=== PATIENT | female | born 1960 | race Caucasian/White ===

== ENCOUNTER → 2020-08-12 10:04 | Outpatient (BNVA) | payer SELFPAY | PROVIDERS: PCP Internal Medicine; Visit Provider Internal Medicine ==

== ENCOUNTER → 2021-08-12 09:00 | Outpatient (BNVA) | payer SELFPAY | PROVIDERS: PCP Internal Medicine; Visit Provider Internal Medicine | DX: Z02.79 Encounter for issue of other medical certificate (principal) ==

== ENCOUNTER → 2022-08-09 12:56 | Outpatient (BNVA) | payer SELFPAY | PROVIDERS: PCP Internal Medicine; Visit Provider Internal Medicine | DX: Z02.79 Encounter for issue of other medical certificate (principal) ==

== ENCOUNTER → 2023-08-09 09:56 | Outpatient (BNVA) | payer SELFPAY | PROVIDERS: PCP Internal Medicine; Visit Provider Physician Assistant | DX: Z02.79 Encounter for issue of other medical certificate (principal) ==

== ENCOUNTER → 2024-08-09 10:23 | Outpatient (BNVA) | payer SELFPAY | PROVIDERS: PCP Internal Medicine; Visit Provider Physician Assistant | DX: Z02.79 Encounter for issue of other medical certificate (principal) ==

== ENCOUNTER 2024-09-13 10:23 | Outpatient (REF) | payer OTHER, SELFPAY ==
--- NOTE | ~2024-09-13 | XR_ITS ---
EXAMINATION: XR LUMBAR SPINE CLINICAL INFORMATION: Spondylolisthesis, lumbar region M43.16. COMPARISON: None TECHNIQUE: AP and lateral views of the lumbar spine including lateral flexion and extension FINDINGS: There is a levoscoliosis of the lower thoracic and upper lumbar spine. Normal vertebral body heights is seen. There is a grade 1 anterolisthesis of L4 3 on L4 of approximately 1.3 cm on the neutral view which does not significantly change with flexion or extension. Diffuse degenerative disc disease is seen from L2 through S1. Severe posterior facet joint arthropathy is seen at L3/L4 causing the anterolisthesis. Additional facet joint arthropathy is seen at the L4/5 and L5/S1, left greater than right XR/XR lumbar spine 4V min IMPRESSION: 1. Grade 1 anterolisthesis of L3 on L4 secondary to severe posterior facet joint arthropathy. 2. Diffuse degenerative disc disease. 3. Facet joint arthropathy as described above. Electronically signed by: Devan Wilkerson MD 09/24/2024 01:02 PM [facility]
== END 2024-09-13 10:24 | disposition home or self-care (01) ==
LOC: HO.HOSX 10:23
PROVIDERS: PCP Internal Medicine; Referring Provider Internal Medicine; Visit Provider Physician Assistant
DX: M43.16 Spondylolisthesis, lumbar region (principal)
CPT/HCPCS: 72110

== ENCOUNTER 2024-09-13 10:23 | Outpatient (AMB) | payer OTHER, SELFPAY ==
--- NOTE | 2024-09-13 10:34 | A.SPINEOV_ITS ---
Vital Signs 09/13/24 10:38 Height 5 ft 4 in Weight 253 lb BMI 43.4 Intake Visit Reasons: LBP Intake Note: Ms. Ng is here today c/o low back pain. Cra Required: No Allergies No Known Allergies Allergy (Verified 09/13/24 10:39) Physical Exam Vital Signs: BMI result Body Mass Index 43.4 Assessment & Plan Assessment & Plan (1) Spondylolisthesis, lumbar region: Code(s): M43.16 - Spondylolisthesis, lumbar region Category: Medical Plan Dear DR Ruth, Thank you for referring Mrs Ng to our office today. She is a very nice 63-year-old female who underwent lumbar decompression by Dr. Bravo in 2016. It sounds like she had an L3-4 and L4-5 decompression for what was primarily back pain at that time. Unfortunately, she never really had significant relief from her symptoms. She has continued to just try to push through it, and deal with the pain. Over the last few years she has also developed a significant amount of leg pain, left greater than right. It shoots all the way down to her calf and her foot. She has gotten to the point now over the last 6 months to a year where she barely leaves the house to go out do even simple things like shopping because it is just too painful. What she describes as midline low back pain radiating down both legs, left greater than right. Even standing just to do dishes is often. From the morning when she gets up throughout the whole day she is in discomfort. She has been taking Tylenol and ibuprofen but that does not really do much. 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 She has been through physical therapy, hospice spiritual care coordinator as well as cortisone injections. She has it had a number of rounds of injections, I believe facet blocks and these did give her some temporary relief for short period of time. She is very frustrated with her quality of life at this point. She had an MRI from [facility] last year showing moderate to severe stenosis at L3-4 with an anterior listhesis at L3-4 as well as postsurgical changes at L4-5 with residual stenosis. PMH: She is a history of obesity, COPD, she takes a Symbicort inhaler twice a day, IBS, sleep apnea, tubal ligation, tonsillectomy, appendectomy, basal cell cancer. As mentioned above she does have previous history of back surgery in 2016. No history of heart attack, stroke, liver disease, kidney disease, coagulopathy, blood clots, cancer, major abdominal surgery. Social hx: She does not smoke, drink use any recreational drugs Medications: Primidone, Symbicort, oxycodone, BuSpar, Tylenol, ibuprofen Allergies: None Physical exam: She is awake alert oriented no acute distress, she is able stand up out of a chair and walk, she walks with a slightly flexed posture, strength and reflexes are intact. Imaging review: There is a report from the [employer] system, I could not see the films but it shows postsurgical changes at L3-4 with residual moderate to severe stenosis with an anterior listhesis at L3-4 as well as postsurgical changes at L4-5 with lateral recess stenosis. Impression: 63-year-old female history of a previous L3-4, L4-5 decompression done by in 2016 for back pain, who never really had great relief for the symptoms at that time, who has progressed now to severe back pain and bilateral leg pain, left greater than right with standing walking. It does get better when she sits down. Her most recent MRI done about a year and a half ago shows spondylolisthesis at L3-4 with moderate to severe stenosis superimposed on postsurgical changes with similar findings at L4-5. I was unable to look at the films due to some technical complications with the computer system. However, in light of the fact that she has had such a progression of her symptoms over the last year more, I think it important we get a new MRI with and without gadolinium so we can take a closer look at the lumbar anatomy up to date. It sounds like she might be developing a postoperative spondylolisthesis at the previous surgical site with stenosis. If this is the case, typically this is something Dr. Milligan could correct with a minimally invasive fusion. Obviously we will need to see the films. Also I will get flexion-extension x- rays. I would like to see her back in the office once these are completed. Thank you for allowing us to care for your patient. The total time spent with this visit with this patient was 45 minutes reviewing history, physical exam, lumbar imaging review, and implementation of treatment plan or further diagnostic testing Naun Milligan MD,PhD [facility] Orders: Orders MR lumbar spine wo/w con Today M43.16 - Spondylolisthesis, lumbar region XR lumbar spine 4V min Today M43.16 - Spondylolisthesis, lumbar region Coding Level of Care Code New Pt Level 4 (43806) Diagnoses Spondylolisthesis, lumbar region M43.16
[2024-09-13 10:38] VITALS: BMI 43.4
== END 2024-09-13 11:48 | disposition home or self-care (01) ==
PROVIDERS: PCP Internal Medicine; Referring Provider Internal Medicine; Visit Provider Physician Assistant
DX: M43.16 Spondylolisthesis, lumbar region (principal)
CPT/HCPCS: 99204

== ENCOUNTER → 2024-10-28 09:49 | Outpatient (BNV) | payer MEDICARE, SELFPAY | PROVIDERS: Visit Provider Radiology Diagnostic Radiology | DX: M47.9 Spondylosis, unspecified (principal); M48.061 Spinal stenosis, lumbar region without neurogenic claudication | CPT/HCPCS: 72158 ==

== ENCOUNTER 2024-10-28 10:17 | Outpatient (REF) | payer MEDICARE, SELFPAY ==
--- NOTE | ~2024-10-28 | MR_ITS ---
EXAMINATION: MR LUMBAR SPINE WITHOUT AND WITH CONTRAST CLINICAL INFORMATION: Spondylolisthesis, lumbar region. COMPARISON: None available. TECHNIQUE: MRI of the lumbar spine was obtained using routine sequences with and without contrast. Intravenous contrast: Gadavist 10.0 mL without reported immediate complications. FINDINGS: Last rib-bearing vertebra labeled T12. There is a grade 1 anterolisthesis, L3-4. There is a 1 mm retrolisthesis at L5-S1 and to a lesser extent L2-3 and L4-5 levels. There is multilevel marginal osteophyte formation and disc desiccation from L2-3 to L5-S1 more conspicuous at L4-5. There is multilevel Modic type I and type II endplate changes throughout the axial skeleton. No gross abnormal enhancing lesion within the thecal sac or the prevertebral compartment. There is a levoconvex rotoscoliosis apex at L2 and dextroconvex rotoscoliosis apex at L3-4. The conus medullaris ends at pedicle of L1 with normal signal. T12-L1: No disc herniation. Facet joint hypertrophy. No neuroforamina stenosis. L1-2: Broad-based disc bulging. Facet joint and ligamentum flavum hypertrophy. Reduced AP diameter of the thecal sac and neuroforamina without compression upon neural elements. L2-3: Broad-based disc bulging. Facet joint and ligamentum flavum hypertrophy. Reduced AP diameter of the thecal sac and bilateral neuroforamina narrowing likely encroaching the neural elements. L3-4: Grade 1 anterolisthesis. Broad-based disc bulging. Facet joint hypertrophy. Facet effusions. Reduced AP diameter of the thecal sac and bilateral neuroforamina narrowing likely encroaching the neural elements. L4-5: Broad-based disc bulging. Facet joint hypertrophy. Status post resection of the posterior spinous processes. Bilateral neuroforamina narrowing more conspicuous on the left side likely encroaching the exiting nerve root. Reduced AP diameter of the thecal sac. L5-S1: Broad-based disc bulging. Facet joint hypertrophy. Facet joint effusions. Reduced AP diameter of the thecal sac and the neural foramina more conspicuous in the left side likely encroaching the exiting nerve roots. MR/MR lumbar spine wo/w con IMPRESSION: Multilevel spondylosis resulting in grade 1 anterolisthesis L3-4 subtle grade 1 retrolisthesis L2-3, L5-S1 causing multilevel central spinal canal stenosis more conspicuous at L3-4 and left-sided neuroforamina stenosis from L2-3 to L5-S1 levels likely encroaching the neural elements. No gross abnormal enhancing lesion/mass or fluid collections. Electronically signed by: Dudley Rooney MD 10/28/2024 12:46 PM [facility]
[2024-10-28] MEDS: gadobutroL 10 ML VIAL IVPUSH (12:04)
--- OUTSIDE RECORDS SUMMARY | 2024-10-28 14:56 | XMS_ITS | Encounter Summary ---
Author Organization [employer] Address [address] [place] [address] [address] [place] [address] Care Team Providers Care Hat Checker Name Role Phone Unavailable Primary Care Provider Unavailabl e Encounter Details Date Type Department Care Team (Late st Contact Info) Description 06/04/2024 Orders Only [facility] [address] [place] [address] Mildred Joy, OD [address] [place] [address] Social History Tobacco Use Types Packs/Day Years Used Date Smoking Tobacco: Former Cigarettes Comments Unknown Sex and Gender Information Value Date Recorded Sex Assigned at Female 05/22/2024 4:46 PM EDT Legal Sex Female 8:32 PM EDT Gender Identity Female 05/22/2024 4:46 PM EDT Sexual Orientation Straight 05/22/2024 4: 46 PM EDT documented as of this encounter Plan of Treatment Not on file documented as of this encounter Visit Diagnoses Not on filedocumented in this encounter Care Teams Hat Checker Relationship Specialty Start Date End Date SHAGGY HANEY MANUEL [address] [place] [address] ?? Primary Care Provider 10/02/23 documented as of this encounter
--- OUTSIDE RECORDS SUMMARY | 2024-10-28 14:56 | XMS_ITS | Clinical Summary ---
Author Organization [employer] Address [address] [place] [address] [address] [place] [address] Care Team Providers Care Shim Plug Cutter Name Role Phone Unavailable Primary Care Provider Unavailabl e Allergies No known active allergies Medications No known medications Active Problems No known active problems Family History Medical History Relation Name Comments Glaucoma Father Glaucoma Glaucoma Mother Glaucoma Relation Name Status Comments Father Glaucoma Mother Glaucoma Social History Tobacco Use Types Packs/Day Years Used Date Smoking Tobacco: Former Cigarettes Tobacco Cessation:Counseling Given: Not Answered Comments Unknown Sex and Gender Information Value Date Recorded Sex Assigned at Female 05/22/2024 4:46 PM EDT Legal Sex Female 8:32 PM EDT Gender Identity Female 05/22/2024 4:46 PM EDT Sexual Orientation Straight 05/22/2024 4: 46 PM EDT Plan of Treatment Health Maintenance Due Date Last Done Comments CT Colonography 1959 Colonoscopy 1959 Colorectal Cancer Screening 1959 Depression Screening 1959 FIT DNA/Cologuard 1959 FIT 1959 FOBT 1959 Lipid Panel 1959 SDOH Screening 1959 Sigmoidoscopy 1959 Alcohol/Substance Use Screening 1971 Hepatitis C Screening 1977 Hepatitis A Vaccines (1 of 2 - Risk 2-dose series) 1978 Pap Smear 1980 Cervical Cancer Screening 1989 HPV/Cotest 1989 Mammogram 1999 Pneumococcal Vaccine: 65+ Years (2 of 2 - PCV) 11/23/2005 11/23/2004 Zoster Vaccines (1 of 2) 2009 Hepatitis B Vaccines (1 of 3 - Risk 3-dose series) 2019 RSV Patients and Patients Aged 60 years or older (1 - Risk 60-74 years 1-dose series) 2019 DTaP/Tdap/Td Vaccines (2 - Td or Tdap) 04/30/2024 04/30/2014, 03/21/2005 COVID-19 Vaccine ( season) 2024 10/07/2021, 01/10/2021, 12/20/2020 Influenza Vaccine (#1) 2024 , 09/09/2020, 09/09/2020, Additional history exists Tobacco Screening 06/04/2025 06/04/2024 HIB Vaccines Aged Out No longer eligi ble based on patient's age to complete this topic HPV Vaccines Aged Out No longer eligi ble based on patient's age to complete this topic IPV Vaccines Aged Out No longer eligi ble based on patient's age to complete this topic Meningococcal Vaccine Aged Out No rock tamie eligible based on patient's age to complete this topic RSV under 20 months Aged Out No longe r eligible based on patient's age to complete this topic Rotavirus Vaccines Aged Out No longer eligible based on patient's age to complete this topic Insurance [facility] , [address] [place] [address] Care Teams Shim Plug Cutter Relationship Specialty Start Date End Date SHAGGY HANEY [address] [address] ?? Primary Care Provider 10/02/23
--- OUTSIDE RECORDS SUMMARY | 2024-10-28 14:56 | XMS_ITS | Clinical Summary ---
Author Organization [facility] [address] [facility] Address [address] [place], [place] Phone Care Team Providers Care Drapery Examiner Name Role Phone Shyam Ruth MD Primary Care Provider Allergies No known active allergies Medications Medication Sig Dispensed Refills Start Date End Date Status nystatin (MYCOSTATIN) 100,000 unit/gram powder Apply topically 3 (three) times a day. Abdominal rash 3 Active buPROPion XL (WELLBUTRIN XL) 150 mg 24 hr tablet Take 1 tablet (150 mg total) by mouth 1 (one) time each day. In addition to 300mg every am. 3 Active buPROPion XL (WELLBUTRIN XL) 300 mg 24 hr tablet Take 1 tablet (300 mg total) by mouth 1 (one) time each day. In addition to 150mg every am. 3 Active omeprazole (PriLOSEC) [address] capsule Take 1 capsule (20 mg total) by mouth 1 (one) time each day. 1 Active miscellaneous medical supply misc CPAP Historical (HISTORICAL CPAP) Inhale into the lungs. BHIR-pressure 10-20 with 2 liter oxygen Active acetaminophen (TYLENOL 8 HOUR) 650 mg 8 hr tablet Take 1 tablet (650 mg total) by mouth every 8 (eight) hours if needed (pain). Do not crush, chew, or split. Active albuterol HFA (PROAIR HFA ; PROVENTIL HFA ; VENTOLIN HFA) 90 mcg/actuation inhaler Inhale 2 puffs by mouth every 4 (four) hours if needed for wheezing or shortness of breath. 8 g 3 4 Active albuterol 2.5 mg /3 mL (0.083 %) nebulizer solution Take 3 mL by nebulization every 4 (four) hours if needed for wheezing. 75 mL 2 4 Active Symbicort 160-4.5 mcg/actuation inhalerIndicati ons:Obstructive sleep apnea (adult) (pediatric),Astrid trilobular emphysema (CMS/HCC) INHALE 2 PUFFS INTO THE LUNGS TWICE A DAY 10.2 each 5 4 Active primidone (MYSOLINE) 50 mg tablet TAKE 3 TABLETS BY MOUTH AT BEDTIME 270 tablet 5 Active oxyCODONE-aceta minophen (PERCOCET) 5-325 mg per tablet Take 1 tablet by mouth every 12 (twelve) hours if needed for moderate pain or severe pain. Max Daily Amount: 2 tablets 56 tablet 4 Active primidone (MYSOLINE) 50 mg tablet Take 3 tablets (150 mg total) by mouth at bedtime. 10/03/19 25 Discontinued oxyCODONE-aceta minophen (PERCOCET) 5-325 mg per tablet Take 1 tablet by mouth every 12 (twelve) hours if needed for moderate pain or severe pain. Max Daily Amount: 2 tablets 56 tablet 4 09/30/20 24 Discontinued(Reo rder) Active Problems Problem Noted Date Diagnosed Date Metabolic dysfunction-associ ated steatotic liver disease (MASLD) 08/22/2024 Morbid obesity with BMI of 40.0-44.9, adult 07/02 Intertriginous candidiasis 02/21/2024 History of lumbar laminectomy 11/30/2023 History of basal cell carcinoma 11/30/2023 Overview (08/22/2024): Left forearm excised 2023. Osteoarthritis of spine with radiculopathy, lumb ar region 03/29/2023 Overlap syndrome 06/05/2018 Centrilobular emphysema 06/05/2018 Primary osteoarthritis of both knees 01/30/2018 Nonulcer dyspepsia 11/16/2017 IBS (irritable bowel syndrome) 11/16/2017 Obstructive sleep apnea 06/10/2017 Overview (07/11/2024): Obstructive sleep apnea moderate AHI 19/REM AHI 27 with sleep related hypoventilation PLMD (periodic limb movement disorder) 7 Asthma, well controlled 06/06/2012 Overview (07/11/2024): Asthma, moderate persistent, well-controlled Depression 03/02/2012 Nausea 02/16/2011 Overview (11/30/2023): EGD nl 02/08; H pylori Ab neg; phenergan no benefit; celiac nl Hidradenitis suppurativa 02/16/2011 Overview (11/30/2023): groin Allergic rhinitis 01/25/2011 DUB (dysfunctional uterine bleeding) 12/01/2010 Overview (11/30/2023): Endometrial biopsy performed on 12/14/2010: Benign; patient started on the oral contraceptive on 12/24/2010. 05/26/2011: Good response to the oral contraceptive. Resolved Problems Problem Noted Date Diagnosed Date Resolved Date NAFLD (nonalcoholic fatty liver disease) 11/16/2017 08/22/2024 Encounters Date Type Department Care Team Description 09/03/2024 11:15 AM EST Office Visit Adult Medicine [address] [phone] Shyam Ruth MD Chest pain, unspecified type (Primary Dx); Centrilobular emphysema (CMS/HCC); Pain of toe of right foot 08/28/2024 Telephone Adult Medicine [address] [phone] Shyam Ruth MD 08/28/2024 Telephone Adult [address] [phone] Shyam Ruth MD ER-FOLLOW UP 08/22/2024 11:00 AM EST Office Visit Adult [address] [phone] Shyam Ruth MD Encounter for long-term current use of high risk medication (Primary Dx); PLMD (periodic limb movement disorder); Centrilobular emphysema (CMS/HCC); Osteoarthritis of spine with radiculopathy, lumbar region; Encounter for screening for malignant neoplasm of colon; Need for vaccination against Streptococcus pneumoniae; Need for prophylactic vaccination and inoculation against influenza; Need for tetanus, diphtheria, and acellular pertussis (Tdap) vaccine; History of basal cell carcinoma (BCC) of skin; Encounter for screening for HIV; Encounter for completion of form with patient; History of basal cell carcinoma 08/22/2024 Telephone Adult Medicine [address] [phone] Shyam Ruth MD Forms/questionnaires from Last 3 Months Immunizations Name Administration Dates Next Due Influenza Quadravalent, MDCK , 0.5ml, preservative free (Flucelvax) 6mo and older 07/03/2023 Influenza Quadravalent, MDCK , 0.5ml, with preservative (Flucelvax) 6mo and older 07/26/2017 Influenza trivalent, MDCK, 0 .5mL, preservative free (Flucelvax) 6mo and older 08/22/2024 Influenza trivalent, with pr eservative (Fluzone; Afluria) 6mo and older 09/09/2020,10/01/2015,08/14/2013,08/25,07/27/2011,09/29/2005 Moderna SARS-CoV-2 COVID-19, mRNA, LNP-S, preservative free 10/07/2021 Pfizer SARS-CoV-2 COVID-19, mRNA, LNP-S, preservative free 01/10/2021,12/20/2020 Pneumococcal conjugate 20 va lent (Prevnar 20, PCV 20) 2mo and older 08/22/2024 Pneumococcal polysaccharide 23 valent (Pneumovax 23) 2yo and older 11/23/2004 Td Tetanus diptheria (Tdvax) 7yo and older 03/21/2005 Tdap Tetanus diptheria acell ular pertussis (Boostrix; Adacel) 7yo and older 08/22/2024,04/30/2014 Surgical History Surgery Date Site/Laterality Comments TONSILLECTOMY PROCEDURE: HISTORICAL TONSILLECTOMY SECTION 1984 PROCEDURE: HISTORICAL DELIVERY TUBAL LIGATION 1984 PROCEDURE: HISTORICAL TUBAL LIGATION APPENDECTOMY 2006 PROCEDURE: LAPAROSCOPIC APPENDECTOMY OTHER SURGICAL HISTORY 2006 PROCEDURE: ID CLSR ENTEROENTERIC/ENTEROCOLIC FSTL COLONOSCOPY 2006 PROCEDURE: HISTORICAL COLONOSCOPY; COMMENT: no polyps; done at [facility] COLONOSCOPY 2014 PROCEDURE: HISTORICAL COLONOSCOPY; COMMENT: RBMG; normal BACK SURGERY 07/2016 PROCEDURE: HISTORICAL BACK SURGERY; COMMENT: decompression UPPER GASTROINTESTINAL ENDOSCOPY 11/02/2017 PROCEDURE: UPPER GI ENDOSCOPY/EXAM; COMMENT: mild gastritis. normal esophagus and duodenum Medical History Medical History Date Comments Menorrhagia DX:Menorrhagia COPD (chronic obstructive pu lmonary disease) ([facility]) DX:COPD (chronic obstructive pulmonary disease) ([facility]) Asthma, moderate persistent, well-controlled 06/06/2012 DX:Asthma, moderate persiste nt, well-controlled Diverticulosis DX:Diverticulosi s History of basal cell carcinoma 12/29/2010 DX:History of basal cell carcinoma Morbid obesity ([facility]) 12/15/2014 DX:Morb id obesity ([facility]) Nonulcer dyspepsia 11/16/2017 DX:Nonulcer d yspepsia IBS (irritable bowel syndrome) 11/16/2017 D X:IBS (irritable bowel syndrome) NAFLD (nonalcoholic fatty li luis disease) 11/16/2017 DX:NAFLD (nonalcoholic fatty liver disease) Allergic rhinitis 01/25/2011 DX:Allergic rh initis Morbid obesity with BMI of 4 0.0-44.9, adult ([facility]) 12/15/2014 DX:Morbid obesity with BMI o f 40.0-44.9, adult ([facility]) Centrilobular emphysema ([facility]/HCC) 06/05/2018 DX:Centrilobular emphysema (HCC) 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 05/26/2011: Good response to the oral contraceptive. Hidradenitis suppurativa 02/16/2011 DX:Hidr adenitis suppurativa; COMMENT: groin Nausea 02/16/2011 DX:Nausea; COMME NT: EGD nl 02/08; H pylori Ab neg; phenergan no benefit; celiac nl Obstructive sleep apnea 06/10/2017 DX:Obstr uctive sleep apnea; COMMENT: Overlap syndrome ([facility]) 06/05/2018 DX:Ov erlap syndrome ([facility]) PLMD (periodic limb movement disorder) 06/10/2017 DX:PLMD (periodic limb movem ent disorder) Primary osteoarthritis of both knees 01/30/2018 DX:Primary osteoarthritis of both knees Primary osteoarthritis of both knees DX:Primary osteoarthritis of both knees Family History Medical History Relation Name Comments Colon cancer Aunt 1 maternal aunt Other: cancer,other Aunt 2 paternal aunt Lung cancer Aunt 3 paternal aunt Hypertension Brother 1 valvular issue Other: liver cancer Brother 2 Other: Heart murmur Daughter 1 prematur e, HIV Asthma Daughter 2 Lymphoma Father bleeding ulcer Lung cancer Maternal Grandfather > age 50, smoker Colon cancer Maternal Grandmother started with intestinal ca Heart attack Mother Other cancer Mother basal cell, conchita g ca Other: ovarian cancer Mother USO at 29; USO and MEME at age 37 Other: cancer,other Other 1 maternal gr uncle ? primary Other: cancer,other Other 2 paternal first cousin- Other: cancer,other Other 3 paternal first cousin ? primary in his 60s Cirrhosis Paternal Grandfather Stroke Paternal Grandmother 60s Other: Breast cyst Sister Lung cancer Uncle 1 maternal uncle Other cancer Uncle 2 ? primary, mate rnal uncle Leukemia Uncle 3 paternal uncle Breast cancer Neg Hx Relation Name Status Comments Aunt 1 Aunt 2 Aunt 3 Brother 1 Alive Brother 2 Daughter 1 Alive Daughter 2 Alive Father Maternal Grandfather Maternal Grandmother Mother Other 1 Other 2 Other 3 Paternal Grandfather Paternal Grandmother Sister Alive Uncle 1 Uncle 2 Uncle 3 Social History Tobacco Use Types Packs/Day Years Used Date Smoking Tobacco: Former Cigarettes Q uit: 06/22/2003 Smokeless Tobacco: Never Tobacco Cessation:Counseling Given: Not Answered Alcohol Use Standard Drinks/Week Comments Yes 0 (1 standard drink = 0.6 oz pur e alcohol) Housing Instability Answer Date Recorde d Are you worried that in the next 2 months you may not have stable housing? No 08/15/2024 Food Access & Nutrition Answer Date Rec orded Do you have access to a vari ety of food including fruits and vegetables? Yes 08/15/2024 Access to Healthcare Answer Date Record ed Within the last 3 months, ho w many times did you visit the emergency department for your medical care? 0 08/15/2024 Health Literacy Answer Date Recorded How often do you need to hav e someone help you when you read instructions, pamphlets, or other written material from your doctor or pharmacy? Never 08/15/2024 Caregiver: How often do you need to have someone help you when you read instructions, pamphlets, or other written material from your doctor or pharmacy? Not on file 08/15/2024 Financial Risk Answer Date Recorded How hard is it for you to pa y for the very basics like food, housing, medical care, and air conditioning / heating? Not very hard 08/15/2024 Transportation Answer Date Recorded Has the lack of transportati on kept you from meetings, work, or from getting things needed for daily living? No Has the lack of transportati on kept you from medical appointments or from getting medications? No 08/15/2024 Social Isolation Answer Date Recorded How often do you feel lonely or isolated from th ose around you? Never 08/15/2024 Food Risk Answer Date Recorded Within the past 12 months we worried whether our food would run out before we got money to buy more. Never true 08/15/2024 Within the past 12 months th e food we bought just didn't last and we didn't have money to get more. Never true 08/15/2024 Dependent Care Answer Date Recorded Do you need help finding or paying for care for your loved ones. For example, children librarian or elderly care for an older adult? No 08/15/2024 Education Answer Date Recorded Do you think completing more education or training, like finishing a GED, going to college, or learning a trade, would be helpful for you? No 08/15/2024 Employment and Income Answer Date Recor ded During the last four weeks, have you been actively looking for work? No 08/15/2024 Living Situation Answer Date Recorded What is your living situation? 1 10/15/2023 Sex and Gender Information Value Date Recorded Sex Assigned at Female 09/03/2024 10:14 AM EST Gender Identity Female 09/03/2024 10:14 AM EST Sexual Orientation Not on file Job Start Date Occupation Industry Not on file Not on file Not on file Obstetrics History Last Filed Vital Signs Vital Sign Reading Time Taken Comments Blood Pressure 110/72 09/03/2024 11:04 AM EST Pulse 68 09/03/2024 11:04 AM EST Temperature 36.3 ??C (97.4 ??F) 09/03/2024 11:[address] Respiratory Rate 16 09/03/2024 11:04 AM EST Oxygen Saturation 98% 09/03/2024 11:04 AM EST Inhaled Oxygen Concentration - - Weight 116 kg (256 lb) 09/03/2024 11:04 AM EST Height 162.6 cm (5' 4 ) 02/21/2024 11:08 AM EDT Body Mass Index 43.94 02/21/2024 11:08 AM EDT Plan of Treatment Upcoming Encounters Date Type Department Care Team (Late st Contact Info) Description 12/03/2024 10:15 AM EST Consult Orthopedic Surgery - [place] [address] [phone] Brian Bryant, DPM [address] [phone] 12/12/2024 10:40 AM EDT Appointment Radiology Department [address] [phone] 02/05/2025 11:00 AM EDT Appointment [facility] Endoscopy [address] [place] [phone] Deepali Gaona MD 175 [facility] [address] [place] [address] Health Maintenance Due Date Last Done Comments Zoster Vaccines (1 of 2) 1978 RSV Immunization Patients 60+ Years Old (1 - Risk 60-74 years 1-dose series) 2019 Osteoporosis Screening (Bone Density Screening) 09/09/2022 COVID-19 Vaccine ( season) 2024 10/07/2021, 01/10/2021, 12/20/2020 Colorectal Cancer Screening: Colonoscopy 10/07/2024 10/07/2014, 10/07/2014 Falls Risk Assessment 2024 Depression Screening 08/15/2025 08/15/2024 Social Influencers of Health Screening 08/15/2025 08/15/2024 Breast Cancer Screening 12/03/2025 12/04/19 24, 11/30/2022, 04/17/2020, Additional history exists Cholesterol Screening (Lipid Panel) 03/29/2028 03/29/2023, 03/29/2023 Cervical Cancer Screening: HPV 07/21/2028 07/21/2023 DTaP,Tdap,and Td Vaccines (4 - Td or Tdap) 08/22/2034 08/22/2024, 04/30/2014, 03/21/2005 Hepatitis C Screening Completed 03/12/2013 Influenza Vaccine Completed 08/22/2024, , 09/09/2020, Additional history exists Pneumococcal Vaccine: 65+ Years Completed 08/22/2024, 11/23/2004 Pneumococcal Vaccine: Pediatrics (0 to 5 Years) and At-Risk Patients (6 to 64 Years) Completed 08/22/2024, 11/23/2004 HIB Vaccines Aged Out No longer eligi ble based on patient's age to complete this topic HPV Vaccines Aged Out No longer eligi ble based on patient's age to complete this topic Hepatitis A Vaccines Aged Out No long er eligible based on patient's age to complete this topic Hepatitis B Vaccines Aged Out No long er eligible based on patient's age to complete this topic IPV Vaccines Aged Out No longer eligi ble based on patient's age to complete this topic MMR Vaccines Aged Out No longer eligi ble based on patient's age to complete this topic Meningococcal ACWY Vaccine Aged Out N o longer eligible based on patient's age to complete this topic RSV Immunization Patients Under 20 months Aged Out No longer eligible based on patient's age to complete this topic Varicella Vaccines Aged Out No longer eligible based on patient's age to complete this topic Procedures Procedure Name Priority Date/Time Associated Diagnosis Comments EXTERNAL XRAY REPORT 09/24/2024 CBC WITH AUTO DIFFERENTIAL Routine 08/22/2024 12:45 PM EST Centrilobular emphysema (CMS/HCC) Osteoarthritis of spine with radiculopathy, lumbar region Encounter for long-term current use of high risk medication CBC AND DIFFERENTIAL Routine 08/22/2024 12:45 PM EST Centrilobular emphysema (CMS/HCC) Osteoarthritis of spine with radiculopathy, lumbar region Encounter for long-term current use of high risk medication COMPREHENSIVE METABOLIC PANEL Routine 08/22/2024 12:45 PM EST Centrilobular emphysema (CMS/HCC) Osteoarthritis of spine with radiculopathy, lumbar region Encounter for long-term current use of high risk medication HIV 1, 2 ANTIBODY, P24 ANTIGEN WITH REFLEX TO DIFFERENTIATION Routine 08/22/2024 12:45 PM EST Encounter for screening for HIV SCREENING MAMMOGRAPHY BI 2-VIEW BREAST INC CAD Routine 12/04/2023 5:58 PM EST Encounter for screening mammogram for malignant neoplasm of breast HPV Routine 07/21/2023 LIPID PANEL Routine 03/29/2023 COLONOSCOPY Routine 10/07/2014 HEPATITIS C SCREENING Routine 03/12/2013 from Last 3 Months or Most Recently Relevant to Health Maintenance Results * External Xray Report (09/24/2024) Anatomical Region Laterality Modality Radiographic Tg ging Provider [facility] XR PROCEDURE S * HIV 1,2 antibody, p24 antigen with reflex to differentiation (08/22/2024 12:45 PM EST) [facility] [address] HIV Combo AB/AG Negative Negative LAB CHEMISTRY METHOD 08/22/2024 6:25 PM EST [facility] Blood Venous blood specimen / Unknown Venipuncture / Unknown 08/22/2024 12:45 PM EST 08/22/2024 12:45 PM EST Narrative [facility] - 08/22/2024 6:25 PM EST This assay is a 4th generation assay allowing for earlier detection of HIV infection by detecting the presence of the HIV-1 p24 antigen as well as the traditional antibodies to HIV type 1 (including group O) and type 2. ??Use of a 4th generation assay is the current CDC recommendation for HIV screening. Shyam Ruth MD LAB BLOOD BARDOLPHTrevon DANG [facility] [address] [place] [address], * (ABNORMAL) CBC auto differential (08/22/2024 12:45 PM EST) [facility] [address] WBC 8.1 4.8 - 10.8 K/mcL LAB HEMETOLOGY METHOD 08/22/2024 2:02 PM [facility] RBC 4.50 3.80 - 4.80 M/mcL LAB HEMETOLOGY METHOD 08/22/2024 2:02 PM [facility] Hemoglobin 13.1 11.5 - 16.0 g/dL LAB HEMETOLOGY METHOD 08/22/2024 2:02 PM [facility] Hematocrit 41.9 35.0 - 47.0 % LAB HEMETOLOGY METHOD 08/22/2024 2:02 PM [facility] MCV 92.9 79.0 - 98.0 FL LAB HEMETOLOGY METHOD 08/22/2024 2:02 PM [facility] MCH 29.0 27.0 - 32.0 pcg LAB HEMETOLOGY METHOD 08/22/2024 2:02 PM [facility] MCHC 31.3(L) 32.0 - 37.0 g/dL LAB HEMETOLOGY METHOD 08/22/2024 2:02 PM [facility] RDW 13.1 11.0 - 15.0 % LAB HEMETOLOGY METHOD 08/22/2024 2:02 PM [facility] Platelets 261 130 - 400 K/mcL LAB HEMETOLOGY METHOD 08/22/2024 2:02 PM [facility] MPV 10.6 7.0 - 11.0 FL LAB HEMETOLOGY METHOD 08/22/2024 2:02 PM [facility] NRBC 0.0 <1.0 % LAB HEMETOLOGY METHOD 08/22/2024 2:02 PM [facility] NRBC Absolute 0.00 <0.10 K/mcL LAB HEMETOLOGY METHOD 08/22/2024 2:02 PM [facility] Neutrophils Relative 50.6 % LAB HEMETOLOGY METHOD 08/22/2024 2:02 PM [facility] Lymphocytes Relative 38.8 % LAB HEMETOLOGY METHOD 08/22/2024 2:02 PM [facility] Monocytes Relative 7.2 % LAB HEMETOLOGY METHOD 08/22/2024 2:02 PM [facility] Eosinophils Relative 2.3 % LAB HEMETOLOGY METHOD 08/22/2024 2:02 PM [facility] Basophils Relative 0.9 % LAB HEMETOLOGY METHOD 08/22/2024 2:02 PM [facility] Immature Granulocytes Relative 0.2 % LAB HEMETOLOGY METHOD 08/22/2024 2:02 PM EST [facility] Neutrophils Absolute 4.10 1.50 - 7.00 K/mcL LAB HEMETOLOGY METHOD 08/22/2024 2:02 PM [facility] Lymphocytes Absolute 3.14 1.00 - 5.00 K/mcL LAB HEMETOLOGY METHOD 08/22/2024 2:02 PM [facility] Monocytes Absolute 0.58 0.20 - 1.00 K/mcL LAB HEMETOLOGY METHOD 08/22/2024 2:02 PM [facility] Eosinophils Absolute 0.19 0.00 - 0.50 K/mcL LAB HEMETOLOGY METHOD 08/22/2024 2:02 PM [facility] Basophils Absolute 0.07 0.00 - 0.20 K/mcL LAB HEMETOLOGY METHOD 08/22/2024 2:02 PM [facility] Immature Granulocytes Absolute 0.02 0.00 - 0.03 K/mcL LAB HEMETOLOGY METHOD 08/22/2024 2:02 PM [facility] Blood Venous blood specimen / Unknown Venipuncture / Unknown 08/22/2024 12:45 PM EST 08/22/2024 12:45 PM EST Shyam Ruth MD LAB BLOOD DAVIE DANG [facility] Organization Address City/State/ZIP Co de Phone Number [facility] [address] [place] [address], * Comprehensive metabolic panel (08/22/2024 12:45 PM EST) Sodium 141 133 - 145 mmol/L LAB CHEMISTRY METHOD 08/22/2024 5:35 PM [facility] Potassium 4.5 3.5 - 5.5 mmol/L LAB CHEMISTRY METHOD 08/22/2024 5:35 PM [facility] Chloride 106 96 - 110 mmol/L LAB CHEMISTRY METHOD 08/22/2024 5:35 PM [facility] CO2 30 21 - 32 mmol/L LAB CHEMISTRY METHOD 08/22/2024 5:35 PM [facility] Anion Gap 5 3 - 11 LAB CHEMISTRY METHOD 08/22/2024 5:35 PM [facility] Glucose 95 70 - 100 mg/dL LAB CHEMISTRY METHOD 08/22/2024 5:35 PM [facility] BUN 15 5 - 25 mg/dL LAB CHEMISTRY METHOD 08/22/2024 5:35 PM [facility] Creatinine 0.87 0.50 - 1.10 mg/dL LAB CHEMISTRY METHOD 08/22/2024 5:35 PM [facility] eGFR 75 >=60 mL/min/1. 73m2 LAB CHEMISTRY METHOD 08/22/2024 5:35 PM [facility] Comment:Calculation based on the??Chronic Kidney Disease Epidemiology Collaboration (CKD-EPI) equation refit??without adjustment for race. BUN/Creatinine Ratio 17.2 LAB CHEMISTRY METHOD 08/22/2024 5:35 PM [facility] Calcium 9.5 8.5 - 10.5 mg/dL LAB CHEMISTRY METHOD 08/22/2024 5:35 PM [facility] AST (SGOT) 16 10 - 42 unit/L LAB CHEMISTRY METHOD 08/22/2024 5:35 PM [facility] ALT (SGPT) 26 10 - 60 unit/L LAB CHEMISTRY METHOD 08/22/2024 5:35 PM [facility] Alkaline Phosphatase 72 42 - 121 unit/L LAB CHEMISTRY METHOD 08/22/2024 5:35 PM [facility] Total Protein 6.4 6.0 - 8.0 g/dL LAB CHEMISTRY METHOD 08/22/2024 5:35 PM [facility] Albumin 3.6 3.2 - 5.0 g/dL LAB CHEMISTRY METHOD 08/22/2024 5:35 PM EST [facility] Total Bilirubin 0.3 0.0 - 1.4 mg/dL LAB CHEMISTRY METHOD 08/22/2024 5:35 PM EST [facility] Blood Venous blood specimen / Unknown Venipuncture / Unknown 08/22/2024 12:45 PM EST 08/22/2024 12:45 PM EST Shyam Ruth MD LAB BLOOD DAVIE DANG [facility] [address] [place] [address], * SCREENING MAMMOGRAPHY BI 2-VIEW BREAST INC CAD (12/04/2023 5:58 PM EST) Anatomical Region Laterality Modality Radiographic Tg ging 11/30/2022 5:03 PM EST Narrative 12/05/2023 10:04 AM EST This is a summary report. The complete report is available in the patient's medical record. If you cannot access the medical record, please contact the sending organization for a detailed fax or copy. Full field digital screening tomosynthesis mammography, reviewed with CAD and compared to previous mammograms dating back to 04/15/2019 with most recent of 11/30/2022. The breasts are composed of fatty and fibroglandular tissue. ??No suspicious mass, architectural distortion or suspicious calcifications are identified. IMPRESSION: : No mammographic evidence of malignancy. BIRADS 1-Negative; N. 5 year breast cancer risk assessment 1.3 % Lifetime breast cancer risk assessment 5.2 % Breast cancer risk category Low (<15%) Procedure Note Alyssa Cotton MD - 05/20/2024 This is a summary report. The complete report is available in thepatient's medical record. If you cannot access the medical record, pleasecontact the sending organization for a detailed fax or copy. Full field digital screening tomosynthesis mammography, reviewed with CADand compared to previous mammograms dating back to 04/15/2019 with mostrecent of 11/30/2022. The breasts are composed of fatty and fibroglandulartissue. No suspicious mass, architectural distortion or suspiciouscalcifications are identified. IMPRESSION: : No mammographic evidence of malignancy. BIRADS 1-Negative; N. 5 year breast cancer risk assessment 1.3 % Lifetime breast cancer risk assessment 5.2 % Breast cancer risk category Low (<15%) Shyam Ruth MD IMG XR PROCEDU RES * Cervical Cancer Screening: HPV (07/21/2023) [facility] Cervical Cancer Screening: HPV Negative, Abstracted Historical Provider MD JONG PELLETIER E * Lipid panel (03/29/2023) [facility] LDL/HDL Ratio 3 0 - 4 Triglycerides 140 0 - 150 mg/dL Cholesterol 194 0 - 200 mg/dL HDL 76 40 mg/dL LDL Cholesterol 90 0 - 100 mg/dL Blood Venous blood specimen / Unknown Historical Provider LAB BLOOD ORDERAB LES * Colonoscopy (10/07/2014) [facility] Colonoscopy No Interpretation , Abstracted Anatomical Region Laterality Modality Other [facility] * Hepatitis C Screening (03/12/2013) [facility] Hepatitis C Screening Abstracted [facility] from Last 3 Months or Most Recently Relevant to Health Maintenance Care Teams Drapery Examiner Relationship Specialty Start Date End Date Shyam Ruth MD [address] [place], [place] [id number] [facility] - General 08/02/22
--- OUTSIDE RECORDS SUMMARY | 2024-10-28 14:56 | XMS_ITS | Encounter Summary ---
Author Organization [facility] Address [address] [place] [address] Care Team Providers Care Gasoline Dragline Operator Name Role Phone Shyam Ruth MD Primary Care Provider Encounter Details Date Type Department Care Team (Late st Contact Info) Description 08/28/2024 Telephone Adult Medicine [facility] [address] [place] [phone] Shyam Ruth MD [address] [place] [address] Social History Tobacco Use Types Packs/Day Years Used Date Smoking Tobacco: Former Cigarettes Q uit: 06/22/2003 Smokeless Tobacco: Never Alcohol Use Standard Drinks/Week Comments Yes 0 [...] care for your loved ones. For example, exceptional children's teacher or elderly care for an older adult? [...] file Not on file Not on file documented as of this encounter Progress Notes * Xiomy Jean-Baptiste - 08/28/2024 3:38 PM EST Patient is returning phone call. documented in this encounter Plan of Treatment Upcoming Encounters Date Type Department Care Team (Late st Contact Info) Description 12/03/2024 10:15 AM EST Consult Orthopedic Surgery - [place] [address] [facility] [address] [place] [address] Brian Bryant, DPM 175 [facility] [address] [place] [address] 12/12/2024 10:40 AM EDT Appointment Radiology Department - [place] [address] [place] [address] 02/05/2025 11:00 AM EDT Appointment [facility] Endoscopy [address] [place] [address] Deepali Gaona MD 175 [facility] [address] [place] [address] documented as of this encounter Visit Diagnoses Not on filedocumented in this encounter Additional Health Concerns Assessment Noted Time PHQ-9 Depression Total Score: 0 08/15/20 24 6:56 PM EST documented as of this encounter Care Teams Gasoline Dragline Operator Relationship Specialty Start Date End Date Shyam Ruth MD [address] [place] [address] PCP - General 08/02/22 documented as of this encounter
== END 2024-10-28 10:18 | disposition home or self-care (01) ==
LOC: HO.MRI 10:17
PROVIDERS: Visit Provider Physician Assistant
DX: M43.16 Spondylolisthesis, lumbar region (principal)
CPT/HCPCS: 72158; A9585

== ENCOUNTER 2024-11-01 11:05 | Outpatient (AMB) | payer MEDICARE, SELFPAY ==
--- NOTE | 2024-11-01 11:26 | HO.SPINEOV ---
Intake Visit Reasons: MRI f/up Intake Note: Ms. Ng is here today to F/u on the results to her MRI. Senior Clinical Data Manager Required: No Allergies No Known Allergies Allergy (Verified 11/01/24 11:30) Assessment & Plan Assessment & Plan (1) Spondylolisthesis, lumbar region: Code(s): M43.16 - Spondylolisthesis, lumbar region Category: Medical Plan Mrs Ng is here in follow up. Her new MRI done at [facility] shows that she has ongoing stenosis at L3-4 in the previously operated area. L4-5 is decompressed. There is some narrowing in the left L5 foramen as well. The standing x-rays however show a severe left-sided collapse at the L4-5 disc space, it is not clear there may already be auto fusion here. There is also a lateral listhesis at L2-3. This makes the situation a little more complicated in that she has multiple areas in her scoliotic curvature which could explain back pain. Additionally, there is the left L5 nerve that might be compressed in the foramen as well as the L3-4 stenosis which may be the pain generator for her leg. Before we consider committing her to surgery, we would like her to get a left L5 TFE to see if we can localize the leg pain to that area and we would like to get a CT scan noncontrast of the lumbar spine to evaluate better to see if the L4-5 level is already fused. We will see her back after these images are completed and the injection is done. Dr. Milligan saw the patient with me today and agrees with the plan as outlined above. Total amount of time spent in this visit was 20 minutes in discussion of symptoms, lumbar MRI and x-ray imaging results and subsequent plan of care Naun Milligan MD,PhD [facility] Orders: Orders CT lumbar spine wo IV con Today M43.16 - Spondylolisthesis, lumbar region Referrals Pain Management Referral M43.16 - Spondylolisthesis, lumbar region Coding Level of Care Code Est Pt Level 3 (41094) Diagnoses Spondylolisthesis, lumbar region M43.16
== END 2024-11-01 13:09 | disposition home or self-care (01) ==
PROVIDERS: PCP Internal Medicine; Visit Provider Physician Assistant
DX: M43.16 Spondylolisthesis, lumbar region (principal)
CPT/HCPCS: 99213

== ENCOUNTER → 2024-11-01 11:05 | Outpatient (BNVA) | payer MEDICARE, SELFPAY | PROVIDERS: PCP Internal Medicine; Visit Provider Physician Assistant | DX: M43.16 Spondylolisthesis, lumbar region (principal) | CPT/HCPCS: 99212 ==

== ENCOUNTER 2024-12-05 16:54 | Outpatient (REF) | payer MEDICARE, SELFPAY ==
--- NOTE | ~2024-12-05 | CT_ITS ---
CLINICAL HISTORY: M43.16 - Spondylolisthesis, lumbar region CT lumbar spine without contrast Comparison: None Findings: there is dextroscoliosis in the lower lumbar spine. There is severe facet arthropathy in the lower lumbar spine. There is severe degenerative disc disease particularly at the L2-3 and L4-5 levels where there is marked disc space narrowing. There is also vacuum disc phenomena. Severe chronic endplate sclerotic changes are seen at L4-5 along with a large anterior bridging osteophyte at this level. There is severe central spinal stenosis at the L3-4 level with moderate central spinal stenosis at L4-5 and L5-S1. There is bilateral neural foraminal narrowing at L3-4 through L5-S1. Normal visualized abdominal contents. There is mild anterolisthesis of L2 relative to L1 and L3. IMPRESSION: 1. No acute abnormalities are noted 2. Severe degenerative disc disease L2-3 and L4-5 as described. 3. Mild anterolisthesis of L3. 4. Severe central spinal stenosis at L3-4 with moderate central spinal stenosis at the L4-5 and L5-S1 levels. 5. Bilateral neural foraminal narrowing at L3-4 through L5-S1. This document has been electronically signed by: Jani Hernandez MD on 12/05/2024 22:36:48
--- OUTSIDE RECORDS SUMMARY | 2024-12-05 19:32 | XMS_ITS | Encounter Summary ---
Author Organization [facility] Address [address] [place] [address] Care Team Providers Care Cooker Cleaner Name Role Phone Fay Boucher MD Primary Care Provider Unava Shyam Zurita MD Primary Care Provider Ilda Jennings MD Unavailable [phone] Encounter Details Date Type Department Care Team Description 09/02/2016 Landscape Architect And Planner Report Medical Records [address] [place] [address] Mayuri Bravo MD Social History Tobacco Use Types Packs/Day Years Used Date Smoking Tobacco: Former Cigarettes 3.5 43 Q uit: 06/22/2003 Smokeless Tobacco: Never Alcohol Use Standard Drinks/Week Comments Yes 0 (1 standard drink = 0.6 oz pur e alcohol) 2 beers per day Sex Assigned at Date Recorded Female 12/03/2022 12:20 PM EST Job Start Date Occupation Industry Not on file Not on file Not on file documented as of this encounter Plan of Treatment Not on file documented as of this encounter Visit Diagnoses Not on filedocumented in this encounter Care Teams Cooker Cleaner Relationship Specialty Start Date End Date Fay Boucher MD PCP - General 11/30/10 08/01/22 Shyam Ruth MD [address] [place] [address] PCP - General Internal Medicine 08/02/22 Ilda Jennings MD [address] [place] [address] [place] [address] Specialist Neurosurgery 04/21/23 documented as of this encounter
--- OUTSIDE RECORDS SUMMARY | 2024-12-05 19:32 | XMS_ITS | Encounter Summary ---
Author Organization [facility] Address [address] [place] [address] Care Team Providers Care Human Services Program Specialist Name Role Phone Shyam Ruth MD Primary Care Provider Ilda Jennings MD Unavailable [phone] Encounter Details Date Type Department Care Team Description 10/13/2023 Ceramic Engineer Report Medical Records [address] [place] [address] Toby Arellano Social History Tobacco Use Types Packs/Day Years Used Date Smoking Tobacco: Former Cigarettes 3.5 43 Q uit: 06/22/2003 Smokeless Tobacco: Never Alcohol Use Standard Drinks/Week Comments Yes 0 (1 standard drink = 0.6 oz pure alcohol) 1 beer a week, sometimes not at all Sex Assigned at Date Recorded Female 12/03/2022 12:20 PM EST Job Start Date Occupation Industry Not on file Not on file Not on file documented as of this encounter Plan of Treatment Not on file documented as of this encounter Visit Diagnoses Not on filedocumented in this encounter Care Teams Human Services Program Specialist Relationship Specialty Start Date End Date Shyam Ruth MD [address] [place] [address] PCP - General Internal Medicine 08/02/22 Ilda Jennings MD [address] [address] Specialist Neurosurgery 04/21/23 documented as of this encounter
--- OUTSIDE RECORDS SUMMARY | 2024-12-05 19:32 | XMS_ITS | Encounter Summary ---
Author Organization [facility] Address [address] [place] [address] Care Team Providers Care Client Technologies Specialist Name Role Phone Fay Boucher MD Primary Care Provider Unava Shyam Zurita MD Primary Care Provider Ilda Jennings MD Unavailable [phone] Encounter Details Date Type Department Care Team Description 07/20/2016 Hospital Medical Records [address] [place] [address] Mayuri Bravo MD Social History Tobacco Use [...] on filedocumented in this encounter Care Teams Client Technologies Specialist Relationship Specialty Start Date End Date Fay Boucher MD PCP - General 11/30/10 08/01/22 Shyam Ruth MD [address] [place] [address] PCP - General Internal Medicine 08/02/22 Ilda Jennings MD [address] [place] [address] [address] [place] [address] Specialist Neurosurgery 04/21/23 documented as of this encounter
--- OUTSIDE RECORDS SUMMARY | 2024-12-05 19:32 | XMS_ITS | Clinical Summary ---
Author Organization [employer] Address [address] [place] [address] 7 [place] [address] Care Team Providers Care Paper Testing Supervisor Name Role Phone Unavailable Primary Care Provider [...] 1989 HPV/Cotest 1989 Mammogram 1999 Pneumococcal Vaccine: 50+ Years (2 of 2 - PCV) 11/23/2005 [...] age to complete this topic Insurance [facility] , [address] [place] [address] Care Teams Paper Testing Supervisor Relationship Specialty Start Date End Date SHAGGY HANEY MANU[address] [address] ?? Primary Care Provider 10/02/23
--- OUTSIDE RECORDS SUMMARY | 2024-12-05 19:32 | XMS_ITS | Encounter Summary ---
Author Organization [facility] Address [address] [place] [address] Care Team Providers Care Double Corner Cutter Name Role Phone Fay Durán MD Primary Care Provider Shyam Kelley MD Primary Care Provider Ilda Jennings MD Unavailable Reason for Referral * EXTERNAL (Routine) - Authorized/Booked Specialty Diagnoses / Procedures Referred By Nguyen garcia Referred To Contact Dermatology Procedures REFERRAL TO DERMATOLOGY Fay Durán MD [address] [place] [address] [address]rie Cruz. [address] [place] [address] Referral ID Status Reason Start Date Expiration Date V isits Requested Visits Authorized SEE NOTE Authorized/B ooked 05/29/2020 09/03/2020 1 1 Reason for Visit * Reason Onset Date Comments Trimming Inspector Feedback 05/29/2020 Dr. Brie Cruz Encounter Details Date Type Department Care Team Description 05/29/2020 Telephone Medicine/Pediatrics - [address] [address] Fay Durán MD Trimming Inspector Feedback (Dr. Brie Cruz) Social History Tobacco Use Types Packs/Day Years Used Date Smoking Tobacco: Former Cigarettes 3.5 43 Q uit: 06/22/2003 Smokeless Tobacco: Never Alcohol Use Standard Drinks/Week Comments Yes 0 (1 standard drink = 0.6 oz pur e alcohol) 1-4 beers per day Sex Assigned at Date Recorded Female 12/03/2022 12:20 PM EST Job Start Date Occupation Industry Not on file Not on file Not on file documented as of this encounter Miscellaneous Notes * Telephone Encounter - Ashly Arnada - 05/29/2020 10:03 AM EDT Please review this patients new referral request. The referral has been pended. Please complete thefollowing: If approved> sign order If denied>please give instructions and route to your practice nursing pool. Practice nurse should inform referrals and the patient if denied. Subscriber: SANTI NG Submitter : FAY DURÁN Submitter Type: Provider Referral (#[id number]) Specialty Care Review Type: Initial Certification Status : Certified in total Service Type : Medical Care Place Of Service : Office Visits : 6 Service Date : 05/29/2020-05/29/2021 Service Providers Provider Name ID Provider Type Specialty MD BRIE CRUZ NPI : [id number] Performing Specialist * Telephone Encounter - Nahomy Zamora - 05/29/2020 9:21 AM EDT What insurance does the patient have today? Payor: [place] FFS / Plan: HMO $30 [place] [id number] / Product Type: HMO PRE-PAID Effective 07/02/09: [facility] will not retro referral requests over 90 days. If request is for this please instruct patient to call the 800# on their insurance card to appeal. Do not submit a request. Referrals cannot be processed if the insurance is not accurate. If the insurance listed above in red is NO BILLING INFORMATION FOUND FOR THIS ENCOUTNER The patients correct insurance must be obtained and registered in [facility] or their referral can not be processed. Is this a retro request? NO. If yes for what date of service do you need the retro referral? N/A Who is calling to request this referral? Patient If the caller is not the patient, what is their name? N/A Ask the patient WHO referred them to this specialty: Not an initial visit; it is for follow up/continuation of care. Patients PCP is Dr Duránvp strategic partnerships and LAST NAME of SPECIALIST PATIENT is seeing: Brie Reed What specialty is this? derm DIAGNOSIS Patient is being seen for (Not a body part or a procedure): basil cell carcinoma f/u Have you seen this SPECIALIST for this PROBLEM/DX before?YES If YES, when:6 mos ago Have you checked REVIEW or the APPT DESK to see if this referral has already been done or has visits left? YES Is this visit:Follow Up Address of Specialist:[address] [place] [address] [facility] [address] Phone # of Specialist:[phone] Fax #: (if applicable):[phone] Does patient have an appointment scheduled?: No, needs referral first Date of appointment- (including a retro-request): Is this appointment related to: Not MVA, WC or Surgery related documented in this encounter Plan of Treatment Not on file documented as of this encounter Visit Diagnoses Not on filedocumented in this encounter Care Teams Double Corner Cutter Relationship Specialty Start Date End Date Fay Durán MD PCP - General 11/30/10 08/01/22 Shyam Ruth MD [address] [place] [address] PCP - General Internal Medicine 08/02/22 Ilda Jennings MD 175 [facility] [address] [place] [address] Specialist Neurosurgery 04/21/23 documented as of this encounter
--- OUTSIDE RECORDS SUMMARY | 2024-12-05 19:32 | XMS_ITS | Encounter Summary ---
Author Organization [facility] Address [address] [place] [address] Care Team Providers Care Extension Associate Name Role Phone Shyam Ruth MD Primary Care Provider Ilda Jennings MD Unavailable [phone] Encounter Details Date Type Department Care Team Description 12/06/2023 [facility] Medical Records [address] [place] [address] Abstract, Provider Social History Tobacco Use Types Packs/Day Years [...] on filedocumented in this encounter Care Teams Extension Associate Relationship Specialty Start Date End Date Shyam Ruth MD [address] [place] [address] PCP - General Internal Medicine 08/02/22 Ilda Jennings MD 175 [facility] [address] [place] [address] Specialist Neurosurgery 04/21/23 documented as of this encounter
--- OUTSIDE RECORDS SUMMARY | 2024-12-05 19:32 | XMS_ITS | Encounter Summary ---
Author Organization [facility] Address [address] [place] [address] Care Team Providers Care Iuss Master Analyst Name Role Phone Fay Boucher MD Primary Care Provider Shyam Kelley MD Primary Care Provider Ilda Jennings MD Unavailable [phone] Encounter Details Date Type Department Care Team Description 12/10/2012 Pt. Non Urgent Medic al Question Medicine/Pediatrics - [address] [address] Fay Boucher MD Social History Tobacco Use Types Packs/Day Years Used Date Smoking Tobacco: Former Cigarettes 3.5 43 Q uit: 06/22/2003 Smokeless Tobacco: Never Quit: 11/21/2010 Alcohol Use Standard Drinks/Week Comments Yes 0 (1 standard drink = 0.6 oz pur e alcohol) social Sex Assigned at Date Recorded Female 12/03/2022 12:20 PM EST Job Start Date Occupation Industry Not on file Not on file Not on file documented as of this encounter Progress Notes * Kiera Leonardo L.P.N. - 12/11/2012 9:04 AM EDTFrom: ROSENDO NG To: Fay Boucher MD Sent: MonDec 10, 2012 8:58 PM Subject: Can I take these? I am trying to lose weight and I would like to take [facility] Advanced Muscle Performance Ripped Vitapak Program. Will this interfer with any of the medication I am on? documented in this encounter Plan of Treatment Not on file documented as of this encounter Visit Diagnoses Not on filedocumented in this encounter Care Teams Iuss Master Analyst Relationship Specialty Start Date End Date Fay Boucher MD PCP - General 11/30/10 08/01/22 Shyam Ruth MD [address] [place] [address] PCP - General Internal Medicine 08/02/22 Ilda Jennings MD [address] [place] [address] Specialist Neurosurgery 04/21/23 documented as of this encounter
--- OUTSIDE RECORDS SUMMARY | 2024-12-05 19:32 | XMS_ITS | Encounter Summary ---
Author Organization [facility] Address [address] [place] [address] Care Team Providers Care Drying Machine Operator Package Yarns Name Role Phone Fay Boucher MD Primary Care Provider Shyam Kelley MD Primary Care Provider Ilda Jennings MD Unavailable [phone] Encounter Details Date Type Department Care Team Description 08/05/2016 Release of Information Medical Records [address] [place] [address] Abstract, Provider Social History Tobacco Use Types [...] on filedocumented in this encounter Care Teams Drying Machine Operator Package Yarns Relationship Specialty Start Date End Date Fay Boucher MD PCP - General 11/30/10 08/01/22 Shyam Ruth MD [address] [place] [address] PCP - General Internal Medicine 08/02/22 Ilda Jennings MD [address] [facility] [address] [place] [address] Specialist Neurosurgery 04/21/23 documented as of this encounter
--- OUTSIDE RECORDS SUMMARY | 2024-12-05 19:32 | XMS_ITS | Encounter Summary ---
Author Organization [facility] Address [address] [place] [address] Care Team Providers Care Finisher Fine Diamond Dies Name Role Phone Shyam Ruth MD Primary Care Provider Ilda Jennings MD Unavailable [phone] Reason for Visit * Reason Onset Date Comments medication problems 01/30/2024 Prior Authorization 01/30/2024 Oxycodone - Acet Encounter Details Date Type Department Care Team Description 01/30/2024 Telephone Adult Medicine [address] [address] Shyam Ruth MD [address] [place] [id number] medication problems; Prior Authorization (Oxycodone - Acet ) Social History Tobacco Use Types Packs/Day Years [...] encounter Miscellaneous Notes * Telephone Encounter - Breanna Woody M.A. - 02/02/2024 2:23 PM EDT Request Reference Number: [id number]. OXYCOD/APAP TAB 5-325MG is approved through 01/30/2025. Yourpatient may now fill this prescription and it will be covered. Authorization Expiration Date: 01/30/2025 Breanna Woody Prior Auth Dep Ext [id number] * Telephone Encounter - Breanna Woody M.A. - 01/31/2024 9:41 AM EDT Auth sent with [facility] Dx:m51.36 [facility] of care Breanna Woody Prior Auth Dep Ext [phone] * Telephone Encounter - Velvet Adair M.A. - 01/30/2024 3:35 PM EDT Spoke to Jamie Hernandez to request they fax the PA request to [phone], however I did obtain averbal x 2 to confirm a Prior Auth is needed for a 28 day supply of Oxycodone. PT was advised yesterday this medication needed a Prior Auth. * Telephone Encounter - Sparkle Pelletier L.P.N. - 01/30/2024 3:25 PM EDT THIS IS NOT A REFILL PER SE... SEE MSG BELOW * Telephone Encounter - Daily Obando - 01/30/2024 12:55 PM EDT Who is calling? The patient Name of the medication oxycodone-acetaminophen (PERCOCET) 5-325 MG per tablet 14 Tablet 0 01/29/2024 02/05/2024 Sig - Route: Take 1 Tablet by mouth every 12 hours as needed for Pain for up to 7 days. - Oral Sent to pharmacy as: oxyCODONE-Acetaminophen 5-325 MG Oral Tablet (PERCOCET) Class: Normal Earliest Fill Date: 01/29/2024 Notes to Pharmacy: M51.36 - Partial fill ok upon patient request- PRIOR AUTH in process for 28 day supply Order: [id number] Date/Time Signed: 01/29/2024 ??3:46 PM E-Prescribing Status: Receipt confirmed by pharmacy (01/29/2024 ??3:46 PM EDT) What is the specific problem or interaction? Patient states pharmacy can not fill, her insurance will not approve refill due to this script being filled twice in the last 54 days If the patient is having a problem with taking the med - how long has the problem been going on? N/A documented in this encounter Plan of Treatment Not on file documented as of this encounter Visit Diagnoses Not on filedocumented in this encounter Care Teams Finisher Fine Diamond Dies Relationship Specialty Start Date End Date Shyam Ruth MD [address] [place] [address] PCP - General Internal Medicine 08/02/22 Ilda Jennings MD [address] [place] [address] [address] [place] [address] Specialist Neurosurgery 04/21/23 documented as of this encounter
--- OUTSIDE RECORDS SUMMARY | 2024-12-05 19:32 | XMS_ITS | Encounter Summary ---
Author Organization [facility] Address [address] [place] [address] Care Team Providers Care Credit Counselor Name Role Phone Fay Boucher MD Primary Care Provider UnaShyam Hadley MD Primary Care Provider Ilda Jennings MD Unavailable [phone] Encounter Details Date Type Department Care Team Description 04/27/2013 Night Triage Doc Medical Records [address] [place] [address] Abstract, Provider Social History Tobacco Use Types [...] on filedocumented in this encounter Care Teams Credit Counselor Relationship Specialty Start Date End Date Fay Boucher MD PCP - General 11/30/10 08/01/22 Shyam Ruth MD [address] [place] [address] PCP - General Internal Medicine 08/02/22 Ilda Jennings MD [address] [place] [address] [address] [place] [address] Specialist Neurosurgery 04/21/23 documented as of this encounter
--- OUTSIDE RECORDS SUMMARY | 2024-12-05 19:32 | XMS_ITS | Encounter Summary ---
Author Organization [facility] Address [address] [place] [address] Care Team Providers Care Life Teacher Name Role Phone Fay Boucher MD Primary Care Provider Shyam Kelley MD Primary Care Provider Ilda Jennings MD Unavailable [phone] Encounter Details Date Type Department Care Team Description 07/20/2016 Hospital Medical Records [address] [place] [address] Eugenie Arcos PA-C 175 [facility] [address] [place] [address] Social History Tobacco Use Types Packs/Day Years [...] on filedocumented in this encounter Care Teams Life Teacher Relationship Specialty Start Date End Date Fay Boucher MD PCP - General 11/30/10 08/01/22 Shyam Ruth MD [address] [place] [address] PCP - General Internal Medicine 08/02/22 Ilda Jennings MD [address] [place] [address] Specialist Neurosurgery 04/21/23 documented as of this encounter
--- OUTSIDE RECORDS SUMMARY | 2024-12-05 19:32 | XMS_ITS | Encounter Summary ---
Author Organization [employer] Address [address] [place] [address] 7 [place] [address] Care Team Providers Care Stem Sizer Name Role Phone Unavailable Primary Care Provider Unavailabl e Encounter Details Date Type Department Care Team (Late st Contact Info) Description 06/04/2024 Orders Only [facility] [address] [place] [address] Mildred Joy OD Social History Tobacco Use Types Packs/Day Years [...] on filedocumented in this encounter Care Teams Stem Sizer Relationship Specialty Start Date End Date SHAGGY JACKSON [address] [place] [address] ?? Primary Care Provider 10/02/23 documented as of this encounter
--- OUTSIDE RECORDS SUMMARY | 2024-12-05 19:32 | XMS_ITS | Encounter Summary ---
Author Organization [facility] Address [address] [place] [address] Care Team Providers Care Doffer Name Role Phone Fay Boucher MD Primary Care Provider Unava Shyam Zurita MD Primary Care Provider Ilda Jennings MD Unavailable [phone] Encounter Details Date Type Department Care Team Description 07/10/2019 Corporate Bond Trader Report Medical Records [address] [place] [address] Daryl Ocampo MD Social History Tobacco Use Types Packs/Day [...] on filedocumented in this encounter Care Teams Doffer Relationship Specialty Start Date End Date Fay Boucher MD PCP - General 11/30/10 08/01/22 Shyam Ruth MD [address] [place] [address] PCP - General Internal Medicine 08/02/22 Ilda Jennings MD [address] [place] [address] [place] [address] Specialist Neurosurgery 04/21/23 documented as of this encounter
--- OUTSIDE RECORDS SUMMARY | 2024-12-05 19:33 | XMS_ITS | Encounter Summary ---
Author Organization [facility] Address [address] [place] [address] Care Team Providers Care Assistant Property Manager Name Role Phone Shyam Ruth MD Primary Care Provider Ilda Jennings MD Unavailable [phone] Encounter Details Date Type Department Care Team Description 04/06/2023 Release of Information Medical Records [address] [place] [address] Abstract, Provider Social History Tobacco Use Types [...] file Not on file Not on file COVID-19 Exposure Response Date Recorded In the last 10 days, have yo u been in contact with someone who was confirmed or suspected to have Coronavirus/COVID-19? No / Unsure 03/29/2023 1:30 PM EDT documented as of this encounter Plan of Treatment Not on file documented as of this encounter Visit Diagnoses Not on filedocumented in this encounter Care Teams Assistant Property Manager Relationship Specialty Start Date End Date Shyam Ruth MD [address] [place] [address] PCP - General Internal Medicine 08/02/22 Ilda Jennings MD 175 [facility] [address] [place] [address] Specialist Neurosurgery 04/21/23 documented as of this encounter
--- OUTSIDE RECORDS SUMMARY | 2024-12-05 19:33 | XMS_ITS | Encounter Summary ---
Author Organization [facility] Address [address] [place] [address] Care Team Providers Care Feller Buncher Operator Name Role Phone Fay Bouhcer MD Primary Care Provider Shyam Kelley MD Primary Care Provider Ilda Jennings MD Unavailable [phone] Encounter Details Date Type Department Care Team Description 06/14/2016 Release of Information Medical Records [address] [place] [address] Abstract, Provider Social History Tobacco Use Types [...] on filedocumented in this encounter Care Teams Feller Buncher Operator Relationship Specialty Start Date End Date Fay Boucher MD PCP - General 11/30/10 08/01/22 Shyam Ruth MD [address] [place] [address] PCP - General Internal Medicine 08/02/22 Ilda Jennings MD 175 [facility] [address] [place] [address] Specialist Neurosurgery 04/21/23 documented as of this encounter
--- OUTSIDE RECORDS SUMMARY | 2024-12-05 19:33 | XMS_ITS | Encounter Summary ---
Author Organization [facility] Address [address] [place] [address] Care Team Providers Care Currency Machine Operator Name Role Phone Fay Boucher MD Primary Care Provider Unava Shyam Zurita MD Primary Care Provider Ilda Jennings MD Unavailable [phone] Encounter Details Date Type Department Care Team Description 05/21/2012 Lead Dental Assistant Report Medical Records [address] [place] [address] Dami Tee Social History Tobacco Use Types Packs/Day Years [...] on filedocumented in this encounter Care Teams Currency Machine Operator Relationship Specialty Start Date End Date Fay Boucher MD PCP - General 11/30/10 08/01/22 Shyam Ruth MD [address] [place] [address] PCP - General Internal Medicine 08/02/22 Ilda Jennings MD 175 [facility] [address] [place] [address] Specialist Neurosurgery 04/21/23 documented as of this encounter
--- OUTSIDE RECORDS SUMMARY | 2024-12-05 19:33 | XMS_ITS | Encounter Summary ---
Author Organization [facility] Address [address] [place] [address] Care Team Providers Care Rail Car Mechanic Name Role Phone Shyam Ruth MD Primary Care Provider Reason for Visit * Reason Comments Consult Right foot pain * Consultation (Routine) - Authorized Specialty Diagnoses / Procedures Referred By Nguyen garcia Referred To Contact Podiatry Diagnoses Pain of toe of right foot Shyam Ruth MD [address] [place] [address] Phone: tel: fax: Brian Bryant DPM [address] [address] Phone: tel: fax: Referral ID Status Reason Start Date Expiration Date Visits Requested Visits Authorized [id number] Authorized Specialty Services Required 09/03/2024 09/03/2025 1 1 Encounter Details Date Type Department Care Team ([facility] st Contact Info) Description 12/03/2024 10:15 AM EST Consult Orthopedic Surgery - [place] [address] [id number] Brian Bryant DPM [address] [address] Ingrowing nail (Primary Dx); Pain of toe of right foot Social History Tobacco Use Types Packs/Day Years [...] care for your loved ones. For example, child nurse or elderly care for an older adult? [...] What is your living situation? 1 10/15/2023 Comments Unknown Sex and Gender Information Value Date Recorded Sex Assigned at Female 09/03/2024 10:14 AM EST Legal Sex Female 11:35 AM EST Gender Identity Female 09/03/2024 10:14 AM EST Sexual Orientation Not on file documented as of this encounter Last Filed Vital Signs Vital Sign Reading Time Taken Comments Blood Pressure - - Pulse - - Temperature - - Respiratory Rate - - Oxygen Saturation - - Inhaled Oxygen Concentration - - Weight 116 kg (256 lb) 12/03/2024 10:11 AM EST Height 162.6 cm (5' 4.02 ) 12/03/2024 10:[address] Body Mass Index 43.92 12/03/2024 10:11 AM EST documented in this encounter Progress Notes * Brian Bryant DPM - 12/03/2024 10:15 AM EST IDENTIFIER: Berenice is a 64 y.o. year old female who presents for consultation. CC: Foot pain HPI: Patient presents today for evaluation of her feet she reports that she has elongated painful thickened nails specifically to her right great toenail that grows into her skin that bother her because the pain score is a 7-10 visual analog scale she has been achy throbbing worse activity improves out activity she presents today with her daughter present denies trauma to the area ROS: GENERAL: Pt denies nausea, fever, vomiting, chills, or shortness of breath. Pt in NAD. CARDIOLOGY: pt denies chest pain, palpitations LUNGS: pt denies shortness of breath MUSCULOSKELETAL: See HPI, otherwise no joint pain or swelling, back pain, or muscle pain. SKIN: see HPI, otherwise no lesions, rash or itching NEURO: No persistent headache, weakness or numbness The remainder of the review of systems is noncontributory PAST MEDICAL HISTORY: Patient Active Problem List Diagnosis Nausea Nonulcer dyspepsia IBS (irritable bowel syndrome) DUB (dysfunctional uterine bleeding) Obstructive sleep apnea PLMD (periodic limb movement disorder) Depression Primary osteoarthritis of both knees Overlap syndrome (CMS/HCC) Osteoarthritis of spine with radiculopathy, lumbar region Allergic rhinitis Hidradenitis suppurativa Asthma, well controlled Centrilobular emphysema (CMS/HCC) History of lumbar laminectomy History of basal cell carcinoma Intertriginous candidiasis Morbid obesity with BMI of 40.0-44.9, adult (CMS/HCC) Metabolic dysfunction-associated steatotic liver disease (MASLD) SOCIAL HISTORY: Social History Tobacco Use Smoking status: Former Current packs/day: 0.00 Types: Cigarettes Quit date: 06/22/2003 Years since quittin.4 Smokeless tobacco: Never Substance Use Topics Alcohol use: Yes ACTIVE MEDICATIONS: Outpatient Medications Marked as Taking for the 12/03/24 encounter (Consult) with Brian Bryant DPM Medication Sig Dispense Refill acetaminophen (TYLENOL 8 HOUR) 650 mg 8 hr tablet Take 1 tablet (650 mg total) by mouth every 8 (eight) hours if needed (pain). Do not crush, chew, or split. albuterol 2.5 mg /3 mL (0.083 %) nebulizer solution Take 3 mL by nebulization every 4 (four) hours if needed for wheezing. 75 mL 2 albuterol HFA (PROAIR HFA ; PROVENTIL HFA ; VENTOLIN HFA) 90 mcg/actuation inhaler INHALE 2 PUFFS BY MOUTH EVERY 4 HOURS NEEDED FOR WHEEZING OR SHORTNESS OF BREATH 18 g 1 buPROPion XL (WELLBUTRIN XL) 150 mg 24 hr tablet Take 1 tablet (150 mg total) by mouth 1 (one) timeeach day. In addition to 300mg every am. 90 tablet 0 buPROPion XL (WELLBUTRIN XL) 300 mg 24 hr tablet Take 1 tablet (300 mg total) by mouth 1 (one) timeeach day. In addition to 150mg every am. 90 tablet 0 miscellaneous medical supply misc CPAP Historical (HISTORICAL CPAP) Inhale into the lungs. BHIR-pressure 10-20 with 2 liter oxygen nystatin (MYCOSTATIN) 100,000 unit/gram powder Apply topically 3 (three) times a day. Abdominal rash omeprazole (PriLOSEC) [address] capsule Take 1 capsule (20 mg total) by mouth 1 (one) time each day. oxyCODONE-acetaminophen (PERCOCET) 5-325 mg per tablet Take 1 tablet by mouth every 12 (twelve) hours if needed for moderate pain or severe pain. Max Daily Amount: 2 tablets 56 tablet 0 primidone (MYSOLINE) 50 mg tablet TAKE 3 TABLETS BY MOUTH AT BEDTIME 270 tablet 0 Symbicort 160-4.5 mcg/actuation inhaler Inhale 2 puffs by mouth 2 (two) times a day. Rinse mouth with water after use to reduce aftertaste and incidence of candidiasis. Do not swallow. 10.2 each 5 ALLERGIES: No Known Allergies PHYSICAL EXAM: Visit Vitals Ht 1.626 m (64.02 ) Wt 116 kg (256 lb) BMI 43.92 kg/m?? Smoking Status Former BSA 2.17 m?? PODIATRIC EXAMINATION: GENERAL: Patient appears well nourished, with NAD. VASCULAR: Dorsalis pedis pulses are 2/4 bilaterally and Posterior tibial pulses are 2/4 bilaterally. Capillary filling time within normal limits the digits. No pallor on elevation or rubor on dependency. No varicosities. Denies rest pain or claudication pain. NEUROLOGICAL: Sharp/dull sensation intact, protective sensation intact 10/10 with 5.07 semmes yair bilaterally, vibratory sensation with tuning fork intact to the tibial tuberosity. ORTHOPEDIC: Good muscle strength 5/5 of all flexors and extensors. Dorsi flexion of ankle ,10 degrees, plantar flexion WNL. No muscle atrophy. DERMATOLOGICAL:.Abnormal curvature of the right great toenail with ingrowth medial nail fold BIOMECHANICS: Ankle ROM WNL, STJ ROM wnl, MTJ ROM wnl, 1st MPJ ROM crepitation bilateral hammertoe contractures 2-5 rigid bilateral. IMAGING: IMPRESSION: 1. Ingrowing nail 2. Pain of toe of right foot PLAN: Pt was seen and examined, history reviewed. Treatment with ingrown nail were discussed and reviewed minor surgery procedure of nail removal matrixectomy was discussed and recommended patient stated to think about this option for minor surgicalprocedure local wound care of 6 weeks discussed and reviewed ingrown portions removed for immediaterelief discussed that it will likely come back without minor surgical procedure after lengthy discussion of risk benefits of minor surgical procedure patient states like to call to schedule appointment At a later date Follow-up in 1 to 3 months Brian Bryant DPM documented in this encounter Plan of Treatment Upcoming Encounters Date Type Department Care Team (Late st Contact Info) Description 12/12/2024 10:40 AM EDT Appointment Radiology Department - [place] [address] [place] [address] 02/05/2025 11:00 AM EDT Appointment [facility] [address] [place] [address] Deepali Gaona MD 175 [facility] [address] [place] [address] documented as of this encounter Visit Diagnoses Diagnosis Ingrowing nail- Primary Pain of toe of right foot Encounter for screening mammogram for breast cancer documented in this encounter Orders Outpatient Referral Count Last Ordered Date st Ordered Date AMB REFERRAL TO PODIATRY 1 12/03/2024 documented in this encounter Additional Health Concerns Assessment Noted Time PHQ-9 Depression Total Score: 0 08/15/20 24 6:56 PM EST documented as of this encounter Care Teams Rail Car Mechanic Relationship Specialty Start Date End Date Shyam Ruth MD [address] [place] [address] PCP - General 08/02/22 documented as of this encounter
--- OUTSIDE RECORDS SUMMARY | 2024-12-05 19:33 | XMS_ITS | Encounter Summary ---
Author Organization [facility] Address [address] [place] [address] Care Team Providers Care Laborer Drying Department Name Role Phone Shyam Ruth MD Primary Care Provider Ilda Jennings MD Unavailable [phone] Reason for Visit * Reason Onset Date Comments Orders Call 05/04/2024 CT chest Provider Call Back 05/04/2024 Encounter Details Date Type Department Care Team Description 05/04/2024 Pt. Non Urgent Medical Question Adult Medicine [address] [address] Lucille Abarca PA-C [address] [place] [address] Social History Tobacco Use Types Packs/Day Years [...] encounter Miscellaneous Notes * Telephone Encounter - Velvet Adair M.A. - 05/06/2024 7:04 AM EDTFrom: Rosendo Ng To: Sang Abarca Sent: 05/04/2024 8:28 AM EDT Subject: Chest xray Good morning, After reviewing my upcoming apps. It says I need a chest tray and the order expires on May 10, 2024. Have I already done this or is this a new order? Thank you Rosendo Ng 1960 documented in this encounter Plan of Treatment Not on file documented as of this encounter Visit Diagnoses Not on filedocumented in this encounter Care Teams Laborer Drying Department Relationship Specialty Start Date End Date Shyam Ruth MD [address] [place] [address] PCP - General Internal Medicine 08/02/22 Ilda Jennings MD [address] [place] [address] Specialist Neurosurgery 04/21/23 documented as of this encounter
--- OUTSIDE RECORDS SUMMARY | 2024-12-05 19:33 | XMS_ITS | Encounter Summary ---
Author Organization [facility] Address [address] [place] [address] Care Team Providers Care Database Technician Name Role Phone Fay Boucher MD Primary Care Provider Shyam Kelley MD Primary Care Provider Ilda Jennings MD Unavailable [phone] Reason for Visit * Reason Comments E-prescribe Rx Request Encounter Details Date Type Department Care Team Description 03/22/2012 Refill Medicine/Pediatrics [address] [address] Fay Boucher MD E-prescribe Rx Request Social History Tobacco Use Types Packs/Day Years [...] encounter Miscellaneous Notes * Telephone Encounter - Aleshia Christensen - 03/22/2012 7:53 AM EDT Refilled 03/02 with 5 refills documented in this encounter Plan of Treatment Not on file documented as of this encounter Visit Diagnoses Not on filedocumented in this encounter Care Teams Database Technician Relationship Specialty Start Date End Date Fay Boucher MD PCP - General 11/30/10 08/01/22 Shyam Ruth MD [address] [place] [address] PCP - General Internal Medicine 08/02/22 Ilda Jennings MD [address] [place] [address] Specialist Neurosurgery 04/21/23 documented as of this encounter
--- OUTSIDE RECORDS SUMMARY | 2024-12-05 19:33 | XMS_ITS | Encounter Summary ---
Author Organization [facility] Address [address] [place] [address] Care Team Providers Care Consulting Utility Forester Name Role Phone Shyam Ruth MD Primary Care Provider Ilda Jennings MD Unavailable Encounter Details Date Type Department Care Team Description 05/11/2023 [facility] Medical Records [address] [place] [address] Abstract, Provider Social History Tobacco Use Types [...] suspected to have Coronavirus/COVID-19? No / Unsure 05/08/2023 10:11 AM EDT documented as of this encounter Plan of Treatment Not on file documented as of this encounter Visit Diagnoses Not on filedocumented in this encounter Care Teams Consulting Utility Forester Relationship Specialty Start Date End Date Shyam Ruth MD [address] [place] [address] PCP - General Internal Medicine 08/02/22 Ilda Jennings MD 175 [facility] [address] [place] [address] Specialist Neurosurgery 04/21/23 documented as of this encounter
--- OUTSIDE RECORDS SUMMARY | 2024-12-05 19:33 | XMS_ITS | Encounter Summary ---
Author Organization [facility] Address [address] [place] [address] Care Team Providers Care Legal Investigator Name Role Phone Fay Boucher MD Primary Care Provider Unava Shyam Zurita MD Primary Care Provider Ilda Jennings MD Unavailable [phone] Encounter Details Date Type Department Care Team Description 11/07/2014 Commercial Stripper Report Medical Records [address] [place] [address] Mayuri Bravo MD Social History Tobacco Use [...] on filedocumented in this encounter Care Teams Legal Investigator Relationship Specialty Start Date End Date Fay Boucher MD PCP - General 11/30/10 08/01/22 Shyam Ruth MD [address] [place] [address] PCP - General Internal Medicine 08/02/22 Ilda Jennings MD [address] [place] [address] [place] [address] Specialist Neurosurgery 04/21/23 documented as of this encounter
--- OUTSIDE RECORDS SUMMARY | 2024-12-05 19:33 | XMS_ITS | Encounter Summary ---
Author Organization [facility] Address [address] [place] [address] Care Team Providers Care Dormitory Supervisor Name Role Phone Fay Boucher MD Primary Care Provider Shyam Kelley MD Primary Care Provider Ilda Jennings MD Unavailable [phone] Reason for Visit * Reason Onset Date Comments REFERRAL 06/18/2014 physiatry Encounter Details Date Type Department Care Team Description 06/18/2014 Telephone Medicine/Pediatrics - [address] [address] Angie Farnsworth, PAJoleenC REFERRAL (physiatry) Social History Tobacco Use Types Packs/Day Years [...] encounter Miscellaneous Notes * Telephone Encounter - Maris Myers - 06/18/2014 1:00 PM EDT Pamela, I am sending this message to inform you that this patient has been called 2 times. We have also sent the patient an unable to reach you letter and still have no response. Unfortunately I have to takethis referral off our Physiatry report. Thank You, Maris Alvarenga Specialties Department documented in this encounter Plan of Treatment Not on file documented as of this encounter Visit Diagnoses Not on filedocumented in this encounter Care Teams Dormitory Supervisor Relationship Specialty Start Date End Date Fay Boucher MD PCP - General 11/30/10 08/01/22 Shyam Ruth MD [address] [place] [address] PCP - General Internal Medicine 08/02/22 Ilda Jennings MD [address] [place] [address] Specialist Neurosurgery 04/21/23 documented as of this encounter
--- OUTSIDE RECORDS SUMMARY | 2024-12-05 19:33 | XMS_ITS | Encounter Summary ---
Author Organization [facility] Address [address] [place] [address] Care Team Providers Care Hand Mold Maker Name Role Phone Fay Boucher MD Primary Care Provider Shyam Kelley MD Primary Care Provider Ilda Jennings MD Unavailable [phone] Reason for Visit * Reason Onset Date Comments medication problems 01/05/2021 Encounter Details Date Type Department Care Team Description 01/05/2021 Telephone Internal Medicine - [address], [address] [place] [address] Fay Boucher MD medication problems Social History Tobacco Use Types Packs/Day Years [...] encounter Miscellaneous Notes * Telephone Encounter - Paolo Hoang MD - 01/13/2021 5:40 PM EDT Iris, not routed to me. The [place], you or anyone else need to adresse it. * Telephone Encounter - Brittny Vaughan R.N. - 01/13/2021 8:55 AM EDT Will defer to Dr. Ramos (Pulmonology) for follow-up per message below by Dr. Ramos. * Telephone Encounter - Paolo Hoang MD - 01/12/2021 2:56 PM EDT Ramos' [place], please contact the patient. * Telephone Encounter - Fay Boucher MD - 01/12/2021 12:56 PM EDT Please notify patient that this is what I was able to find out from the prior authorization team. Iwould encourage her to look into good Rx. * Telephone Encounter - Areli Hummel M.A. - 01/12/2021 10:54 AM EDT Spoke to insurance and the symbicort or any medication in that category is a step 2 medication and the cost is $150.oo per 30 days. That is the plan chosen by the patient Could try the good rx coupon [place] p [phone] Prior Auth tomi Hummel M.A. [facility] Prior Authorizations Ext [phone] Fax: [phone] reply back to p [phone] Prior Auth pool * Telephone Encounter - Fay Boucher MD - 01/08/2021 6:20 PM EDT I will forward to prior auth team who may be able to help. Good Rx is an option if all of them end up being expensive. * Telephone Encounter - Paolo Hoang MD - 01/08/2021 5:59 PM EDT What provider I suppose to be done for expensive medication?. Pharmacy or insurance must give alternative, if Not I'm not able to do anything. * Telephone Encounter - Avni Cardoso - 01/08/2021 10:09 AM EDT Patient called insurance company and they stated she needs to call provider. Did explain this is aninsurance issue that needs to be addressed. Also patient called pharmacy and was told the same thing. Please call and advise. * Telephone Encounter - Kae Humphreys M.A. - 01/05/2021 3:58 PM EDT Left detailed message patient must contact the insurance to discuss what other similar choices theyhave Expecting a call back from patient * Telephone Encounter - Paolo Hoang MD - 01/05/2021 3:48 PM EDT We are not able to check what other alternatives of similar medications the insurance can cover. Sometimes pharmacist is able to provide alternatives, but if it not possible, patient must call the insurance to discuss what other choices similar they have, then we will send to the pharmacy as soon as patient provide this information. * Telephone Encounter - Roma Alvarez - 01/05/2021 10:46 AM EDT Who is calling? The patient Name of the medication Symbicort What is the specific problem or interaction? With insurance the medication costs patient over 300 dollars. Is there an alternative? Good RX cards sent in mail to patient. If the patient is having a problem with taking the med - how long has the problem been going on? N/A documented in this encounter Plan of Treatment Not on file documented as of this encounter Visit Diagnoses Not on filedocumented in this encounter Care Teams Hand Mold Maker Relationship Specialty Start Date End Date Fay Boucher MD PCP - General 11/30/10 08/01/22 Shyam Ruth MD [address] [place] [address] PCP - General Internal Medicine 08/02/22 Ilda Jennings MD [address] [address] Specialist Neurosurgery 04/21/23 documented as of this encounter
--- OUTSIDE RECORDS SUMMARY | 2024-12-05 19:33 | XMS_ITS | Encounter Summary ---
Author Organization [facility] Address [address] [place] [address] Care Team Providers Care Director Critical Care Name Role Phone Fay Boucher MD Primary Care Provider Shyam Kelley MD Primary Care Provider Ilda Jennings MD Unavailable [phone] Encounter Details Date Type Department Care Team Description 07/07/2017 Telephone General Surgery [address] [place] [address] Shelbie Regalado, [facility] [address] [place] [address] Social History Tobacco Use Types Packs/Day Years [...] encounter Miscellaneous Notes * Telephone Encounter - Judit Packer M.A. - 07/07/2017 2:43 PM EDT Informed pt of the approval for supplies and heat element from [employer] documented in this encounter Plan of Treatment Not on file documented as of this encounter Visit Diagnoses Not on filedocumented in this encounter Care Teams Director Critical Care Relationship Specialty Start Date End Date Fya Boucher MD PCP - General 11/30/10 08/01/22 Shyam Ruth MD [address] [place] [address] PCP - General Internal Medicine 08/02/22 Ilda Jennings MD [address] [place] [address] Specialist Neurosurgery 04/21/23 documented as of this encounter
--- OUTSIDE RECORDS SUMMARY | 2024-12-05 19:33 | XMS_ITS | Encounter Summary ---
Author Organization [facility] Address [address] [place] [address] Care Team Providers Care Fire Hazard Inspector Name Role Phone Fay Durán MD Primary Care Provider Shyam Kelley MD Primary Care Provider Ilda Jennings MD Unavailable [phone] Reason for Visit * Reason Onset Date Comments Director Automotive Feedback 10/20/2017 Gastroenterology Encounter Details Date Type Department Care Team Description 10/20/2017 Telephone Gastroenterology - [address] [address] Michael Brannon PA-C Director Automotive Feedback (Gastroenterology) Social History Tobacco Use Types Packs/Day Years [...] on file documented as of this encounter Patient Instructions * Patient Instructions* Sheree Wilkins - 10/20/2017 11:39 AM EST Marli Upper Endoscopy is not a Diagnosis. We need to know what the diagnosis to place an order. Please obtain and send back to Referrals. Thank you, Sheree Typesetters Printer documented in this encounter Miscellaneous Notes * Telephone Encounter - Sheree Wilkins - 10/20/2017 1:00 PM EST Please disregard this Order. I did not realize there was an order placed already. Thank you, Sheree Typesetters Printer * Telephone Encounter - Jennifer Arroyo - 10/20/2017 1:00 PM EST Patient: ABDOUL Veronica CARMINA Subscriber: GIL GREWAL Submitter : FAY DURÁN Submitter Type: Provider : 1960 Referral (#[id number]) Specialty Care Review Type: Initial Certification Status : Certified in total Service Type : Medical Care Place Of Service : Office Visits : 6 Service Date : 10/20/2017-10/20/2018 Service Providers Provider Name ID Provider Type Specialty MD RUBEN CASTILLO NPI : [id number] Performing Specialist * Telephone Encounter - Marli Garvin - 10/20/2017 12:55 PM EST I already took care of this. They just needed the diagnosis for the egd at [facility]. * Telephone Encounter - Michael Brannon PA-C - 10/20/2017 12:51 PM EST What is pt being referred to GI for? I saw her last and sent her for an EGD to be done at [facility]. Does she need a referral to have an EGD scheduled now? * Telephone Encounter - Sheree Wilkins - 10/20/2017 12:40 PM EST Please review this patients new referral request. The referral has been pended. Please complete thefollowing: If approved> sign order If denied>please give instructions and route to your practice nursing pool. Practice nurse should inform referrals and the patient if denied. Thank you, Sheree Typesetters Printer * Telephone Encounter - Marli Garvin - 10/20/2017 12:36 PM EST Diagnosis: RUQ abdominal pain. * Telephone Encounter - Marli Garvin - 10/20/2017 11:35 AM EST What insurance does the patient have today? Payor: [place]/HMO FFS / Plan: HMO $30 [place] [id number] / Product Type: HMO PRE-PAID Effective 07/02/09: ANIYA will not retro referral requests over 90 [...] insurance must be obtained and registered in [facility] or their referral can not be processed. Is this a retro request? NO. If yes for what date of service do you need the retro referral? N/A Who is calling to request this referral? [facility] If the caller is not the patient, what is their name? 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 agronomy technician DIAGNOSIS Patient is being seen for (Not a body part or a procedure): upper endoscopy Have you seen this SPECIALIST for this PROBLEM/DX before?NO If YES, when: Have you checked REVIEW or the APPT DESK to see if this referral has already been done or has visits left? YES Is this visit:Initial Visit Address of Specialist:[address] [place] [address] [address] floor [address] [facility] Phone # of Specialist:[phone] Fax #: (if applicable):[phone] Does patient have an appointment scheduled?: YES Date of appointment- (including a retro-request): 11/02/17 Is this appointment related to: Not MVA, WC or Surgery related documented in this encounter Plan of Treatment Not on file documented as of this encounter Visit Diagnoses Not on filedocumented in this encounter Care Teams Fire Hazard Inspector Relationship Specialty Start Date End Date Fay Durán MD PCP - General 11/30/10 08/01/22 Shyam Ruth MD [address] [place] [address] PCP - General Internal Medicine 08/02/22 Ilda Jennings MD [address] [place] [address] [place] [address] Specialist Neurosurgery 04/21/23 documented as of this encounter
--- OUTSIDE RECORDS SUMMARY | 2024-12-05 19:33 | XMS_ITS | Encounter Summary ---
Author Organization [facility] Address [address] [place] [address] Care Team Providers Care Shucker Name Role Phone Shyam Ruth MD Primary Care Provider Ilda Jennings MD Unavailable [phone] Encounter Details Date Type Department Care Team Description 01/05/2023 Telephone Adult Medicine [facility] [address] [place] [address] Shyam Ruth MD [address] [place] [address] [id number] Social History Tobacco Use Types Packs/Day Years [...] on filedocumented in this encounter Care Teams Shucker Relationship Specialty Start Date End Date Shyam Ruth MD [address] [place] [address] [phone] PCP - General Internal Medicine 08/02/22 Ilda Jennings MD [address] [address] Specialist Neurosurgery 04/21/23 documented as of this encounter
--- OUTSIDE RECORDS SUMMARY | 2024-12-05 19:33 | XMS_ITS | Encounter Summary ---
Author Organization [facility] Address [address] [place] [address] Care Team Providers Care Production Superintendent Hydro Name Role Phone Fay Boucher MD Primary Care Provider Unava Shyam Zurita MD Primary Care Provider Ilda Jennings MD Unavailable [phone] Encounter Details Date Type Department Care Team Description 12/14/2010 Transfer Records Medical Records [address] [place] [address] Abstract, Provider Social History Tobacco Use Types Packs/Day Years Used Date Smoking Tobacco: Former Smokeless Tobacco: Former Quit: 11/21/2010 Alcohol Use Standard Drinks/Week Comments [...] on filedocumented in this encounter Care Teams Production Superintendent Hydro Relationship Specialty Start Date End Date Fay Boucher MD PCP - General 11/30/10 08/01/22 Shyam Ruth MD [address] [place] [address] PCP - General Internal Medicine 08/02/22 Ilda Jennings MD 175 [facility] [address] [place] [address] Specialist Neurosurgery 04/21/23 documented as of this encounter
--- OUTSIDE RECORDS SUMMARY | 2024-12-05 19:33 | XMS_ITS | Encounter Summary ---
Author Organization [facility] Address [address] [place] [address] Care Team Providers Care Proof Clerk Name Role Phone Fay Boucher MD Primary Care Provider Unava Shyam Zurita MD Primary Care Provider Ilda Jennings MD Unavailable [phone] Encounter Details Date Type Department Care Team Description 06/03/2021 Siebel Administrator Report Medical Records [address] [place] [address] Toby Arellano Social History Tobacco Use Types [...] on filedocumented in this encounter Care Teams Proof Clerk Relationship Specialty Start Date End Date Fay Boucher MD PCP - General 11/30/10 08/01/22 Shyam Ruth MD [address] [place] [address] PCP - General Internal Medicine 08/02/22 Ilda Jennings MD [address] [place] [address] [place] [address] Specialist Neurosurgery 04/21/23 documented as of this encounter
--- OUTSIDE RECORDS SUMMARY | 2024-12-05 19:33 | XMS_ITS | Encounter Summary ---
Author Organization [facility] Address [address] [place] [address] Care Team Providers Care Biological Aide Name Role Phone Fay Boucher MD Primary Care Provider Shyam Kelley MD Primary Care Provider Ilda Jennings MD Unavailable [phone] Encounter Details Date Type Department Care Team Description 2014 Release of Information Medical Records [address] [place] [address] Abstract, Provider Social History Tobacco Use Types [...] on filedocumented in this encounter Care Teams Biological Aide Relationship Specialty Start Date End Date Fay Boucher MD PCP - General 11/30/10 08/01/22 Shyam Ruth MD [address] [place] [address] PCP - General Internal Medicine 08/02/22 Ilda Jennings MD 175 [facility] [address] [place] [address] Specialist Neurosurgery 04/21/23 documented as of this encounter
--- OUTSIDE RECORDS SUMMARY | 2024-12-05 19:33 | XMS_ITS | Encounter Summary ---
Author Organization [facility] Address [address] [place] [address] Care Team Providers Care Ship Manager Name Role Phone Fay Boucher MD Primary Care Provider Unava Shyam Zurita MD Primary Care Provider Ilda Jennings MD Unavailable [phone] Encounter Details Date Type Department Care Team Description 11/28/2014 Hospital Medical Records [address] [place] [address] [id number] Social History Tobacco Use Types Packs/Day Years [...] on filedocumented in this encounter Care Teams Ship Manager Relationship Specialty Start Date End Date Fay Boucher MD PCP - General 11/30/10 08/01/22 Shyam Ruth MD [address] [place], [place] [phone] PCP - General Internal Medicine 08/02/22 Ilda Jennings MD 175 [facility] [address] [place], [place] [address] Specialist Neurosurgery 04/21/23 documented as of this encounter
--- OUTSIDE RECORDS SUMMARY | 2024-12-05 19:33 | XMS_ITS | Encounter Summary ---
Author Organization [facility] Address [address] [place] [address] Care Team Providers Care Manager Bar Name Role Phone Fay Boucher MD Primary Care Provider Shyam Kelley MD Primary Care Provider Ilda Jennings MD Unavailable [phone] Reason for Visit * Reason Comments E-prescribe Rx Request erica Encounter Details Date Type Department Care Team Description 04/18/2012 Refill OBGYN - [address] [address] Radu Jennings MD E-prescribe Rx Request (erica) Social History Tobacco Use Types Packs/Day Years [...] encounter Miscellaneous Notes * Telephone Encounter - Esme Ge - 04/18/2012 4:10 PM EDT WHEN WAS THE 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 Yes 05/28/12 (THE MEDICATION REQUESTED IS ON THE MED LIST ABOVE) Did you check the Pharmacy information above?: YES Indicate how soon the patient needs the script: OK FOR NEXT DAY Patient would like script to be: E-PRESCRIBED/FAXED TO PHARMACY Is the doctor here today?: YES Can the message wait until the doctor returns?: NO Has the patient been told that the prescription will not be filled until the end of the day? YES Payor: [facility]/IdenIveO FFS Plan: HMO $20 [employer] [id number] Product Type: IdenIveO [id number] documented in this encounter Plan of Treatment Not on file documented as of this encounter Visit Diagnoses Not on filedocumented in this encounter Care Teams Manager Bar Relationship Specialty Start Date End Date Fay Boucher MD PCP - General 11/30/10 08/01/22 Shyam Ruth MD [address] [place] [address] PCP - General Internal Medicine 08/02/22 Ilda Jennings MD [address] [place] [address] [address] [place] [address] Specialist Neurosurgery 04/21/23 documented as of this encounter
--- OUTSIDE RECORDS SUMMARY | 2024-12-05 19:33 | XMS_ITS | Encounter Summary ---
Author Organization [facility] Address [address] [place] [address] Care Team Providers Care Communications Station Manager Name Role Phone Fay Durán MD Primary Care Provider Shyam Kelley MD Primary Care Provider Ilda Jennings MD Unavailable [phone] Reason for Visit * Reason Onset Date Comments Java Project Manager Feedback 10/24/2017 Mary UGALDE Encounter Details Date Type Department Care Team Description 10/24/2017 Telephone Adult Medicine - [address] [address] Fay Durán MD Java Project Manager Feedback (Mary UGALDE) Social History Tobacco Use Types Packs/Day Years [...] * Telephone Encounter - Sheree Wilkins - 10/24/2017 12:55 PM EST Patient: ROSENDO NG Subscriber: SANTI NG Submitter : FAY DURÁN Submitter Type: Provider : 1960 Referral (#[id number]) Specialty Care Review Type: Initial Certification Status : Certified in total Service Type : Medical Care Place Of Service : Office Visits : 6 Service Date : 10/24/2017-10/24/2018 Service Providers Provider Name ID Provider Type Specialty MD RUBEN CASTILLO NPI : [id number] Performing Specialist documented in this encounter Plan of Treatment Not on file documented as of this encounter Visit Diagnoses Not on filedocumented in this encounter Care Teams Communications Station Manager Relationship Specialty Start Date End Date Fay Durán MD PCP - General 11/30/10 08/01/22 Shyam Ruth MD [address] [place] [address] PCP - General Internal Medicine 08/02/22 Ilda Jennings MD 175 [facility] [address] [place] [address] Specialist Neurosurgery 04/21/23 documented as of this encounter
--- OUTSIDE RECORDS SUMMARY | 2024-12-05 19:33 | XMS_ITS | Encounter Summary ---
Author Organization [facility] Address [address] [place] [address] Care Team Providers Care Feed Elevator Worker Name Role Phone Fay Boucher MD Primary Care Provider Shyam Kelley MD Primary Care Provider Ilda Jennings MD Unavailable [phone] Encounter Details Date Type Department Care Team Description 05/10/2019 Linux Vmware Administrator Report Medical Records [address] [place] [id number] [place] [address] Social History Tobacco Use Types Packs/Day Years [...] on filedocumented in this encounter Care Teams Feed Elevator Worker Relationship Specialty Start Date End Date Fay Boucher MD PCP - General 11/30/10 08/01/22 Shyam Ruth MD [address] [place], [place] [phone] PCP - General Internal Medicine 08/02/22 Ilda Jennings MD [address] [place] [address] [address] [place] [address] Specialist Neurosurgery 04/21/23 documented as of this encounter
--- OUTSIDE RECORDS SUMMARY | 2024-12-05 19:33 | XMS_ITS | Encounter Summary ---
Author Organization [facility] Address [address] [place] [address] Care Team Providers Care Long Term Care Social Worker Name Role Phone Fay Boucher MD Primary Care Provider Unava Shyam Zurita MD Primary Care Provider Ilda Jennings MD Unavailable [phone] Encounter Details Date Type Department Care Team Description 02/27/2018 County Nurse Report Medical Records [address] [place] [address] Nahomy Morrison, RD, LDN 175 [facility] [address] [place] [address] Social History Tobacco Use Types Packs/Day Years [...] on filedocumented in this encounter Care Teams Long Term Care Social Worker Relationship Specialty Start Date End Date Fay Boucher MD PCP - General 11/30/10 08/01/22 Shyam Ruth MD [address] [place] [address] PCP - General Internal Medicine 08/02/22 Ilda Jennings MD 175 [facility] [address] [place], [place] [address] Specialist Neurosurgery 04/21/23 documented as of this encounter
--- OUTSIDE RECORDS SUMMARY | 2024-12-05 19:33 | XMS_ITS | Encounter Summary ---
Author Organization [facility] Address [address] [place] [address] Care Team Providers Care Pediatric Audiologist Name Role Phone Shyam Ruth MD Primary Care Provider Ilda Jennings MD Unavailable Encounter Details Date Type Department Care Team Description 07/04/2024 Refill Adult Medicine [facility] [address] [place] [address] Shyam Ruth MD [address] [place] [address] Social History Tobacco Use Types Packs/Day Years [...] encounter Miscellaneous Notes * Telephone Encounter - Dash Balderrama M.A. - 07/04/2024 8:18 AM EDT LRX 06/05/2024 Last ov 05/28/2024 next ov 08/22/2024 Lab Results Component Value Date URBENZO NONE DETECTED 02/21/2024 UROPIATES NONE DETECTED 02/21/2024 UROXYCODONE POSITIVE 02/21/2024 URBARBITUATE NONE DETECTED 02/21/2024 PAINAMPHETAM NONE DETECTED 02/21/2024 PAINCOCAINE NONE DETECTED 02/21/2024 PAINCANNABIN NONE DETECTED 02/21/2024 Prescriptions Fill Date ID Written Sold Drug Qty Days Prescriber Rx # Pharmacy Refill Daily Dose* Pymt Type POSTAL CARRIER 06/05/24 1 06/05/24 06/05/24 Oxycodone-Acetaminophen 56 28 Mac Bha [id number] [facility] (5741) 0/0 15.00 [place]ME Comm [place] Fill Date ID Written Sold Drug Qty Days Prescriber Rx # Pharmacy Refill Daily Dose* Pymt Type POSTAL CARRIER 5-325 05/02/24 1 05/02/24 05/02/24 Oxycodone-Acetaminophen 5-325 56 28 Mac Bha [id number] [facility] (5741) 0/0 15.00 MME Comm Ins [place] 04/03/24 1 04/03/24 04/05/24 Oxycodone-Acetaminophen 5-325 56 28 An Duo [id number] [facility] (5741) 0/0 15.00 [place] 03/06/24 1 03/06/24 03/06/24 Oxycodone-Acetaminophen 5-325 56 28 Mac Bha [id number] [facility] (5741) 0/0 15.00 [place]ME [place] 02/07/24 1 02/07/24 02/07/24 Oxycodone-Acetaminophen 5-325 56 28 Mac Bha [id number] [facility] (5741) 0/0 15.00 [place] 01/31/24 1 01/29/24 01/31/24 Oxycodone-Acetaminophen 5-325 14 7 Mac Bha [id number] [facility] (5741) 0/0 15.00 [place] 01/22/24 1 01/22/24 01/22/24 Oxycodone-Acetaminophen 5-325 14 7 Mac Bha [id number] [facility] (5741) 0/0 15.00 [place]ME [place] 01/01/24 1 01/01/24 01/02/24 Oxycodone-Acetaminophen 5-325 14 7 An Duo [id number] [facility] (5741) 0/0 15.00 [place] 12/04/23 1 12/04/23 12/04/23 Oxycodone-Acetaminophen 5-325 56 28 Mac [facility] [id number] [facility] (5741) 0/0 15.00 [place] 11/03/23 1 11/03/23 11/03/23 Oxycodone-Acetaminophen 5-325 56 28 Mac a [id number] [facility] (3073) 0/0 15.00 [place] 10/06/23 1 10/06/23 10/07/23 Oxycodone-Acetaminophen 5-325 56 28 An Duo [id number] [facility] (3073) 0/0 15.00 [place] 09/05/23 1 09/05/23 09/05/23 Oxycodone-Acetaminophen 5-325 56 28 An Duo [id number] [facility] (3073) 0/0 15.00 [place] 08/01/23 1 08/01/23 08/03/23 Oxycodone-Acetaminophen 5-325 56 28 Mac [facility] [id number] [facility] (3073) 0/0 15.00 [place]ME [place] Rosalba Ng : 1960 Sex: F Report Prepared: 07/04/2024 Providers Name Address [facility] Zipcode Phone Lucille Abarca [address] [facility] [address] Shyam Ruth [address] [facility] [address] Pharmacies Name Address [facility] Zipcode Phone [employer] [phone] [address] [facility] [phone] [employer] [phone] [address] [facility] [address] documented in this encounter Plan of Treatment Not on file documented as of this encounter Visit Diagnoses Not on filedocumented in this encounter Care Teams Pediatric Audiologist Relationship Specialty Start Date End Date Shyam Ruth MD [address] [place] [address] PCP - General Internal Medicine 08/02/22 Ilda Jennings MD [address] [place] [address] Specialist Neurosurgery 04/21/23 documented as of this encounter
--- OUTSIDE RECORDS SUMMARY | 2024-12-05 19:33 | XMS_ITS | Encounter Summary ---
Author Organization [facility] Address [address] [place] [address] Care Team Providers Care Refined Syrup Operator Name Role Phone Shyam Ruth MD Primary Care Provider Ilda Jennings MD Unavailable [phone] Encounter Details Date Type Department Care Team Description 03/31/2023 PNO Controlled Substance Contract Medical Records [address] [place] [id number] Abstract, Provider Social History Tobacco Use Types [...] on filedocumented in this encounter Care Teams Refined Syrup Operator Relationship Specialty Start Date End Date Shyam Ruth MD [address] [place] [address] PCP - General Internal Medicine 08/02/22 Ilda Jennings MD 175 [facility] [address] [place] [address] Specialist Neurosurgery 04/21/23 documented as of this encounter
--- OUTSIDE RECORDS SUMMARY | 2024-12-05 19:33 | XMS_ITS | Encounter Summary ---
Author Organization [facility] Address [address] [place] [address] Care Team Providers Care Hr Recruiter Name Role Phone Shyam Ruth MD Primary Care Provider Ilda Jennings MD Unavailable Encounter Details Date Type Department Care Team Description 05/03/2023 SCAN [facility] Neurosurgery [place] [address] [phone] Ilda Jennings MD [address] [id number] Social History Tobacco Use Types Packs/Day Years [...] suspected to have Coronavirus/COVID-19? No / Unsure 05/03/2023 9:53 AM EDT documented as of this encounter Plan of Treatment Not on file documented as of this encounter Visit Diagnoses Not on filedocumented in this encounter Care Teams Hr Recruiter Relationship Specialty Start Date End Date Shyam Ruth MD [address] [place] [address] PCP - General Internal Medicine 08/02/22 Ilda Jennings MD [address] [place] [address] Specialist Neurosurgery 04/21/23 documented as of this encounter
--- OUTSIDE RECORDS SUMMARY | 2024-12-05 19:33 | XMS_ITS | Clinical Summary ---
Author Organization [facility] [address] [facility] Address 444 [facility] [place] Phone Care Team Providers Care Hatchery Supervisor Name Role Phone Shyam Ruth MD Primary Care Provider Allergies No known active allergies Medications nystatin (MYCOSTATIN) 100,000 unit/gram powder Apply topically 3 (three) times a day. Abdominal rash 07/22/20 23 Active omeprazole (PriLOSEC) [address] capsule Take 1 capsule (20 mg total) by mouth 1 (one) time each day. 01/16/20 21 Active miscellaneous medical supply misc CPAP Historical (HISTORICAL CPAP) Inhale into the lungs. BHIR-pressure 10-20 with 2 liter oxygen Active acetaminophen (TYLENOL 8 HOUR) 650 mg 8 hr tablet Take 1 tablet (650 mg total) by mouth every 8 (eight) hours if needed (pain). Do not crush, chew, or split. Active albuterol 2.5 mg /3 mL (0.083 %) nebulizer solution Take 3 mL by nebulization every 4 (four) hours if needed for wheezing. 75 mL 2 09/03/20 24 Active primidone (MYSOLINE) 50 mg tablet TAKE 3 TABLETS BY MOUTH AT BEDTIME 270 tablet 10/03/19 25 Active buPROPion XL (WELLBUTRIN XL) 150 mg 24 hr tablet Take 1 tablet (150 mg total) by mouth 1 (one) time each day. In addition to 300mg every am. 90 tablet 11/05/19 25 Active buPROPion XL (WELLBUTRIN XL) 300 mg 24 hr tablet Take 1 tablet (300 mg total) by mouth 1 (one) time each day. In addition to 150mg every am. 90 tablet 11/05/19 25 Active Symbicort 160-4.5 mcg/actuation inhalerIndica tions:Obstruc tive sleep apnea (adult) (pediatric),C entrilobular emphysema (CMS/HCC) Inhale 2 puffs by mouth 2 (two) times a day. Rinse mouth with water after use to reduce aftertaste and incidence of candidiasis. Do not swallow. 10.2 each 11/06/19 25 Active albuterol HFA (PROAIR HFA ; PROVENTIL HFA ; VENTOLIN HFA) 90 mcg/actuation inhaler INHALE 2 PUFFS BY MOUTH EVERY 4 HOURS NEEDED FOR WHEEZING OR SHORTNESS OF BREATH 18 g 1 11/13/19 25 Active oxyCODONE-ellen taminophen (PERCOCET) 5-325 mg per tablet Take 1 tablet by mouth every 12 (twelve) hours if needed for moderate pain or severe pain. Max Daily Amount: 2 tablets 56 tablet 12/05/19 25 Active albuterol HFA (PROAIR HFA ; PROVENTIL HFA ; VENTOLIN HFA) 90 mcg/actuation inhaler Inhale 2 puffs by mouth every 4 (four) hours if needed for wheezing or shortness of breath. 8 g 3 09/03/20 24 025 Discontinued Symbicort 160-4.5 mcg/actuation inhalerIndica tions:Obstruc tive sleep apnea (adult) (pediatric),C entrilobular emphysema (CMS/HCC) INHALE 2 PUFFS INTO THE LUNGS TWICE A DAY 10.2 each 5 09/19/20 24 025 Discontinued(R eorder) oxyCODONE-ellen taminophen (PERCOCET) 5-325 mg per tablet Take 1 tablet by mouth every 12 (twelve) hours if needed for moderate pain or severe pain. Max Daily Amount: 2 tablets 56 tablet 10/29/19 25 025 Discontinued(R eorder) oxyCODONE-ellen taminophen (PERCOCET) 5-325 mg per tablet Take 1 tablet by mouth every 12 (twelve) hours if needed for moderate pain or severe pain. Max Daily Amount: 2 tablets 56 tablet 11/06/19 25 025 Discontinued(R eorder) Active Problems Problem Noted Date Diagnosed Date [...] Encounters Date Type Department Care Team Description 12/03/2024 10:15 AM EST Consult Orthopedic Surgery - [place] [address] [place] [phone] Brian Bryant, DPM Ingrowing nail (Primary Dx); Pain of toe of right foot from Last 3 Months Immunizations Name Administration Dates Next Due Influenza Quadravalent, MDCK , 0.5ml, preservative free (Flucelvax) 6mo and older 07/03/2023 Influenza Quadravalent, MDCK , 0.5ml, with preservative (Flucelvax) 6mo and older 07/26/2017 Influenza trivalent, MDCK, 0 .5mL, preservative free (Flucelvax) 6mo and older 08/22/2024 Influenza trivalent, with pr eservative (Fluzone; Afluria) 6mo and older 09/09/2020,10/01/2015,08/14/2013,08/25,07/27/2011,09/29/2005 [facility] SARS-CoV-2 COVID-19, mRNA, LNP-S, preservative free 10/07/2021 [...] LAPAROSCOPIC APPENDECTOMY OTHER SURGICAL HISTORY 2006 PROCEDURE: [place] [facility] ENTEROENTERIC/ENTEROCOLIC FSTL COLONOSCOPY 2006 PROCEDURE: HISTORICAL COLONOSCOPY; COMMENT: no polyps; done at [facility] COLONOSCOPY 2014 PROCEDURE: HISTORICAL COLONOSCOPY; COMMENT: RBMG; normal BACK SURGERY 07/2016 PROCEDURE: HISTORICAL BACK SURGERY; COMMENT: decompression UPPER GASTROINTESTINAL ENDOSCOPY 11/02/2017 PROCEDURE: UPPER GI ENDOSCOPY/EXAM; COMMENT: mild gastritis. normal esophagus and duodenum Medical History Medical History Date Comments Menorrhagia DX:Menorrhagia COPD (chronic obstructive pu lmonary disease) ([facility]) DX:COPD (chronic obstructive pulmonary disease) ([facility]) Asthma, moderate persistent, well-controlled 06/06/2012 DX:Asthma, moderate persiste nt, well-controlled Diverticulosis DX:Diverticulosi s History of basal cell carcinoma 12/29/2010 DX:History of basal cell carcinoma Morbid obesity ([facility]) 12/15/2014 DX:Morb id obesity ([facility]) Nonulcer dyspepsia 11/16/2017 DX:Nonulcer d yspepsia IBS (irritable bowel syndrome) 11/16/2017 D X:IBS (irritable bowel syndrome) NAFLD (nonalcoholic fatty li luis disease) 11/16/2017 DX:NAFLD (nonalcoholic fatty liver disease) Allergic rhinitis 01/25/2011 DX:Allergic rh initis Morbid obesity with BMI of 4 0.0-44.9, adult ([facility]) 12/15/2014 DX:Morbid obesity with BMI o f 40.0-44.9, adult ([facility]) Centrilobular emphysema ([facility]) 06/05/2018 DX:Centrilobular emphysema ([facility]) Dependence on nocturnal oxyg en therapy 06/27/2017 [...] DX:Obstr uctive sleep apnea; COMMENT: Overlap syndrome (CMS/HCC) 06/05/2018 DX:Ov erlap syndrome (HCC) PLMD (periodic limb movement disorder) 06/10/2017 DX:PLMD [...] care for your loved ones. For example, childcare aide or elderly care for an older adult? [...] AM EST Sexual Orientation Not on file Obstetrics History Last Filed [...] Mass Index 43.92 12/03/2024 10:11 AM EST Plan of Treatment Upcoming Encounters Date Type Department Care Team (Late st Contact Info) Description 12/12/2024 10:40 AM EDT Appointment Radiology Department [address] [phone] 02/05/2025 11:00 AM EDT Appointment [facility] Endoscopy [address] [place] [phone] Deepali Gaona MD 175 [facility] [address] [place] [address] Health Maintenance Due Date Last Done Comments Zoster Vaccines (1 of 2) 1978 RSV Immunization Patients 60+ Years Old (1 - Risk 60-74 years 1-dose series) 2019 Medicare Annual Wellness Visit 09/09/2022 Osteoporosis Screening (Bone Density Screening) 09/09/2022 COVID-19 Vaccine ( season) 2024 10/07/2021, 01/10/2021, 12/20/2020 Colorectal Cancer Screening: Colonoscopy 10/07/2024 10/07/2014, 10/07/2014 Falls Risk Assessment 2024 Depression Screening 08/15/2025 08/15/2024 Social Influencers of Health Screening 08/15/2025 08/15/2024 Breast Cancer Screening 12/03/2025 12/04/19, 11/30/2022, 04/17/2020, Additional history exists Cholesterol Screening (Lipid Panel) 03/29/2028 03/29/2023, 03/29/2023 Cervical Cancer Screening: HPV 07/21/2028 07/21/2023 DTaP,Tdap,and Td Vaccines (4 - Td or Tdap) 08/22/2034 08/22/2024, 04/30/2014, 03/21/2005 Hepatitis C Screening Completed 03/12/2013 Influenza Vaccine Completed 08/22/2024, , 09/09/2020, Additional history exists Pneumococcal Vaccine: 50+ Years Completed 08/22/2024, 11/23/2004 Pneumococcal Vaccine: Pediatrics [...] patient's age to complete this topic Meningococcal B Vacine Aged Out No lo nger eligible based on patient's age to complete this topic RSV Immunization Patients Under 20 months Aged Out No longer eligible based on patient's age to complete this topic Varicella Vaccines Aged Out No longer eligible based on patient's age to complete this topic Procedures Procedure Name Priority Date/Time Associated Diagnosis Comments EXTERNAL XRAY REPORT 09/24/2024 SCREENING MAMMOGRAPHY BI 2-VIEW BREAST INC CAD Routine 12/04/2023 5:58 PM EST Encounter for screening mammogram for malignant neoplasm of breast HM HPV Routine 07/21/2023 LIPID PANEL Routine 03/29/2023 HM COLONOSCOPY Routine 10/07/2014 HEPATITIS C SCREENING Routine 03/12/2013 from Last 3 Months or Most Recently Relevant to Health Maintenance Results * External Xray Report (09/24/2024) Anatomical Region Laterality Modality Radiographic Tg ging us Provider [facility] IM[facility] XR PROCEDURES Final Result * SCREENING MAMMOGRAPHY BI 2-VIEW BREAST INC [...] Low (<15%) Shyam Ruth MD IMG XR PROCEDURES [place] Result * Cervical Cancer Screening: HPV (07/21/2023) [facility] Cervical Cancer Screening: HPV Negative, Abstracted Historical Provider HEALTH MAINTENANCE Final Result * Lipid panel (03/29/2023) [facility] LDL/HDL Ratio 3 0 - 4 Triglycerides 140 0 - 150 mg/dL Cholesterol 194 0 - 200 mg/dL HDL 76 >=40 mg/dL LDL Cholesterol 90 0 - 100 mg/dL Blood Venous blood specimen / Unknown Result [facility] Historical Provider LAB BLOOD ORDERABLES [place] Result * Colonoscopy (10/07/2014) [facility] Colonoscopy No Interpretation , Abstracted Anatomical Region Laterality Modality Other Historical Provider HEALTH MAINTENANCE Final Result * Hepatitis C Screening (03/12/2013) [facility] Hepatitis C Screening Abstracted Historical Provider HEALTH MAINTENANCE Final Result from Last 3 Months or Most Recently Relevant to Health Maintenance Insurance [facility] [employer] MEDICARE Care Teams Hatchery Supervisor Relationship Specialty Start Date End Date Shyam Ruth MD [address] [place] [address] PCP - General 08/02/22
--- OUTSIDE RECORDS SUMMARY | 2024-12-05 19:33 | XMS_ITS | Encounter Summary ---
Author Organization [facility] Address [address] [place] [address] Care Team Providers Care Gin Clerk Name Role Phone Shyam Ruth MD Primary Care Provider Ilda Jennings MD Unavailable [phone] Encounter Details Date Type Department Care Team Description 05/11/2023 Pt. Non Urgent Medical Question Pulmonology - [place] 175 [facility] [address] [place] [phone] Minal Hager MD 175 [facility] [address] [place] [address] Social History Tobacco Use Types Packs/Day Years [...] AM EDT documented as of this encounter Miscellaneous Notes * Telephone Encounter - Taisha Cardoso M.A. - 05/12/2023 11:41 AM EDTFrom: Rosendo Ng To: Dwayne Hager Sent: 05/11/2023 5:26 AM EDT Subject: Symbacourt [facility] has informed me that they sent a request to change my sybacourt. They also said they have not gotten a response. Should I be doing something? Thank you Rosalba documented in this encounter Plan of Treatment Not on file documented as of this encounter Visit Diagnoses Not on filedocumented in this encounter Care Teams Gin Clerk Relationship Specialty Start Date End Date Shyam Ruth MD [address] [place] [address] PCP - General Internal Medicine 08/02/22 Ilda Jennings MD [address] [place] [address] [address] [place] [address] Specialist Neurosurgery 04/21/23 documented as of this encounter
== END 2024-12-05 16:55 | disposition home or self-care (01) ==
LOC: HO.CT 16:54
PROVIDERS: PCP Internal Medicine; Visit Provider Physician Assistant
DX: M43.16 Spondylolisthesis, lumbar region (principal)
CPT/HCPCS: 72131

== ENCOUNTER → 2024-12-05 16:56 | Outpatient (BNV) | payer MEDICARE, SELFPAY | PROVIDERS: PCP Internal Medicine; Visit Provider Radiology Diagnostic Radiology | DX: M51.369 Other intervertebral disc degeneration, lumbar region without mention of lumbar back pain or lower extremity pain (principal); M48.061 Spinal stenosis, lumbar region without neurogenic claudication | CPT/HCPCS: 72131 ==

== ENCOUNTER 2024-12-30 11:15 | Outpatient (AMB) | payer MEDICARE, SELFPAY ==
--- NOTE | 2024-12-30 11:18 | A.SPINEOV_ITS ---
Intake Visit Reasons: f/up after CT and injection Intake Note: Ms. Ng is here today to F/u after CT and injections. Computer Help Desk Representative Required: No Allergies No Known Allergies Allergy (Verified 12/30/24 11:20) Assessment & Plan Assessment & Plan (1) Spondylolisthesis, lumbar region: Code(s): M43.16 - Spondylolisthesis, lumbar region Category: Medical Plan Mrs Amor is here in follow-up. Please see my to previous notes for the specifics of her problem. The primary pain she is dealing with his centralized back pain, with an intermittent leg pain as well radiating down into her calves. The plan last time was to send her for CT scan to evaluate potential auto fusion at L4-5 and a left L5 TFE to see if we could isolate where her pain is coming from shooting down the leg. The left L5 TF he did not give her any improvement in her symptoms. The CT scan done at [place] shows severe disc collapse on the left at L4-5 with a large anterior bridging osteophyte. I can not tell if 100% the area is fused or not there is a small area on the upper end of the osteophyte which looks like it may not have completely bridged. She continues with the stenosis at L3-4 and the lateral listhesis at L2-3. Typically this is something Dr. Milligan would offer an oblique lumbar interbody fusion to correct the scoliosis. I would like to check with him about the L4-5 area and see if he thinks we do not need to do that area or if we should include it. I did briefly review the procedure, risks recovery with her and her daughter. Once I have a chance to review everything with Dr. Milligan I will call her back. Total amount of time spent in this visit was 20 minutes in discussion of symptoms, CT imaging results and subsequent plan of care aNun Milligan MD,PhD [facility] Coding Level of Care Code Est Pt Level 3 (82522) Diagnoses Spondylolisthesis, lumbar region M43.16
--- OUTSIDE RECORDS SUMMARY | 2024-12-30 12:54 | XMS_ITS | Encounter Summary ---
Author Organization [facility] Address [address] [place] [address] Care Team Providers Care Entry Rep Name Role Phone Shyam Ruth MD Primary Care Provider Ilda Jennings MD Unavailable [phone] Encounter Details Date Type Department Care Team Description 05/11/2023 Pt. Non Urgent Medical Question Pulmonology - [place] 175 [facility] [address] [place] [phone] Minal Hager MD 175 [facility] [address] [place] [address] Social History Tobacco Use Types [...] on filedocumented in this encounter Care Teams Entry Rep Relationship Specialty Start Date End Date Shyam Ruth MD [address] [place] [address] PCP - General Internal Medicine 08/02/22 Ilda Jennings MD [address] [place] [address] [address] [place] [address] Specialist Neurosurgery 04/21/23 documented as of this encounter
--- OUTSIDE RECORDS SUMMARY | 2024-12-30 12:54 | XMS_ITS | Encounter Summary ---
Author Organization [facility] Address [address] [place] [address] Care Team Providers Care Patent Lawyer Name Role Phone Shyam Ruth MD Primary Care Provider Ilda Jennings MD Unavailable [phone] Encounter Details Date Type Department Care Team Description 05/05/2023 Release of Information Medical Records [address] [place] [id number] Abstract, Provider Social History Tobacco Use Types [...] on filedocumented in this encounter Care Teams Patent Lawyer Relationship Specialty Start Date End Date Shyam Ruth MD [address] [place] [address] PCP - General Internal Medicine 08/02/22 Ilda Jennings MD 175 [facility] [address] [place] [address] Specialist Neurosurgery 04/21/23 documented as of this encounter
--- OUTSIDE RECORDS SUMMARY | 2024-12-30 12:54 | XMS_ITS | Encounter Summary ---
Author Organization [facility] Address [address] [place] [address] Care Team Providers Care Welfare Case Worker Name Role Phone Fay Boucher MD Primary Care Provider Shyam Kelley MD Primary Care Provider Ilda Jennings MD Unavailable [phone] Encounter Details Date Type Department Care Team Description 08/29/2018 Release of Information Medical Records [address] [place] [id number] Abstract, Provider Social History Tobacco Use Types [...] on filedocumented in this encounter Care Teams Welfare Case Worker Relationship Specialty Start Date End Date Fay Boucher MD PCP - General 11/30/10 08/01/22 Shyam Ruth MD [address] [place] [address] PCP - General Internal Medicine 08/02/22 Ilda Jennings MD 175 [facility] [address] [place] [address] Specialist Neurosurgery 04/21/23 documented as of this encounter
--- OUTSIDE RECORDS SUMMARY | 2024-12-30 12:54 | XMS_ITS | Encounter Summary ---
Author Organization [facility] Address [address] [place] [address] Care Team Providers Care Ruffler Name Role Phone Shyam Ruth MD Primary Care Provider Ilda Jennings MD Unavailable [phone] Encounter Details Date Type Department Care Team Description 10/19/2023 Orders Only Medical Records [address] [place] [address] Toby Arellano Social History Tobacco Use Types [...] on file documented as of this encounter Procedures Procedure Name Priority Date/Time Associated Diagnosis Comments OUTSIDE PATHOLOGY Routine 10/13/2023 documented in this encounter Results * OUTSIDE PATHOLOGY (10/13/2023) Toby Arellano OUTSIDE LAB documented in this encounter Visit Diagnoses Not on filedocumented in this encounter Care Teams Ruffler Relationship Specialty Start Date End Date Shyam Ruth MD [address] [place] [address] PCP - General Internal Medicine 08/02/22 Ilda Jennings MD [address] [place] [address] [address] [place] [address] Specialist Neurosurgery 04/21/23 documented as of this encounter
--- OUTSIDE RECORDS SUMMARY | 2024-12-30 12:54 | XMS_ITS | Encounter Summary ---
Author Organization [facility] Address [address] [place] [address] Care Team Providers Care Senior Portfolio Manager Name Role Phone Fay Boucher MD Primary Care Provider Unava Shyam Zurita MD Primary Care Provider Ilda Jennings MD Unavailable [phone] Encounter Details Date Type Department Care Team Description 09/02/2016 Well Services Operator Report Medical Records [address] [place] [address] Mayuri Bravo MD Social History Tobacco Use [...] on filedocumented in this encounter Care Teams Senior Portfolio Manager Relationship Specialty Start Date End Date Fay Boucher MD PCP - General 11/30/10 08/01/22 Shyam Ruth MD [address] [place] [address] PCP - General Internal Medicine 08/02/22 Ilda Jennings MD [address] [place] [address] [place] [address] Specialist Neurosurgery 04/21/23 documented as of this encounter
--- OUTSIDE RECORDS SUMMARY | 2024-12-30 12:54 | XMS_ITS | Clinical Summary ---
Author Organization [employer] Address [address] [place] [address] [address] [place] [address] Care Team Providers Care Conservation Planner Name Role Phone Unavailable Primary Care Provider [...] patient's age to complete this topic Insurance [facility] , [address] [place] [address] Care Teams Conservation Planner Relationship Specialty Start Date End Date SHAGGY HANEY [address] [address] ?? Primary Care Provider 10/02/23
--- OUTSIDE RECORDS SUMMARY | 2024-12-30 12:54 | XMS_ITS | Encounter Summary ---
Author Organization [facility] Address [address] [place] [address] Care Team Providers Care Railroad Brake Repairer Name Role Phone Fay Boucher MD Primary Care Provider Unava Shyam Zurita MD Primary Care Provider Ilda Jennings MD Unavailable Encounter Details Date Type Department Care Team Description 06/25/2012 Lay Out Helper Report Medical Records [address] [place] [address] Daim Tee Social History Tobacco Use Types Packs/Day [...] on filedocumented in this encounter Care Teams Railroad Brake Repairer Relationship Specialty Start Date End Date Fay Boucher MD PCP - General 11/30/10 08/01/22 Shyam Ruth MD [address] [place] [address] PCP - General Internal Medicine 08/02/22 Ilda Jennings MD 175 [facility] [address] [place] [address] Specialist Neurosurgery 04/21/23 documented as of this encounter
--- OUTSIDE RECORDS SUMMARY | 2024-12-30 12:54 | XMS_ITS | Encounter Summary ---
Author Organization [facility] Address [address] [place] [address] Care Team Providers Care Catalog Librarian Name Role Phone Fay Boucher MD Primary Care Provider Shyam Kelley MD Primary Care Provider Ilda Jennings MD Unavailable [phone] Encounter Details Date Type Department Care Team Description 06/10/2017 Orders Only Pulmonology [address] [place] [address] Paolo Hoang MD [address] [address] Chronic obstructive pulmonary disease, unspecified COPD type (HCC); Asthma, moderate persistent, well-controlled; Morbid obesity due to excess calories (HCC); Snoring; Former smoker Social History Tobacco Use Types Packs/Day Years [...] Procedure Name Priority Date/Time Associated Diagnosis Comments CHG BLOOD GASES ANY COMBINATION PH PCO2 PO2 CO2 HCO3 Routine 06/10/2017 12:35 PM EDT Chronic obstructive pulmonary disease, unspecified COPD type (HCC) Asthma, moderate persistent, well-controlled Morbid obesity due to excess calories (HCC) Snoring Former smoker documented in this encounter Results * ASSAY, BLOOD GASES: PH/PO2/PCO2/ETC (06/10/2017 12:35 PM EDT) 06/10/2017 12:3 5 PM EDT Paolo Hoang MD LAB [employer] documented in this encounter Visit Diagnoses Diagnosis Chronic obstructive pulmonary disease, unspecified COPD type (HCC) Asthma, moderate persistent, well-controlled Unspecified asthma Morbid obesity due to excess calories (HCC) Snoring Other dyspnea and respiratory abnormality Former smoker Personal history of tobacco use, presenting hazards to health documented in this encounter Care Teams Catalog Librarian Relationship Specialty Start Date End Date Fay Boucher MD PCP - General 11/30/10 08/01/22 Shyam Ruth MD [address] [place] [address] PCP - General Internal Medicine 08/02/22 Ilda Jennings MD 175 [facility] [address] [place] [address] Specialist Neurosurgery 04/21/23 documented as of this encounter
--- OUTSIDE RECORDS SUMMARY | 2024-12-30 12:54 | XMS_ITS | Encounter Summary ---
Author Organization [facility] Address [address] [place] [address] Care Team Providers Care Dining Manager Name Role Phone Fay Boucher MD Primary Care Provider Unava Shyam Zurita MD Primary Care Provider Ilda Jennings MD Unavailable [phone] Encounter Details Date Type Department Care Team Description 06/15/2016 Pantograph Machine Set Up Operator Report Medical Records [address] [place] [address] Mayuri Bravo MD Social History Tobacco Use [...] on filedocumented in this encounter Care Teams Dining Manager Relationship Specialty Start Date End Date Fay Boucher MD PCP - General 11/30/10 08/01/22 Shyam Ruth MD [address] [place] [address] PCP - General Internal Medicine 08/02/22 Ilda Jennings MD [address] [place] [address] [place] [address] Specialist Neurosurgery 04/21/23 documented as of this encounter
--- OUTSIDE RECORDS SUMMARY | 2024-12-30 12:54 | XMS_ITS | Encounter Summary ---
Author Organization [facility] Address [address] [place] [address] Care Team Providers Care Commercial Pilot Name Role Phone Fay Boucher MD Primary Care Provider Shyam Kelley MD Primary Care Provider Ilda Jennings MD Unavailable [phone] Reason for Visit * Reason Onset Date Comments medication problems 01/05/2021 Encounter Details Date Type Department Care Team Description 01/05/2021 Telephone Internal Medicine - [address], [address] [place] [address] Fay Boucher MD medication problems Social History [...] rx coupon [place] reply [place] p [phone] Prior Auth tomi Hummel M.A. [facility] Prior Authorizations Ext [phone] Fax: [phone] reply back to p [phone] Prior Auth pool * Telephone Encounter - [...] on filedocumented in this encounter Care Teams Commercial Pilot Relationship Specialty Start Date End Date Fay Boucher MD PCP - General 11/30/10 08/01/22 Shyam Ruth MD [address] [place] [address] PCP - General Internal Medicine 08/02/22 Ilda Jennings MD [address] [address] Specialist Neurosurgery 04/21/23 documented as of this encounter
--- OUTSIDE RECORDS SUMMARY | 2024-12-30 12:54 | XMS_ITS | Encounter Summary ---
Author Organization [facility] Address [address] [place] [address] Care Team Providers Care Shaker Tender Name Role Phone Fay Boucher MD Primary Care Provider Shyam Kelley MD Primary Care Provider Ilda Jennings MD Unavailable [phone] Encounter Details Date Type Department Care Team Description 06/14/2016 Release of Information Medical Records [address] [place] [address] Abstract, Provider Social History Tobacco Use Types [...] on filedocumented in this encounter Care Teams Shaker Tender Relationship Specialty Start Date End Date Fay Boucher MD PCP - General 11/30/10 08/01/22 Shyam Ruth MD [address] [place] [address] PCP - General Internal Medicine 08/02/22 Ilda Jennings MD 175 [facility] [address] [place] [address] Specialist Neurosurgery 04/21/23 documented as of this encounter
--- OUTSIDE RECORDS SUMMARY | 2024-12-30 12:54 | XMS_ITS | Encounter Summary ---
Author Organization [facility] Address [address] [place] [address] Care Team Providers Care Cold Rolling Supervisor Name Role Phone Fay Boucher MD Primary Care Provider Shyam Kelley MD Primary Care Provider Ilda Jennings MD Unavailable [phone] Encounter Details Date Type Department Care Team Description 01/13/2020 Pt. Non Urgent Medical Question Pulmonology - [place] 175 [facility] [address] [place] [address] Paolo Hoang MD 175 [facility] [address] [place] [address] Social History Tobacco Use Types Packs/Day [...] as of this encounter Progress Notes * Kalani Reyes M.A. - 01/13/2020 2:44 PM EDTFrom: Rosendo gN To: Paolo Hoang MD Sent: 01/13/2020 11:18 AM EDT Subject: mucinex I am been on the mucinex for 16 days. I have a lot of rettling and was wonering what should I do? There is minimal productive mucusm Ribare sore and when I try to take a deep breath I get a bocked feeling and cough. Should I continue to use nebulizer? documented in this encounter Plan of Treatment Not on file documented as of this encounter Visit Diagnoses Not on filedocumented in this encounter Care Teams Cold Rolling Supervisor Relationship Specialty Start Date End Date Fay Boucher MD PCP - General 11/30/10 08/01/22 Shyam Ruth MD [address] [place] [address] PCP - General Internal Medicine 08/02/22 Ilda Jennings MD [address] [place] [address] Specialist Neurosurgery 04/21/23 documented as of this encounter
--- OUTSIDE RECORDS SUMMARY | 2024-12-30 12:54 | XMS_ITS | Encounter Summary ---
Author Organization [facility] Address [address] [place] [address] Care Team Providers Care Dog Warden Name Role Phone Fay Boucher MD Primary Care Provider Shyam Kelley MD Primary Care Provider Ilda Jennings MD Unavailable [phone] Reason for Visit * Reason Onset Date Comments Provider Call Back 05/15/2020 Encounter Details Date Type Department Care Team Description 05/15/2020 Telephone Pulmonology - [place] 175 [facility] [address] [place] [address] Shelbie Regalado FNP [address] [place] [address] Provider Call Back Social History Tobacco Use Types Packs/Day Years [...] encounter Miscellaneous Notes * Telephone Encounter - ROSE Flores - 05/15/2020 9:03 AM EDT Please note that this is not a high priority call as the patient did not olive picker when I called her for the appointment. Patient called. * Telephone Encounter - Libertad Hyman - 05/15/2020 8:52 AM EDT Patient miss call. Please call back. documented in this encounter Plan of Treatment Not on file documented as of this encounter Visit Diagnoses Not on filedocumented in this encounter Care Teams Dog Warden Relationship Specialty Start Date End Date Fay Boucher MD PCP - General 11/30/10 08/01/22 Shyam Ruth MD [address] [place] [address] PCP - General Internal Medicine 08/02/22 Ilda Jennings MD [address] [place] [address] Specialist Neurosurgery 04/21/23 documented as of this encounter
--- OUTSIDE RECORDS SUMMARY | 2024-12-30 12:54 | XMS_ITS | Clinical Summary ---
Author Organization [facility] [address] [facility] Address [address] [facility] [place] Phone Care Team Providers Care Machine Engineer Name Role Phone Shyam Ruth MD Primary [...] every am. 90 tablet 11/05/19 25 Active oxyCODONE-ellen taminophen (PERCOCET) 5-325 mg [...] WHEEZING OR SHORTNESS OF BREATH 18 g 12/18/19 25 Active Symbicort 160-4.5 mcg/actuation inhalerIndica tions:Obstruc tive sleep apnea (adult) (pediatric),C entrilobular emphysema (CMS/HCC) Inhale 2 puffs by mouth 2 (two) times a day. Rinse mouth with water after use to reduce aftertaste and incidence of candidiasis. Do not swallow. 10.2 each 5 12/18/19 25 Active Symbicort 160-4.5 mcg/actuation inhalerIndica tions:Obstruc tive sleep apnea (adult) (pediatric),C entrilobular emphysema (CMS/HCC) Inhale 2 puffs by mouth 2 (two) times a day. Rinse mouth with water after use to reduce aftertaste and incidence of candidiasis. Do not swallow. 10.2 each 5 11/06/19 25 025 Discontinued(R eorder) oxyCODONE-ellen taminophen (PERCOCET) 5-325 mg per tablet Take 1 tablet by mouth every 12 (twelve) hours if needed for moderate pain or severe pain. Max Daily Amount: 2 tablets 56 tablet 11/06/19 25 025 Discontinued(R eorder) albuterol HFA (PROAIR HFA ; PROVENTIL HFA ; VENTOLIN HFA) 90 mcg/actuation inhaler INHALE 2 PUFFS BY MOUTH EVERY 4 HOURS NEEDED FOR WHEEZING OR SHORTNESS OF BREATH 18 g 1 11/13/19 25 025 Discontinued Active Problems Problem Noted Date Diagnosed Date [...] Encounters Date Type Department Care Team Description 12/12/2024 9:57 AM EDT - 12/12/2024 11:59 PM EDT Hospital Encounter Radiology Department - [address] [address] Encounter for screening mammogram for breast cancer Discharge Disposition: Home or Self Care 12/03/2024 10:15 AM EST Consult Orthopedic Surgery - [place] [address] 175 [facility] [address] [place] [address] Brian Bryant, DPM Ingrowing nail (Primary [...] SARS-CoV-2 COVID-19, mRNA, LNP-S, preservative free 10/07/2021 [employer] SARS-CoV-2 COVID-19, mRNA, LNP-S, preservative free 01/10/2021,12/20/2020 [...] LAPAROSCOPIC APPENDECTOMY OTHER SURGICAL HISTORY 2006 PROCEDURE: IA CLSR ENTEROENTERIC/ENTEROCOLIC FSTL COLONOSCOPY 2006 PROCEDURE: HISTORICAL COLONOSCOPY; COMMENT: no polyps; done at [facility] COLONOSCOPY 2014 PROCEDURE: HISTORICAL COLONOSCOPY; COMMENT: RBMG; normal BACK SURGERY 07/2016 PROCEDURE: HISTORICAL BACK SURGERY; COMMENT: decompression UPPER GASTROINTESTINAL ENDOSCOPY 11/02/2017 PROCEDURE: UPPER GI ENDOSCOPY/EXAM; COMMENT: mild gastritis. normal esophagus and duodenum Medical History Medical History Date Comments Menorrhagia DX:Menorrhagia COPD (chronic obstructive pu lmonary disease) ([facility]) DX:COPD (chronic obstructive pulmonary disease) ([facility]) Asthma, moderate persistent, well-controlled 06/06/2012 DX:Asthma, moderate persiste nt, well-controlled Diverticulosis DX:Diverticulosi s History of basal cell carcinoma 12/29/2010 DX:History of basal cell carcinoma Morbid obesity ([facility]) 12/15/2014 DX:Morb id obesity ([facility]) Nonulcer dyspepsia 11/16/2017 DX:Nonulcer d yspepsia IBS (irritable bowel syndrome) 11/16/2017 D X:IBS (irritable bowel syndrome) NAFLD (nonalcoholic fatty li luis disease) 11/16/2017 DX:NAFLD (nonalcoholic fatty liver disease) Allergic rhinitis 01/25/2011 DX:Allergic rh initis Morbid obesity with BMI of 4 0.0-44.9, adult ([facility]) 12/15/2014 DX:Morbid obesity with BMI o f 40.0-44.9, adult ([facility]) Centrilobular emphysema ([facility]) 06/05/2018 DX:Centrilobular emphysema ([facility]) Dependence on nocturnal oxyg en [...] care for your loved ones. For example, early childhood associate or elderly care for an older adult? [...] is your living situation? 1 10/15/2023 Comments No Sex and Gender Information Value Date Recorded Sex Assigned at Female 09/03/2024 10:14 AM EST Legal Sex Female 11:35 AM EST Gender Identity Female 09/03/2024 10:14 AM EST Sexual Orientation Not on file Obstetrics History Para Term AB IAB SAB Ectopic Multiple Livin g Live Births 2 2 2 2 Date Outcome GA Total Labor Labor/2nd/3rd Weight Sex Type Anes PTL Tona A1 A5 Name Clin Term Term Last Filed Vital Signs Vital Sign Reading [...] Care Team (Late st Contact Info) Description 02/05/2025 11:00 AM EDT Appointment [facility] [address] [place] [id number] Deepali Gaona MD 175 [facility] [address] [place] [address] Health Maintenance Due Date Last Done Comments [...] Health Screening 08/15/2025 08/15/2024 Breast Cancer Screening 12/12/2026 12/13/19, 12/04/2023, 11/30/2022, Additional history exists Cholesterol Screening (Lipid Panel) [...] Procedure Name Priority Date/Time Associated Diagnosis Comments MG MAMMO DIGITAL SCREENING W ZANE BILAT Routine 12/12/2024 10:31 AM EDT Encounter for screening mammogram for breast cancer HM HPV Routine 07/21/2023 LIPID PANEL Routine 03/29/2023 COLONOSCOPY Routine 10/07/2014 HEPATITIS C SCREENING Routine 03/12/2013 from Last 3 Months or Most Recently Relevant to Health Maintenance Results * MG Mammo Digital Screening w Zane bilat (12/12/2024 10:31 AM EDT) Anatomical Region Laterality Modality Breast Bilateral Mammography 12/12/2024 5:5 5 PM EDT Impressions 12/12/2024 6:07 PM EDT 1. No mammographic evidence of malignancy 2. Scattered fibroglandular tissue BI-RADS CATEGORY: 2 - BENIGN RECOMMENDATION: Screening bilateral mammogram is recommended in 1 year. Mammo Location: [facility], [address] [place] [address], [address], . -------- FINAL REPORT -------- Dictated By: Cynthia Rocha Dictated Date: 12/12/2024 17:55 ET Assigned Physician: Cynthia Rocha Reviewed and Electronically Signed By: Cynthia Rocha Signed Date: 12/12/2024 18:07 ET Workstation ID: [id number] Transcribed By: Self Edit Transcribed Date: 12/12/2024 17:55 ET Narrative 12/12/2024 6:07 PM EDT A BILATERAL DIGITAL 3D SCREENING MAMMOGRAPHY HISTORY: Routine screening. ??No family history of breast cancer. COMPARISON: Multiple priors dating back to 04/17/2020 Technique: Bilateral full field digital mammography (3D) was performed using standard CC and MLO projections , right cleavage view CAD ??was used to evaluate this mammogram. FINDINGS: Right: No suspicious masses, groups of microcalcification or areas of architectural distortion identified. Stable typically benign parenchymal asymmetries. Left: No suspicious masses, groups of microcalcification or areas of architectural distortion identified. Stable typically benign parenchymal asymmetries. BREAST DENSITY: B - There are scattered areas of fibroglandular density. Procedure Note Cynthia Rocha MD - 12/12/2024 A BILATERAL DIGITAL 3D SCREENING MAMMOGRAPHY HISTORY: Routine screening. No family history of breast cancer. COMPARISON: Multiple priors dating back to 04/17/2020 Technique: Bilateral full field digital mammography (3D) was performedusing standard CC and MLO projections , right cleavage view CAD was used to evaluate this mammogram. FINDINGS: Right: No suspicious masses, groups of microcalcification or areas ofarchitectural distortion identified. Stable typically benign parenchymalasymmetries. Left: No suspicious masses, groups of microcalcification or areas ofarchitectural distortion identified. Stable typically benign parenchymalasymmetries. BREAST DENSITY: B - There are scattered areas of fibroglandular density. IMPRESSION: 1. No mammographic evidence of malignancy 2. Scattered fibroglandular tissue BI-RADS CATEGORY: 2 - BENIGN RECOMMENDATION: Screening bilateral mammogram is recommended in 1 year. Mammo Location: [facility], [address] [place] [address], [facility], . -------- FINAL REPORT -------- Dictated By: Cynthia Rocha Dictated Date: 12/12/2024 17:55 ET Assigned Physician: Cynthia Rocha Reviewed and Electronically Signed By: Cynthia Rocha Signed Date: 12/12/2024 18:07 ET Workstation ID: [id number] Transcribed By: Self Edit Transcribed Date: 12/12/2024 17:55 ET Shyam Ruth MD IMG BI PROCEDURES [place] [facility] Result * Cervical Cancer Screening: HPV (07/21/2023) Pathologist [facility] Cervical Cancer Screening: HPV Negative, Abstracted Historical Provider HEALTH MAINTENANCE Final Result * Lipid panel (03/29/2023) Pathologist [facility] LDL/HDL Ratio 3 0 - 4 Triglycerides 140 0 - 150 mg/dL Cholesterol 194 0 - 200 mg/dL HDL 76 >=40 mg/dL LDL Cholesterol 90 0 - 100 mg/dL Blood Venous blood specimen / Unknown Historical Provider LAB BLOOD ORDERABLES [place] Result * Colonoscopy (10/07/2014) Colonoscopy No Interpretation , Abstracted Anatomical Region Laterality Modality Other Historical Provider HEALTH MAINTENANCE Final Result * Hepatitis C Screening (03/12/2013) Hepatitis C Screening Abstracted Historical Provider HEALTH MAINTENANCE Final Result from Last 3 Months or Most Recently Relevant to Health Maintenance Insurance [employer] MEDICARE Care Teams Machine Engineer Relationship Specialty Start Date End Date Shyam Ruth MD [address] [place] [address] PCP - General 08/02/22
--- OUTSIDE RECORDS SUMMARY | 2024-12-30 12:54 | XMS_ITS | Encounter Summary ---
Author Organization [facility] Address [address] [place] [address] Care Team Providers Care Renewable Energy Division Manager Name Role Phone Fay Boucher MD Primary Care Provider Shyam Kelley MD Primary Care Provider Ilda Jennings MD Unavailable [phone] Encounter Details Date Type Department Care Team Description 10/29/2019 [facility] Medical Records [address] [place] [address] Abstract, Provider Social History Tobacco Use Types [...] on filedocumented in this encounter Care Teams Renewable Energy Division Manager Relationship Specialty Start Date End Date Fay Boucher MD PCP - General 11/30/10 08/01/22 Shyam Ruth MD [address] [place] [address] PCP - General Internal Medicine 08/02/22 Ilda Jennings MD [address] [place] [address] [address] [place] [address] Specialist Neurosurgery 04/21/23 documented as of this encounter
--- OUTSIDE RECORDS SUMMARY | 2024-12-30 12:54 | XMS_ITS | Encounter Summary ---
Author Organization [facility] Address [address] [place] [address] Care Team Providers Care Event Sales Representative Name Role Phone Fay Boucher MD Primary Care Provider Shyam Kelley MD Primary Care Provider Ilda Jennings MD Unavailable [phone] Encounter Details Date Type Department Care Team Description 05/13/2019 Orders Only Medical Records [address] [place] [address] Abstract, Provider Social History Tobacco Use Types [...] Name Priority Date/Time Associated Diagnosis Comments OUTSIDE LDCT LUNG SCAN Routine 05/10/2019 documented in this encounter Results * OUTSIDE LDCT LUNG SCAN (05/10/2019) Ariela Mathews MD RADIOLOGY documented in this encounter Visit Diagnoses Not on filedocumented in this encounter Care Teams Event Sales Representative Relationship Specialty Start Date End Date Fay Boucher MD PCP - General 11/30/10 08/01/22 Shyam Ruth MD [address] [place] [address] PCP - General Internal Medicine 08/02/22 Ilda Jennings MD [address] [place] [address] Specialist Neurosurgery 04/21/23 documented as of this encounter
--- OUTSIDE RECORDS SUMMARY | 2024-12-30 12:54 | XMS_ITS | Encounter Summary ---
Author Organization [facility] Address [address] [place] [address] Care Team Providers Care Automatic Shirring Machine Operator Name Role Phone Fay Boucher MD Primary Care Provider Shyam Kelley MD Primary Care Provider Ilda Jennings MD Unavailable [phone] Encounter Details Date Type Department Care Team Description 07/20/2016 Hospital Medical Records [address] [place] [address] Eugenie Arcos PA-C 175 [facility] [address] [place] [address] Social History Tobacco Use Types Packs/Day Years [...] on filedocumented in this encounter Care Teams Automatic Shirring Machine Operator Relationship Specialty Start Date End Date Fay Boucher MD PCP - General 11/30/10 08/01/22 Shyam Ruth MD [address] [place] [address] PCP - General Internal Medicine 08/02/22 Ilda Jennings MD [address] [place] [address] Specialist Neurosurgery 04/21/23 documented as of this encounter
--- OUTSIDE RECORDS SUMMARY | 2024-12-30 12:54 | XMS_ITS | Encounter Summary ---
Author Organization [facility] Address [address] [place] [address] Care Team Providers Care Information Technology Assistant Name Role Phone Fay Boucher MD Primary Care Provider Shyam Kelley MD Primary Care Provider Ilda Jennings MD Unavailable [phone] Reason for Visit * Reason Comments E-prescribe Rx Request erica Encounter Details Date Type Department Care Team Description 04/18/2012 Refill OBGYN - [address] [address] Radu Jennings MD E-prescribe Rx Request (erica) [...] EDT WHEN WAS THE PATIENTS LAST ANNUAL IT CONSULTANT EXAM?05/26/11 Does patient have an upcoming appointment? [...] the end of the day? YES Payor: [facility]/[employer] FFS Plan: HMO $20 [employer] [id number] Product Type: [employer] Gaj-wna-Olcifip documented in this encounter Plan of Treatment Not on file documented as of this encounter Visit Diagnoses Not on filedocumented in this encounter Care Teams Information Technology Assistant Relationship Specialty Start Date End Date Fay Boucher MD PCP - General 11/30/10 08/01/22 Shyam Ruth MD [address] [place] [address] PCP - General Internal Medicine 08/02/22 Ilda Jennings MD [address] [place] [address] [address] [place] [address] Specialist Neurosurgery 04/21/23 documented as of this encounter
--- OUTSIDE RECORDS SUMMARY | 2024-12-30 12:54 | XMS_ITS | Encounter Summary ---
Author Organization [facility] Address [address] [place] [address] Care Team Providers Care Disk Operator Name Role Phone Fay Boucher MD Primary Care Provider Shyam Kelley MD Primary Care Provider Ilda Jennings MD Unavailable [phone] Encounter Details Date Type Department Care Team Description 08/05/2016 Release of Information Medical Records [address] [place] [address] Abstract, Provider Social History Tobacco Use Types [...] on filedocumented in this encounter Care Teams Disk Operator Relationship Specialty Start Date End Date Fay Boucher MD PCP - General 11/30/10 08/01/22 Shyam Ruth MD [address] [place] [address] PCP - General Internal Medicine 08/02/22 Ilda Jennings MD 175 [facility] [address] [place] [address] Specialist Neurosurgery 04/21/23 documented as of this encounter
--- OUTSIDE RECORDS SUMMARY | 2024-12-30 12:54 | XMS_ITS | Encounter Summary ---
Author Organization [employer] Address [address] [place] [address] [address] [place] [address] Care Team Providers Care Embosser Apprentice Name Role Phone Unavailable Primary Care Provider Unavailabl e Encounter Details Date Type Department Care Team (Late st Contact Info) Description 06/04/2024 Orders Only [facility] OPTOMETRY [address] [place] [address] Mildred Joy OD Social History Tobacco Use [...] on filedocumented in this encounter Care Teams Embosser Apprentice Relationship Specialty Start Date End Date SHAGGY JACKSON [address] [place] [address] ?? Primary Care Provider 10/02/23 documented as of this encounter
--- OUTSIDE RECORDS SUMMARY | 2024-12-30 12:54 | XMS_ITS | Encounter Summary ---
Author Organization [facility] Address [address] [place] [address] Care Team Providers Care Furnace Firer Name Role Phone Shyam Ruth MD Primary Care Provider Ilda Jennings MD Unavailable [phone] Reason for Visit * Reason Onset Date Comments medication problems 01/30/2024 Prior Authorization 01/30/2024 Oxycodone - Acet Encounter Details Date Type Department Care Team Description 01/30/2024 Telephone Adult Medicine [address] [address] Shyam Ruth MD [address] [place] [address] medication problems; Prior Authorization (Oxycodone - Acet [...] 02/02/2024 2:23 PM EDT Request Reference Number: [id number]. OXYCOD/APAP TAB 5-325MG is approved through 01/30/2025. Yourpatient may now fill this prescription and it will be covered. Authorization Expiration Date: 01/30/2025 Breanna Woody Prior Auth Dep Ext [id number] * Telephone Encounter - Breanna Woody M.A. - 01/31/2024 9:41 AM EDT [facility] Dx:[id number] [facility] of care Breanna Woody Prior Auth Dep Ext [id number] * Telephone Encounter - Velvet Adair M.A. - 01/30/2024 3:35 PM EDT Spoke to Jamie Hernandez to request they fax the PA request to [phone], however I did obtain averbal x 2 [...] in process for 28 day supply Order: [id number] Date/Time Signed: 01/29/2024 ??3:46 PM E-Prescribing Status: [...] on filedocumented in this encounter Care Teams Furnace Firer Relationship Specialty Start Date End Date Shyam Ruth MD [address] [place] [address] PCP - General Internal Medicine 08/02/22 Ilda Jennings MD [address] [place] [address] [address] [place] [address] Specialist Neurosurgery 04/21/23 documented as of this encounter
--- OUTSIDE RECORDS SUMMARY | 2024-12-30 12:54 | XMS_ITS | Encounter Summary ---
Author Organization [facility] Address [address] [place] [address] Care Team Providers Care Repairer Maintenance Building Name Role Phone Shyam Ruth MD Primary Care Provider Ilda Jennings MD Unavailable [phone] Encounter Details Date Type Department Care Team Description 10/21/2022 Refill Adult Medicine [facility] [address] [place] [address] Shyam Ruth MD [address] [place] [address] Social History Tobacco Use Types Packs/Day Years [...] suspected to have Coronavirus/COVID-19? No / Unsure 09/29/2022 12:39 PM EST documented as of this encounter Miscellaneous Notes * Telephone Encounter - Velvet Adair M.A. - 10/25/2022 8:02 AM EST MYchart sent to patient, await reply. * Telephone Encounter - Shyam Ruth MD - 10/24/2022 4:21 PM EST Please advise the patient to ask her insurance what alternative is covered? She told me during office visit it was covered but had to large copay and Pulmonology told her that it was the cheapest medication in its categories. * Telephone Encounter - Dash Balderrama M.A. - 10/22/2022 6:35 PM EST Please review as PCP is out of office. Insurance will not cover symbicort documented in this encounter Plan of Treatment Not on file documented as of this encounter Visit Diagnoses Diagnosis SHELL and COPD overlap syndrome (HCC) Centrilobular emphysema (HCC) Other emphysema Asthma, moderate persistent, well-controlled Unspecified asthma Obstructive sleep apnea moderate AHI 19/REM AHI 27 with sleep related hypoventilation Obstructive sleep apnea (adult) (pediatric) Allergic rhinitis due to animal hair and dander Allergic rhinitis due to animal (cat) (dog) hair and dander Former heavy cigarette smoker (20-39 per day) Personal history of tobacco use, presenting hazards to health documented in this encounter Care Teams Repairer Maintenance Building Relationship Specialty Start Date End Date Shyam Ruth MD [address] [place] [address] PCP - General Internal Medicine 08/02/22 Ilda Jennings MD [address] [facility] [address] [place] [address] Specialist Neurosurgery 04/21/23 documented as of this encounter
--- OUTSIDE RECORDS SUMMARY | 2024-12-30 12:54 | XMS_ITS | Encounter Summary ---
Author Organization [facility] Address [address] [place] [address] Care Team Providers Care Director Of Outside Sales Name Role Phone Fay Boucher MD Primary Care Provider Shyam Kelley MD Primary Care Provider Ilda Jennings MD Unavailable [phone] Encounter Details Date Type Department Care Team Description 10/19/2017 Pt. Non Urgent Medic al Question Gastroenterology - [address] [address] Sheng Brannon PA-C Social History Tobacco Use Types Packs/Day Years [...] filedocumented in this encounter Care Teams Director Of Outside Sales Relationship Specialty Start Date End Date Fay Boucher MD PCP - General 11/30/10 08/01/22 Shyam Ruth MD [address] [place] [id number] PCP - General Internal Medicine 08/02/22 Ilda Jennings MD [address] [facility] [address] [place] [address] Specialist Neurosurgery 04/21/23 documented as of this encounter
--- OUTSIDE RECORDS SUMMARY | 2024-12-30 12:54 | XMS_ITS | Encounter Summary ---
Author Organization [facility] Address [address] [place] [address] Care Team Providers Care Turret Lathe Machinist Name Role Phone Fay Boucher MD Primary Care Provider Shyam Kelley MD Primary Care Provider Ilda Jennings MD Unavailable [phone] Encounter Details Date Type Department Care Team Description 07/13/2018 Pt. Non Urgent Medic al Question Gastroenterology - [address] [address] Sheng Brannon PA-C Social History Tobacco Use [...] as of this encounter Progress Notes * Annie Merchant C.M.A. - 07/13/2018 10:51 AM EDTFrom: Rosendo Ng To: Sheng Brannon PA-C Sent: 07/13/2018 5:39 AM EDT Subject: dr juan carlos Cantrell morning, I was hoping there is another for weight loss. Dr. Cruz I have been told is a meal cook . Whatexactly is the plan with him? I can't get in till . Thank you. documented in this encounter Plan of Treatment Not on file documented as of this encounter Visit Diagnoses Not on filedocumented in this encounter Care Teams Turret Lathe Machinist Relationship Specialty Start Date End Date Fay Boucher MD PCP - General 11/30/10 08/01/22 Shyam Ruth MD [address] [place] [address] PCP - General Internal Medicine 08/02/22 Ilda Jennings MD [address] [place] [address] Specialist Neurosurgery 04/21/23 documented as of this encounter
--- OUTSIDE RECORDS SUMMARY | 2024-12-30 12:54 | XMS_ITS | Encounter Summary ---
Author Organization [facility] Address [address] [place] [address] Care Team Providers Care Director Business Integration Name Role Phone Fay Boucher MD Primary Care Provider Unava Shyam Zurita MD Primary Care Provider Ilda Jennings MD Unavailable [phone] Encounter Details Date Type Department Care Team Description 12/14/2010 Transfer Records Medical Records [address] [place] [address] Abstract, Provider Social History Tobacco Use Types [...] filedocumented in this encounter Care Teams Director Business Integration Relationship Specialty Start Date End Date Fay Boucher MD PCP - General 11/30/10 08/01/22 Shyam uRth MD [address] [place] [address] PCP - General Internal Medicine 08/02/22 Ilda Jennings MD [address] [facility] [address] [place] [address] Specialist Neurosurgery 04/21/23 documented as of this encounter
--- OUTSIDE RECORDS SUMMARY | 2024-12-30 12:54 | XMS_ITS | Encounter Summary ---
Author Organization [facility] Address [address] [place] [address] Care Team Providers Care Health Technical Writer Name Role Phone Fay Boucher MD Primary Care Provider Shyam Kelley MD Primary Care Provider Ilda Jennings MD Unavailable [phone] Encounter Details Date Type Department Care Team Description 05/03/2018 Gunner'S Mate G Report Medical Records [address] [place], [place] [id number] [place] [address] Social History Tobacco Use Types Packs/Day Years [...] on filedocumented in this encounter Care Teams Health Technical Writer Relationship Specialty Start Date End Date Fay Boucher MD PCP - General 11/30/10 08/01/22 Shyam Ruth MD [address] [place], [place] [phone] PCP - General Internal Medicine 08/02/22 Ilda Jennings MD [address] [place] [address] [address] [place] [address] Specialist Neurosurgery 04/21/23 documented as of this encounter
--- OUTSIDE RECORDS SUMMARY | 2024-12-30 12:54 | XMS_ITS | Encounter Summary ---
Author Organization [facility] Address [address] [place] [address] Care Team Providers Care Medical Services Assistant Name Role Phone Fay Boucher MD Primary Care Provider Shyam Kelley MD Primary Care Provider Ilda Jennings MD Unavailable [phone] Reason for Referral * Non BETO (Routine) - Authorized/Booked Specialty Diagnoses / Procedures Referred By Contelmer garcia Referred To Contact Pulmonology Procedures REFERRAL TO PULMONOLOGY Fay Boucher MD [address] [place] [address] Paolo Hoang MD [address] [place] [address] Referral ID Status Reason Start Date Expiration Date V isits Requested Visits Authorized [id number] Authorized/B ooked 12/30/2016 12/30/2017 12 12 Encounter Details Date Type Department Care Team Description 12/28/2016 Pt. Non Urgent Medical Question Medicine/Pediatrics - [address] [address] Fay Boucher MD Cough (Primary Dx); Wheezing; Chronic obstructive pulmonary disease, unspecified COPD type (HCC) Social History Tobacco Use Types Packs/Day Years [...] as of this encounter Progress Notes * Judith Wayne M.A. - 12/29/2016 9:29 AM EDTFrom: Rosendo Ng To: Fay Boucher MD Sent: 12/28/2016 10:06 PM EDT Subject: A follow up note Good Evening, I started with the medications you prescribed and I don't feel a change. I see on my chart that I am due for a lung screening or something like that. Is this something I should schedule? Am I supposeto schedule for a sleep test? Thank you Rosalba documented in this encounter Plan of Treatment Not on file documented as of this encounter Results * CHEST X-RAY, TWO VIEWS (01/04/2017 12:57 PM EDT) 01/04/2017 12:5 8 PM EDT Impressions [facility] OTHER EXTERNAL - 01/04/2017 12:59 PM EDT IMPRESSION: No active lung disease. Narrative [place] [place] OTHER EXTERNAL - 01/04/2017 12:59 PM EDT PA AND LATERAL CHEST: HISTORY: Cough, wheezing COMPARISON: 10/09/2014 No active lung or pleural pathology. Heart and mediastinal contours appear stable. No focal bone pathology. Procedure Note Zhen Mejia MD - 01/04/2017 PA AND LATERAL CHEST: HISTORY: Cough, wheezing COMPARISON: 10/09/2014 No active lung or pleural pathology. Heart and mediastinal contours appearstable. No focal bone pathology. IMPRESSION: No active lung disease. Fay Boucehr MD RADIOLOGY [facility] OTHER EXTERNAL documented in this encounter Visit Diagnoses Diagnosis Cough- Primary Wheezing Chronic obstructive pulmonary disease, unspecified COPD type (HCC) Cough Wheezing Chronic obstructive pulmonary disease, unspecified COPD type (HCC) documented in this encounter Care Teams Medical Services Assistant Relationship Specialty Start Date End Date Fay Boucher MD PCP - General 11/30/10 08/01/22 Shyam Ruth MD [address] [place] [address] PCP - General Internal Medicine 08/02/22 Ilda Jennings MD [address] [place] [address] Specialist Neurosurgery 04/21/23 documented as of this encounter
--- OUTSIDE RECORDS SUMMARY | 2024-12-30 12:54 | XMS_ITS | Encounter Summary ---
Author Organization [facility] Address [address] [place] [address] Care Team Providers Care Special Effects Makeup Artist Name Role Phone Fay Durán MD Primary Care Provider Shyam Kelley MD Primary Care Provider Ilda Jennings MD Unavailable [phone] Reason for Visit * Reason Onset Date Comments Ortho Rn Feedback 10/20/2017 Gastroenterology Encounter Details Date Type Department Care Team Description 10/20/2017 Telephone Gastroenterology - [address] [address] Michael Brannon PA-C Ortho Rn Feedback (Gastroenterology) Social History Tobacco Use Types [...] send back to Referrals. Thank you, Sheree Hurricane Tracker documented in this encounter Miscellaneous Notes * Telephone Encounter - Sheree Wilkins - 10/20/2017 1:00 PM EST Please disregard this Order. I did not realize there was an order placed already. Thank you, Sheree Hurricane Tracker * Telephone Encounter - Jennifer Arroyo - 10/20/2017 1:00 PM EST Patient: ABDOUL Veronica CARMINA Subscriber: GIL GREWAL Submitter : FAY DURÁN Submitter Type: Provider : 1960 Referral (#[id number]) Specialty Care Review Type: Initial Certification Status : Certified in total Service Type : Medical Care Place Of Service : Office Visits : 6 Service Date : 10/20/2017-10/20/2018 Service Providers Provider Name ID Provider Type Specialty MD RUBEN CASTILLO NPI : [id number] Performing Specialist * Telephone Encounter - Marli Garvin - 10/20/2017 12:55 PM EST I already took care of this. [facility] * Telephone Encounter - Michael Brannon PA-C - 10/20/2017 12:51 PM EST What is pt being referred to GI for? I saw her last and sent her for an EGD to be done at [facility]. Does she need a referral to have [...] the patient if denied. Thank you, Sheree Hurricane Tracker * Telephone Encounter - Marli Garvin - 10/20/2017 12:36 PM EST Diagnosis: RUQ abdominal pain. * Telephone Encounter - Marli Garvin - 10/20/2017 11:35 AM EST What insurance does the patient have today? 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 YES Is this visit:Initial Visit Address of Specialist:[address] [place] [address] 3rd floor [address] [facility] Phone # of Specialist:[phone] Fax #: (if applicable):[phone] Does patient have an appointment scheduled?: YES Date of appointment- (including a retro-request): 11/02/17 Is this appointment related to: Not MVA, WC or Surgery related documented in this encounter Plan of Treatment Not on file documented as of this encounter Visit Diagnoses Not on filedocumented in this encounter Care Teams Special Effects Makeup Artist Relationship Specialty Start Date End Date Fay Durán MD PCP - General 11/30/10 08/01/22 Shyam Ruth MD [address] [place] [address] PCP - General Internal Medicine 08/02/22 Ilda Jennings MD [address] [place] [address] [place] [address] Specialist Neurosurgery 04/21/23 documented as of this encounter
--- OUTSIDE RECORDS SUMMARY | 2024-12-30 12:54 | XMS_ITS | Encounter Summary ---
Author Organization [facility] Address [address] [place] [address] Care Team Providers Care Javascript Developer Name Role Phone Fay Boucher MD Primary Care Provider UnaShyam Hadley MD Primary Care Provider Ilda Jennings MD Unavailable [phone] Encounter Details Date Type Department Care Team Description 04/27/2013 Night Triage Doc Medical Records [address] [place] [address] Abstract, Provider Social History Tobacco Use Types [...] on filedocumented in this encounter Care Teams Javascript Developer Relationship Specialty Start Date End Date Fay Boucher MD PCP - General 11/30/10 08/01/22 Shyam Ruth MD [address] [place] [address] PCP - General Internal Medicine 08/02/22 Ilda Jennings MD [address] [place] [address] [address] [place] [address] Specialist Neurosurgery 04/21/23 documented as of this encounter
--- OUTSIDE RECORDS SUMMARY | 2024-12-30 12:54 | XMS_ITS | Encounter Summary ---
Author Organization [facility] Address [address] [place] [address] Care Team Providers Care Women'S Lacrosse Coach Name Role Phone Fay Boucher MD Primary Care Provider Unava Shyam Zruita MD Primary Care Provider Ilda Jennings MD Unavailable [phone] Encounter Details Date Type Department Care Team Description 06/23/2021 Livestock Farmworker Report Medical Records [address] [place] [address] Toyb Arellano Social History Tobacco Use Types Packs/Day [...] on filedocumented in this encounter Care Teams Women'S Lacrosse Coach Relationship Specialty Start Date End Date Fay Boucher MD PCP - General 11/30/10 08/01/22 Shyam Ruth MD [address] [place] [address] PCP - General Internal Medicine 08/02/22 Ilda Jennings MD [address] [place] [address] [place] [address] Specialist Neurosurgery 04/21/23 documented as of this encounter
--- OUTSIDE RECORDS SUMMARY | 2024-12-30 12:54 | XMS_ITS | Encounter Summary ---
Author Organization [facility] Address [address] [place] [address] Care Team Providers Care Theatre Professor Name Role Phone Fay Boucher MD Primary Care Provider Shyam Kelley MD Primary Care Provider Ilda Jennings MD Unavailable [phone] Encounter Details Date Type Department Care Team Description 05/10/2019 Buckle Stringer Report Medical Records [address] [place] [id number] [place] [address] Social History Tobacco Use Types Packs/Day Years [...] on filedocumented in this encounter Care Teams Theatre Professor Relationship Specialty Start Date End Date Fay Boucher MD PCP - General 11/30/10 08/01/22 Shyam Ruth MD [address] [place], [place] [phone] PCP - General Internal Medicine 08/02/22 Ilda Jennings MD [address] [place] [address] [address] [place] [address] Specialist Neurosurgery 04/21/23 documented as of this encounter
--- OUTSIDE RECORDS SUMMARY | 2024-12-30 12:54 | XMS_ITS | Encounter Summary ---
Author Organization [facility] Address [address] [place] [address] Care Team Providers Care Horse Wrangler Name Role Phone Fay Boucher MD Primary Care Provider Shyam Kelley MD Primary Care Provider Ilda Jennings MD Unavailable [phone] Reason for Visit * Reason Comments E-prescribe Rx Request Encounter Details Date Type Department Care Team Description 03/22/2012 Refill Medicine/Pediatrics [address] [address] Fay Boucher MD E-prescribe Rx Request Social [...] on filedocumented in this encounter Care Teams Horse Wrangler Relationship Specialty Start Date End Date Fay Boucher MD PCP - General 11/30/10 08/01/22 Shyam Ruth MD [address] [place] [address] PCP - General Internal Medicine 08/02/22 Ilda Jennings MD [address] [place] [address] Specialist Neurosurgery 04/21/23 documented as of this encounter
--- OUTSIDE RECORDS SUMMARY | 2024-12-30 12:54 | XMS_ITS | Encounter Summary ---
Author Organization [facility] Address [address] [place] [address] Care Team Providers Care Amortization Clerk Name Role Phone Fay Boucher MD Primary Care Provider Shyam Kelley MD Primary Care Provider Ilda Jennings MD Unavailable [phone] Encounter Details Date Type Department Care Team Description 12/10/2012 Pt. Non Urgent Medic al Question Medicine/Pediatrics - [address] [address] Fay Boucher MD Social History Tobacco Use [...] weight and I would like to take [facility] Advanced Muscle Performance Ripped Vitapak Program. Will this interfer with any of the medication I am on? documented in this encounter Plan of Treatment Not on file documented as of this encounter Visit Diagnoses Not on filedocumented in this encounter Care Teams Amortization Clerk Relationship Specialty Start Date End Date Fay Boucher MD PCP - General 11/30/10 08/01/22 Shyam Ruth MD [address] [place] [address] PCP - General Internal Medicine 08/02/22 Ilda Jennings MD [address] [place] [address] Specialist Neurosurgery 04/21/23 documented as of this encounter
--- OUTSIDE RECORDS SUMMARY | 2024-12-30 12:54 | XMS_ITS | Encounter Summary ---
Author Organization [facility] Address [address] [place] [address] Care Team Providers Care Ceramic Painter Name Role Phone Fay Boucher MD Primary Care Provider Unava Shyam Zurita MD Primary Care Provider Ilda Jennings MD Unavailable [phone] Encounter Details Date Type Department Care Team Description 11/07/2014 Supervisor Statement Clerks Report Medical Records [address] [place] [address] Mayuri Bravo MD Social History Tobacco Use [...] on filedocumented in this encounter Care Teams Ceramic Painter Relationship Specialty Start Date End Date Fay Boucher MD PCP - General 11/30/10 08/01/22 Shyam Ruth MD [address] [place] [address] PCP - General Internal Medicine 08/02/22 Ilda Jennings MD [address] [place] [address] [place] [address] Specialist Neurosurgery 04/21/23 documented as of this encounter
--- OUTSIDE RECORDS SUMMARY | 2024-12-30 12:54 | XMS_ITS | Encounter Summary ---
Author Organization [facility] Address [address] [place] [address] Care Team Providers Care Clay Roaster Name Role Phone Fay Boucher MD Primary Care Provider Shyam Kelley MD Primary Care Provider Ilda Jennings MD Unavailable [phone] Encounter Details Date Type Department Care Team Description 04/17/2019 Release of Information Medical Records [address] [place] [address] Abstract, Provider Social History Tobacco Use Types [...] on filedocumented in this encounter Care Teams Clay Roaster Relationship Specialty Start Date End Date Fay Boucher MD PCP - General 11/30/10 08/01/22 Shyam Ruth MD [address] [place] [address] PCP - General Internal Medicine 08/02/22 Ilda Jennings MD [address] [place] [address] [address] [place] [address] Specialist Neurosurgery 04/21/23 documented as of this encounter
--- OUTSIDE RECORDS SUMMARY | 2024-12-30 12:54 | XMS_ITS | Encounter Summary ---
Author Organization [facility] Address [address] [place] [address] Care Team Providers Care Antisubmarine Weapons Officer Name Role Phone Shyam Ruth MD Primary Care Provider Ilda Jennings MD Unavailable [phone] Encounter Details Date Type Department Care Team Description 07/04/2024 Refill Adult Medicine [facility] [address] [place] [address] Shyam Ruth MD [address] [place] [address] Social History Tobacco Use Types Packs/Day Years [...] # Pharmacy Refill Daily Dose* Pymt Type TEXTURING MACHINE FIXER 06/05/24 1 06/05/24 06/05/24 Oxycodone-Acetaminophen 56 28 Mac Bha [id number] [facility] (5741) 0/0 15.00 [place] Fill Date ID Written Sold Drug Qty Days Prescriber Rx # Pharmacy Refill Daily Dose* Pymt Type TEXTURING MACHINE FIXER 5-325 05/02/24 1 05/02/24 05/02/24 Oxycodone-Acetaminophen 5-325 56 28 Mac Bha [id number] [facility] (5741) 0/0 15.00 [place]ME [place] 04/03/24 1 04/03/24 04/05/24 Oxycodone-Acetaminophen 5-325 56 28 An Duo [id number] [facility] (5741) 0/0 15.00 [place] 03/06/24 1 03/06/24 03/06/24 Oxycodone-Acetaminophen 5-325 56 28 Mac Bha [id number] [facility] (5741) 0/0 15.00 [place] 02/07/24 1 02/07/24 02/07/24 Oxycodone-Acetaminophen 5-325 56 28 Mac Bha [id number] [facility] (5741) 0/0 15.00 [place] 01/31/24 1 01/29/24 01/31/24 Oxycodone-Acetaminophen 5-325 14 7 Mac Bha [id number] [facility] (5741) 0/0 15.00 [place] 01/22/24 1 01/22/24 01/22/24 Oxycodone-Acetaminophen 5-325 14 7 Mac Bha [id number] [facility] (5741) 0/0 15.00 [place] 01/01/24 1 01/01/24 01/02/24 Oxycodone-Acetaminophen 5-325 14 7 An Duo [id number] [facility] (5741) 0/0 15.00 [place] 12/04/23 1 12/04/23 12/04/23 Oxycodone-Acetaminophen 5-325 56 28 [facility] [id number] [facility] (5741) 0/0 15.00 [place] 11/03/23 1 11/03/23 11/03/23 Oxycodone-Acetaminophen 5-325 56 28 Mac a [id number] [facility] (3073) 0/0 15.00 [place] 10/06/23 1 10/06/23 10/07/23 Oxycodone-Acetaminophen 5-325 56 28 An Duo [id number] [facility] (3073) 0/0 15.00 [place] 09/05/23 1 09/05/23 09/05/23 Oxycodone-Acetaminophen 5-325 56 28 An Duo [id number] [facility] (3073) 0/0 15.00 [place] 08/01/23 1 08/01/23 08/03/23 Oxycodone-Acetaminophen 5-325 56 28 [facility] [id number] [facility] (3073) 0/0 15.00 [place] Rosalba Ng : 1960 Sex: F Report Prepared: 07/04/2024 Providers Name Address [facility] Zipcode Phone Lucille Abarca [address] [facility] [address] Shyam Ruth [address] [facility] [address] Pharmacies Name Address [facility] Zipcode Phone LBE Security Master ([phone]) [address] [facility] [phone] LBE Security Master ([phone]) [address] [facility] [address] documented in this encounter Plan of Treatment Not on file documented as of this encounter Visit Diagnoses Not on filedocumented in this encounter Care Teams Antisubmarine Weapons Officer Relationship Specialty Start Date End Date Shyam Ruth MD [address] [place] [address] PCP - General Internal Medicine 08/02/22 Ilda Jennings MD [address] [place] [address] Specialist Neurosurgery 04/21/23 documented as of this encounter
--- OUTSIDE RECORDS SUMMARY | 2024-12-30 12:54 | XMS_ITS | Encounter Summary ---
Author Organization [facility] Address [address] [place] [address] Care Team Providers Care Lightning Protection Installer Name Role Phone Fay Boucher MD Primary Care Provider Shyam Kelley MD Primary Care Provider Ilda Jennings MD Unavailable [phone] Reason for Visit * Reason Onset Date Comments REFERRAL 06/18/2014 physiatry Encounter Details Date Type Department Care Team Description 06/18/2014 Telephone Medicine/Pediatrics - [address] [address] Angie Farnsworth, PAJoleenC REFERRAL (physiatry) Social History [...] on filedocumented in this encounter Care Teams Lightning Protection Installer Relationship Specialty Start Date End Date Fay Boucher MD PCP - General 11/30/10 08/01/22 Shyam Ruth MD [address] [place] [address] PCP - General Internal Medicine 08/02/22 Ilda Jennings MD [address] [place] [address] Specialist Neurosurgery 04/21/23 documented as of this encounter
--- OUTSIDE RECORDS SUMMARY | 2024-12-30 12:54 | XMS_ITS | Encounter Summary ---
Author Organization [facility] Address [address] [place] [address] Care Team Providers Care Sap Integration Architect Name Role Phone Fay Boucher MD Primary Care Provider Unava Shyam Zurita MD Primary Care Provider Ilda Jennings MD Unavailable [phone] Encounter Details Date Type Department Care Team Description 01/01/2013 Liner Checker Report Medical Records [address] [place] [address] Casimiro Reed MD Social History Tobacco Use Types Packs/Day [...] on filedocumented in this encounter Care Teams Sap Integration Architect Relationship Specialty Start Date End Date Fay Boucher MD PCP - General 11/30/10 08/01/22 Shyam Ruth MD [address] [place], [place] [phone] PCP - General Internal Medicine 08/02/22 Ilda Jennings MD [address] [place] [address] [address] [place] [address] Specialist Neurosurgery 04/21/23 documented as of this encounter
--- OUTSIDE RECORDS SUMMARY | 2024-12-30 12:54 | XMS_ITS | Encounter Summary ---
Author Organization [facility] Address [address] [place] [address] Care Team Providers Care Harness Installer Name Role Phone Fay Boucher MD Primary Care Provider Shyam Kelley MD Primary Care Provider Ilda Jennings MD Unavailable [phone] Encounter Details Date Type Department Care Team Description 02/21/2011 Transfer Records Medical Records [address] [place] [id number] Abstract, Provider Social History Tobacco Use Types [...] on filedocumented in this encounter Care Teams Harness Installer Relationship Specialty Start Date End Date Fay Boucher MD PCP - General 11/30/10 08/01/22 Shyam Ruth MD [address] [place] [address] PCP - General Internal Medicine 08/02/22 Ilda Jennings MD [address] [place] [address] [address] [place] [address] Specialist Neurosurgery 04/21/23 documented as of this encounter
--- OUTSIDE RECORDS SUMMARY | 2024-12-30 12:54 | XMS_ITS | Encounter Summary ---
Author Organization [facility] Address [address] [place] [address] Care Team Providers Care Fish Net Maker Name Role Phone Fay Boucher MD Primary Care Provider Unava Shyam Zurita MD Primary Care Provider Ilda Jennings MD Unavailable [phone] Encounter Details Date Type Department Care Team Description 12/13/2017 Sugar Boiler Report Medical Records [address] [place] [address] Nahomy Morrison, RD, LDN [address] [facility] [address] [place] [address] Social History Tobacco Use Types Packs/Day Years [...] on filedocumented in this encounter Care Teams Fish Net Maker Relationship Specialty Start Date End Date Fay Boucher MD PCP - General 11/30/10 08/01/22 Shyam Ruth MD [address] [place] [address] PCP - General Internal Medicine 08/02/22 Ilda Jennings MD [address] [facility] [address] [place], [place] [phone] Specialist Neurosurgery 04/21/23 documented as of this encounter
--- OUTSIDE RECORDS SUMMARY | 2024-12-30 12:54 | XMS_ITS | Encounter Summary ---
Author Organization [facility] Address [address] [place] [address] Care Team Providers Care Plan Rep Name Role Phone Fay Boucher MD Primary Care Provider Unava Shyam Zurita MD Primary Care Provider Ilda Jennings MD Unavailable [phone] Encounter Details Date Type Department Care Team Description 08/03/2016 Pipe Stem Aligner Report Medical Records [address] [place] [address] Mayuri Bravo MD Social History Tobacco Use [...] on filedocumented in this encounter Care Teams Plan Rep Relationship Specialty Start Date End Date Fay Boucher MD PCP - General 11/30/10 08/01/22 Shyam Ruth MD [address] [place] [address] PCP - General Internal Medicine 08/02/22 Ilda Jennings MD [address] [place] [address] [place] [address] Specialist Neurosurgery 04/21/23 documented as of this encounter
--- OUTSIDE RECORDS SUMMARY | 2024-12-30 12:55 | XMS_ITS | Encounter Summary ---
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
== END 2024-12-30 11:53 | disposition home or self-care (01) ==
LOC: HO.HNS 11:15
PROVIDERS: PCP Internal Medicine; Visit Provider Physician Assistant
DX: M43.16 Spondylolisthesis, lumbar region (principal)
CPT/HCPCS: 99213

== ENCOUNTER → 2024-12-30 11:15 | Outpatient (BNVA) | payer MEDICARE, SELFPAY | PROVIDERS: PCP Internal Medicine; Visit Provider Physician Assistant | DX: M43.16 Spondylolisthesis, lumbar region (principal) | CPT/HCPCS: 99212 ==

== ENCOUNTER 2025-02-18 06:27 | Outpatient (BNV) | payer MEDICARE, SELFPAY | END 2025-02-19 09:06 | PROVIDERS: Admitting Provider Neurological Surgery; PCP Internal Medicine; Visit Provider Radiology Vascular & Interventional Radiology | DX: M43.26 Fusion of spine, lumbar region (principal) | CPT/HCPCS: 72131 ==

== ENCOUNTER 2025-02-18 06:27 | Inpatient (IN) | payer MEDICARE, SELFPAY ==
[2025-02-03 10:29] VITALS: BP 132/77; PULSE 78; RESP 16; O2SAT 94; BMI 44.8
--- NOTE | 2025-02-03 10:34 | P.CONAN_ITS ---
Documented by User: Vanessa Collier NP 02/14/25 12:10 HPI - Anesthesia Eval Consult details Narrative: 64yo F for L2-3, L3-4 L4-5 Oblique Lumbar Interbody Fusion, 02/18/25 No recent illness No CP. Baseline mild LEE with stairs - does not need to stop midway or use inhaler Asthma/COPD: stable baseline, follows Mary vann yearly. Very rare albuterol BMI 44.8 GERD: controlled on prn ppi [facility] Active Problems Active Problems: All Active Problems Spondylolisthesis, lumbar region (Acute) Past Medical History Medical History Back pain GERD (gastroesophageal reflux disease) Numbness Benign essential tremor SOB (shortness of breath) Cough Chest pain Diverticulosis COPD (chronic obstructive pulmonary disease) Morbid obesity with BMI of 40.0-44.9, adult Intertriginous candidiasis Metabolic dysfunction-associated steatotic liver disease (MASLD) BCC (basal cell carcinoma of skin) Centrilobular emphysema Asthma Hidradenitis suppurativa Allergic rhinitis Overlap syndrome Osteoarthritis Depression PLMD (periodic limb movement disorder) Sleep apnea DUB (dysfunctional uterine bleeding) IBS (irritable bowel syndrome) Nonulcer dyspepsia Family History Family history of problems with anesthesia: No Surgical History Surgical History History of surgery on arm Hx of surgical procedure Hx of tubal ligation History of esophagogastroduodenoscopy (EGD) Hx of tonsillectomy H/O colonoscopy Hx of section History of back surgery Hx of appendectomy History of lumbar laminectomy History of Problems with Anesthesia: No Social History Social History Household Members: Spouse Housing: House Are you a primary post anesthesia care unit nurse to a significant other at home: No Do you presently have visiting nurse or other home services: No Patient Tobacco Use Status: Former Tobacco user Use of substances other than those prescribed or required for medical reasons: No Currently Displaying Signs/Symptoms of Drug Intoxication Withdrawal: No Have you been hit, kicked, punched, or otherwise hurt by someone within the past year? If so, by whom?: No Are you DNR?: No Advance Directives: No Advance Directives Information Provided: No Advance Directives on File: No Do you have a plan to hurt others: No Plan Recently lost weight without trying: No Nutrition Risks: No Nutritional Risk Patient : No : No Poor oral hygiene: Yes service: No Meds Allergies Allergy/AdvReac Type Severity Reaction Status Date / Time No Known Allergies Allergy Verified 12/30/24 11:20 Home Medications ?Medication ?Instructions ?Recorded ?Confirmed ?Last Taken ?Type albuterol sulfate 90 mcg/actuation 1 inh inhalation Q4H PRN Shortness 01/31/25 02/18/25 Unknown History aerosol inhaler Of Breath Or Wheezing budesonide-formoterol HFA 160 2 puff inhalation BID 01/31/25 01/31/25 02/18/25 History mcg-4.5 mcg/actuation aerosol inhaler (Symbicort) bupropion HCl 150 mg 24 hr tablet, 150 mg PO DAILY 01/31/25 01/31/25 02/18/25 History extended release bupropion HCl 300 mg 24 hr tablet, 300 mg PO DAILY 01/31/25 01/31/25 02/18/25 History extended release nystatin 100,000 unit/gram topical 100,000 unit topical BID PRN Skin 01/31/25 02/18/25 Unknown History ointment Irritation oxycodone-acetaminophen 5 mg-325 1 tab PO BID PRN Pain 01/31/25 02/03/25 02/17/25 History mg tablet primidone 50 mg tablet 150 mg PO BEDTIME 01/31/25 02/03/25 02/17/25 History Exam Height,Weight and Vital Signs: Height 5 ft 4 in Weight 118.388 kg BMI result Body Mass Index 44.8 Vital Signs Pulse Rate 78 02/03/25 10:29 Respiratory Rate 16 02/03/25 10:29 Blood Pressure 132/77 02/03/25 10:29 Pulse Oximetry 94 02/03/25 10:29 Oxygen Delivery Method Room Air 02/03/25 10:29 Pertinent Lab Results Pertinent Lab Results: Lab Results 02/03/25 02/03/25 Range/Units 11:25 11:28 WBC 7.7 (4.8-10.8) X10*3/uL RBC 4.37 (4.20-5.50) X10*6/uL Hgb 12.9 (12.0-16.0) g/dl Hct 40.2 (37.0-47.0) % MCV 92.0 (80.0-98.0) fL MCH 29.5 (27.0-33.0) pg MCHC 32.1 (31.0-35.0) g/dl RDW 13.2 (11.0-16.0) % Plt Count 228 (160-400) X10*3/uL MPV 10.2 (9.4-12.3) fL Absolute Nucleated RBC 0.000 (0.0-0.012) X10*3/uL Nucleated RBC % (auto) 0.0 (0.0-0.2) /100WBC Sodium 140 (135-145) mmol/L Potassium 4.2 (3.3-5.1) mmol/L Chloride 106 (96-108) mmol/L Carbon Dioxide 28 (22-29) mmol/L Anion Gap 10 L (12-20) BUN 12 (9-16) mg/dL Creatinine 0.72 (0.5-1.4) mg/dL Estim Creat Clear Calc 98.5 Estimated GFR > 60 Random Glucose 67 (60-115) mg/dL Calcium 9.0 (8.4-10.2) mg/dL Blood Type A Negative Antibody Screen POSITIVE Antibody Identification Anti-D Narrative Narrative: EKG 08/2024 [id number] Ventricular Rate: 80 BPM Atrial Rate: 80 BPM P-R Interval: 178 ms QRS Duration: 70 ms Q-T Interval: 414 ms QTC Calculation(Bazett): 477 ms P Bergen: 77 degrees R Bergen: 7 degrees T Bergen: 17 degrees Normal sinus rhythm Nonspecific T wave abnormality Abnormal ECG When compared with ECG of 01-Jun-2019 16:20, No significant change was found Confirmed by JOAN SAVAGE, [facility] ([id number]) on 08/26/2024 11:02:05 AM Airway TM Dist: >3cm Neck ROM: Full Denture: Upper and Lower Heart: RRR Lungs: CTAB Assessment and Plan Assessment Anesthesia Assessment: Anesthesia Plan Discussed and PAT Visit Final Anesthetic Review Family History of Problems with Anesthesia: No History of Problems with Anesthesia: No Documented by User: Gio Tolbert MD 02/20/25 09:51 PMFSH Past Medical History Medical History Back pain GERD (gastroesophageal reflux disease) Numbness Benign essential tremor SOB (shortness of breath) Cough Chest pain Diverticulosis COPD (chronic obstructive pulmonary disease) Morbid obesity with BMI of 40.0-44.9, adult Intertriginous candidiasis Metabolic dysfunction-associated steatotic liver disease (MASLD) BCC (basal cell carcinoma of skin) Centrilobular emphysema Asthma Hidradenitis suppurativa Allergic rhinitis Overlap syndrome Osteoarthritis Depression PLMD (periodic limb movement disorder) Sleep apnea DUB (dysfunctional uterine bleeding) IBS (irritable bowel syndrome) Nonulcer dyspepsia Surgical History Surgical History History of surgery on arm Hx of surgical procedure Hx of tubal ligation History of esophagogastroduodenoscopy (EGD) Hx of tonsillectomy H/O colonoscopy Hx of section History of back surgery Hx of appendectomy History of lumbar laminectomy Social History Social History Household Members: Spouse Housing: House Are you a primary post anesthesia care unit nurse to a significant other at home: No Do you presently have visiting nurse or other home services: No Patient Tobacco Use Status: Former Tobacco user Use of substances other than those prescribed or required for medical reasons: No Currently Displaying Signs/Symptoms of Drug Intoxication Withdrawal: No Have you been hit, kicked, punched, or otherwise hurt by someone within the past year? If so, by whom?: No Are you DNR?: No Advance Directives: No Advance Directives Information Provided: No Advance Directives on File: No Do you have a plan to hurt others: No Plan Recently lost weight without trying: No Nutrition Risks: No Nutritional Risk Patient : No : No Poor oral hygiene: Yes service: No Meds Allergies Allergy/AdvReac Type Severity Reaction Status Date / Time No Known Allergies Allergy Verified 12/30/24 11:20 Home Medications ?Medication ?Instructions ?Recorded ?Confirmed ?Last Taken ?Type albuterol sulfate 90 mcg/actuation 1 inh inhalation Q4H PRN Shortness 01/31/25 02/18/25 Unknown History aerosol inhaler Of Breath Or Wheezing budesonide-formoterol HFA 160 2 puff inhalation BID 01/31/25 01/31/25 02/18/25 History mcg-4.5 mcg/actuation aerosol inhaler (Symbicort) bupropion HCl 150 mg 24 hr tablet, 150 mg PO DAILY 01/31/25 01/31/25 02/18/25 History extended release bupropion HCl 300 mg 24 hr tablet, 300 mg PO DAILY 01/31/25 01/31/25 02/18/25 History extended release nystatin 100,000 unit/gram topical 100,000 unit topical BID PRN Skin 01/31/25 02/18/25 Unknown History ointment Irritation oxycodone-acetaminophen 5 mg-325 1 tab PO BID PRN Pain 01/31/25 02/03/25 02/17/25 History mg tablet primidone 50 mg tablet 150 mg PO BEDTIME 01/31/25 02/03/25 02/17/25 History Assessment and Plan Final Anesthetic Review NPO: Yes ASA Class: III Final Preanesthetic Review: No Changes in Pt Med Stat, Meds/Allgs Chart Reviewed, Consent Obtained/Reviewed and Anes Risks/Benef Reviewed Patient Risk: Intermediate Procedure Risk: Low Anesthetic Plan Anesthetic Plan: GA Disposition: Standard PACU
[2025-02-03 11:48] LABS: Hematocrit 40.2 % (37.0-47.0); Hemoglobin 12.9 g/dl (12.0-16.0); Mean Corpuscular HGB Conc 32.1 g/dl (31.0-35.0); Mean Corpuscular Hemoglobin 29.5 pg (27.0-33.0); Mean Platelet Volume 10.2 fL (9.4-12.3); Platelet Count 228 X10*3/uL (160-400); Red Blood Count 4.37 X10*6/uL (4.20-5.50); Red Cell Distribution Width 13.2 % (11.0-16.0); White Blood Count 7.7 X10*3/uL (4.8-10.8)
[2025-02-03 12:13] LABS: Anion Gap 10 (12-20); Blood Urea Nitrogen 12 mg/dL (9-16); Carbon Dioxide 28 mmol/L (22-29); Chloride 106 mmol/L (96-108); Creatinine Clr Calc Pharmacy 98.5; Estimated Glomerular Filt Rate > 60; Glucose Random 67 mg/dL (60-115); Potassium 4.2 mmol/L (3.3-5.1); Sodium 140 mmol/L (135-145)
[2025-02-18] VITALS (13 sets, daily range): BP systolic 91–129; BP diastolic 44–74; PULSE 71–84; RESP 16–19; TEMP 35.9–36.7; O2SAT 93–100; BMI 45.1
--- NOTE | ~2025-02-18 | FL_ITS ---
EXAMINATION: FL GUIDANCE ONLY HISTORY: L2-5 OLIF COMPARISON: Correlation is made with plain films of the lumbar spine dated 09/13/2024. TECHNIQUE: Fluoroscopy time: 3.5 minutes. Cumulative Dose: 281.28 mGy. DAP: 90.272 mGym2 Images: 3. FINDINGS: Images demonstrate posterior fusion of L2-L5 with pedicle screws, spinal stabilization rods, and intervertebral spacers. FL/FL guidance in OR IMPRESSION: Fluoroscopy during procedure. Please see procedure report for additional information. Electronically signed by: Shawn Jason MD 02/18/2025 12:37 PM EDT
--- NOTE | ~2025-02-18 | CT_ITS ---
CLINICAL HISTORY: postopertative CT lumbar spine without contrast Comparison: CT/SR - CT LUMBAR SPINE WO IV CON - 12/05/24 17:03 EST Findings: Status post fusion and disc spacing prostheses from L2 through L5. Expected postsurgical changes. No evidence of hardware failure. No postoperative fluid collection. Significantly improved appearance of previously described neural foraminal narrowing at the operative levels. Unchanged mild central canal stenosis and moderate neural foraminal narrowing at L5-S1. Impression: Expected postsurgical changes. No fluid collection. This document has been electronically signed by: Ryan Peña MD on 02/19/2025 13:41:20
[2025-02-18] MEDS: methocarbamoL 750 MG TABLET PO (06:39)
[2025-02-18] MEDS: Gabapentin 300 MG CAPSULE PO (06:39)
[2025-02-18] MEDS: Lactated Ringers 1,000 ML 100 ML IVCONT (06:47)
--- NOTE | 2025-02-18 06:59 | P.HPSUR_ITS ---
Pre-Procedural Eval Section A - 24 Hr Update-Section A only Date of Service: 02/18/25 The patient is an INPATIENT: No Changes since office visit: No Cold of Flu in the past 2 weeks, No New Medical Problems, No Changes in Medication and No Patient answered all questions The patient has been examined within 24 hours of the surgical procedure. The History & Physical has been completed within 30 days and I have reviewed it.: No Section B - Complete if H&P > 30 days Chief Complaint: s/p L2-5 Oblique Lumbar Interbody Fusion Allergies: Allergies Allergy/AdvReac Type Severity Reaction Status Date / Time No Known Allergies Allergy Verified 12/30/24 11:20 Review of Systems Sugical H&P ROS: Negative: Constitution, Cardiovascular, Respiratory, Neurological, Psychiatric, Hem-Onc, Allergic/Immunologic, Gastrointestinal, Genitourinary, Musculoskeletal, Integumentary, Endocrine and Eyes/Ears/Nose/Throat Exam Surgical H&P Exam: Normal: HEENT, Normal: Heart, Normal: Lungs, Normal: Extremities, Normal: Abdomen, Normal: Skin and Normal: Neurological (awake,alert ,oriented x 3 ) Plan Diagnosis/Plan: Unchanged L2-5 oblique lumbar interbody fusion Time Spent With Patient Time: Total time managing care of this patient today __6__ minutes.
--- NOTE | 2025-02-18 07:34 | PHA.MEDREC ---
Pharmacy Consult ? Medication Reconciliation Pharmacy has reviewed the medication reconciliation. Per patient, she longer takes albuterol nebulizing solution nor omeprazole.
[2025-02-18] MEDS: ceFAZolin Sodium/Dextrose,Iso 2 GM/50 ML PIGGYBACK IV ×3 (08:05→19:52)
--- NOTE | 2025-02-18 12:18 | P.OP_ITS ---
Operative Note Operative Note Date of Service: 02/18/25 Narrative: Preop Diagnosis: 1.) Lumbar degenerative scoliosis 2.) Lumbar spinal stenosis with back pain Procedure: 1) L2-3, L3-4 and L4-5 discectomy, arthrodesis and implantation cage through an anterolateral, retroperitoneal approach 2) L2-L5 posterior instrumented fusion 3) allograft 4) Injection of 10 cc of Exparel at the transverse process for a muscular erector spinae block and additional Exparel in paravertebral tissue for postop management Consent Informed Consent was obtained for this operation. I have explained the nature, purpose and benefits of the operation. I have discussed the risks and benefit of the operation including possible complications or adverse events with patient/family. Alternative(s) were discussed with the patient with their relative benefits and risks as well as the consequences of not accepting the operation were included in obtaining consent. Surgeon: LARA RONDON MD, PHD Procedure Assisted By: jennifer Zepeda Description of Procedure This patient underwent a lumbar decompression L3-4 and L4-5 another institution. The surgery was not successful and she was then told she was too obese to have further surgery. Patient came to see us an imaging showed a lumbar degenerative scoliosis and ongoing lumbar stenosis. She was offered a minimally invasive correction of the lumbar degenerative scoliosis L2-L5 through an oblique lumbar interbody fusion.. The procedure and complications were explained. The patient was consented. The patient was brought to the operating room and endotracheally intubated. The patient was turned in a lateral position with the left side up. Prep and drape was done followed by timeout. A small incision was made in the left lower abdominal quadrant. The muscle fascia was opened after which the 3 muscle layer was split to enter the retroperitoneal space. Dilators were docked in the anterior one third of the L4-5 disc space followed by a retractor. The retractor was opened. The L4-5 disc space was exposed. An annulotomy was done after which an elevator Roberson was used to release the disc material from its endplates and to perforate the contralateral side. The disc space was significantly collapsed and not much disc material could be removed.. An 8 mm height trial implant was inserted. The discectomy was completed. The endplates were prepared. An 8 x 50 mm with 0 degree lordosis 4 web cage filled with allograft was inserted into the disc space under fluoroscopic guidance. Then attention was turned to the L3-4 disc space where similar procedure was done. When the diskectomy was completed and the endplates were prepared a 10 mm x 15 mm and 6 degree lordosis 4 web cage was inserted filled with allograft. Finally the L2-3 level was addressed. The retractor was placed on the anterior 1/3 of the L2-3 disc space. The diskectomy was done followed by preparation of the endplates. An 8 and 10 mm trial was inserted and finally a 10 x 45 with 0 degree lordosis 4 web cage filled with allograft was inserted into the disc sp ellen. This resulted in correction of the lumbar degenerative scoliosis. The retractor was removed. Hemostasis was done. The incision was closed in 2 layers. Steri-Strips used to approximate incision. An OpSite with Tegaderm was used to cover the incision. This marked first part of the procedure. The patient was turned prone on the Scott spine table. 2C arms were installed for fluoroscopy. Prep and drape was done followed by a second timeout. Injection of 10 cc of Exparel at the bilateral L4 transverse processi for a muscular erector spinae block. Two paramedian incisions were made lateral from the L2-L5 pedicles. The muscle fascia was opened after which the muscle layer was split bluntly to expose the posterolateral gutter. The following steps were taken. A pediguard tap was used to create a transpedicular trajectory into the vertebral body. A K wire was placed. A specially designed instrument was advanced over the K wire to decorticate the posterolateral gutter in preparation for the posterolateral fusion. A pedicle screw was advanced over the K wire and the K wire was removed. The steps were done for the bilateral L 2, L3, L4 and L5 pedicles. A total of 8 screws screws were placed with a diameter of 6.5 x 45 mm in the bilateral L2 pedicles and 7.5 x 45 in the L3, L4 and L5 pedicles. Pedicle screws were connected with 110 mm jael bilaterally and locked down with locking caps. The extension towers were removed. The posterolateral gutter was filled with allograft to complete the posterolateral L2-L5 fusion Hemostasis was done and the incision was closed in 2 layers. Steri-Strips were used to approximate the incision. An OpSite with tegaderm was used to cover the incision. All sponge and needle counts were correct. Patient was extubated and transferred in stable is to recovery room. Anesthesia: General Estimated Blood Loss (ml): 150 Duration of Surgery: 4 hours Complications: None Postoperative Plan: Admit to inpatient for clinical observation
[2025-02-18] MEDS: oxyCODONE HCl Immed Release 5 MG TABLET 10 MG PO ×2 (13:26→23:27)
[2025-02-18] MEDS: Ketorolac Tromethamine 15 MG/ML VIAL IVPUSH ×2 (14:59→19:52)
[2025-02-18] MEDS: 0.9 % Sodium Chloride 1,000 ML 75 ML IVCONT (14:59)
[2025-02-18] MEDS: HYDROmorphone HCl 1 MG/ML SYRINGE IVPUSH (17:31)
[2025-02-18] MEDS: Acetaminophen 1,000 MG/100 ML PIGGYBACK 400 MG IV ×2 (18:12→23:30)
[2025-02-18] MEDS: Docusate Sodium 100 MG CAPSULE PO (19:52)
[2025-02-18] MEDS: Primidone 50 MG TABLET 150 MG PO (19:53)
[2025-02-19] VITALS (7 sets, daily range): BP systolic 111–126; BP diastolic 54–61; PULSE 91–120; RESP 16–20; TEMP 36.4–37.4; O2SAT 88–93
[2025-02-19] MEDS: Ketorolac Tromethamine 15 MG/ML VIAL IVPUSH ×4 (03:20→21:15)
[2025-02-19] MEDS: ceFAZolin Sodium/Dextrose,Iso 2 GM/50 ML PIGGYBACK IV (03:20)
[2025-02-19] MEDS: Acetaminophen 1,000 MG/100 ML PIGGYBACK 400 MG IV ×3 (05:35→18:25)
[2025-02-19] MEDS: oxyCODONE HCl Immed Release 5 MG TABLET 10 MG PO ×4 (05:36→16:21)
[2025-02-19] MEDS: 0.9 % Sodium Chloride 1,000 ML 75 ML IVCONT (05:39)
--- NOTE | 2025-02-19 06:58 | HO.NEURO.PN ---
Neurosurgery Operative Note Date of Service: 02/19/25 Narrative: POD: 1 Procedure: L2-5 YASMINE Navarrete is a pleasant 61 year old female who underwent uncomplicated L2-5 Oblique lumbar interbody fusion with Dr. Milligan yesterday. She reports she has not yet been up OOB much aside from with assist with her nurse. She reports that has been able to weight bear. Unfortunately she has been having a tough time with pain control in the low back since surgery. She did also report some proximal leg weakness and numbness of her left anterior thigh after surgery. She still reports moderate low back pain with good relief with pain medication. She has not been up OOB with PT yet. She has a lobo in, scheduled to come out this AM. She is tolerating her current diet. Afebrile, vital signs stable. Full strength 5/5 LE's. Back dressings have some staining without signs of hematoma. No active sanguineous drainage. Area is dry. Plan: Pleasant 61 year old female who underwent uncomplicated L2-5 Oblique lumbar interbody fusion with Dr. Milligan yesterday. She is currently dealing with some left anterior thigh numbness/weakness likely related to the surgical approach. Will be admitted to [address] [place] [address] for recovery, pain management, and further evaluation. We will check back in with her later today. Brandin Milligan MD,PhD [facility]
[2025-02-19] MEDS: HYDROmorphone HCl 1 MG/ML SYRINGE IVPUSH (08:18)
[2025-02-19] MEDS: Docusate Sodium 100 MG CAPSULE PO ×2 (08:19→21:13)
[2025-02-19] MEDS: buPROPion HCl XL 300 MG TAB.ER.24H PO (08:19)
[2025-02-19] MEDS: buPROPion HCl XL 150 MG TAB.ER.24H PO (08:19)
[2025-02-19] MEDS: Fluticasone/Vilanterol 200/25 BLST.W.DEV 1 PUFF INHALE (08:50)
--- NOTE | 2025-02-19 09:59 | HO.POSTANES ---
Post Anesthesia Evaluation Post Anesthesia Evaluation Date of Service: 02/19/25 Vital Signs: Vital Signs Temp Pulse Resp BP Pulse Ox O2 Del Method 02/19/25 08:53 98 16 02/19/25 08:46 120 H 111/54 L 92 02/19/25 07:26 98.5 F 120 H 16 111/54 L 92 Room Air 02/19/25 04:00 98.2 F 119 H 20 126/60 93 Room Air 02/19/25 00:00 97.5 F 91 17 114/59 L 93 Room Air Anesthesia: General Endotracheal-GETA Mental Status: Awake Pain Control: Satisfactory Nausea/Vomiting: None Hydration: Adequate Anesthesia-Related Issues: No Anes. Related Issues
--- NOTE | 2025-02-19 12:11 | MHC.CM.PN ---
IMM 02/19/25 s/p L2-5 lumbar fusion She lives with her spouse. They reside in a duplex. Their dtr lives next door Independent and no AD pre-op CPAP Aprea provider HCP Mol[facility] on file DP Home self care. Spouse will transport home.
[2025-02-19] MEDS: methocarbamoL 750 MG TABLET PO ×2 (12:26→18:31)
[2025-02-19] MEDS: Primidone 50 MG TABLET 150 MG PO (21:12)
[2025-02-20] MEDS: Acetaminophen 1,000 MG/100 ML PIGGYBACK 400 MG IV ×2 (00:20→07:26)
[2025-02-20] MEDS: Ketorolac Tromethamine 15 MG/ML VIAL IVPUSH ×2 (02:33→07:26)
[2025-02-20 04:00] VITALS: BP 116/63; PULSE 88; RESP 18; TEMP 36.7; O2SAT 92
[2025-02-20] MEDS: buPROPion HCl XL 300 MG TAB.ER.24H PO (07:26)
[2025-02-20] MEDS: buPROPion HCl XL 150 MG TAB.ER.24H PO (07:26)
[2025-02-20] MEDS: Docusate Sodium 100 MG CAPSULE PO (07:26)
[2025-02-20 07:41] VITALS: BP 116/63; PULSE 88; O2SAT 92
[2025-02-20 07:53] VITALS: BP 124/66; PULSE 92; RESP 17; TEMP 36.9; O2SAT 94
[2025-02-20] MEDS: Fluticasone/Vilanterol 200/25 BLST.W.DEV 1 PUFF INHALE (08:10)
[2025-02-20 08:11] VITALS: PULSE 92; RESP 18; O2SAT 93
--- NOTE | 2025-02-20 09:38 | PM.DS ---
DS: Providers Provider Date of Service: 02/20/25 Date of admission: 02/18/25 06:27 Date of discharge: 02/20/25 Primary care physician: Shyam Ruth MD DS: Summary Time Attestation Discharge Coordination Time (in mins): 12 Quality: Safe Use of Opioids Does Pt have an Active Cancer Diagnosis on the Problem List?: No Quality: Stroke Does the patient have a stroke diagnosis?: No Physical Exam Vital Signs: Vital Signs: Last Vital Signs Temp 98.4 F 02/20/25 07:53 Pulse 92 02/20/25 08:11 Resp 18 02/20/25 08:11 BP 124/66 02/20/25 07:53 Pulse Ox 94 02/20/25 07:53 O2 Del Method Room Air 02/20/25 07:53 O2 Flow Rate 3 02/18/25 20:00 BMI result Body Mass Index 45.1 Discharge Plan Discharge Anticipated Discharge Date/Time: 02/20/25 09:39 Patient Disposition: Home, Self-Care Discharge Diagnosis: s/p L2-5 OLIF Referrals: Shyam Ruth MD [Primary Care Provider] - 1 Week Discharge Medications: New hydromorphone 4 mg tablet See Rx Instructions .ROUTE .COMPLEX PRN (Reason: breakthrough pain) Qty: 14 0RF Rx Instructions: Take 1/2 tablet by mouth every 4-6 hours as needed. Partial Fill upon patient request. PRN Continued albuterol sulfate 90 mcg/actuation HFA aerosol inhaler 1 inh inhalation Q4H PRN (Reason: Shortness Of Breath Or Wheezing) nystatin 100,000 unit/gram ointment 100,000 unit topical BID PRN (Reason: Skin Irritation) bupropion HCl 300 mg tablet extended release 24 hr 300 mg PO DAILY bupropion HCl 150 mg tablet extended release 24 hr 150 mg PO DAILY primidone 50 mg tablet 150 mg PO BEDTIME oxycodone-acetaminophen 5-325 mg tablet 1 tab PO BID PRN (Reason: Pain) budesonide-formoterol [Symbicort] 160-4.5 mcg/actuation HFA aerosol inhaler 2 puff inhalation BID Discharge Orders: Discharge Order (Routine); Ordered 02/20/25 Ordered By: Brandin Barth Diet: Advance to usual diet Activity on Discharge: As tolerated Stand Alone Forms: Patient Portal Discharge page Print Language: Faroese Care Plan Goals: Return to normal activity as tolerated. Health Concerns: None. Plan of Treatment: Follow-up in clinic in 2-3 weeks. Assessment: POD: 2 Procedure: L2-5 OLIF Rosendo is a pleasant 64 year old female who underwent L2-[address] Milligan 2 days ago. She had some trouble with pain control and ambulation in the immediate postoperative period, and was therefore kept an additional day for pain control and continued PT evaluation. Today she reports she feels much better than she did yesterday in terms of her pain. She reports she is up, walking around, and is otherwise doing well. She feels her symptoms are much better than pre-operatively. She is voiding well (no lobo), and tolerating her current diet. Afebrile, vital signs stable. Full strength 5/5 LE's. Some pain to full strength testing of left iliopsoas. Back dressings have some staining without signs of hematoma. No active sanguineous drainage. Area is dry. Plan: Patient meets criteria to be medically discharged home. She was evaluated this morning by the attending Neurosurgeon Dr. Milligan who is in agreement with this plan. She takes Percocet daily at home. I sent in some Dilaudid to her pharmacy in [place] for breakthrough pain. Brandin Milligan MD,PhD [facility]
--- NOTE | 2025-02-20 09:47 | HO.NEURO.PN ---
Neurosurgery Operative Note Date of Service: 02/20/25 Narrative: POD: 2 Procedure: L2-5 OLIF Rosendo is a pleasant 64 year old female who underwent L2-[address] Milligan 2 days ago. She had some trouble with pain control and ambulation in the immediate postoperative period, and was therefore kept an additional day for pain control and continued PT evaluation. Today she reports she feels much better than she did yesterday in terms of her pain. She reports she is up, walking around, and is otherwise doing well. She feels her symptoms are much better than pre-operatively. She is voiding well (no lobo), and tolerating her current diet. Afebrile, vital signs stable. Full strength 5/5 LE's. Some pain to full strength testing of left iliopsoas. Back dressings have some staining without signs of hematoma. No active sanguineous drainage. Area is dry. Plan: Patient meets criteria to be medically discharged home. She was evaluated this morning by the attending Neurosurgeon Dr. Milligan who is in agreement with this plan. She takes Percocet daily at home. I sent in some Dilaudid to her pharmacy in [place] for breakthrough pain. Brandin Milligan MD,PhD [facility]
[2025-02-20 10:27] VITALS: BP 129/67; PULSE 91; RESP 16; TEMP 37.4; O2SAT 93
== END 2025-02-20 10:29 | disposition home or self-care (01) | DRG 458 ==
LOC: HO.SSSA 06:28 → HO.S3 13:14
PROVIDERS: Nurse Practitioner; Admitting Provider Neurological Surgery; PCP Internal Medicine; Visit Provider Neurological Surgery
PROC: 0SG10A0 Fusion of 2 or more Lumbar Vertebral Joints with Interbody Fusion Device, Anterior Approach, Anterior Column, Open Approach (ICD-10-PCS; principal; 2025-02-18 07:30)
DX: M48.061 Spinal stenosis, lumbar region without neurogenic claudication (principal); M41.56 Other secondary scoliosis, lumbar region; Z87.891 Personal history of nicotine dependence; Z79.899 Other long term (current) drug therapy
CPT/HCPCS: 36415; 72131; 80048; 85027; 86850; 86870; 86885; 86900; 86901; 86920; 86922; 94640; 97116; 97162; C1713; C1889; J0131; J0665; J0666; J0690; J1171; J1885; J2003; J2405; J2704; J3010; L8699

== ENCOUNTER → 2025-02-18 06:27 | Outpatient (BNV) | payer MEDICARE, SELFPAY | PROVIDERS: Admitting Provider Neurological Surgery; PCP Internal Medicine; Visit Provider Neurological Surgery | DX: M48.061 Spinal stenosis, lumbar region without neurogenic claudication (principal); M41.86 Other forms of scoliosis, lumbar region | CPT/HCPCS: 20930; 22558; 22585; 22612; 22614; 22840; 22853; 99024 ==

== ENCOUNTER 2025-02-23 08:47 | Emergency (ER) | payer MEDICARE, SELFPAY ==
--- NOTE | ~2025-02-23 | XR_ITS ---
CLINICAL HISTORY: recent lumbar surgery, r o atelectasis Chest Radiographs, 2 views Comparison: None Findings: Cardiomegaly. Normal mediastinal contours. No pneumothorax. Linear opacity in the lingula. No pleural effusion. Normal upper abdomen. No acute fracture. Impression: The lungs are well aerated. Linear opacity in the lingula may indicate a minimal amount of subsegmental atelectasis. This document has been electronically signed by: Jolie Bundy MD on 02/23/2025 16:56:13
--- NOTE | ~2025-02-23 | MR_ITS ---
CLINICAL HISTORY: Recent spinal surgery, left leg numbness MR of the lumbar spine with and without contrast Comparison: CT/SR - CT LUMBAR SPINE WO IV CON - 02/19/25 09:[address]/SR - CT LUMBAR SPINE WO IV CON - 12/05/24 17:03 EST MR/SR - MR LUMBAR SPINE WO/W CON - 10/28/24 10:25 EST Findings: Status post posterior fusion L2 through L5 with interbody disc spacers. Status post laminectomies 4/L5. 5 mm anterolisthesis of L3 on L4. 3 mm retrolisthesis of L5 on S1. There is new edema at the L4/L5 disc space at the anterior aspect ( series 7, image 11 ). Bone marrow edema and enhancement is not definitively visualized. Metallic artifact limits evaluation. Subsequent lack of fat saturation on the postcontrast images also limits evaluation. No cord expansion or abnormal signal intensity. The conus medullaris terminates at L1, which is normal. The cauda equina is unremarkable. No identified epidural abscess.There is a rim enhancing fluid collection within the left psoas muscle, new since the prior MR measuring 1.8 x 2.4 x 4.9 cm which begins at L4 level (measured on series 13, image 40 and series 14 image 18). There is fluid in the posterior spinous musculature and subcutaneous fat without definitive rim enhancement which could be a seroma; an abscess is considered less likely. There is edema within the posterior spinous musculature and within posterior subcutaneous fat. L1/L2: No disc herniation. Moderate facet joint and ligamentum flavum hypertrophy. Mild central canal stenosis. Moderate bilateral lateral recess stenosis. No foraminal stenosis. L2/L3: Status post interbody disc spacer without abnormal enhancement. Moderate facet joint and ligamentum flavum hypertrophy. Mild central canal stenosis. Moderate right and severe left lateral recess stenosis. No right and mild left foraminal stenosis. L3/L4: Status post interbody disc spacer without abnormal enhancement. There is anterolisthesis with uncovering of the disc. Severe facet joint and ligamentum flavum hypertrophy. Severe central spinal canal stenosis. Severe bilateral lateral recess stenosis. Moderate right and no left lateral recess stenosis. L4/L5: Status post interbody disc spacer without abnormal enhancement; prominent epidural fat without definitive granulation tissue. Moderate facet joint hypertrophy. Mild central canal stenosis. Moderate right and severe left lateral recess stenosis. No right and moderate left foraminal stenosis. L5/S1: 4 mm central disc protrusion. Severe facet joint and ligamentum flavum hypertrophy. Moderate central canal stenosis. Severe bilateral lateral recess stenosis. Mild bilateral foraminal stenosis. Impression: New abscess in the left psoas muscle measuring 4.9 cm which begins at the L4 level. There is new edema in the L4/L5 disc space at the anterior aspect which is suspected to be the source of infection. No bone marrow edema or enhancement to indicate associated osteomyelitis . No identified epidural abscess. Follow up is recommended if symptoms persist or worsen. This document has been electronically signed by: Jolie Bundy MD on 02/23/2025 14:06:33
[2025-02-23 08:53] VITALS: BP 142/69; PULSE 91; RESP 20; TEMP 36.4; O2SAT 95; BMI 45.3
--- NOTE | 2025-02-23 09:02 | ED_ITS ---
HPI - Back Pain/Injury General Chief Complaint: Back Pain/Injury Stated Complaint: lower back pain Time Seen by Provider: 02/23/25 09:02 Source: patient and RN notes reviewed Mode of arrival: ambulatory Limitations: no limitations History of Present Illness ED Provider: Deirdre Cobos PA-C HPI Narrative: This is a 64-year-old female, with a past medical history of recent uncomplicated L2 through L5 oblique lumbar interbody fusion with Dr. Milligan performed on February 18, 2025, who presents to the ER with complaints of worsening back pain. Patient states that on February 18, 2025 she had this surgery and was admitted for 2 days afterwards due to intractable back pain. She was discharged on . She states that on she was feeling well, and Monday she also was feeling like her symptoms were improving however Monday and today she is feeling much worse. She states that she is unsure if getting in and out of bed is exacerbating her back pain. She states that since Monday into Monday she has had numbness circumferentially in her left leg. She denies any fevers or chills. No chest pain or shortness of breath. Denies any saddle anesthesia, urinary or bowel retention or incontinence. She has been taking oxycodone as well as Dilaudid at home however states that her pain has not improved. No other complaints or concerns at this time. MD elicited complaint: back pain Pertinent past history: back surgery Onset (ago): day(s) Timing: constant Severity: moderate Quality: aching Location: lumbar spine Exacerbating factors: movement and walking Relieving factors: immobilization Associated symptoms: loss of sensation in lower extremities Work related injury: No Related Data Home Medications ?Medication ?Instructions ?Recorded ?Confirmed albuterol sulfate 90 mcg/actuation 1 inh inhalation Q4H PRN Shortness 01/31/25 02/18/25 aerosol inhaler Of Breath Or Wheezing budesonide-formoterol HFA 160 2 puff inhalation BID 01/31/25 01/31/25 mcg-4.5 mcg/actuation aerosol inhaler (Symbicort) bupropion HCl 150 mg 24 hr tablet, 150 mg PO DAILY 01/31/25 01/31/25 extended release bupropion HCl 300 mg 24 hr tablet, 300 mg PO DAILY 01/31/25 01/31/25 extended release nystatin 100,000 unit/gram topical 100,000 unit topical BID PRN Skin 01/31/25 02/18/25 ointment Irritation oxycodone-acetaminophen 5 mg-325 1 tab PO BID PRN Pain 01/31/25 02/03/25 mg tablet primidone 50 mg tablet 150 mg PO BEDTIME 01/31/25 02/03/25 Previous Rx's ?Medication ?Instructions ?Recorded gabapentin 300 mg capsule 300 mg PO TID nerve pain #30 caps 02/23/25 hydromorphone 4 mg tablet See Rx Instructions .Route 02/23/25 .COMPLEX PRN breakthrough pain #21 tabs Allergies Allergy/AdvReac Type Severity Reaction Status Date / Time No Known Allergies Allergy Verified 02/23/25 08:56 Review of Systems 2 Review of Systems: Yes all other systems are reviewed and are negative Constitutional: Constitutional: Reports as per [facility] Past Medical History Medical History Back pain GERD (gastroesophageal reflux disease) Numbness Benign essential tremor SOB (shortness of breath) Cough Chest pain Diverticulosis COPD (chronic obstructive pulmonary disease) Morbid obesity with BMI of 40.0-44.9, adult Intertriginous candidiasis Metabolic dysfunction-associated steatotic liver disease (MASLD) BCC (basal cell carcinoma of skin) Centrilobular emphysema Asthma Hidradenitis suppurativa Allergic rhinitis Overlap syndrome Osteoarthritis Depression PLMD (periodic limb movement disorder) Sleep apnea DUB (dysfunctional uterine bleeding) IBS (irritable bowel syndrome) Nonulcer dyspepsia Surgical History History of surgery on arm Hx of surgical procedure Hx of tubal ligation History of esophagogastroduodenoscopy (EGD) Hx of tonsillectomy H/O colonoscopy Hx of section History of back surgery Hx of appendectomy History of lumbar laminectomy Social History Social History Household Members: Spouse Housing: House Are you a primary nurse behavioral health care to a significant other at home: No Do you presently have visiting nurse or other home services: No Patient Tobacco Use Status: Former Tobacco user service: No Physical Exam 2 Vital Signs: Vital Signs: Last Vital Signs Temp 97.6 F 02/23/25 08:53 Pulse 87 02/23/25 15:01 Resp 18 02/23/25 13:02 BP 143/80 H 02/23/25 15:01 Pulse Ox 97 02/23/25 15:01 O2 Del Method Room Air 02/23/25 15:01 BMI result Body Mass Index 45.3 Const: General: cooperative, comfortable and no acute distress O rientation/consciousness: patient oriented x3 Limitations: no limitations HEENT: Head: Yes normal to inspection, Yes normocephalic and Yes atraumatic Ears: hearing grossly normal bilaterally General nose exam: Normal external nose present Face and sinus: Yes normal facial exam Mouth: Normal oral and palatal mucosa present, oropharynx normal and moist mucous membranes Throat: Yes posterior oropharynx normal Eyes: General: appearance normal, both eyes and all related structures E yelids: Yes eyelids normal Conjunctivae: conjunctivae normal Sclerae: s clerae normal Pupils: Equal, round and reactive pupils present EOM: EOMs intact bilaterally Neck: Neck: Yes normal visual inspection, Yes full ROM and Yes no lymphadenopathy Lymphatic: no lymphadenopathy noted Chest: Chest palpation & inspection: normal inspection of the chest Resp: Effort & Inspection: normal respiratory effort and able to speak in complete sentences Auscultation: clear to auscultation bilaterally, no crackles, no rales, no rhonchi and no wheezes Cardio: Rate: regular rate Rhythm: regular rhythm Heart sounds: S1 normal heart sound present and S2 normal heart sound present GI: Inspection: Yes normal to inspection Back/Spine/Pelvis: Other: Ecchymosis and multiple surgical incisions noted. No palpable induration, no drainage, no surrounding erythema or warmth. She also has a surgical incision site overlying the left psoas region, no palpable duration or fluctuance. Tender to palpation, no erythema or warmth. No drainage. Skin: General skin exam: no rashes or lesions noted Trauma: no lacerations or abrasions Wounds: no wounds Neuro: General: patient oriented x3 and moves all extremities Cranial nerves: Yes Equal, round and reactive pupils present Extrem: Other: No calf tenderness, no pitting edema. Strong DP pulse. Leg is well perfused, warm and dry. Able to dorsi and plantar flex. Patient unable to lift leg off of bed secondary to pain, able to flex and extend at the knee, about 3/5 with left- sided knee extension. Otherwise 5/5 in lower extremity strength. Patient reporting subjective numbness starting at anterior thigh extending into the top of the left foot. General: Yes normal to inspection Right upper extremity: normal to inspection Left upper extremity: normal to inspection Right lower extremity: normal to inspection Left lower extremity: normal to inspection Medications Administered Discontinued Medications Generic Name Dose Route Start Last Admin Trade Name Freq PRN Reason Stop Dose Admin Gadobutrol 10 ml 02/23/25 12:49 02/23/25 12:51 Gadobutrol 10 Ml Vial IVPUSH 02/23/25 12:50 10 ml ONCE ONE Administration Hydromorphone HCl 1 mg 02/23/25 17:34 02/23/25 17:49 Hydromorphone Hcl 1 Mg/Ml Syringe IVPUSH 02/23/25 17:35 1 mg ONCE ONE Administration Protocol Vancomycin HCl 2,000 mg in 500 mls @ 250 mls/hr 02/23/25 14:24 02/23/25 15:39 Vancomycin/Ns IV 02/23/25 16:23 250 mls/hr ONCE ONE Administration Piperacillin Sod/Tazobactam 50 mls @ 100 mls/hr 02/23/25 14:24 02/23/25 16:25 Sod 3.375 gm/ Sodium Chloride IV 02/23/25 14:53 Infused ONCE ONE Infusion Sodium Chloride 1,000 mls @ 999 mls/hr 02/23/25 14:30 02/23/25 17:43 Ns IVCONT 02/23/25 15:30 Infused .Q1H1M ONE Infusion Morphine Sulfate 15 mg 02/23/25 09:34 02/23/25 09:49 Morphine Sulfate Immed Release 15 Mg Tablet PO 02/23/25 09:35 15 mg ONCE ONE Administration Morphine Sulfate 4 mg 02/23/25 15:01 02/23/25 15:16 Morphine Sulfate 4 Mg/Ml Cartridge IVPUSH 02/23/25 15:02 4 mg ONCE ONE Administration Protocol Medical Decision Making Medical Decision Making MDM Narrative: This is a 64-year-old female who presents emergency department with concerns for worsening back pain, and subjective numbness in her left leg. On arrival, patient is well-appearing, appears to be in discomfort with positional changes, is ambulatory however slow with wheelie walker. Patient with slight elevation in blood pressure at 142/69, all other vital signs within normal limits. She is speaking in full sentences. Patient recently had spinal surgery, reporting intractable back pain despite Dilaudid and oxycodone. She also reports subjective numbness in her leg. She also reports pain along her left groin, does not extend pubic only She has good strength bilateral legs however does appreciate subjective numbness in her left leg starting approximately 3 cm above the knee distally. She has no calf tenderness, no palpable cords on the leg. No numbness tingling into the right leg. No saddle anesthesia, no urinary or bowel retention or incontinence. I discussed this case with my attending physician, Dr. Cheek. I reached out to neurosurgical PA, Brandin Barth, who was able to get on phone with the patient, it appears that patient has not been taking Dilaudid as prescribed which could be the source of her worsening back pain however given that she does have numbness in her leg, unable to discern if there is any nerve root impingement or acute process - not currently in department to assess if patient needs MR. Given concern for numbness, worsening pain with recent surgery, discussed with my attending physician Dr. Cheek and we will obtain MR to r/o acute process. Will obtain labs, as well as MR to rule out any acute process. Differential diagnoses include nerve entrapment, degenerative disc disease, sciatica, lumbar radiculopathy. Patient has had no fevers or chills. She reports no urinary or bowel retention or incontinence. Course: 1424 - MRI reviewed as new abscess in the left psoas muscle measuring 4.9 cm which begins at the L4 level, there is no edema in the L4-L5 disc space at the anterior aspect which is expected to be the source of infection no bone marrow edema or enhancement to indicate osteomyelitis. No identified epidural abscess. Given this finding, blood cultures, lactic acid labs ordered. Also given broad spectrum antibiotics to cover. Reached out to neurosurgical PA, Brandin Barth, who will consult neurosurgeon, Dr. Milligan. Discussed overall workup with my attending physician, Dr. Cheek who is in agreement of this plan. Labs were reviewed, she reports no leukocytosis, H&H revealing normocytic anemia at 10.6/31.5, chemistry revealing slight elevation in AST and ALT at 53 and 43, CRP elevated at 8.2 and ESR elevated at 1518 - Brandin Barth PA-C recommending UA and CXR to assess for atelectasis and will be in to assess patient. 1700 - Brandin Barth PA-C at bedside assessing patient. 1747 - Brandin Barth PA-C assessed patient and spoke to neurosurgeon, Dr. Milligan. They do not believe that this is an abscess and this is likely postoperative hematoma/fluid collection rather than abscess or infection. At this time, they will be managing pain, and they will send over a prescription for Dilaudid 4 mg q.4 hours p.r.n. pain as well as gabapentin 300 mg 3 times a day. I discussed overall workup with patient with ehr trainer at bedside. Discussed low threshold to return back to the emergency room if she develops any new or severe pain, nausea, vomiting, or fevers at home. Patient will be followed outpatient this week. Again I gave her strict return precautions. Discussed disposition with attending physician, Dr. Boswell. Patient given Dilaudid prior to her departure in the emergency room. We will give incentive spirometer due to possible subtle atelectasis on chest x-ray. Patient discharged. Differential Diagnosis Differential Diagnoses: The differential diagnosis associated with the presentation includes See above Admission/Observation Consideration of admission/observation: Escalation of care including admission/observation considered Consult Healthcare Provider Management of the patient was discussed with: Public Relations Assistant Dr. Milligan, Brandin Barth PA-C - neurosurgery Lab Data MDM Lab Attestation statement: I reviewed the patient's lab results. Patient with no leukocytosis, she does have a normocytic anemia with an H&H of 10.6/31.5, chemistry revealing no significant electrolyte derangement, she does have slight elevation in liver transaminases, AST ALT 53/43. CRP elevated at 8.2. 02/23/25 10:06 02/23/25 10:06 Labs: Lab Results 02/23/25 02/23/25 02/23/25 Range/Units 10:06 15:06 15:42 WBC 8.3 (4.8-10.8) X10*3/uL RBC 3.57 L (4.20-5.50) X10*6/uL Hgb 10.6 L (12.0-16.0) g/dl Hct 31.5 L D (37.0-47.0) % MCV 88.2 (80.0-98.0) fL MCH 29.7 (27.0-33.0) pg MCHC 33.7 (31.0-35.0) g/dl RDW 13.2 (11.0-16.0) % Plt Count 230 (160-400) X10*3/uL MPV 10.2 (9.4-12.3) fL Immature Gran % (Auto) 1.1 H (0.0-0.4) % Neut % (Auto) 68.5 (45-73) % Lymph % (Auto) 16.6 L (20-40) % Jewell % (Auto) 9.6 (2-11) % Eos % (Auto) 3.5 (0-4) % Baso % (Auto) 0.7 (0-2) % Lymph # (Auto) 1.4 (1.2-4.9) X10*3/uL Jewell # (Auto) 0.8 (0.1-1.2) X10*3/uL Eos # (Auto) 0.3 (0.0-0.4) X10*3/uL Baso # (Auto) 0.1 (0.0-0.2) X10*3/uL Abs Immat Gran (auto) 0.09 H (0.00-0.03) X10*3/uL Absolute Neuts (auto) 5.7 (2.0-8.3) x10*3/uL Absolute Nucleated RBC 0.000 (0.0-0.012) X10*3/uL Nucleated RBC % (auto) 0.0 (0.0-0.2) /100WBC ESR 63 H (0-20) MM/HR PT 11.8 (10.9-12.4) SEC INR 1.0 (0.9-1.1) APTT 25.6 L (26.0-36.8) SEC Sodium 139 (135-145) mmol/L Potassium 4.1 (3.3-5.1) mmol/L Chloride 105 (96-108) mmol/L Carbon Dioxide 27 (22-29) mmol/L Anion Gap 11 L (12-20) BUN 10 (9-16) mg/dL Creatinine 0.57 (0.5-1.4) mg/dL Estim Creat Clear Calc 125.3 Estimated GFR > 60 Random Glucose 115 (60-115) mg/dL Lactic Acid 0.8 (0.5-2.0) mmol/L Calcium 8.6 (8.4-10.2) mg/dL Total Bilirubin 0.6 (0.0-1.0) mg/dL AST 53 H (5-31) U/L ALT 43 H (0-31) U/L Alkaline Phosphatase 61 (39-117) U/L C-Reactive Protein 8.20 H (< or = 0.50) mg/dL Total Protein 5.9 L (6.5-8.0) g/dL Albumin 3.4 L (3.5-5.0) g/dL Urine Color Yellow Urine Appearance Clear Urine pH 8.0 (5.0-9.0) Ur Specific Nash 1.020 (1.005-1.025) Urine Protein Negative (Neg-Trace) mg/dL Urine Glucose (UA) Negative (Negative) mg/dL Urine Ketones Negative (Negative) mg/dL Urine Blood Negative (Negative) Urine Nitrite Negative (Negative) Ur Leukocyte Esterase Negative (Negative) Radiology Impression Discussion of test interpretation with radiology: I have reviewed the radiologist's reading. Radiologist Impression: Findings: Status post posterior fusion L2 through L5 with interbody disc spacers. Status post laminectomies 4/L5. 5 mm anterolisthesis of L3 on L4. 3 mm retrolisthesis of L5 on S1. There is new edema at the L4/L5 disc space at the anterior aspect ( series 7, image 11 ). Bone marrow edema and enhancement is not definitively visualized. Metallic artifact limits evaluation. Subsequent lack of fat saturation on the postcontrast images also limits evaluation. No cord expansion or abnormal signal intensity. The conus medullaris terminates at L1, which is normal. The cauda equina is unremarkable. No identified epidural abscess.There is a rim enhancing fluid collection within the left psoas muscle, new since the prior MR measuring 1.8 x 2.4 x 4.9 cm which begins at L4 level (measured on series 13, image 40 and series 14 image 18). There is fluid in the posterior spinous musculature and subcutaneous fat without definitive rim enhancement which could be a seroma; an abscess is considered less likely. There is edema within the posterior spinous musculature and within posterior subcutaneous fat. L1/L2: No disc herniation. Moderate facet joint and ligamentum flavum hypertrophy. Mild central canal stenosis. Moderate bilateral lateral recess stenosis. No foraminal stenosis. L2/L3: Status post interbody disc spacer without abnormal enhancement. Moderate facet joint and ligamentum flavum hypertrophy. Mild central canal stenosis. Moderate right and severe left lateral recess stenosis. No right and mild left foraminal stenosis. L3/L4: Status post interbody disc spacer without abnormal enhancement. There is anterolisthesis with uncovering of the disc. Severe facet joint and ligamentum flavum hypertrophy. Severe central spinal canal stenosis. Severe bilateral lateral recess stenosis. Moderate right and no left lateral recess stenosis. L4/L5: Status post interbody disc spacer without abnormal enhancement; prominent epidural fat without definitive granulation tissue. Moderate facet joint hypertrophy. Mild central canal stenosis. Moderate right and severe left lateral recess stenosis. No right and moderate left foraminal stenosis. L5/S1: 4 mm central disc protrusion. Severe facet joint and ligamentum flavum hypertrophy. Moderate central canal stenosis. Severe bilateral lateral recess stenosis. Mild bilateral foraminal stenosis. Impression: New abscess in the left psoas muscle measuring 4.9 cm which begins at the L4 level. There is new edema in the L4/L5 disc space at the anterior aspect which is suspected to be the source of infection. No bone marrow edema or enhancement to indicate associated osteomyelitis . No identified epidural abscess. Follow up is recommended if symptoms persist or worsen. This document has been electronically signed by: Jolie Bundy MD on 02/23/2025 14:06:33 Dictated By: Jolie Herrera MD Comparison: None Findings: Cardiomegaly. Normal mediastinal contours. No pneumothorax. Linear opacity in the lingula. No pleural effusion. Normal upper abdomen. No acute fracture. Impression: The lungs are well aerated. Linear opacity in the lingula may indicate a minimal amount of subsegmental atelectasis. This document has been electronically signed by: Jolie Bundy MD on 02/23/2025 16:56:13 Dictated By: Jolie Herrera MD External Record Review External record reviewed: Office record, Outpatient record and Prior outpatient labs Prescription Management I considered prescription management with: Pain Medication and Antibiotic Attestation Attending Attestation: I was personally present and available for consultation in the ED and i ndependently examined this patient and performed the components of the E&M independently. I have reviewed everything on the chart that is available and agree with the documentation provided by the ALEXANDER including discussion about the assessment, treatment plan and discussion. Based on medical record the care appears appropriate. [age] female recent postop lumbar fusion. Acute subjective left lateral thigh sensory changes decreased sensation/anesthesia described. No incontinence or motor deficits. No fever or leukocytosis however inflammatory markers elevated CRP 8.2. MR with and without suggests diskitis and/or adjacent psoas abscess. A neurosurgical consult obtained. Isidro Cheek MD [facility] Emergency Medicine Critical Care Time Critical Care Time Critical Care Time: Yes Total Critical Care Time: 49 Attestation: I have personally provided critical care time exclusive of time spent on separately billable procedures. Time includes review of lab data, radiology results, discussion with consultants, and monitoring for potential decompensation. Intervention performed as documented. Discharge Plan Discharge Clinical Impression: Postoperative back pain Patient Disposition: Home, Self-Care Instructions: Pain Management (ED), Opioid Safety (ED) Additional Instructions: You were seen in the emergency department due to worsening back pain. Your MRI was performed which showed signs for concerning fluid collection - which could represent an abscess or hematoma (collection of blood) Your MRI was reviewed by the neurosurgical team, and they believe that this is a normal progression after having a procedure like this. Please continue taking prescribed medications for pain management. Please be aware that these medications can cause dizziness, and you are at increased risk of fall. Please be cautious while taking this. If you develop any new or worsening symptoms including but not limited to worsening pain, high fevers, chills, weakness, please return for re-evaluation. Please follow-up with your neurosurgical team. Please use incentive spirometer 6 times per day at least. This will prevent pneumonia. Prescriptions: No Action hydromorphone 4 mg tablet See Rx Instructions .ROUTE .COMPLEX PRN (Reason: breakthrough pain) Qty: 21 0RF Rx Instructions: Take 1 tablet by mouth every 4-6 hours as needed. Partial Fill upon patient request. PRN gabapentin 300 mg capsule 300 mg PO TID Qty: 30 0RF albuterol sulfate 90 mcg/actuation HFA aerosol inhaler 1 inh inhalation Q4H PRN (Reason: Shortness Of Breath Or Wheezing) nystatin 100,000 unit/gram ointment 100,000 unit topical BID PRN (Reason: Skin Irritation) bupropion HCl 300 mg tablet extended release 24 hr 300 mg PO DAILY bupropion HCl 150 mg tablet extended release 24 hr 150 mg PO DAILY primidone 50 mg tablet 150 mg PO BEDTIME oxycodone-acetaminophen 5-325 mg tablet 1 tab PO BID PRN (Reason: Pain) budesonide-formoterol [Symbicort] 160-4.5 mcg/actuation HFA aerosol inhaler 2 puff inhalation BID Discharge Date/Time: 02/23/25 18:39 Print Language: Lithuanian
[2025-02-23] MEDS: Morphine Sulfate Immed Release 15 MG TABLET PO (09:49)
[2025-02-23 10:11] LABS: MANUAL DIFF FLAG NO
[2025-02-23 10:15] LABS: Basophils Absolute Auto 0.1 X10*3/uL (0.0-0.2); Basophils Percent Auto 0.7 % (0-2); Eosinophils Absolute Auto 0.3 X10*3/uL (0.0-0.4); Eosinophils Percent Auto 3.5 % (0-4); Hematocrit 31.5 % (37.0-47.0); Hemoglobin 10.6 g/dl (12.0-16.0); Imm Gran Abs Auto 0.09 X10*3/uL (0.00-0.03); Imm Gran Pct Auto 1.1 % (0.0-0.4); Lymphocytes Absolute Auto 1.4 X10*3/uL (1.2-4.9); Lymphocytes Percent Auto 16.6 % (20-40); Mean Corpuscular HGB Conc 33.7 g/dl (31.0-35.0); Mean Corpuscular Hemoglobin 29.7 pg (27.0-33.0); Mean Corpuscular Volume 88.2 fL (80.0-98.0); Mean Platelet Volume 10.2 fL (9.4-12.3); Monocytes Absolute Auto 0.8 X10*3/uL (0.1-1.2); Monocytes Percent Auto 9.6 % (2-11); Neutrophils Absolute Auto 5.7 x10*3/uL (2.0-8.3); Neutrophils Percent Auto 68.5 % (45-73); Platelet Count 230 X10*3/uL (160-400); Red Blood Count 3.57 X10*6/uL (4.20-5.50); Red Cell Distribution Width 13.2 % (11.0-16.0); White Blood Count 8.3 X10*3/uL (4.8-10.8)
[2025-02-23 10:29] LABS: Prothrombin Time 11.8 SEC (10.9-12.4)
[2025-02-23 10:32] LABS: Partial Thromboplastin Time 25.6 SEC (26.0-36.8)
[2025-02-23 10:34] LABS: Alanine Aminotransferase 43 U/L (0-31); Albumin Level 3.4 g/dL (3.5-5.0); Alkaline Phosphatase 61 U/L (39-117); Anion Gap 11 (12-20); Aspartate Amino Transferase 53 U/L (5-31); Bilirubin Total 0.6 mg/dL (0.0-1.0); Blood Urea Nitrogen 10 mg/dL (9-16); Calcium 8.6 mg/dL (8.4-10.2); Carbon Dioxide 27 mmol/L (22-29); Chloride 105 mmol/L (96-108); Creatinine Clr Calc Pharmacy 125.3; Estimated Glomerular Filt Rate > 60; Glucose Random 115 mg/dL (60-115); Potassium 4.1 mmol/L (3.3-5.1); Sodium 139 mmol/L (135-145); Total Protein 5.9 g/dL (6.5-8.0)
[2025-02-23 10:46] VITALS: BP 131/70; PULSE 81; RESP 16; O2SAT 94
[2025-02-23 11:45] LABS: Erythrocyte Sedimentation Rate 63 MM/HR (0-20)
[2025-02-23] MEDS: gadobutroL 10 ML VIAL IVPUSH (12:51)
[2025-02-23 13:02] VITALS: BP 126/75; PULSE 87; RESP 18; O2SAT 95
[2025-02-23] MEDS: 0.9 % Sodium Chloride 1,000 ML 999 ML IVCONT (14:57)
[2025-02-23 15:01] VITALS: BP 143/80; PULSE 87; O2SAT 97
[2025-02-23] MEDS: Piperacillin Sodium/Tazobactam 3.375 GM in 0.9 % Sodium Chloride 50 ML IV (15:08)
[2025-02-23] MEDS: Morphine Sulfate 4 MG/ML CARTRIDGE IVPUSH (15:16)
[2025-02-23 15:39] LABS: Lactic Acid 0.8 mmol/L (0.5-2.0)
[2025-02-23] MEDS: vancomycin/NS 2,000 MG/500 ML PLAST..BAG 250 MG IV (15:39)
[2025-02-23 15:53] LABS: Appearance Urine Clear; Color Urine Yellow; Glucose Urine UA Negative (Negative); Leukocyte Esterase Urine Negative (Negative); Nitrite Urine Negative (Negative); Urine Blood Negative (Negative); Urine Ketones Negative (Negative); Urine Protein Negative (Neg-Trace)
--- NOTE | 2025-02-23 17:24 | HO.NEUROPN_ITS ---
Neurosurgery Operative Note Date of Service: 02/23/25 Narrative: HPI: Ms. Ng is a pleasant 64 year old female who presented to the emergency department today for an exacerbation of her postoperative pain, with a worsening left-sided radiculopathy that it is accompanied by what she describes as worsening numbness. She reports that over the weekend her low back pain and left-sided leg pain began worsening compared to when she was discharged from the hospital on . In addition to this, she was not taking her Dilaudid as prescribed, and trying to wait longer than 4-6 hours to take a dose, as she was concerned that she would not be provided with subsequent narcotic prescriptions. When describing the pain and numbness down her left lower extremity she states that it starts in her low back, wraps around to her anterior thigh, and travels down the anterior aspect of her left leg terminating near the big toe. In addition to this, she reports some pain limited weakness of the left leg which is slightly worse than when she was in the hospital on . call person neurosurgery was contacted regarding this patients presentation. Given she had a worsening radiculopathy and worsening numbness, our colleagues in the Emergency Department opted to order an MRI w/wo gadolinium. Radiology read states that their is a There is a rim enhancing fluid collection within the left psoas muscle, new since the prior MR measuring 1.8 x 2.4 x 4.9 cm which begins at L4 level. Therefore, I came in to evaluate the patient. Pertinent Labs: WBC: 8.3, ESR: 63, CRP: 8.2, Sodium 139, eGRF >60. Urinalysis: Unremarkable. Vitals: T: 97.6, Pulse: 87, BP: 126/75, 02: 97% RA. CXR: Possible small linear atelectasis. Otherwise the lungs are well aerated with no obvious pathology. Exam: The patient has about 3/5 strength with left-sided knee extension and iliopsoas testing. The rest of her lower extremity examination is 5/5. She has hypoesthesia over the anterior surface of her left lower extremity, starting at the top of her left thigh, and extending downward toward her left ankle. She also reports some tingling in her left toes. Her posterior incision sites are closed, and appear well healing, aside from some ecchymosis noted around the incisions. Her oblique incision site is also closed and well healing with minimal ecchymosis. No notable edema or palpable fluctuance. No pain to palpation around the incision sites. No active drainage (serosanguineous or otherwise) from any incisions. Plan: The above lab values, vital signs, and physical exam were discussed with the attending neurosurgeon Dr. Milligan, who also reviewed the MRI w/wo gadolinium. At this time given the patients presentation and recent surgery, Dr. Milligan feels this is much more likely a postoperative hematoma / fluid collection rather than an abscess or infection. The patient may have had some contact to the left L4 nerve during the surgical approach, which may be causing these symptoms. I sent in a new Rx for the patient this morning for Dilaudid 4mg Q4h PRN pain, I will also send in an Rx for Gabapentin 300mg TID scheduled to address this newer nerve pain that she discloses radiating all the way down to her left foot. I informed her that she should have a low threshold to return to the ED if she develops any severe worsening pain, nausea, vomiting, or fever at home. We will follow her closely and see her in clinic this Monday. Brandin Milligan MD,PhD [facility]
[2025-02-23] MEDS: HYDROmorphone HCl 1 MG/ML SYRINGE IVPUSH (17:49)
== END 2025-02-23 18:39 | disposition home or self-care (01) ==
PROVIDERS: Physician Assistant Medical; Emergency Provider Emergency Medicine; PCP Internal Medicine
DX: M54.50 Low back pain, unspecified (principal); G89.18 Other acute postprocedural pain; R20.0 Anesthesia of skin; R10.32 Left lower quadrant pain; Z79.899 Other long term (current) drug therapy; Z87.891 Personal history of nicotine dependence
CPT/HCPCS: 36415; 71046; 72158; 80053; 81003; 83605; 85025; 85610; 85652; 85730; 86140; 87040; 96361; 96365; 96375; 99284; 99285; A9585; J1171; J2270; J2543; J3370

== ENCOUNTER → 2025-02-23 09:07 | Outpatient (BNV) | payer MEDICARE, SELFPAY | PROVIDERS: Emergency Provider Emergency Medicine; PCP Internal Medicine; Visit Provider Physician Assistant | DX: Z48.89 Encounter for other specified surgical aftercare (principal) | CPT/HCPCS: 99024 ==

== ENCOUNTER → 2025-02-23 10:53 | Outpatient (BNV) | payer MEDICARE, SELFPAY | PROVIDERS: Emergency Provider Emergency Medicine; PCP Internal Medicine; Visit Provider Radiology Diagnostic Radiology | DX: K68.12 Psoas muscle abscess (principal); I51.7 Cardiomegaly | CPT/HCPCS: 71046; 72158 ==

== ENCOUNTER 2025-02-28 14:28 | Outpatient (AMB) | payer MEDICARE, SELFPAY ==
--- OUTSIDE RECORDS SUMMARY | 2025-02-28 14:30 | XMS_ITS | Clinical Summary ---
Author Organization [employer] Address [address] [place] [address] 7 [place] [address] Care Team Providers Care Extermination Inspector Name Role Phone Unavailable Primary Care Provider [...] 10/07/2021, 01/10/2021, 12/20/2020 Influenza Vaccine (#1) 2024 3, 09/09/2020, 09/09/2020, Additional history exists Tobacco Screening 06/04/2025 06/04/2024 HIB Vaccines Aged Out No longer eligi ble based on patient's age to complete this topic HPV Vaccines Aged Out No longer eligi ble based on patient's age to complete this topic IPV Vaccines Aged Out No longer eligi ble based on patient's age to complete this topic Meningococcal B Vaccine Aged Out No l onger eligible based on patient's age to complete this topic Meningococcal Vaccine Aged Out No rock tamie eligible based on patient's age to complete this topic RSV under 20 months Aged Out No longe r eligible based on patient's age to complete this topic Rotavirus Vaccines Aged Out No longer eligible based on patient's age to complete this topic Insurance [facility] Care Teams Extermination Inspector Relationship Specialty Start Date End Date SHAGGY JACKSON [address] [place] [id number] ?? Primary Care Provider 10/02/23
--- NOTE | 2025-02-28 14:32 | HO.SPINEOV ---
Intake Visit Reasons: ED f/u per Brandin Intake Note: Ms. Ng is here today for an ED f/u per Brandin. 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 She was just in the emergency room about 4 5 days ago with severe left leg pain with numbness and trouble walking with weakness of her hip flexor. Very similar to what she had when she was immediately postop in the hospital. Since she was in the emergency room she has been feeling somewhat better. She did walk a half a mi this morning. The numbness seems to be receding and is going away. It is now only in her anterior thigh. She still has the burning pain in the anterior thigh as well in the weakness of the hip flexor but that is getting slightly better as well. On my exam she is able to stand up on her own independently, she is still only has 1-2 out of strength of the hip flexor but the quadriceps and tibialis/plantar full strength. She has some hyperesthesia on the anterior thigh. Her wounds on her left lower quadrant and on her back shows some ecchymosis but they are clean and dry with no signs of infection. No signs of hematoma. I refilled her Dilaudid. For whatever reason she was also taking oxycodone twice a day on top of this I told her to discontinue this. She will continue the gabapentin and the methocarbamol but discontinue the hydroxyzine. I also told her to add an Motrin and Tylenol as a round the clock medication to see if we can decrease some of these more high potent medications over the course of the next week or so. Naun Milligan MD, PhD [facility] Medications: Refilled hydromorphone Take 1 tablet by mouth every 4-6 hours as needed. Partial Fill upon patient request. PRN 21 tabs 0RF breakthrough pain Coding Level of Care Code Global (57438) Diagnoses Spondylolisthesis, lumbar region M43.16
== END 2025-02-28 15:15 | disposition home or self-care (01) ==
LOC: HO.HNS 14:29
PROVIDERS: PCP Internal Medicine; Visit Provider Physician Assistant
DX: M43.16 Spondylolisthesis, lumbar region (principal)
CPT/HCPCS: 99024

== ENCOUNTER → 2025-02-28 14:28 | Outpatient (BNVA) | payer MEDICARE, SELFPAY | PROVIDERS: PCP Internal Medicine; Visit Provider Physician Assistant | DX: M43.16 Spondylolisthesis, lumbar region (principal); Z79.891 Long term (current) use of opiate analgesic | CPT/HCPCS: 99212 ==

== ENCOUNTER 2025-03-13 13:44 | Outpatient (AMB) | payer MEDICARE, SELFPAY ==
--- NOTE | 2025-03-13 13:47 | A.SPINEOV_ITS ---
Intake Visit Reasons: follow up Intake Note: Ms. Ng is here for a F/u. 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 She is continuing to see improvements in the left leg. She still has some hip flexion weakness. It is getting better. The pain that she had radiating down her left leg before surgery is gone now. The numbness is also receiving. She still has some hyperesthesia in the medial left thigh. Still dealing with some back pain as well but has not needed to take the Dilaudid anymore. She is wondering if she can come off the gabapentin as well. She is just down to Motrin and Tylenol this point. She has not been using the methocarbamol. Her wounds have healed up beautifully, she is able to stand up on her own but she still does have a 2 to 3/5 hip flexion weakness on the left. I reassured her that I think the improvements in her strength will continue to get better, but I would like her to go see a physical therapist just to help expedite the process. We discussed activity guidelines, restrictions and expectations. I told her she is okay to drive if she feels comfortable getting in and out of a car. I will see her back in 3 weeks with a set of x-rays. Naun Milligan MD, PhD [facility] Orders: Orders PT Evaluation and Treatment Today M43.16 - Spondylolisthesis, lumbar region XR lumbar spine 4V min Today M43.16 - Spondylolisthesis, lumbar region Coding Level of Care Code Global (04062) Diagnoses Spondylolisthesis, lumbar region M43.16
--- OUTSIDE RECORDS SUMMARY | 2025-03-13 16:08 | XMS_ITS | Clinical Summary ---
Author Organization [employer] Address [address] [place] [address] [address] [place] [address] Care Team Providers Care Conventions Assistant Name Role Phone Unavailable Primary Care Provider [...] season) 2024 10/07/2021, 01/10/2021, 12/20/2020 Influenza Vaccine (Season Ended) 2025 07/03/2023, 09/09/2020, 09/09/2020, Additional history exists Tobacco Screening [...] patient's age to complete this topic Insurance [facility] Care Teams Conventions Assistant Relationship Specialty Start Date End Date SHAGGY JACKSON [address] [place] [id number] ?? Primary Care Provider 10/02/23
== END 2025-03-13 14:22 | disposition home or self-care (01) ==
LOC: HO.HNS 13:45
PROVIDERS: PCP Internal Medicine; Visit Provider Physician Assistant
DX: M43.16 Spondylolisthesis, lumbar region (principal)
CPT/HCPCS: 99024

== ENCOUNTER 2025-03-13 13:44 | Outpatient (REF) | payer MEDICARE, SELFPAY | END 2025-03-13 13:45 | disposition home or self-care (01) | LOC: HO.HOSX 13:44 | PROVIDERS: PCP Internal Medicine; Visit Provider Physician Assistant | DX: M43.16 Spondylolisthesis, lumbar region (principal) | CPT/HCPCS: 99212 ==

== ENCOUNTER → 2025-04-03 13:17 | Outpatient (BNV) | payer MEDICARE, SELFPAY | PROVIDERS: Visit Provider Radiology Diagnostic Radiology | DX: M43.16 Spondylolisthesis, lumbar region (principal) | CPT/HCPCS: 72110 ==

== ENCOUNTER 2025-04-03 13:26 | Outpatient (AMB) | payer MEDICARE, SELFPAY ==
--- NOTE | 2025-04-03 13:40 | HO.SPINEOV ---
Intake Visit Reasons: 3 weeks f/up with xrays Intake Note: Ms. Ng is here today for her 3 week f/up with x-rays. Allergies No Known Allergies Allergy (Verified 02/23/25 08:56) Assessment & Plan Assessment & Plan (1) Spondylolisthesis, lumbar region: Code(s): M43.16 - Spondylolisthesis, lumbar region Category: Medical Plan Mrs Ng is here in follow-up, she is 6 weeks out from her L2-5 oblique lumbar interbody fusion. The preoperative back pain that she had is gone. She is no longer on any pain medications even [id number] medications were discontinued at this time. She is still experiencing tenderness along her medial left thigh which feels like sandpaper or sunburn sensation. I believe this to be some branch of a small sensory nerve that probably will heal up on its own in time. Her strength in her hip flexor is improving significantly. She has near full strength. She is overall doing great and continues to work with therapy. I would like to see her back in 6 weeks with another set of x-rays. Naun Milligan MD, PhD [facility] Orders: Orders XR lumbar spine 4V min Today M43.16 - Spondylolisthesis, lumbar region Coding Level of Care Code Global (24670) Diagnoses Spondylolisthesis, lumbar region M43.16
== END 2025-04-03 14:34 | disposition home or self-care (01) ==
LOC: HO.HNS 13:27
PROVIDERS: PCP Internal Medicine; Visit Provider Physician Assistant
DX: M43.16 Spondylolisthesis, lumbar region (principal)
CPT/HCPCS: 99024

== ENCOUNTER 2025-04-03 14:20 | Outpatient (REF) | payer MEDICARE, SELFPAY ==
--- NOTE | ~2025-04-03 | XR_ITS ---
EXAMINATION: XR LUMBAR SPINE 4 OR MORE VIEWS HISTORY: M43.16 - Spondylolisthesis, lumbar region COMPARISON: There are no prior studies for comparison. FINDINGS: AP, and neutral, flexion, and extension lateral views of the lumbar spine are submitted. Osseous mineralization is normal. In the interval since the prior study, the patient is status post posterior fusion of L2-L5 with pedicle screws, spinal stabilization rods, and intervertebral spacers. The fusion hardware is intact. Again seen is grade I spondylolisthesis of L3 on L4. There is no change in flexion or extension. Mild degenerative changes noted at the remaining levels. There is calcification of the abdominal aorta. XR/XR lumbar spine 4V min IMPRESSION: Status post posterior fusion of L2-L5. Grade I spondylolisthesis of L3 on L4 without significant change in flexion or extension. Electronically signed by: Shawn Jason MD 04/03/2025 01:30 PM EDT
--- OUTSIDE RECORDS SUMMARY | 2025-04-03 08:20 | XMS_ITS | Clinical Summary ---
Author Organization [facility] [address] [facility] Address [address] [place], [place] Phone Care Team Providers Care [employer] Banker Name Role Phone Shyam Ruth MD Primary Care Provider Allergies No known active allergies Medications miscellaneous medical supply misc CPAP Historical (HISTORICAL CPAP) Inhale into the lungs. BHIR-pressure 10-20 with 2 liter oxygen Active albuterol 2.5 mg /3 mL (0.083 %) nebulizer solution Take 3 mL by nebulization every 4 (four) hours if needed for wheezing. 75 mL 2 4 Active Symbicort 160-4.5 mcg/actuation inhalerIndicati ons:Obstructive sleep apnea (adult) (pediatric),Astrid trilobular emphysema (CMS/HCC V24, CMS/HCC V28) Inhale 2 puffs by mouth 2 (two) times a day. Rinse mouth with water after use to reduce aftertaste and incidence of candidiasis. Do not swallow. 10.2 each 5 5 Active primidone (MYSOLINE) 50 mg tablet TAKE 3 TABLETS BY MOUTH AT BEDTIME 270 tablet 5 Active albuterol HFA (PROAIR HFA ; PROVENTIL HFA ; VENTOLIN HFA) 90 mcg/actuation inhaler INHALE 2 PUFFS BY MOUTH EVERY 4 HOURS NEEDED FOR WHEEZING OR SHORTNESS OF BREATH 18 g 5 Active polyethylene glycol (Golytely) 236-22.74-6.74 -5.86 gram solution Take 4L by mouth once for one dose. May substitue any PEG. Starting at 6PM the night before your procedure drink 1 8oz glasses at your own pace until you complete half of the gallon. Finish 2nd half of the gallon 5 hours before your procedure. 4000 mL 5 Active oxyCODONE-aceta minophen (PERCOCET) 5-325 mg per tablet Take 1 tablet by mouth every 12 (twelve) hours if needed for moderate pain or severe pain. Max Daily Amount: 2 tablets 56 tablet 5 Active buPROPion XL (WELLBUTRIN XL) 300 mg 24 hr tablet TAKE 1 TABLET(300 MG) BY MOUTH 1 TIME EACH DAY IN ADDITION TO 150 MG EVERY MORNING 90 tablet 5 Active buPROPion XL (WELLBUTRIN XL) 150 mg 24 hr tablet Take 1 tablet (150 mg total) by mouth 1 (one) time each day. In addition to 300mg every am. 90 tablet 5 Active Active Problems Problem Noted Date Diagnosed Date Metabolic dysfunction-associ ated steatotic liver disease (MASLD) 08/22/2024 Morbid obesity with BMI of 4 0.0-44.9, adult ([facility] V24, [facility] V28) 07/11/2024 Intertriginous candidiasis 02/21/2024 History of lumbar laminectomy 11/30/2023 History of basal cell carcinoma 11/30/2023 Overview (08/22/2024): Left forearm excised 2023. Osteoarthritis of spine with radiculopathy, lumb ar region 03/29/2023 Overlap syndrome ([facility] V24) 06/05/2018 Centrilobular emphysema ([facility] V24, [facility] V2 8) 06/05/2018 Primary osteoarthritis of both knees 01/30/2018 [...] Encounters Date Type Department Care Team Description 02/05/2025 11:26 AM EDT Anesthesia Event [facility] Endoscopy [address] [place] [phone] Daryl Box MD 02/05/2025 10:26 AM EDT - 02/05/2025 11:59 PM EDT Hospital Encounter [facility] Endoscopy [address] [place] [phone] Deepali Gaona MD Steele, Matthew G, CRNA Chang, Daniel J, MD Colon cancer screening Discharge Disposition: Home or Self Care 02/04/2025 11:15 AM EDT Office Visit Adult Medicine [address] [phone] Shyam Ruth MD Osteoarthritis of spine with radiculopathy, lumbar region (Primary Dx); Centrilobular emphysema (CMS/HCC V24, CMS/HCC V28); Encounter for long-term current use of high risk medication; Primary osteoarthritis of both knees; PLMD (periodic limb movement disorder); Encounter for vitamin deficiency screening; Screening for diabetes mellitus (DM); Screening for lipid disorders; Encounter for osteoporosis screening in asymptomatic postmenopausal patient from Last 3 Months Immunizations Name Administration [...] LAPAROSCOPIC APPENDECTOMY OTHER SURGICAL HISTORY 2006 PROCEDURE: MO CLSR ENTEROENTERIC/ENTEROCOLIC FSTL COLONOSCOPY 2006 PROCEDURE: HISTORICAL COLONOSCOPY; COMMENT: no polyps; done at [facility] COLONOSCOPY 2014 PROCEDURE: HISTORICAL COLONOSCOPY; COMMENT: RBMG; normal BACK SURGERY 07/2016 PROCEDURE: HISTORICAL BACK SURGERY; COMMENT: decompression UPPER GASTROINTESTINAL ENDOSCOPY 11/02/2017 PROCEDURE: UPPER GI ENDOSCOPY/EXAM; COMMENT: mild gastritis. normal esophagus and duodenum BASAL CELL CARCINOMA EXCISION Left LEFT ARM AND BACK Medical History Medical History Date Comments Menorrhagia DX:Menorrhagia COPD (chronic obstructive pu lmonary disease) ([facility] V24, [facility] V28) DX:COPD (chronic o bstructive pulmonary disease) ([facility]) Asthma, moderate persistent, well-controlled 06/06/2012 DX:Asthma, moderate persiste nt, well-controlled Diverticulosis DX:Diverticulosi s History of basal cell carcinoma 12/29/2010 DX:History of basal cell carcinoma Morbid obesity ([facility] V24, [facility] V28) 12/15/2014 DX:Morbid obesity ([facility]) Nonulcer dyspepsia 11/16/2017 DX:Nonulcer d yspepsia IBS (irritable bowel syndrome) 11/16/2017 D X:IBS (irritable bowel syndrome) NAFLD (nonalcoholic fatty li luis disease) 11/16/2017 DX:NAFLD (nonalcoholic fatty liver disease) Allergic rhinitis 01/25/2011 DX:Allergic rh initis Morbid obesity with BMI of 4 0.0-44.9, adult ([facility] V24, [facility] V28) 12/15/2014 DX:Morbid obesity wit h BMI of 40.0-44.9, adult ([facility]) Centrilobular emphysema ([facility] V24, [facility] V28) 06/05/2018 DX:Centrilobular emphysema ( [facility]) Dependence on nocturnal oxyg en [...] Nausea 02/16/2011 DX:Nausea; COMME NT: EGD nl 5/10; H pylori Ab neg; phenergan no benefit; celiac nl Obstructive sleep apnea 06/10/2017 DX:Obstr uctive sleep apnea; COMMENT: Overlap syndrome (CMS/HCC V24) 06/05/2018 D X:Overlap syndrome (HCC) PLMD (periodic limb movement disorder) 06/10/2017 DX:PLMD (periodic limb movem ent disorder). LEFT ARM Primary osteoarthritis of both knees 01/30/2018 DX:Primary osteoarthritis of both knees Primary osteoarthritis of both knees DX:Primary osteoarthritis of both knees Colon polyp Family History Medical History Relation Name Comments [...] drink = 0.6 oz pur e alcohol) SOCIALLY Housing Instability Answer Date Recorde d Are you worried that in the next 2 months you may not have stable housing? No 04/01/2025 Food Access & Nutrition Answer Date Rec orded Do you have access to a vari ety of food including fruits and vegetables? Yes 04/01/2025 Access to Healthcare Answer Date Record ed Within the last 3 months, ho w many times did you visit the emergency department for your medical care? 1 04/01/2025 Health Literacy Answer Date Recorded How often do you need to hav e someone help you when you read instructions, pamphlets, or other written material from your doctor or pharmacy? Never 04/01/2025 Caregiver: How often do you need to have someone help you when you read instructions, pamphlets, or other written material from your doctor or pharmacy? Not on file 04/01/2025 Financial Risk Answer Date Recorded How hard is it for you to pa y for the very basics like food, housing, medical care, and air conditioning / heating? Not very hard 04/01/2025 Transportation Answer Date Recorded Has the lack of transportati on kept you from meetings, work, or from getting things needed for daily living? No Has the lack of transportati on kept you from medical appointments or from getting medications? No 04/01/2025 Social Isolation Answer Date Recorded How often do you feel lonely or isolated from th ose around you? Never 04/01/2025 Food Risk Answer Date Recorded Within the past 12 months we worried whether our food would run out before we got money to buy more. Never true 04/01/2025 Within the past 12 months th e food we bought just didn't last and we didn't have money to get more. Never true 04/01/2025 Dependent Care Answer Date Recorded Do you need help finding or paying for care for your loved ones. For example, child's nurse or elderly care for an older adult? Yes 04/01/2025 Education Answer Date Recorded Do you think completing more education or training, like finishing a GED, going to college, or learning a trade, would be helpful for you? No 04/01/2025 Employment and Income Answer Date Recor ded During the last four weeks, have you been actively looking for work? No 04/01/2025 Living Situation Answer Date Recorded What is your living situation? 0 04/01/2025 Interpersonal Safety Answer Date Record ed Physical Abuse 02/05/2025 Verbal Abuse 02/05/2025 Comments No Sex and Gender Information Value [...] Sign Reading Time Taken Comments Blood Pressure 120/76 02/05/2025 12:05 PM EDT Pulse 76 02/05/2025 12:05 PM EDT Temperature 36.8 C (98.3 F) 02/05/2025 11:45 AM EDT Respiratory Rate 17 02/05/2025 12:05 PM EDT Oxygen Saturation 96% 02/05/2025 12:05 PM EDT Inhaled Oxygen Concentration - - Weight 118 kg (260 lb) 02/05/2025 11:04 AM EDT Height 162.6 cm (5' 4 ) 02/05/2025 11:04 AM EDT Body Mass Index 44.63 02/05/2025 11:04 AM EDT Plan of Treatment Upcoming Encounters Date Type Department Care Team (Late st Contact Info) Description 04/08/2025 3:00 PM EDT Office Visit [facility] - [address] [phone] Shyam Ruth MD [address] [place] [id number] 07/28/2025 10:00 AM EDT Appointment [facility] - [address] [phone] Health Maintenance Due Date Last Done Comments Zoster Vaccines (1 of 2) 1978 RSV Immunization Adult Patients (1 - Risk 60-74 years 1-dose series) 2019 Medicare Annual Wellness Visit 09/09/2022 Osteoporosis Screening (Bone Density Screening) 09/09/2022 COVID-19 Vaccine ( season) 2024 10/07/2021, 01/10/2021, 12/20/2020 Influenza Vaccine (#1) 2025 , 07/03/2023, 09/09/2020, Additional history exists Falls Risk Assessment 02/05/2026 02/05/2025, 025 Depression Screening 04/01/2026 04/01/2025 Social Influencers of Health Screening 04/01/2026 04/01/2025 Breast Cancer Screening 12/12/2026 12/13/19 25, 12/04/2023, 11/30/2022, Additional history exists Cholesterol Screening (Lipid Panel) 03/29/2028 03/29/2023, 03/29/2023 Cervical Cancer Screening: HPV 07/21/2028 07/21/2023 DTaP,Tdap,and Td Vaccines (4 - Td or Tdap) 08/22/2034 08/22/2024, 04/30/2014, 03/21/2005 Colorectal Cancer Screening: Colonoscopy 02/05/2035 02/05/2025, 10/07/2014, 10/07/2014 Hepatitis C Screening Completed 03/12/2013 Pneumococcal Vaccine: 50+ Years Completed 08/22/2024, 11/23/2004 [...] Procedure Name Priority Date/Time Associated Diagnosis Comments COLONOSCOPY Routine 02/05/2025 11:44 AM EDT Colon cancer screening TISSUE EXAM Routine 02/05/2025 11:40 AM EDT Colon cancer screening VITAMIN D 25 HYDROXY Routine 02/04/2025 11:45 AM EDT Centrilobular emphysema (CMS/HCC V24, CMS/HCC V28) Encounter for long-term current use of high risk medication Primary osteoarthritis of both knees PLMD (periodic limb movement disorder) Encounter for vitamin deficiency screening Screening for diabetes mellitus (DM) Screening for lipid disorders Encounter for osteoporosis screening in asymptomatic postmenopausal patient MG MAMMO DIGITAL SCREENING W ZANE BILAT Routine 12/12/2024 10:31 AM EDT Encounter for screening mammogram for breast cancer HM HPV Routine 07/21/2023 LIPID PANEL Routine 03/29/2023 HEPATITIS C SCREENING Routine 03/12/2013 from Last 3 Months or Most Recently Relevant to Health Maintenance Results * COLONOSCOPY Anesthesia - MAC; [facility] ENDOSCOPY (02/05/2025 11:44 AM EDT) Anatomical Region Laterality Modality Endoscopy 02/05/2025 11:2 7 AM EDT Impressions 02/05/2025 11:47 AM EDT - One 5 mm polyp in the sigmoid colon, removed with a cold snare. Resected and retrieved. - Diverticulosis in the sigmoid colon and in the descending colon. - Internal hemorrhoids. Recommendation: - Await pathology results. - Repeat colonoscopy in 10 years for surveillance. Narrative 02/05/2025 11:47 AM EDT [facility] GI Patient Name: Rosalba Ng Procedure Date: 02/05/2025 11:27 AM Date of : 1960 Age: 64 Gender: Female Note Status: Finalized Attending MD: Deepali Gaona MD, Procedure Date No Time: 02/05/2025 Procedure: Colonoscopy Indications: Screening for colorectal malignant neoplasm Providers: Deepali Gaona MD Referring MD: Deepali Gaona MD Medicines: Monitored Anesthesia Care Complications: No immediate complications. Estimated blood loss: Minimal. Estimated Blood Loss: Estimated blood loss was minimal. Procedure: Pre-Anesthesia Assessment: - Prior to the procedure, a History and Physical was performed, and patient medications and allergies were reviewed. The patient is competent. The risks and benefits of the procedure and the sedation options and risks were discussed with the patient. All questions were answered and informed consent was obtained. Patient identification and proposed procedure were verified by the physician, the nurse, the automatic beading lathe operator and the crown and bridge technician in the pre-procedure area in the endoscopy suite. Mental Status Examination: alert and oriented. Airway Examination: normal oropharyngeal airway and neck mobility. Respiratory Examination: clear to auscultation. CV Examination: normal. Prophylactic Antibiotics: The patient does not require prophylactic antibiotics. Prior Anticoagulants: The patient has taken no anticoagulant or antiplatelet agents. ASA Grade Assessment: III - A patient with severe systemic disease. After reviewing the risks and benefits, the patient was deemed in satisfactory condition to undergo the procedure. The anesthesia plan was to use monitored anesthesia care (MAC). Immediately prior to administration of medications, the patient was re-assessed for adequacy to receive sedatives. The heart rate, respiratory rate, oxygen saturations, blood pressure, adequacy of pulmonary ventilation, and response to care were monitored throughout the procedure. The physical status of the patient was re-assessed after the procedure. After I obtained informed consent, the scope was passed under direct vision. Throughout the procedure, the patient's blood pressure, pulse, and oxygen saturations were monitored continuously. The Olympus Colonoscope was introduced through the anus and advanced to the cecum, identified by appendiceal orifice and ileocecal valve. The colonoscopy was performed without difficulty. The patient tolerated the procedure well. The quality of the bowel preparation was good. Findings: The perianal and digital rectal examinations were normal. A 5 mm polyp was found in the sigmoid colon. The polyp was sessile. The polyp was removed with a cold snare. Resection and retrieval were complete. Estimated blood loss was minimal. Scattered small-mouthed diverticula were found in the sigmoid colon and descending colon. Internal hemorrhoids were found during retroflexion. The hemorrhoids were Grade I (internal hemorrhoids that do not prolapse) and Grade II (internal hemorrhoids that prolapse but reduce spontaneously). Procedure Code(s): --- Professional --- 12428, Colonoscopy, flexible; with removal of tumor(s), polyp(s), or other lesion(s) by snare technique Diagnosis Code(s): --- Professional --- D12.5, Benign neoplasm of sigmoid colon CPT copyright 2020 [employer]. All rights reserved. The codes documented in this report are preliminary and upon office clinician review may be revised to meet current compliance requirements. Deepali Gaona MD 02/05/2025 11:47:20 AM This report has been signed electronically.Deepali Gaona MD Number of Addenda: 0 Note Initiated On: 02/05/2025 11:27 AM Scope Withdrawal Time: 0 hours 9 minutes 10 seconds Scope In: 11:32:35 AM Scope Out: 11:45:38 AM Endoscopy Department at [facility] - [address] [place] [phone] Procedure Note Deepali Gaona MD - 02/05/2025 [facility] GI Patient Name: Rosalba Ng Procedure Date: 02/05/2025 11:27 AM Date of : 1960 Age: 64 Gender: Female Note Status: Finalized Attending MD: Deepali Gaona MD, Procedure Date No Time: 02/05/2025 Procedure: Colonoscopy Indications: Screening for colorectal malignant neoplasm Providers: Deepali Gaona MD Referring MD: Deepali Gaona MD Medicines: Monitored Anesthesia Care Complications: No immediate complications. Estimated blood loss: Minimal. Estimated Blood Loss: Estimated blood loss was minimal. Procedure: Pre-Anesthesia Assessment: - Prior to the procedure, a History and Physicalwas performed, and patient medications and allergieswere reviewed. The patient is competent. The risks and benefits of the procedure and the sedation optionsand risks were discussed with the patient. Allquestions were answered and informed consent was obtained. Patient identification and proposed procedure were verified by the physician, the nurse, theanesthetist and the crown and bridge technician in the pre-procedure area in the endoscopy suite. Mental Status Examination: alertand oriented. Airway Examination: normal oropharyngeal airway and neck mobility. Respiratory Examination: clear to auscultation. CV Examination: normal. Prophylactic Antibiotics: The patient does notrequire prophylactic antibiotics. Prior Anticoagulants: The patient has taken no anticoagulant or antiplatelet agents. ASA Grade Assessment: III - A patient with severe systemic disease. After reviewing the risksand benefits, the patient was deemed in satisfactory condition to undergo the procedure. The anesthesia plan was to use monitored anesthesia care (MAC). Immediately prior to administration of medications, the patient was re-assessed for adequacy to receive sedatives. The heart rate, respiratory rate, oxygen saturations, blood pressure, adequacy of pulmonary ventilation, and response to care were monitored throughout the procedure. The physical status ofthe patient was re-assessed after the procedure. After I obtained informed consent, the scope was passed under direct vision. Throughout theprocedure, the patient's blood pressure, pulse, and oxygen saturations were monitored continuously. TheOlympus Colonoscope was introduced through the anus and advanced to the cecum, identified by appendiceal orifice and ileocecal valve. The colonoscopy was performed without difficulty. The patient tolerated the procedure well. The quality of the bowel preparation was good. Findings: The perianal and digital rectal examinations were normal. A 5 mm polyp was found in the sigmoid colon. Thepolyp was sessile. The polyp was removed with a coldsnare. Resection and retrieval were complete. Estimatedblood loss was minimal. Scattered small-mouthed diverticula were found inthe sigmoid colon and descending colon. Internal hemorrhoids were found duringretroflexion. The hemorrhoids were Grade I (internal hemorrhoids that do not prolapse) and Grade II (internal hemorrhoids that prolapse but reducespontaneously). Procedure Code(s): --- Professional --- 69256, Colonoscopy, flexible; with removal of tumor(s), polyp(s), or other lesion(s) by snare technique Diagnosis Code(s): --- Professional --- D12.5, Benign neoplasm of sigmoid colon CPT copyright 2020 [employer]. All rights reserved. The codes documented in this report are preliminary and upon office clinician reviewmay be revised to meet current compliance requirements. Deepali Gaona MD 02/05/2025 11:47:20 AM This report has been signed electronically.Deepali Gaona MD Number of Addenda: 0 Note Initiated On: 02/05/2025 11:27 AM Scope Withdrawal Time: 0 hours 9 minutes 10 seconds Scope In: 11:32:35 AM Scope Out: 11:45:38 AM Endoscopy Department at [facility] - [address] [place] [phone] IMPRESSION: - One 5 mm polyp in the sigmoid colon, removed with a cold snare. Resected and retrieved. - Diverticulosis in the sigmoid colon and in the descending colon. - Internal hemorrhoids. Recommendation: - Await pathology results. - Repeat colonoscopy in 10 years forsurveillance. us Deepali Gaona MD GI~PROCEDURE ORDERABLES Fin al Result * Tissue exam (02/05/2025 11:40 AM EDT) Final Diagnosis A. Large Intestine, Sigmoid Colon, polyp x1: - Hyperplastic polyp. 02/06/2025 10:00 AM EDT [facility] Gross Description A. Large Intestine, Sigmoid Colon, polyp x 1: Labeled Sig colon polyp x 1 . Received in formalin is a 0.3 cm irregular corbett mucosal tissue fragment which is wrapped in paper and submitted in toto in one cassette, one piece, multiple levels on one slide. KELLY 02/06/2025 10:00 AM EDT [facility] Disclaimer Unless otherwise specified, all tissue is 10% NB formalin fixed and paraffin embedded. 02/06/2025 10:00 AM EDT [facility] Tissue Sigmoid colon structure / Unknown 02/05/2025 11:40 AM EDT 02/05/2025 12:35 PM EDT us Deepali Gaona MD LAB PATHOLOGY ORDERABLES Fi nal Result [facility] [address] [place] [address], [place] [phone] * Vitamin D 25 hydroxy (02/04/2025 11:45 AM EDT) Vit D, 25-Hydroxy 30.7 30.0 - 80.0 ng/mL LAB CHEMISTRY METHOD 02/04/2025 4:12 PM EDT [facility] Blood Venous blood specimen / Unknown Venipuncture / Unknown 02/04/2025 11:45 AM EDT 02/04/2025 11:45 AM EDT us Shyam Ruth MD LAB BLOOD ORDERABLES F inal Result [facility] [address] [place] [address], [place] [phone] * MG Mammo Digital Screening w Zane bilat (12/12/2024 10:31 AM EDT) Anatomical Region Laterality Modality Breast Bilateral Mammography 12/12/2024 5:55 PM EDT Impressions 12/12/2024 6:07 PM EDT 1. No mammographic evidence of malignancy 2. Scattered fibroglandular tissue BI-RADS CATEGORY: 2 - BENIGN RECOMMENDATION: Screening bilateral mammogram is recommended in 1 year. Mammo Location: [facility], [address] [place] [address], [id number], . -------- FINAL REPORT -------- Dictated By: Cynthia Rocha Dictated Date: 12/12/2024 17:55 ET Assigned Physician: Cynthia Rocha Reviewed and Electronically Signed By: Cynthia Rocha Signed Date: 12/12/2024 18:07 ET Workstation ID: [id number] Transcribed By: Self Edit Transcribed Date: 12/12/2024 [...] is recommended in 1 year. Mammo Location: [facility], [address] [place] [address], [id number], . -------- FINAL REPORT -------- Dictated By: Cynthia Rocha Dictated Date: 12/12/2024 17:55 ET Assigned Physician: Cynthia Rocha Reviewed and Electronically Signed By: Cynthia Rocha Signed Date: 12/12/2024 18:07 ET Workstation ID: [id number] Transcribed By: Self Edit Transcribed Date: 12/12/2024 17:55 ET Shyam Ruth MD IMG BI PROCEDURES [place] [facility] Result * Cervical Cancer Screening: HPV (07/21/2023) Cervical Cancer Screening: HPV Negative, Abstracted Historical Provider HEALTH MAINTENANCE Final Result * Lipid panel (03/29/2023) LDL/HDL Ratio 3 0 - 4 Triglycerides 140 0 - 150 mg/dL Cholesterol 194 0 - 200 mg/dL HDL 76 >=40 mg/dL LDL Cholesterol 90 0 - 100 mg/dL Blood Venous blood specimen / Unknown Historical Provider LAB BLOOD ORDERABLES [place] [facility] Result * Hepatitis C Screening (03/12/2013) Pathologist [facility] Hepatitis C Screening Abstracted Historical Provider HEALTH MAINTENANCE Final Result from Last 3 Months or Most Recently Relevant to Health Maintenance Insurance [employer] [place] [id number] Care Teams International Banker Relationship Specialty Start Date End Date Shyam Ruth MD [address] [place] [address] PCP - General 08/02/22
--- OUTSIDE RECORDS SUMMARY | 2025-04-03 08:20 | XMS_ITS | Clinical Summary ---
Author Organization [employer] Address [address] [place] [address] [address] [place] [address] Care Team Providers Care Dealer Relationship Manager Name Role Phone Unavailable Primary Care Provider [...] patient's age to complete this topic Insurance [facility] Care Teams Dealer Relationship Manager Relationship Specialty Start Date End Date SHAGGY JACKSON [address] [place] [id number] Primary Care Provider 10/02/23
== END 2025-04-03 14:21 | disposition home or self-care (01) ==
LOC: HO.HOSX 14:20
PROVIDERS: Visit Provider Physician Assistant
DX: M43.16 Spondylolisthesis, lumbar region (principal)
CPT/HCPCS: 72110; 99212

== ENCOUNTER 2025-05-19 13:46 | Outpatient (REF) | payer MEDICARE, SELFPAY ==
--- NOTE | ~2025-05-19 | XR_ITS ---
EXAMINATION: XR LUMBOSACRAL SPINE CLINICAL INFORMATION: M43.16 - Spondylolisthesis, lumbar region COMPARISON: April 03, 2025 TECHNIQUE: Lateral views in neutral and during flexion and extension position. AP view. FINDINGS: Bilateral, transpedicle screws from L2 to L5. Status post intervertebral disc spacer at L2-3, L3-4 and L4-5 levels. Grade 1 anterolisthesis at L3-4 in the neutral position which persists during flexion and extension. Multilevel marginal osteophyte formation and endplate sclerosis throughout the lower thoracic and upper lumbar spine. No acute cortical disruption or malalignment at the thoracolumbar spine junction. Vascular calcifications, aorta and iliac arteries. Mild S-shaped curvature of the thoracolumbar spine. No lytic or blastic lesions. XR/XR lumbar spine 4V min IMPRESSION: Status post posterior fusion L2 L5 and arthrodesis with persistent grade 1 anterolisthesis L3-4. No gross instability. Multilevel spondylosis. Atherosclerosis disease. Electronically signed by: Dudley Rooney MD 05/19/2025 02:49 PM EDT
== END 2025-05-19 13:47 | disposition home or self-care (01) ==
LOC: HO.HOSX 13:46
PROVIDERS: Visit Provider Physician Assistant
DX: M43.16 Spondylolisthesis, lumbar region (principal)
CPT/HCPCS: 72110; 99212

== ENCOUNTER 2025-05-19 13:46 | Outpatient (AMB) | payer MEDICARE, SELFPAY ==
--- OUTSIDE RECORDS SUMMARY | 2025-05-19 14:38 | XMS_ITS | Clinical Summary ---
Author Organization [facility] [address] [facility] Address [address] [place], [place] Phone Care Team Providers Care Lubrication Servicer Name Role Phone Shyam Ruth MD Primary [...] not swallow. 10.2 each 5 5 Active albuterol HFA (PROAIR HFA ; PROVENTIL HFA ; VENTOLIN HFA) 90 mcg/actuation inhaler INHALE 2 PUFFS BY MOUTH EVERY 4 HOURS NEEDED FOR WHEEZING OR SHORTNESS OF BREATH 18 g 5 Active buPROPion XL (WELLBUTRIN XL) 300 mg 24 hr tablet TAKE 1 TABLET(300 MG) BY MOUTH 1 TIME EACH DAY IN ADDITION TO 150 MG EVERY MORNING 90 tablet Active buPROPion XL (WELLBUTRIN XL) 150 mg 24 hr tablet Take 1 tablet (150 mg total) by mouth 1 (one) time each day. In addition to 300mg every am. 90 tablet Active primidone (MYSOLINE) 50 mg tablet Take 3 tablets (150 mg total) by mouth at bedtime. 270 tablet 1 5 Active Active Problems Problem Noted Date Diagnosed Date Metabolic dysfunction-associ ated steatotic liver disease (MASLD) 08/22/2024 Assessment & Plan (04/08/2025 4:57 PM EDT): Morbid obesity with BMI of 4 0.0-44.9, adult ([facility] V24, [facility] V28) 07/11/2024 Intertriginous candidiasis 02/21/2024 History of lumbar laminectomy 11/30/2023 Assessment & Plan (04/08/2025 4:57 PM EDT): History of basal cell carcinoma 11/30/2023 Overview (08/22/2024): Left forearm excised 2023. Osteoarthritis of spine with radiculopathy, lumb ar region 03/29/2023 Assessment & Plan (04/08/2025 4:57 PM EDT): Overlap syndrome ([facility] V24) 06/05/2018 Centrilobular emphysema ([facility] V24, [facility] V2 8) 06/05/2018 Assessment & Plan (04/08/2025 4:57 PM EDT): Orders: CBC and differential; Future Comprehensive metabolic panel; Future Primary osteoarthritis of both knees 01/30/2018 Assessment & Plan (04/08/2025 4:57 PM EDT): Nonulcer dyspepsia 11/16/2017 IBS (irritable bowel syndrome) 11/16/2017 Obstructive sleep apnea 06/10/2017 Overview (07/11/2024): Obstructive sleep apnea moderate AHI 19/REM AHI 27 with sleep related hypoventilation PLMD (periodic limb movement disorder) 7 Assessment & Plan (04/08/2025 4:57 PM EDT): Asthma, well controlled 06/06/2012 Overview (07/11/2024): Asthma, moderate persistent, well-controlled Depression 03/02/2012 Assessment & Plan (04/08/2025 4:57 PM EDT): Nausea 02/16/2011 Overview (11/30/2023): EGD nl 02/08; [...] Encounters Date Type Department Care Team Description 04/08/2025 3:00 PM EDT Office Visit Adult Medicine [address] [address] Shyam Ruth MD Encounter for routine adult health examination with abnormal findings (Primary Dx); Primary osteoarthritis of both knees; PLMD (periodic limb movement disorder); History of lumbar laminectomy; Centrilobular emphysema (CMS/HCC V24, CMS/HCC V28); Osteoarthritis of spine with radiculopathy, lumbar region; Depression, unspecified depression type; Screening for diabetes mellitus (DM); Metabolic dysfunction-associated steatotic liver disease (MASLD); Screening for lipid disorders from Last 3 Months Immunizations Name Administration [...] LAPAROSCOPIC APPENDECTOMY OTHER SURGICAL HISTORY 2006 PROCEDURE: [place] [facility]SR ENTEROENTERIC/ENTEROCOLIC FSTL COLONOSCOPY 2006 PROCEDURE: HISTORICAL COLONOSCOPY; COMMENT: no polyps; done at [facility] COLONOSCOPY 2014 PROCEDURE: HISTORICAL COLONOSCOPY; COMMENT: RBMG; normal BACK SURGERY 07/2016 PROCEDURE: HISTORICAL BACK SURGERY; COMMENT: decompression UPPER GASTROINTESTINAL ENDOSCOPY 11/02/2017 PROCEDURE: UPPER GI ENDOSCOPY/EXAM; COMMENT: mild gastritis. normal esophagus and duodenum BASAL CELL CARCINOMA EXCISION Left LEFT ARM AND BACK Medical History Medical History Date Comments Menorrhagia DX:Menorrhagia COPD (chronic obstructive pu lmonary disease) ([facility] V24, [facility] V28) DX:COPD (chronic o bstructive pulmonary disease) ([facility]) Asthma, moderate persistent, well-controlled 06/06/2012 DX:Asthma, moderate persiste nt, well-controlled Diverticulosis DX:Diverticulosi s History of basal cell carcinoma 12/29/2010 DX:History of basal cell carcinoma Morbid obesity ([facility] V24, [facility] V28) 12/15/2014 DX:Morbid obesity ([facility]) Nonulcer dyspepsia 11/16/2017 DX:Nonulcer d yspepsia IBS (irritable bowel syndrome) 11/16/2017 D X:IBS (irritable bowel syndrome) NAFLD (nonalcoholic fatty li luis disease) 11/16/2017 DX:NAFLD (nonalcoholic fatty liver disease) Allergic rhinitis 01/25/2011 DX:Allergic rh initis Morbid obesity with BMI of 4 0.0-44.9, adult ([facility] V24, [facility] V28) 12/15/2014 DX:Morbid obesity wit h BMI of 40.0-44.9, adult ([facility]) Centrilobular emphysema ([facility] V24, [facility] V28) 06/05/2018 DX:Centrilobular emphysema ( [facility]) Dependence on nocturnal oxyg en therapy 06/27/2017 [...] you may not have stable housing? No 04/08/2025 Food Access & Nutrition Answer Date Rec orded Do you have access to a vari ety of food including fruits and vegetables? Yes 04/08/2025 Access to Healthcare Answer Date Record ed Within the last 3 months, ho w many times did you visit the emergency department for your medical care? 1 04/08/2025 Health Literacy Answer Date Recorded How often do you need to hav e someone help you when you read instructions, pamphlets, or other written material from your doctor or pharmacy? Sometimes 04/08/2025 Caregiver: How often do you need to have someone help you when you read instructions, pamphlets, or other written material from your doctor or pharmacy? Not on file 04/08/2025 Financial Risk Answer Date Recorded How hard is it for you to pa y for the very basics like food, housing, medical care, and air conditioning / heating? Not very hard 04/08/2025 Transportation Answer Date Recorded Has the lack of transportati on kept you from meetings, work, or from getting things needed for daily living? No Has the lack of transportati on kept you from medical appointments or from getting medications? No 04/08/2025 Social Isolation Answer Date Recorded How often do you feel lonely or isolated from th ose around you? Never 04/08/2025 Food Risk Answer Date Recorded Within the past 12 months we worried whether our food would run out before we got money to buy more. Never true 04/08/2025 Within the past 12 months th e food we bought just didn't last and we didn't have money to get more. Never true 04/08/2025 Dependent Care Answer Date Recorded Do you need help finding or paying for care for your loved ones. For example, child day care teacher or elderly care for an older adult? No 04/08/2025 Education Answer Date Recorded Do you think completing more education or training, like finishing a GED, going to college, or learning a trade, would be helpful for you? No 04/08/2025 Employment and Income Answer Date Recor ded During the last four weeks, have you been actively looking for work? No 04/08/2025 Living Situation Answer Date Recorded What is your living situation? 0 04/08/2025 Interpersonal Safety Answer Date Record ed Physical [...] Sign Reading Time Taken Comments Blood Pressure 130/70 04/08/2025 3:04 PM EDT Pulse 92 04/08/2025 3:04 PM EDT Temperature 36.7 C (98 F) 04/08/2025 3:04 PM EDT Respiratory Rate 14 04/08/2025 3:04 PM EDT Oxygen Saturation 90% 04/08/2025 3:04 PM EDT Inhaled Oxygen Concentration - - Weight 112 kg (246 lb 12.8 oz) 04/08/2025 3:04 P M EDT Height 162.6 cm (5' 4 ) 04/08/2025 3:04 PM EDT Body Mass Index 42.36 04/08/2025 3:04 PM EDT Plan of Treatment Upcoming Encounters Date Type Department Care Team (Late st Contact Info) Description 07/28/2025 10:00 AM EDT Appointment Bone Density [address] [phone] 08/11/2025 11:00 AM EST Office Visit Adult Medicine [facility] - [address] [phone] Shyam Ruth MD [address] [place] [phone] Health Maintenance Due Date Last Done Comments Zoster Vaccines (1 of 2) 1978 RSV Immunization Adult Patients (1 - Risk 60-74 years 1-dose series) 2019 Osteoporosis Screening (Bone Density Screening) 09/09/2022 COVID-19 Vaccine ( season) 2024 10/07/2021, 01/10/2021, 12/20/2020 Influenza Vaccine (#1) 2025 , 07/03/2023, 09/09/2020, Additional history exists Falls Risk Assessment 04/08/2026 04/08/2025 , 02/05/2025, 02/04/2025 Medicare Annual Wellness Visit 04/08/2026 04/08/2025 Social Influencers of Health Screening 04/08/2026 04/08/2025 Breast Cancer Screening 12/12/2026 12/13/19, 12/04/2023, 11/30/2022, Additional history exists Cervical Cancer Screening: HPV 07/21/2028 07/21/2023 Cholesterol Screening (Lipid Panel) 04/08/2030 04/08/2025, 03/29/2023, 03/29/2023 DTaP,Tdap,and Td Vaccines (4 - Td or Tdap) 08/22/2034 08/22/2024, 04/30/2014, 03/21/2005 Colorectal Cancer Screening: Colonoscopy 02/05/2035 02/05/2025, 10/07/2014, 10/07/2014 Hepatitis C Screening Completed 03/12/2013 Pneumococcal Vaccine: 50+ Years Completed 08/22/2024, 11/23/2004 Depression Screening Completed 04/08/2025 HIB Vaccines Aged Out No longer eligi [...] Procedure Name Priority Date/Time Associated Diagnosis Comments CBC WITH AUTO DIFFERENTIAL Routine 04/08/2025 3:55 PM EDT Centrilobular emphysema ([facility] V24, [facility] V28) CBC AND DIFFERENTIAL Routine 04/08/2025 3:55 PM EDT Centrilobular emphysema (CMS/HCC V24, CMS/HCC V28) COMPREHENSIVE METABOLIC PANEL Routine 04/08/2025 3:55 PM EDT Centrilobular emphysema (CMS/HCC V24, CMS/HCC V28) HEMOGLOBIN A1C Routine 04/08/2025 3:55 PM EDT Screening for diabetes mellitus (DM) LIPID PANEL WITH REFLEX TO DIRECT LDL Routine 04/08/2025 3:55 PM EDT Screening for lipid disorders COLONOSCOPY Routine 02/05/2025 11:44 AM EDT Colon cancer screening MG MAMMO DIGITAL SCREENING W ZANE BILAT Routine 12/12/2024 10:31 AM EDT Encounter for screening mammogram for breast cancer HM HPV Routine 07/21/2023 HM HEPATITIS C SCREENING Routine 03/12/2013 from Last 3 Months or Most Recently Relevant to Health Maintenance Results * Lipid panel with reflex to direct LDL (04/08/2025 3:55 PM EDT) Cholesterol 190 0 - 200 mg/dL LAB CHEMISTRY METHOD 04/08/2025 7:36 PM EDT [facility] Triglycerides 86 0 - 150 mg/dL LAB CHEMISTRY METHOD 04/08/2025 7:36 PM EDT [facility] HDL 73 >=40 mg/dL LAB CHEMISTRY METHOD 04/08/2025 7:36 PM EDT [facility] LDL Calculated 100 0 - 100 mg/dL LAB CHEMISTRY METHOD 04/08/2025 7:36 PM EDT [facility] VLDL Cholesterol Gary 17.2 mg/dL LAB CHEMISTRY METHOD 04/08/2025 7:36 PM EDT [facility] Non HDL Chol. (LDL+VLDL) 117 <145 mg/dL LAB CHEMISTRY METHOD 04/08/2025 7:36 PM EDT [facility] Chol/HDL Ratio 2.6 0.0 - 4.4 LAB CHEMISTRY METHOD 04/08/2025 7:36 PM EDT [facility] Blood Venous blood specimen / Unknown Venipuncture / Unknown 04/08/2025 3:55 PM EDT 04/08/2025 3:55 PM EDT us Shyam Ruth MD LAB BLOOD ORDERABLES F inal Result [facility] [address] [place] [address], [place] [phone] * (ABNORMAL) CBC auto differential (04/08/2025 3:55 PM EDT) WBC 10.1 4.8 - 10.8 K/mcL LAB HEMETOLOGY METHOD 04/08/2025 6:30 PM EDT [facility] RBC 4.70 3.80 - 4.80 M/mcL LAB HEMETOLOGY METHOD 04/08/2025 6:30 PM EDT [facility] Hemoglobin 13.2 11.5 - 16.0 g/dL LAB HEMETOLOGY METHOD 04/08/2025 6:30 PM EDT [facility] Hematocrit 42.3 35.0 - 47.0 % LAB HEMETOLOGY METHOD 04/08/2025 6:30 PM EDT [facility] MCV 90.8 79.0 - 98.0 FL LAB HEMETOLOGY METHOD 04/08/2025 6:30 PM EDT [facility] MCH 28.3 27.0 - 32.0 pcg LAB HEMETOLOGY METHOD 04/08/2025 6:30 PM EDT [facility] MCHC 31.2(L) 32.0 - 37.0 g/dL LAB HEMETOLOGY METHOD 04/08/2025 6:30 PM EDT [facility] RDW 13.7 11.0 - 15.0 % LAB HEMETOLOGY METHOD 04/08/2025 6:[facility] Platelets 309 130 - 400 K/mcL LAB HEMETOLOGY METHOD 04/08/2025 6:30 PM EDT [facility] MPV 11.0 7.0 - 11.0 FL LAB HEMETOLOGY METHOD 04/08/2025 6:30 PM EDT [facility] NRBC 0.0 <1.0 % LAB HEMETOLOGY METHOD 04/08/2025 6:30 PM [facility] NRBC Absolute 0.00 <0.10 K/mcL LAB HEMETOLOGY METHOD 04/08/2025 6:30 PM [facility] Neutrophils Relative 52.8 % LAB HEMETOLOGY METHOD 04/08/2025 6:30 PM [facility] Lymphocytes Relative 37.4 % LAB HEMETOLOGY METHOD 04/08/2025 6:30 PM [facility] Monocytes Relative 6.4 % LAB HEMETOLOGY METHOD 04/08/2025 6:30 PM [facility] Eosinophils Relative 2.0 % LAB HEMETOLOGY METHOD 04/08/2025 6:30 PM [facility] Basophils Relative 1.0 % LAB HEMETOLOGY METHOD 04/08/2025 6:30 PM [facility] Immature Granulocytes Relative 0.4 % LAB HEMETOLOGY METHOD 04/08/2025 6:30 PM [facility] Neutrophils Absolute 5.35 1.50 - 7.00 K/mcL LAB HEMETOLOGY METHOD 04/08/2025 6:30 PM [facility] Lymphocytes Absolute 3.78 1.00 - 5.00 K/mcL LAB HEMETOLOGY METHOD 04/08/2025 6:30 PM EDT [facility] Monocytes Absolute 0.65 0.20 - 1.00 K/[facility] LAB HEMETOLOGY METHOD 04/08/2025 6:30 PM EDT [facility] Eosinophils Absolute 0.20 0.00 - 0.50 K/[facility] LAB HEMETOLOGY METHOD 04/08/2025 6:30 PM EDT [facility] Basophils Absolute 0.10 0.00 - 0.20 K/[facility] LAB HEMETOLOGY METHOD 04/08/2025 6:30 PM EDT [facility] Immature Granulocytes Absolute 0.04(H) 0.00 - 0.03 K/[facility] LAB HEMETOLOGY METHOD 04/08/2025 6:30 PM EDT [facility] Blood Venous blood specimen / Unknown Venipuncture / Unknown 04/08/2025 3:55 PM EDT 04/08/2025 3:55 PM EDT us Shyam Ruth MD LAB BLOOD ORDERABLES F inal Result [facility] [address] [place] [address], * Hemoglobin A1c (04/08/2025 3:55 PM EDT) Hemoglobin A1C 5.2 <6.5 % LAB CHEMISTRY METHOD 04/08/2025 10:16 PM EDT [facility] Mean Bld Glu Estim. 103 mg/dL LAB CHEMISTRY METHOD 04/08/2025 10:16 PM EDT [facility] Blood Venous blood specimen / Unknown Venipuncture / Unknown 04/08/2025 3:55 PM EDT 04/08/2025 3:55 PM EDT us Shyam Ruth MD LAB BLOOD ORDERABLES F inal Result [facility] [address] [place] [address], * (ABNORMAL) Comprehensive metabolic panel (04/08/2025 3:55 PM EDT) Sodium 141 133 - 145 mmol/L LAB CHEMISTRY METHOD 04/08/2025 7:36 PM EDT [facility] Potassium 4.2 3.5 - 5.5 mmol/L LAB CHEMISTRY METHOD 04/08/2025 7:36 PM [facility] Chloride 108 96 - 110 mmol/L LAB CHEMISTRY METHOD 04/08/2025 7:36 PM [facility] CO2 28 21 - 32 mmol/L LAB CHEMISTRY METHOD 04/08/2025 7:36 PM EDT [facility] Anion Gap 5 3 - 11 LAB CHEMISTRY METHOD 04/08/2025 7:36 PM [facility] Glucose 68(L) 70 - 100 mg/dL LAB CHEMISTRY METHOD 04/08/2025 7:36 PM [facility] BUN 12 5 - 25 mg/dL LAB CHEMISTRY METHOD 04/08/2025 7:36 PM [facility] Creatinine 0.84 0.50 - 1.10 mg/dL LAB CHEMISTRY METHOD 04/08/2025 7:36 PM EDT [facility] eGFR 77 >=60 mL/min/1. 73m2 LAB CHEMISTRY METHOD 04/08/2025 7:36 PM [facility] Comment:Calculation based on the Chronic Kidney Disease Epidemiology Collaboration (CKD-EPI) equation refit without adjustment for race. BUN/Creatinine Ratio 14.3 LAB CHEMISTRY METHOD 04/08/2025 7:36 PM [facility] Calcium 9.5 8.5 - 10.5 mg/dL LAB CHEMISTRY METHOD 04/08/2025 7:36 PM EDT [facility] AST (SGOT) 22 10 - 42 unit/L LAB CHEMISTRY METHOD 04/08/2025 7:36 PM EDT [facility] ALT (SGPT) 25 10 - 60 unit/L LAB CHEMISTRY METHOD 04/08/2025 7:36 PM EDT [facility] Alkaline Phosphatase 103 42 - 121 unit/L LAB CHEMISTRY METHOD 04/08/2025 7:36 PM EDT [facility] Total Protein 6.9 6.0 - 8.0 g/dL LAB CHEMISTRY METHOD 04/08/2025 7:36 PM EDT [facility] Albumin 3.7 3.2 - 5.0 g/dL LAB CHEMISTRY METHOD 04/08/2025 7:36 PM EDT [facility] Total Bilirubin 0.2 0.0 - 1.4 mg/dL LAB CHEMISTRY METHOD 04/08/2025 7:36 PM EDT [facility] Blood Venous blood specimen / Unknown Venipuncture / Unknown 04/08/2025 3:55 PM EDT 04/08/2025 3:55 PM EDT Shyam Ruth MD LAB BLOOD ORDERABLES F inal Result [facility] [address] [place] [address], * COLONOSCOPY Anesthesia - [facility] [facility] ENDOSCOPY (02/05/2025 11:44 AM EDT) Anatomical Region [...] for surveillance. Narrative 02/05/2025 11:47 AM EDT [facility] Patient Name: Rosalba Ng Procedure Date: [...] verified by the physician, the nurse, the rigging foreman and the chemical engineering technician in the pre-procedure area in the [...] reduce spontaneously). Procedure Code(s): --- Professional --- 27219, Colonoscopy, flexible; with removal of tumor(s), polyp(s), or other lesion(s) by snare technique Diagnosis Code(s): --- Professional --- D12.5, Benign neoplasm of sigmoid colon CPT copyright 2020 [employer]. All rights reserved. The codes documented in this report are preliminary and upon web ui software engineer review may be revised to meet current compliance requirements. Deepali Gaona MD 02/05/2025 11:47:20 AM This report has been signed electronically.Deepali Gaona MD Number of Addenda: 0 Note Initiated On: 02/05/2025 11:27 AM Scope Withdrawal Time: 0 hours 9 minutes 10 seconds Scope In: 11:32:35 AM Scope Out: 11:45:38 AM Endoscopy Department at [facility] - [address] [place] [id number] Procedure Note Deepali Gaona MD - 02/05/2025 [facility] Patient Name: Rosalba Ng Procedure Date: [...] the physician, the nurse, theanesthetist and the chemical engineering technician in the pre-procedure area in the [...] but reducespontaneously). Procedure Code(s): --- Professional --- 31104, Colonoscopy, flexible; with removal of tumor(s), polyp(s), or other lesion(s) by snare technique Diagnosis Code(s): --- Professional --- D12.5, Benign neoplasm of sigmoid colon CPT copyright 2020 [employer]. All rights reserved. The codes documented in this report are preliminary and upon web ui software engineer reviewmay be revised to meet current compliance requirements. Deepali Gaona MD 02/05/2025 11:47:20 AM This report has been signed electronically.Deepali Gaona MD Number of Addenda: 0 Note Initiated On: 02/05/2025 11:27 AM Scope Withdrawal Time: 0 hours 9 minutes 10 seconds Scope In: 11:32:35 AM Scope Out: 11:45:38 AM Endoscopy Department at [facility] - [address] [place] [id number] IMPRESSION: - One 5 mm polyp in the sigmoid colon, removed with a cold snare. Resected and retrieved. - Diverticulosis in the sigmoid colon and in the descending colon. - Internal hemorrhoids. Recommendation: - Await pathology results. - Repeat colonoscopy in 10 years forsurveillance. Deepali Gaona MD GI~PROCEDURE ORDERABLES Fin al Result * MG Mammo Digital Screening w Zane bilat (12/12/2024 10:31 AM EDT) Anatomical Region Laterality Modality Breast Bilateral Mammography 12/12/2024 5:55 PM EDT Impressions 12/12/2024 6:07 PM EDT 1. No mammographic evidence of malignancy 2. Scattered fibroglandular tissue BI-RADS CATEGORY: 2 - BENIGN RECOMMENDATION: Screening bilateral mammogram is recommended in 1 year. Mammo Location: [facility], [address] [place] [address], [phone], . -------- FINAL REPORT -------- Dictated By: Cynthia Rocha Dictated Date: 12/12/2024 17:55 ET Assigned Physician: Cynthia Rocha Reviewed and Electronically Signed By: Cynthia Rocha Signed Date: 12/12/2024 18:07 ET Workstation ID: [id number] Transcribed By: Self Edit Transcribed Date: 12/12/2024 [...] is recommended in 1 year. Mammo Location: [facility], [address] [place] [address], [id number], . -------- FINAL REPORT -------- Dictated By: Cynthia Rocha Dictated Date: 12/12/2024 17:55 ET Assigned Physician: Cynthia Rocha Reviewed and Electronically Signed By: Cynthia Rocha Signed Date: 12/12/2024 18:07 ET Workstation ID: [id number] Transcribed By: Self Edit Transcribed Date: 12/12/2024 17:55 ET Shyam Ruth MD IMG BI PROCEDURES [place] [facility] Result * Cervical Cancer Screening: HPV (07/21/2023) Pathologist [facility] Cervical Cancer Screening: HPV Negative, Abstracted Historical Provider HEALTH MAINTENANCE Final Result * Hepatitis C Screening (03/12/2013) Pathologist [facility] Hepatitis C Screening Abstracted Historical Provider HEALTH MAINTENANCE Final Result from Last 3 Months or Most Recently Relevant to Health Maintenance Insurance [employer] MED[employer]ARE Care Teams Lubrication Servicer Relationship Specialty Start Date End Date Shyam Ruth MD [address] [place] [address] PCP - General 08/02/22
--- OUTSIDE RECORDS SUMMARY | 2025-05-19 14:38 | XMS_ITS | Clinical Summary ---
Author Organization [employer] Address [address] [place] [address] [address] [place] [address] Care Team Providers Care Collateral Clerk Name Role Phone Unavailable Primary Care Provider [...] 10/07/2021, 01/10/2021, 12/20/2020 Influenza Vaccine (#1) 2025 3, 09/09/2020, 09/09/2020, Additional history exists Tobacco [...] patient's age to complete this topic Insurance [facility] Care Teams Collateral Clerk Relationship Specialty Start Date End Date SHAGGY JACKSON [address] [place] [id number] Primary Care Provider 10/02/23
--- NOTE | 2025-05-19 15:03 | A.SPINEOV_ITS ---
Intake Visit Reasons: 6 weeks f/up with xrays Intake Note: Ms. Ng is here today for her 6 weeks f/u with xrays. 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 She continues to do great. 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 Prior to she was using a walker and could barely stand up straight. Her x-rays today look excellent. At this point things are healed up and I have no specific restrictions for her. She can resume activities as tolerated. She is still dealing with a little bit of sensitivity on the inner thigh which I suspect is some femoral nerve irritation. I suspect that will get better over time. She has some back stiffness as well lower down and that is probably just related to musculature tightness in that also should get better in the next few months. At this point she can follow up with us on an as-needed basis. Naun Milligan MD, PhD [facility] Coding Level of Care Code Global (47909) Diagnoses Spondylolisthesis, lumbar region M43.16
== END 2025-05-19 15:09 | disposition home or self-care (01) ==
LOC: HO.HNS 13:47
PROVIDERS: Visit Provider Physician Assistant
DX: M43.16 Spondylolisthesis, lumbar region (principal)
CPT/HCPCS: 99024

== ENCOUNTER → 2025-05-19 14:35 | Outpatient (BNV) | payer MEDICARE, SELFPAY | PROVIDERS: Visit Provider Radiology Diagnostic Radiology | DX: M43.16 Spondylolisthesis, lumbar region (principal) | CPT/HCPCS: 72110 ==

== ENCOUNTER → 2025-09-15 10:03 | Outpatient (BNVA) | payer SELFPAY | PROVIDERS: PCP Internal Medicine; Visit Provider Internal Medicine | DX: Z02.79 Encounter for issue of other medical certificate (principal) ==

== ENCOUNTER → 2025-09-18 10:47 | Outpatient (BNV) | payer MEDICARE, SELFPAY | PROVIDERS: PCP Internal Medicine; Visit Provider Radiology Diagnostic Radiology | DX: M43.16 Spondylolisthesis, lumbar region (principal) | CPT/HCPCS: 72158 ==

== ENCOUNTER 2025-09-18 10:49 | Outpatient (REF) | payer SELFPAY ==
--- NOTE | ~2025-09-18 | MR_ITS ---
EXAMINATION: MR LUMBAR SPINE WITHOUT AND WITH CONTRAST CLINICAL INFORMATION: Spondylolisthesis. Persistent left anterior thigh pain after fusion surgery; COMPARISON: Previous lumbar spine MRI most recent January 2025, previous lumbar spine CT most recent January 2025 and x-rays most recent May 2025 TECHNIQUE: MRI of the lumbar spine was obtained using routine sequences with and without contrast. Intravenous contrast: Magnevist 10 mL FINDINGS: Exam is limited due to hardware artifact. Bone alignment is normal. No fracture or dislocation. Subluxation on x-rays May 2025 not appreciated. There is postsurgical change with posterior fusion hardware and disc interspacers from L2 to L5. Laminotomy changes at L4 and L5. No abnormal bone or disc signal or enhancement seen. The conus ends at L1. At T11-12 and T12-L1 there is no disc herniation protrusion or bulge. Spinal canal, lateral recesses and neural foramen are patent. At L1-2 there is bilateral disc bulge. No disc herniation. There is moderate bilateral spinal stenosis and neuroforaminal narrowing from disc, short pedicles, facet arthritis and ligamentum flavum thickening. Postsurgical changes at L2-3. There is mild diffuse disc bulge. There is mild to moderate spinal stenosis from disc, short pedicles, facet arthritis and ligamentum flavum thickening. There is bilateral lateral recess narrowing, right greater than left. No abnormal enhancement. Postsurgical changes at L3-4. There is diffuse disc bulge. No disc herniation. There is moderate to severe spinal stenosis and bilateral lateral recess narrowing at L3-4 due to disc bulge, short pedicles and severe bilateral facet arthritis. No abnormal enhancement. Postsurgical changes at L4-5. Broad-based diffuse disc bulge. No disc herniation. Mild to moderate secondary spinal stenosis and bilateral lateral recess narrowing due to disc, short pedicles and mild facet arthritis. No abnormal enhancement. There is mild diffuse disc bulge at L5-S1. No disc herniation. There is moderate secondary spinal stenosis and bilateral lateral recess narrowing due to disc, short pedicles, facet arthritis flavum thickening. Previously seen abnormal signal and enhancement in the left psoas muscle and left anterior L4-5 disc space on January 2025 MRI no longer seen. There are postsurgical changes to the soft tissues posteriorly. Paraspinal soft tissue signal is otherwise normal without abnormal enhancement. MR/MR lumbar spine wo/w con IMPRESSION: Postsurgical changes from L2 to L5. Subluxation appreciated on x-ray May 2025 not appreciated. Multilevel disc bulge, secondary spinal stenosis and lateral recess narrowing from disc, short pedicles, facet arthritis and ligamentum flavum thickening, greatest at L3-4. No abnormal enhancement seen. Electronically signed by: Alejandrina Felix MD 09/18/2025 12:55 PM GERARDO
--- OUTSIDE RECORDS SUMMARY | 2025-09-18 13:49 | XMS_ITS | Encounter Summary ---
Author Organization [employer] Address [address] [facility] [address] [place] [address] Care Team Providers Care Sales Consulting Director Name Role Phone Unavailable Primary Care Provider Unavailabl e Encounter Details Date Type Department Care Team ([facility] st Contact Info) Description 06/04/2024 Orders Only [place] OPTOMETRY [address] [place] [address] Mildred Joy OD Social History Tobacco Use [...] on filedocumented in this encounter Care Teams Sales Consulting Director Relationship Specialty Start Date End Date SHAGGY JACKSON [address] [place] [address] Primary Care Provider 10/02/23 documented as of this encounter
--- OUTSIDE RECORDS SUMMARY | 2025-09-18 13:49 | XMS_ITS | Clinical Summary ---
Author Organization [facility] [address] [facility] Address [address] [place], [place] Phone Care Team Providers Care Map Drafter Name Role Phone Shyam Ruth MD Primary Care Provider Allergies No known active allergies Medications miscellaneous medical supply misc CPAP Historical (HISTORICAL CPAP) Inhale into the lungs. BHIR-pressure 10-20 with 2 liter oxygen Active albuterol HFA (PROAIR HFA ; PROVENTIL HFA ; VENTOLIN HFA) 90 mcg/actuation inhaler INHALE 2 PUFFS BY MOUTH EVERY 4 HOURS NEEDED FOR WHEEZING OR SHORTNESS OF BREATH 18 g 5 Active primidone (MYSOLINE) 50 mg tablet Take 3 tablets (150 mg total) by mouth at bedtime. 270 tablet 1 5 Active budesonide-form oteroL (Symbicort) 160-4.5 mcg/actuation inhaler Inhale 2 puffs by mouth 2 (two) times a day. Rinse mouth with water after use to reduce aftertaste and incidence of candidiasis. Do not swallow. 1 each 12 5 07/09/20 26 Active albuterol 2.5 mg /3 mL (0.083 %) nebulizer solutionIndicat ions:COPD with asthma (CMS/HCC V24, CMS/HCC V28) Take 3 mL by nebulization every 4 (four) hours if needed for wheezing. 360 mL 11 5 07/09/20 Active tiotropium (Spiriva Respimat) 2.5 mcg/actuation inhalation spray Inhale 2 puffs by mouth 1 (one) time each day. 1 each 12 5 07/09/20 Active buPROPion XL (WELLBUTRIN XL) 150 mg 24 hr tablet TAKE 1 TABLET(150 MG) BY MOUTH 1 TIME EACH DAY IN ADDITION TO 300 MG EVERY MORNING. Do not crush, chew, or split 90 tablet 3 Active buPROPion XL (WELLBUTRIN XL) 300 mg 24 hr tablet TAKE 1 TABLET(300 MG) BY MOUTH DAILY IN ADDITION TO 150 MG EVERY MORNING. Do not crush, chew, or split. 90 tablet 3 Active Active Problems Problem Noted Date Diagnosed Date Metabolic dysfunction-associ ated steatotic liver disease (MASLD) 08/22/2024 Assessment & Plan (04/08/2025 4:57 PM EDT): Morbid obesity with BMI of 40.0-44.9, adult 07/02 Intertriginous candidiasis 02/21/2024 History of lumbar laminectomy 11/30/2023 Assessment & Plan (04/08/2025 4:57 PM EDT): History of basal cell carcinoma 11/30/2023 Overview (08/22/2024): Left forearm excised 2023. Osteoarthritis of spine with radiculopathy, lumb ar region 03/29/2023 Assessment & Plan (04/08/2025 4:57 PM EDT): Overlap syndrome 06/05/2018 Centrilobular emphysema 06/05/2018 Assessment & Plan (04/08/2025 4:57 PM [...] Encounters Date Type Department Care Team Description 08/11/2025 11:00 AM EST Office Visit Adult [address] [phone] Shyam Ruth MD History of lumbar laminectomy (Primary Dx); PLMD (periodic limb movement disorder); Centrilobular emphysema ([facility]/HCC V24, CMS/HCC V28); Metabolic dysfunction-associated steatotic liver disease (MASLD); Morbid obesity with BMI of 40.0-44.9, adult ([facility]/HCC V24, [facility]/HCC V28); Need for prophylactic vaccination and inoculation against influenza 07/29/2025 Results Follow-Up [facility] - [address] [phone] Shyam Ruth MD 07/28/2025 9:25 AM EDT - 07/28/2025 11:59 PM EDT Hospital Encounter Bone Density - [address] [phone] Encounter for osteoporosis screening in asymptomatic postmenopausal patient Discharge Disposition: Home or Self Care 07/09/2025 9:45 AM EDT Office Visit Pulmonology - [address] [address] Minal Hager MD COPD with asthma ([facility] V24, [facility] V28) (Primary Dx); SHELL on CPAP; Ex-smoker; Lung nodules 06/26/2025 Telephone Pulmonology [address] [phone] Carla Blackburn MA from Last 3 Months Immunizations Immunization Administration Dates Next Due Influenza Quadravalent, MDCK , 0.5ml, preservative free (Flucelvax) 6mo and older 07/03/2023 Influenza Quadravalent, MDCK , 0.5ml, with preservative (Flucelvax) 6mo and older 07/26/2017 Influenza trivalent, 0.5mL ( Fluad) 65yo and older 08/11/2025 Influenza trivalent, MDCK, 0 .5mL, preservative free [...] LAPAROSCOPIC APPENDECTOMY OTHER SURGICAL HISTORY 2006 PROCEDURE: CO CLSR ENTEROENTERIC/ENTEROCOLIC FSTL COLONOSCOPY 2006 PROCEDURE: HISTORICAL COLONOSCOPY; COMMENT: no polyps; done at [facility] COLONOSCOPY 2014 PROCEDURE: HISTORICAL COLONOSCOPY; COMMENT: RBMG; normal BACK SURGERY 07/2016 PROCEDURE: HISTORICAL BACK SURGERY; COMMENT: decompression UPPER GASTROINTESTINAL ENDOSCOPY 11/02/2017 PROCEDURE: UPPER GI ENDOSCOPY/EXAM; COMMENT: mild gastritis. normal esophagus and duodenum BASAL CELL CARCINOMA EXCISION Left LEFT ARM AND BACK Medical History Medical History Date Comments Menorrhagia DX:Menorrhagia COPD (chronic obstructive pu lmonary disease) ([facility] V24, [facility] V28) DX:COPD (chronic o bstructive pulmonary disease) ([facility]) Asthma, moderate persistent, well-controlled 06/06/2012 DX:Asthma, moderate persiste nt, well-controlled Diverticulosis DX:Diverticulosi s History of basal cell carcinoma 12/29/2010 DX:History of basal cell carcinoma Morbid obesity ([facility] V24, [facility] V28) 12/15/2014 DX:Morbid obesity ([facility]) Nonulcer dyspepsia 11/16/2017 DX:Nonulcer d yspepsia IBS (irritable bowel syndrome) 11/16/2017 D X:IBS (irritable bowel syndrome) NAFLD (nonalcoholic fatty li luis disease) 11/16/2017 DX:NAFLD (nonalcoholic fatty liver disease) Allergic rhinitis 01/25/2011 DX:Allergic rh initis Morbid obesity with BMI of 4 0.0-44.9, adult ([facility] V24, [facility] V28) 12/15/2014 DX:Morbid obesity wit h BMI of 40.0-44.9, adult ([facility]) Centrilobular emphysema ([facility] V24, [facility] V28) 06/05/2018 DX:Centrilobular emphysema ( HCC) Dependence on nocturnal oxyg en therapy 06/27/2017 [...] DX:Obstr uctive sleep apnea; COMMENT: Overlap syndrome ([facility] V24) 06/05/2018 D X:Overlap syndrome ([facility]) PLMD (periodic limb movement disorder) [...] attack Mother Other cancer Mother basal cell, conchtia g ca Other: ovarian cancer Mother USO [...] Used Date Smoking Tobacco: Former Cigarettes 3.5 Q uit: 06/22/2003 Smokeless Tobacco: Never Tobacco [...] ed Within the last 3 months, ho mark many times did you visit the emergency [...] for your loved ones. For example, child care center assistant director or elderly care for an older adult? [...] Date Recorded What is your living situation? Unrecognized valu e 04/08/2025 Interpersonal Safety Answer Date Record ed Physical Abuse Unrecognized value 02/05/2025 Verbal Abuse Unrecognized value 02/05/2025 Comments No Sex and Gender Information [...] Sign Reading Time Taken Comments Blood Pressure 94/65 08/11/2025 11:11 AM EST Pulse 79 08/11/2025 11:11 AM EST Temperature 36.8 C (98.3 F) 08/11/2025 11:11 AM EST Respiratory Rate 16 08/11/2025 11:11 AM EST Oxygen Saturation 95% 08/11/2025 11:11 AM EST Inhaled Oxygen Concentration - - Weight 115 kg (254 lb) 08/11/2025 11:11 AM EST Height 162.6 cm (5' 4 ) 08/11/2025 11:11 AM EST Body Mass Index 43.6 08/11/2025 11:11 AM EST Plan of Treatment Upcoming Encounters Date Type Department Care Team (Late st Contact Info) Description 01/07/2026 10:00 AM EDT Office Visit Pulmonology - [place] [address] [facility] [address] [place] [phone] Minal Hager MD [address] [place] [phone] 02/10/2026 11:00 AM EDT Office Visit Adult Medicine [facility] [address] [place] [address] Shyam Ruth MD [address] [place] [address] Health Maintenance Due Date Last Done Comments Zoster Vaccines (1 of 2) 1978 RSV Immunization Adult Patients (1 - Risk 50-74 years 1-dose series) 2009 COVID-19 Vaccine ( season) 2025 10/07/2021, 01/10/2021, 12/20/2020 Falls Risk Assessment 04/08/2026 04/08/2025 , 02/05/2025, 02/04/2025 Medicare Annual Wellness Visit 04/08/2026 04/08/2025 Social Influencers of Health Screening 04/08/2026 04/08/2025 Breast Cancer Screening 12/12/2026 12/13/19 25, 12/04/2023, 11/30/2022, Additional history exists Cervical Cancer Screening: HPV 07/21/2028 07/21/2023 Cholesterol Screening (Lipid Panel) 04/08/2030 04/08/2025, 03/29/2023, 03/29/2023 DTaP,Tdap,and Td Vaccines (4 - Td or Tdap) 08/22/2034 08/22/2024, 04/30/2014, 03/21/2005 Colorectal Cancer Screening: Colonoscopy 02/05/2035 02/05/2025, 10/07/2014, 10/07/2014 Osteoporosis Screening (Bone Density Screening) 07/28/2035 07/28/2025 Hepatitis C Screening Completed 03/12/2013 Pneumococcal Vaccine: 50+ Years Completed 08/22/2024, 11/23/2004 Depression Screening Completed 08/11/2025 Influenza Vaccine Completed 08/11/2025, , 07/03/2023, Additional history exists HIB Vaccines Aged Out No longer eligi [...] Procedure Name Priority Date/Time Associated Diagnosis Comments BD BONE DENSITY DXA AXIAL SKELETON Routine 07/28/2025 10:02 AM EDT Encounter for osteoporosis screening in asymptomatic postmenopausal patient LIPID PANEL WITH REFLEX TO DIRECT LDL Routine 04/08/2025 3:55 PM EDT Screening for lipid disorders COLONOSCOPY Routine 02/05/2025 11:44 AM EDT Colon cancer screening MG MAMMO DIGITAL SCREENING W ZANE BILAT Routine 12/12/2024 10:31 AM EDT Encounter for screening mammogram for breast cancer HM HPV Routine 07/21/2023 HEPATITIS C SCREENING Routine 03/12/2013 from Last 3 Months or Most Recently Relevant to Health Maintenance Results * BD Bone Density DXA Axial Skeleton (07/28/2025 10:02 AM EDT) Anatomical Region Laterality Modality Wrist, Hip, L-spine Bone Densito metry 07/29/2025 10:3 8 AM EDT Impressions 07/29/2025 10:40 AM EDT Osteopenia. PLEASE NOTE: W.H.O. classification is based on lowest measured density at the spine, femoral neck, or total hip.This classification has prognostic significance when applied to post menopausal women and older men. 1) The World Health Organization defines low BMD as follows: T-score Normal at or > -1 Osteopenia < -1 and > -2.5 Osteoporosis at or < -2.5 without fractures Established osteoporosis < -2.5 with fractures -------- FINAL REPORT -------- Dictated By: Cynthia Rocha Dictated Date: 07/29/2025 10:38 ET Assigned Physician: Cynthia Rocha Reviewed and Electronically Signed By: Cynthia Rocha Signed Date: 07/29/2025 10:40 ET Workstation ID: [id number] Transcribed By: Self Edit Transcribed Date: 07/29/2025 10:38 ET Narrative 07/29/2025 10:40 AM EDT Clinical history: post-menopausal osteoporosis prevention Scans of the lumbar spine and hips were performed on a Manflu/[employer]class fan beam bone densitometer. Bone mineral density measurements and associated T and Z scores respectively are as follows: Wrist: BMD /3: 0.627 g/cm2 T-Score: -1.1 Z-Score: 0.6 Left Proximal Femur: Neck BMD: 0.744 g/cm2 T-Score: -0.9 Z-Score: 0.6 Total BMD: 1.030 g/cm2 T-Score: 0.7 Z-Score: 2.0 Compared with standards for the young adult, lowest measured bone density places the patient in the W.H.O. osteopenic range. Procedure Note Cynthia Rocha MD - 07/29/2025 Clinical history: post-menopausal osteoporosis prevention Scans of the lumbar spine and hips were performed on a [employer]fan beam bone densitometer. Bone mineral density measurements and associated T and Z scoresrespectively are as follows: Wrist: BMD 1/3: 0.627 g/cm2 T-Score: -1.1 Z-Score: 0.6 Left Proximal Femur: Neck BMD: 0.744 g/cm2 T-Score: -0.9 Z-Score: 0.6 Total BMD: 1.030 g/cm2 T-Score: 0.7 Z-Score: 2.0 Compared with standards for the young adult, lowest measured bone densityplaces the patient in the W.H.O. osteopenic range. IMPRESSION: Osteopenia. PLEASE NOTE: W.H.O. classification is based on lowest measured density at the spine,femoral neck, or total hip.This classification has prognostic significancewhen applied to post menopausal women and older men. 1) The World Health Organization defines low BMD as follows: T-score Normal at or > -1 Osteopenia < -1 and > -2.5 Osteoporosis at or < -2.5 withoutfractures Established osteoporosis < -2.5 with fractures -------- FINAL REPORT -------- Dictated By: Cynthia Rocha Dictated Date: 07/29/2025 10:38 ET Assigned Physician: Cynthia Rocha Reviewed and Electronically Signed By: Cynthia Rocha Signed Date: 07/29/2025 10:40 ET Workstation ID: [id number] Transcribed By: Self Edit Transcribed Date: 07/29/2025 10:38 ET Shyam Ruth MD IM DXA PROCEDURES Fin al Result * Lipid panel with reflex to direct LDL (04/08/2025 3:55 PM EDT) Cholesterol 190 0 - 200 mg/dL LAB CHEMISTRY METHOD 04/08/2025 7:36 PM EDT [facility] Triglycerides 86 0 - 150 mg/dL LAB CHEMISTRY METHOD 04/08/2025 7:36 PM EDT [facility] HDL 73 >=40 mg/dL LAB CHEMISTRY METHOD 04/08/2025 7:36 PM EDT [facility] LDL Calculated 100 0 - 100 mg/dL LAB CHEMISTRY METHOD 04/08/2025 7:36 PM EDT [facility] VLDL Cholesterol Gary 17.2 mg/dL LAB CHEMISTRY METHOD 04/08/2025 7:36 PM EDT [facility] Non HDL Chol. (LDL+VLDL) 117 <145 mg/dL LAB CHEMISTRY METHOD 04/08/2025 7:36 PM EDT [facility] Chol/HDL Ratio 2.6 0.0 - 4.4 LAB CHEMISTRY METHOD 04/08/2025 7:36 PM EDT [facility] Blood Venous blood specimen / Unknown Venipuncture / Unknown 04/08/2025 3:55 PM EDT 04/08/2025 3:55 PM EDT Shyam Ruth MD LAB BLOOD ORDERABLES F inal Result [facility] [address] [place] [address], [place] [phone] * COLONOSCOPY Anesthesia - MAC; [facility] ENDOSCOPY (02/05/2025 11:44 AM EDT) Anatomical Region [...] for surveillance. Narrative 02/05/2025 11:47 AM EDT [facility] GI Patient Name: Rosalba Ng Procedure [...] verified by the physician, the nurse, the mold bunch trimmer and the data entry technician in the pre-procedure area in the [...] reduce spontaneously). Procedure Code(s): --- Professional --- 55401, Colonoscopy, flexible; with removal of tumor(s), polyp(s), or other lesion(s) by snare technique Diagnosis Code(s): --- Professional --- D12.5, Benign neoplasm of sigmoid colon CPT copyright 2020 [employer]. All rights reserved. The codes documented in this report are preliminary and upon feed mill tender review may be revised to meet current compliance requirements. Deepali Gaona MD 02/05/2025 11:47:20 AM This report has been signed electronically.Deepali Gaona MD Number of Addenda: 0 Note Initiated On: 02/05/2025 11:27 AM Scope Withdrawal Time: 0 hours 9 minutes 10 seconds Scope In: 11:32:35 AM Scope Out: 11:45:38 AM Endoscopy Department at [facility] - [address] [place] [phone] Procedure Note Deepali Gaona MD - 02/05/2025 [facility] GI Patient Name: Rosalba Ng Procedure [...] the physician, the nurse, theanesthetist and the data entry technician in the pre-procedure area in the [...] but reducespontaneously). Procedure Code(s): --- Professional --- 65924, Colonoscopy, flexible; with removal of tumor(s), polyp(s), or other lesion(s) by snare technique Diagnosis Code(s): --- Professional --- D12.5, Benign neoplasm of sigmoid colon CPT copyright 2020 [employer]. All rights reserved. The codes documented in this report are preliminary and upon feed mill tender reviewmay be revised to meet current compliance requirements. Deepali Gaona MD 02/05/2025 11:47:20 AM This report has been signed electronically.Deepali Gaona MD Number of Addenda: 0 Note Initiated On: 02/05/2025 11:27 AM Scope Withdrawal Time: 0 hours 9 minutes 10 seconds Scope In: 11:32:35 AM Scope Out: 11:45:38 AM Endoscopy Department at [facility] - [address] [place] [phone] IMPRESSION: - One 5 mm polyp in [...] is recommended in 1 year. Mammo Location: [facility], [address] [place] [address], [address], . -------- FINAL REPORT -------- Dictated By: Cynthia Rocha Dictated Date: 12/12/2024 17:55 ET Assigned Physician: Cynthia Rocha Reviewed and Electronically Signed By: Cynthia Rocha Signed Date: 12/12/2024 18:07 ET Workstation ID: [id number] Transcribed By: Self Edit Transcribed Date: 12/12/2024 [...] is recommended in 1 year. Mammo Location: [facility], [address] [place] [address], [address], . -------- FINAL REPORT -------- Dictated By: Cynthia Rocha Dictated Date: 12/12/2024 17:55 ET Assigned Physician: Cynthia Rocha Reviewed and Electronically Signed By: Cynthia Rocha Signed Date: 12/12/2024 18:07 ET Workstation ID: [id number] Transcribed By: Self Edit Transcribed Date: 12/12/2024 17:55 ET Shyam Ruth MD IMG BI PROCEDURES [place] l Result * Cervical Cancer Screening: HPV (07/21/2023) Pathologist [facility] Cervical Cancer Screening: HPV Negative, Abstracted Historical Provider HEALTH MAINTENANCE Final Result * Hepatitis C Screening (03/12/2013) Pathologist [facility] Hepatitis C Screening Abstracted us Historical Provider HEALTH MAINTENANCE Final Result from Last 3 Months or Most Recently Relevant to Health Maintenance Insurance [employer] MEDICARE Advance Directives Documents on File Type Date Recorded Patient Parachute Supervisor Expl anation Advance Directives and Living Will 08/11/2025 11:36 AM Health Care Proxy & MOLST Care Teams Map Drafter Relationship Specialty Start Date End Date Shyam Ruth MD [address] [place] [address] PCP - General 08/02/22
--- OUTSIDE RECORDS SUMMARY | 2025-09-18 13:49 | XMS_ITS | Encounter Summary ---
Author Organization [facility] Prior to 08/02/2024 Address [address] [place] [address] Care Team Providers Care Coal Or Ore Controller Name Role Phone Shyam Ruth MD Primary Care Provider Ilda Jennings MD Unavailable [phone] Encounter Details Date Type Department Care Team Description 12/06/[address] [facility] Records [address] [place] [address] Abstract, Provider Social History Tobacco Use Types [...] on filedocumented in this encounter Care Teams Coal Or Ore Controller Relationship Specialty Start Date End Date Shyam Ruth MD [address] [place] [address] PCP - General Internal Medicine 08/02/22 Ilda Jennings MD [address] [address] Specialist Neurosurgery 04/21/23 documented as of this encounter
--- OUTSIDE RECORDS SUMMARY | 2025-09-18 13:49 | XMS_ITS | Encounter Summary ---
Author Organization [facility] Prior to 08/02/2024 Address [address] [place] [address] Care Team Providers Care Skin Care Instructor Name Role Phone Fay Boucher MD Primary Care Provider Shyam Kelley MD Primary Care Provider Ilda Jennings MD Unavailable [phone] Encounter Details Date Type Department Care Team Description 01/13/2020 Pt. Non Urgent Medical Question Pulmonology - [place] [address] [facility] [address] [place] [phone] Paolo Hoang MD [address] [facility] [address] [place] [phone] Social History Tobacco Use Types Packs/Day [...] of this encounter Progress Notes * Kalani eRyes M.A. - 01/13/2020 2:44 PM EDTFrom: Rosendo Ng To: Paolo Hoang MD Sent: 01/13/2020 11:18 [...] on filedocumented in this encounter Care Teams Skin Care Instructor Relationship Specialty Start Date End Date Fay Boucher MD PCP - General 11/30/10 08/01/22 Shyam Ruth MD [address] [place] [address] PCP - General Internal Medicine 08/02/22 Ilda Jennings MD [address] [place] [id number] Specialist Neurosurgery 04/21/23 documented as of this encounter
--- OUTSIDE RECORDS SUMMARY | 2025-09-18 13:49 | XMS_ITS | Encounter Summary ---
Author Organization [facility] Prior to 08/02/2024 Address [address] [place] [address] Care Team Providers Care Supervisor Phosphatic Fertilizer Name Role Phone Fay Boucher MD Primary Care Provider Shyam Kelley MD Primary Care Provider Ilda Jennings MD Unavailable [phone] Encounter Details Date Type Department Care Team Description 03/27/2013 Supervisor Underwriting Clerks Report Medical Records [address] [place] [address] Casimiro Reed MD Social History Tobacco Use [...] on filedocumented in this encounter Care Teams Supervisor Phosphatic Fertilizer Relationship Specialty Start Date End Date Fay Boucher MD PCP - General 11/30/10 08/01/22 Shyam Ruth MD [address] [place] [address] PCP - General Internal Medicine 08/02/22 Ilda Jennings MD 175 [facility] [address] [place] [address] Specialist Neurosurgery 04/21/23 documented as of this encounter
--- OUTSIDE RECORDS SUMMARY | 2025-09-18 13:49 | XMS_ITS | Encounter Summary ---
Author Organization [facility] Prior to 08/02/2024 Address [address] [place] [address] Care Team Providers Care Silver Recovery Operator Name Role Phone Fay Durán MD Primary Care Provider Shyam Kelley MD Primary Care Provider Ilda Jennings MD Unavailable Reason for Referral * EXTERNAL (Routine) - Authorized/Booked Specialty Diagnoses / Procedures Referred By Nguyen garcia Referred To Contact Dermatology Procedures REFERRAL TO DERMATOLOGY Fay Durán MD [address] [place] [address] Brie Cruz [address] [place] [id number] Referral ID Status Reason Start Date Expiration Date V isits Requested Visits Authorized SEE NOTE Authorized/B ooked 05/29/2020 09/03/2020 1 1 Reason for Visit * Reason Onset Date Comments Cocoa Press Operator Feedback 05/29/2020 Dr. Brie Cruz Encounter Details Date Type Department Care Team Description 05/29/2020 Telephone Medicine/Pediatrics - [address] [address] Fay Durán MD Cocoa Press Operator Feedback (Dr. Brie Cruz) Social History Tobacco [...] Miscellaneous Notes * Telephone Encounter - Ashly Aranda - 05/29/2020 10:03 AM EDT Please review this patients new referral request. The referral has been pended. Please complete thefollowing: If approved> sign order If denied>please give instructions and route to your practice nursing pool. Practice nurse should inform referrals and the patient if denied. Subscriber: SANTI NG Submitter : FAY DURÁN Submitter Type: Provider Referral (#[id number]) Specialty Care Review Type: Initial Certification Status : Certified in total Service Type : Medical Care Place Of Service : Office Visits : 6 Service Date : 05/29/2020-05/29/2021 Service Providers Provider Name ID Provider Type Specialty MD BRIE CRUZ NPI : [id number] Performing Specialist * Telephone Encounter - Nahomy Zamora - 05/29/2020 9:21 AM EDT What insurance does the patient have today? Payor: [employer]/HMO FFS / Plan: HMO $30 ROARING GAP [id number] / Product Type: HMO PRE-PAID Effective 07/02/09: [facility] will not retro referral requests over 90 [...] insurance must be obtained and registered in [facility] or their referral can not be [...] up/continuation of care. Patients PCP is Dr Duránsoakers supervisor and LAST NAME of SPECIALIST PATIENT is [...] YES Is this visit:Follow Up Address of Specialist:[address] [place] [address] [address] [facility] [address] Phone # of Specialist:[phone] Fax #: (if applicable):[phone] Does patient have an appointment scheduled?: No, needs referral first Date of appointment- (including a retro-request): Is this appointment related to: Not MVA, WC or Surgery related documented in this encounter Plan of Treatment Not on file documented as of this encounter Visit Diagnoses Not on filedocumented in this encounter Care Teams Silver Recovery Operator Relationship Specialty Start Date End Date Fay Durán MD PCP - General 11/30/10 08/01/22 Shyam Ruth MD [address] [place] [address] PCP - General Internal Medicine 08/02/22 Ilda Jennings MD 175 [facility] [address] [place] [address] Specialist Neurosurgery 04/21/23 documented as of this encounter
--- OUTSIDE RECORDS SUMMARY | 2025-09-18 13:49 | XMS_ITS | Encounter Summary ---
Author Organization [facility] Prior to 08/02/2024 Address [address] [place] [address] Care Team Providers Care Position Classification Specialist Name Role Phone Fay Boucher MD Primary Care Provider Shyam Kelley MD Primary Care Provider Ilda Jennings MD Unavailable Reason for Visit * Reason Onset Date Comments Provider Call Back 05/15/2020 Encounter Details Date Type Department Care Team Description 05/15/2020 Telephone Pulmonology - [place] 175 [facility] [address] [place] [address] Shelbie Regalado FNP [address] [place] [address] Provider Call Back Social History Tobacco Use [...] priority call as the patient did not picker packer when I called her for the appointment. Patient called. * Telephone Encounter - Libertad Hyman - 05/15/2020 8:52 AM EDT Patient miss call. Please call back. documented in this encounter Plan of Treatment Not on file documented as of this encounter Visit Diagnoses Not on filedocumented in this encounter Care Teams Position Classification Specialist Relationship Specialty Start Date End Date Fay Boucher MD PCP - General 11/30/10 08/01/22 Shyam Ruth MD [address] [place] [address] PCP - General Internal Medicine 08/02/22 Ilda Jennings MD [address] [place] [address] [address] [place] [address] Specialist Neurosurgery 04/21/23 documented as of this encounter
--- OUTSIDE RECORDS SUMMARY | 2025-09-18 13:49 | XMS_ITS | Encounter Summary ---
Author Organization [facility] Address [address] [place] [address] Care Team Providers Care Agricultural Education Professor Name Role Phone Shyam Ruth MD Primary Care Provider Encounter Details Date Type Department Care Team (Late st Contact Info) Description 07/29/2025 Results Follow-Up Adult Medicine [facility] [address] [place], [place] [phone] Shyam Ruth MD [address] [place], [place] Social History Tobacco Use Types Packs/Day Years Used Date Smoking Tobacco: Former Cigarettes 3.5 Q uit: 06/22/2003 Smokeless Tobacco: Never Alcohol [...] for your loved ones. For example, child neurologist or elderly care for an older adult? [...] as of this encounter Plan of Treatment Upcoming Encounters Date Type Department Care Team (Late st Contact Info) Description 01/07/2026 10:00 AM EDT Office Visit Pulmonology - [place] [address] [place] [phone] Minal Hager MD [address] [place] [phone] 02/10/2026 11:00 AM EDT Office Visit Adult Medicine [facility] [address] [place] [address] Shyam Ruth MD [address] [place] [address] documented as of this encounter Visit Diagnoses Not on filedocumented in this encounter Additional Health Concerns Assessment Noted Time PHQ-9 Depression Total Score: 0 04/08/20 25 3:10 PM EDT A fall risk assessment has been complete d for the patient 04/08/2025 3:08 PM EDT documented as of this encounter Care Teams Agricultural Education Professor Relationship Specialty Start Date End Date Shyam Ruth MD [address] [place] [address] PCP - General 08/02/22 documented as of this encounter
--- OUTSIDE RECORDS SUMMARY | 2025-09-18 13:49 | XMS_ITS | Encounter Summary ---
Author Organization [facility] Prior to 08/02/2024 Address [address] [place] [address] Care Team Providers Care Geospatial Scientist Name Role Phone Fay Boucher MD Primary Care Provider Shyam Kelley MD Primary Care Provider Ilda Jennings MD Unavailable [phone] Encounter Details Date Type Department Care Team Description 04/27/2013 Night Triage Doc Medical Records [address] [place] [address] Abstract, Provider Social History Tobacco Use Types [...] on filedocumented in this encounter Care Teams Geospatial Scientist Relationship Specialty Start Date End Date Fay Boucher MD PCP - General 11/30/10 08/01/22 Shyam Ruth MD [address] [place] [address] PCP - General Internal Medicine 08/02/22 Ilda Jennings MD [address] [place] [address] [address] [place] [address] Specialist Neurosurgery 04/21/23 documented as of this encounter
--- OUTSIDE RECORDS SUMMARY | 2025-09-18 13:49 | XMS_ITS | Encounter Summary ---
Author Organization [facility] Prior to 08/02/2024 Address [address] [place] [address] Care Team Providers Care Front End Loader Operator Name Role Phone Fay Boucher MD Primary Care Provider Shyam Kelley MD Primary Care Provider Ilda Jennings MD Unavailable Encounter Details Date Type Department Care Team Description 12/10/2012 Pt. Non Urgent Medic al Question Medicine/Pediatrics - [address] [address] Fay Boucher MD Social History Tobacco Use [...] weight and I would like to take [facility] Advanced Muscle Performance Ripped [place] Program. Will this interfer with any of the medication I am on? documented in this encounter Plan of Treatment Not on file documented as of this encounter Visit Diagnoses Not on filedocumented in this encounter Care Teams Front End Loader Operator Relationship Specialty Start Date End Date Fay Boucher MD PCP - General 11/30/10 08/01/22 Shyam Ruth MD [address] [place] [address] PCP - General Internal Medicine 08/02/22 Ilda Jennings MD [address] [address] Specialist Neurosurgery 04/21/23 documented as of this encounter
--- OUTSIDE RECORDS SUMMARY | 2025-09-18 13:49 | XMS_ITS | Encounter Summary ---
Author Organization [facility] Prior to 08/02/2024 Address [address] [place] [address] Care Team Providers Care Management Specialist Name Role Phone Fay Boucher MD Primary Care Provider Shyam Kelley MD Primary Care Provider Ilda Jennings MD Unavailable [phone] Encounter Details Date Type Department Care Team Description 09/02/2016 Material Hauler Report Medical Records [address] [place] [address] Mayuri Bravo MD Social History Tobacco Use [...] on filedocumented in this encounter Care Teams Management Specialist Relationship Specialty Start Date End Date Fay Boucher MD PCP - General 11/30/10 08/01/22 Shyam Ruth MD [address] [place] [address] PCP - General Internal Medicine 08/02/22 Ilda Jennings MD 175 [facility] [address] [place] [address] Specialist Neurosurgery 04/21/23 documented as of this encounter
--- OUTSIDE RECORDS SUMMARY | 2025-09-18 13:49 | XMS_ITS | Encounter Summary ---
Author Organization [facility] Prior to 08/02/2024 Address [address] [place] [address] Care Team Providers Care Blocker And Sewer Name Role Phone Fay Boucher MD Primary Care Provider Shyam Kelley MD Primary Care Provider Ilda Jennings MD Unavailable [phone] Encounter Details Date Type Department Care Team Description 08/05/2016 Release of Information Medical Records [address] [place] [address] Abstract, Provider Social History Tobacco Use Types [...] on filedocumented in this encounter Care Teams Blocker And Sewer Relationship Specialty Start Date End Date Fay Boucher MD PCP - General 11/30/10 08/01/22 Shyam Ruth MD [address] [place] [address] PCP - General Internal Medicine 08/02/22 Ilda Jennings MD [address] [place] [address] [place] [address] Specialist Neurosurgery 04/21/23 documented as of this encounter
--- OUTSIDE RECORDS SUMMARY | 2025-09-18 13:49 | XMS_ITS | Encounter Summary ---
Author Organization [facility] Prior to 08/02/2024 Address [address] [place] [address] Care Team Providers Care Link And Link Knitting Machine Operator Name Role Phone Shyam Ruth MD Primary Care Provider Ilda Jennings MD Unavailable [phone] Reason for Visit * Reason Onset Date Comments medication problems 01/30/2024 Prior Authorization 01/30/2024 Oxycodone - Acet Encounter Details Date Type Department Care Team Description 01/30/2024 Telephone Adult [address] [address] Shyam Ruth MD [address] [place] [phone] medication problems; Prior Authorization (Oxycodone - Acet [...] 02/02/2024 2:23 PM EDT Request Reference Number: [id number]. OXYCOD/APAP TAB 5-325MG is approved through 01/30/2025. Yourpatient may now fill this prescription and it will be covered. Authorization Expiration Date: 01/30/2025 Breanna Woody Prior Auth Dep Ext [id number] * Telephone Encounter - Breanna Woody M.A. - 01/31/2024 9:41 AM EDT Auth sent with [facility] [id number] Cont of care Breanna Woody Prior Auth Dep Ext [id number] * Telephone Encounter - Velvet Adair M.A. - 01/30/2024 3:35 PM EDT Spoke to Jamie Hernandez to request they fax the PA request to [phone], however I did obtain averbal x 2 to confirm a Prior Auth is needed for a 28 day supply of Oxycodone. PT was advised yesterday this medication needed a Prior Auth. * Telephone Encounter - Sparkle Pelletier L.P.NHarpal - 01/30/2024 3:25 PM EDT THIS IS [...] in process for 28 day supply Order: [id number] Date/Time Signed: 01/29/2024 ??3:46 PM E-Prescribing Status: [...] on filedocumented in this encounter Care Teams Link And Link Knitting Machine Operator Relationship Specialty Start Date End Date Shyam Ruth MD [address] [place] [address] PCP - General Internal Medicine 08/02/22 Ilda Jennings MD [address] [place] [address] Specialist Neurosurgery 04/21/23 documented as of this encounter
--- OUTSIDE RECORDS SUMMARY | 2025-09-18 13:49 | XMS_ITS | Encounter Summary ---
Author Organization [facility] Prior to 08/02/[address] [place] [address] Care Team Providers Care Billposter Name Role Phone Shyam Ruth MD Primary Care Provider Ilda Jennings MD Unavailable [phone] Encounter Details Date Type Department Care Team Description 12/04/2023 Orders Only Medical Records [address] [place] [address] Josette Rivers MD [address] [place] [phone] Social History Tobacco Use Types Packs/Day Years [...] Date/Time Associated Diagnosis Comments OUTSIDE PATHOLOGY Routine 11/07/2023 documented in this encounter Results * OUTSIDE PATHOLOGY (11/07/2023) Josette Rivers MD OUTSIDE LAB documented in this encounter Visit Diagnoses Not on filedocumented in this encounter Care Teams Billposter Relationship Specialty Start Date End Date Shyam Ruth MD [address] [place] [address] PCP - General Internal Medicine 08/02/22 Ilda Jennings MD 175 [facility] [address] [place] [address] Specialist Neurosurgery 04/21/23 documented as of this encounter
--- OUTSIDE RECORDS SUMMARY | 2025-09-18 13:49 | XMS_ITS | Clinical Summary ---
Author Organization [employer] Address [address] [place] [address] [address] [place] [address] Care Team Providers Care Warehouser Name Role Phone Unavailable Primary Care Provider [...] 1959 Sigmoidoscopy 1959 Alcohol/Substance Use Screening 1971 Tobacco Screening 1971 Hepatitis C Screening 1977 Hepatitis A Vaccines (1 of 2 - Risk 2-dose series) 1978 Pap Smear 1980 Cervical Cancer Screening 1989 HPV/Cotest 1989 Mammogram 1999 Pneumococcal Vaccine: 50+ Years (2 of 2 - PCV) 11/23/2005 11/23/2004 RSV Patients and Patients Aged 60 years or older (1 - Risk 50-74 years 1-dose series) 2009 Zoster Vaccines (1 of 2) 2009 Hepatitis B Vaccines (1 of 3 - Risk 3-dose series) 2019 DTaP/Tdap/Td Vaccines (2 - Td or Tdap) 04/30/2024 04/30/2014, 03/21/2005 COVID-19 Vaccine ( - season) 2025 10/07/2021, 01/10/2021, 12/20/2020 Influenza Vaccine (#1) 2025 3, 09/09/2020, 09/09/2020, Additional history exists HIB Vaccines Aged Out [...] age to complete this topic Insurance [facility] Care Teams Warehouser Relationship Specialty Start Date End Date SHAGGY JACKSON [address] [place] [address] Primary Care Provider 10/02/23
--- OUTSIDE RECORDS SUMMARY | 2025-09-18 13:50 | XMS_ITS | Encounter Summary ---
Author Organization [facility] Prior to 08/02/2024 Address [address] [place] [address] Care Team Providers Care It Business Analyst Name Role Phone Fay Boucher MD Primary Care Provider Shyam Kelley MD Primary Care Provider Ilda Jennings MD Unavailable [phone] Reason for Visit * Reason Comments E-prescribe Rx Request erica Encounter Details Date Type Department Care Team Description 04/18/2012 Refill OBGYN - [place] [address] Radu Jennings MD E-prescribe Rx Request (erica) [...] EDT WHEN WAS THE PATIENTS LAST ANNUAL BUS ATTENDANT EXAM?05/26/11 Does patient have an upcoming appointment? [...] the end of the day? YES Payor: [facility]/[employer] FFS Plan: [employer] $[employer] [id number] Product Type: [id number] documented in this encounter Plan of Treatment Not on file documented as of this encounter Visit Diagnoses Not on filedocumented in this encounter Care Teams It Business Analyst Relationship Specialty Start Date End Date Fay Boucher MD PCP - General 11/30/10 08/01/22 Shyam Ruth MD [address] [place] [address] PCP - General Internal Medicine 08/02/22 Ilda Jennings MD [address] [place] [address] Specialist Neurosurgery 04/21/23 documented as of this encounter
--- OUTSIDE RECORDS SUMMARY | 2025-09-18 13:50 | XMS_ITS | Encounter Summary ---
Author Organization [facility] Prior to 08/02/2024 Address [address] [place] [address] Care Team Providers Care Section Hand Name Role Phone Fay Boucher MD Primary Care Provider Shyam Kelley MD Primary Care Provider lIda Jennings MD Unavailable [phone] Encounter Details Date Type Department Care Team Description 10/29/2019 [facility] Medical Records [address] [place] [address] Abstract, Provider Social History Tobacco Use Types [...] on filedocumented in this encounter Care Teams Section Hand Relationship Specialty Start Date End Date Fay Boucher MD PCP - General 11/30/10 08/01/22 Shyam Ruth MD [address] [place] [address] PCP - General Internal Medicine 08/02/22 Ilda Jennings MD [address] [place] [address] [address] [place] [address] Specialist Neurosurgery 04/21/23 documented as of this encounter
--- OUTSIDE RECORDS SUMMARY | 2025-09-18 13:50 | XMS_ITS | Encounter Summary ---
Author Organization [facility] Prior to 08/02/2024 Address [address] [place] [address] Care Team Providers Care Quality Compliance Manager Name Role Phone Fay Boucher MD Primary Care Provider Shyam Kelley MD Primary Care Provider Ilda Jennings MD Unavailable [phone] Encounter Details Date Type Department Care Team Description 07/13/2018 Pt. 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 Whatexactly is the plan with him? I can't get in till . Thank you. documented in this encounter Plan of Treatment Not on file documented as of this encounter Visit Diagnoses Not on filedocumented in this encounter Care Teams Quality Compliance Manager Relationship Specialty Start Date End Date Fay Boucher MD PCP - General 11/30/10 08/01/22 Shyam Ruth MD [address] [place] [address] PCP - General Internal Medicine 08/02/22 Ilda Jennings MD [address] [place] [address] Specialist Neurosurgery 04/21/23 documented as of this encounter
--- OUTSIDE RECORDS SUMMARY | 2025-09-18 13:50 | XMS_ITS | Encounter Summary ---
Author Organization [facility] Prior to 08/02/2024 Address [address] [place] [address] Care Team Providers Care Fuel Assembler Name Role Phone Fay Boucher MD Primary Care Provider Shyam Kelley MD Primary Care Provider Ilda Jennings MD Unavailable [phone] Encounter Details Date Type Department Care Team Description 04/17/2019 Release of Information Medical Records [address] [place] [address] Abstract, Provider Social History Tobacco Use Types [...] on filedocumented in this encounter Care Teams Fuel Assembler Relationship Specialty Start Date End Date Fay Boucher MD PCP - General 11/30/10 08/01/22 Shyam Ruth MD [address] [place] [address] PCP - General Internal Medicine 08/02/22 Ilda Jennings MD [address] [place] [address] [address] [place] [address] Specialist Neurosurgery 04/21/23 documented as of this encounter
--- OUTSIDE RECORDS SUMMARY | 2025-09-18 13:50 | XMS_ITS | Encounter Summary ---
Author Organization [facility] Prior to 08/02/2024 Address [address] [place] [address] Care Team Providers Care Weight Clerk Name Role Phone Fay Boucher MD Primary Care Provider Shyam Kelley MD Primary Care Provider Ilda Jennings MD Unavailable [phone] Encounter Details Date Type Department Care Team Description 06/14/2016 Release of Information Medical Records [address] [place] [address] Abstract, Provider Social History Tobacco Use Types [...] on filedocumented in this encounter Care Teams Weight Clerk Relationship Specialty Start Date End Date Fay Boucher MD PCP - General 11/30/10 08/01/22 Shyam Ruth MD [address] [place] [address] PCP - General Internal Medicine 08/02/22 Ilda Jennings MD [address] [place] [address] [place] [address] Specialist Neurosurgery 04/21/23 documented as of this encounter
--- OUTSIDE RECORDS SUMMARY | 2025-09-18 13:50 | XMS_ITS | Encounter Summary ---
Author Organization [facility] Prior to 08/02/2024 Address [address] [place] [address] Care Team Providers Care Sales & Service Associate Name Role Phone Fay Boucher MD Primary Care Provider Shyam Kelley MD Primary Care Provider Ilda Jennings MD Unavailable [phone] Reason for Visit * Reason Onset Date Comments APPOINTMENT 11/09/2018 Encounter Details Date Type Department Care Team Description 11/09/2018 Telephone Pulmonology - [place] 175 [facility] [address] [place] [phone] Paolo Hoang MD 175 [facility] [address] [place] [phone] APPOINTMENT Social History Tobacco Use Types Packs/Day Years [...] encounter Miscellaneous Notes * Telephone Encounter - Alejandrina Garcia - 11/09/2018 9:38 AM EST Patient said somebody called her and doesn't know who it was to schedule an appointment regarding acancellation list. documented in this encounter Plan of Treatment Not on file documented as of this encounter Visit Diagnoses Not on filedocumented in this encounter Care Teams Sales & Service Associate Relationship Specialty Start Date End Date Fay Boucher MD PCP - General 11/30/10 08/01/22 Shyam Ruth MD [address] [place] [address] PCP - General Internal Medicine 08/02/22 Ilda Jennings MD [address] [place] [address] Specialist Neurosurgery 04/21/23 documented as of this encounter
--- OUTSIDE RECORDS SUMMARY | 2025-09-18 13:50 | XMS_ITS | Encounter Summary ---
Author Organization [facility] Prior to 08/02/2024 Address [address] [place] [address] Care Team Providers Care Computer Game Programmer Name Role Phone Shyam Ruth MD Primary Care Provider Ilda Jennings MD Unavailable [phone] Reason for Visit * Reason Onset Date Comments Prior Authorization 03/16/2023 MRI lumbar Encounter Details Date Type Department Care Team Description 03/16/2023 Telephone Adult Medicine [address] [address] Shyam Ruth MD [address] [place] [address] Prior Authorization (MRI lumbar) Social History Tobacco Use Types Packs/Day Years [...] suspected to have Coronavirus/COVID-19? No / Unsure 03/15/2023 10:40 AM EDT documented as of this encounter Miscellaneous Notes * Telephone Encounter - Jenan López - 03/16/2023 12:11 PM EDT [facility]NE auth pending Case# [id number] documented in this encounter Plan of Treatment Not on file documented as of this encounter Visit Diagnoses Not on filedocumented in this encounter Care Teams Computer Game Programmer Relationship Specialty Start Date End Date Shyam Ruth MD [address] [place] [address] PCP - General Internal Medicine 08/02/22 Ilda Jennings MD [address] [place] [address] [place] [address] Specialist Neurosurgery 04/21/23 documented as of this encounter
--- OUTSIDE RECORDS SUMMARY | 2025-09-18 13:50 | XMS_ITS | Encounter Summary ---
Author Organization [facility] Prior to 08/02/2024 Address [address] [place] [address] Care Team Providers Care Aviation Medicine Specialist Name Role Phone Fay Boucher MD Primary Care Provider Shyam Kelley MD Primary Care Provider Ilda Jennings MD Unavailable [phone] Reason for Visit * Reason Onset Date Comments DME Request 05/24/2019 Encounter Details Date Type Department Care Team Description 05/24/2019 Telephone Pulmonology - [place] [address] [facility] [address] [place] [address] Shelbie Regalado [facility] [address] [place] [address] DME Request Social History Tobacco Use Types Packs/Day [...] encounter Miscellaneous Notes * Telephone Encounter - Dawna Juan - 05/24/2019 4:35 PM EDT Patient called today stating she still does not have the supplies for her CPAP machine-needs the head piece and filter. Patient has tried to contact [employer] but the phone disconnects after a few rings.Please help the patient to obtain the supplies she needs, specifically if there is new phone the patient call (or if we can call [employer], per patient request). documented in this encounter Plan of Treatment Not on file documented as of this encounter Visit Diagnoses Not on filedocumented in this encounter Care Teams Aviation Medicine Specialist Relationship Specialty Start Date End Date Fay Boucher MD PCP - General 11/30/10 08/01/22 Shyam Ruth MD [address] [place] [address] PCP - General Internal Medicine 08/02/22 Ilda Jennings MD [address] [place] [address] Specialist Neurosurgery 04/21/23 documented as of this encounter
--- OUTSIDE RECORDS SUMMARY | 2025-09-18 13:50 | XMS_ITS | Encounter Summary ---
Author Organization [facility] Prior to 08/02/2024 Address [address] [place] [address] Care Team Providers Care Extrusion Process Operator Name Role Phone Shyam Ruth MD Primary Care Provider Ilda Jennings MD Unavailable [phone] Encounter Details Date Type Department Care Team Description 10/13/2023 Air Drier Machine Operator Report Medical Records [address] [place] [address] Toby Arellano Social History Tobacco Use Types [...] on filedocumented in this encounter Care Teams Extrusion Process Operator Relationship Specialty Start Date End Date Shyam Ruth MD [address] [place] [address] PCP - General Internal Medicine 08/02/22 Ilda Jennings MD [address] [address] Specialist Neurosurgery 04/21/23 documented as of this encounter
--- OUTSIDE RECORDS SUMMARY | 2025-09-18 13:50 | XMS_ITS | Encounter Summary ---
Author Organization [facility] Prior to 08/02/2024 Address [address] [place] [address] Care Team Providers Care Pictures Editor Name Role Phone Fay Boucher MD Primary Care Provider Shyam Kelley MD Primary Care Provider Ilda Jennings MD Unavailable [phone] Encounter Details Date Type Department Care Team Description 05/21/2012 Surg Physician Asst Report Medical Records [address] [place] [address] Dami Tee Social History Tobacco Use Types [...] on filedocumented in this encounter Care Teams Pictures Editor Relationship Specialty Start Date End Date Fay Boucher MD PCP - General 11/30/10 08/01/22 Shyam Ruth MD [address] [place] [address] PCP - General Internal Medicine 08/02/22 Ilda Jennings MD 175 [facility] [address] [place] [address] Specialist Neurosurgery 04/21/23 documented as of this encounter
--- OUTSIDE RECORDS SUMMARY | 2025-09-18 13:50 | XMS_ITS | Encounter Summary ---
Author Organization [facility] Prior to 08/02/2024 Address [address] [place] [address] Care Team Providers Care Mastic Sprayer Name Role Phone Shyam Ruth MD Primary Care Provider Ilda Jennings MD Unavailable [phone] Encounter Details Date Type Department Care Team Description 10/19/2023 Orders Only Medical Records [address] [place] [address] Toby Arellano Social History Tobacco Use Types [...] on filedocumented in this encounter Care Teams Mastic Sprayer Relationship Specialty Start Date End Date Shyam Ruth MD [address] [place] [address] PCP - General Internal Medicine 08/02/22 Ilda Jennings MD [address] [place] [address] Specialist Neurosurgery 04/21/23 documented as of this encounter
--- OUTSIDE RECORDS SUMMARY | 2025-09-18 13:50 | XMS_ITS | Encounter Summary ---
Author Organization [facility] Prior to 08/02/2024 Address [address] [place] [address] Care Team Providers Care Repairer Wood Furniture Name Role Phone Fay Boucher MD Primary Care Provider Shyam Kelley MD Primary Care Provider Ilda Jennings MD Unavailable [phone] Encounter Details Date Type Department Care Team Description 02/21/2011 Transfer Records Medical Records [address] [place] [address] Abstract, Provider Social History Tobacco Use Types [...] on filedocumented in this encounter Care Teams Repairer Wood Furniture Relationship Specialty Start Date End Date Fay Boucher MD PCP - General 11/30/10 08/01/22 Syham Ruth MD [address] [place] [address] PCP - General Internal Medicine 08/02/22 Ilda Jennings MD [address] [place] [address] [address] [place] [address] Specialist Neurosurgery 04/21/23 documented as of this encounter
--- OUTSIDE RECORDS SUMMARY | 2025-09-18 13:50 | XMS_ITS | Encounter Summary ---
Author Organization [facility] Prior to 08/02/2024 Address [address] [place] [address] Care Team Providers Care Felt Carbonizer Name Role Phone Fay Boucher MD Primary Care Provider Shyam Kelley MD Primary Care Provider Ilda Jennings MD Unavailable [phone] Encounter Details Date Type Department Care Team Description 11/28/2014 Hospital Medical Records [address] [place] [address] Ander Kim K[address] [address] Social History Tobacco Use Types Packs/Day Years [...] on filedocumented in this encounter Care Teams Felt Carbonizer Relationship Specialty Start Date End Date Fay Boucher MD PCP - General 11/30/10 08/01/22 Shyam Ruth MD [address] [place] [address] PCP - General Internal Medicine 08/02/22 Ilda Jennings MD [address] [place] [address] [address] [place] [address] Specialist Neurosurgery 04/21/23 documented as of this encounter
--- OUTSIDE RECORDS SUMMARY | 2025-09-18 13:50 | XMS_ITS | Encounter Summary ---
Author Organization [facility] Prior to 08/02/2024 Address [address] [place] [address] Care Team Providers Care Rig Manager Name Role Phone Fay Boucher MD Primary Care Provider Shyam Kelley MD Primary Care Provider Ilda Jennings MD Unavailable Encounter Details Date Type Department Care Team Description 2014 Release of Information Medical Records [address] [place] [address] Abstract, Provider Social History Tobacco Use Types [...] on filedocumented in this encounter Care Teams Rig Manager Relationship Specialty Start Date End Date Fay Boucher MD PCP - General 11/30/10 08/01/22 Shyam Ruth MD [address] [place] [address] PCP - General Internal Medicine 08/02/22 Ilda Jennings MD [address] [place] [address] [place] [address] Specialist Neurosurgery 04/21/23 documented as of this encounter
--- OUTSIDE RECORDS SUMMARY | 2025-09-18 13:50 | XMS_ITS | Encounter Summary ---
Author Organization [facility] Prior to 08/02/2024 Address [address] [place] [address] Care Team Providers Care Soil Sort Worker Name Role Phone Fay Boucher MD Primary Care Provider Shyam Kelley MD Primary Care Provider Ilda Jennings MD Unavailable [phone] Encounter Details Date Type Department Care Team Description 07/20/2016 Hospital Medical Records [address] [place] [address] Mayuri Bravo MD Social History Tobacco Use [...] on filedocumented in this encounter Care Teams Soil Sort Worker Relationship Specialty Start Date End Date Fay Boucher MD PCP - General 11/30/10 08/01/22 Shyam Ruth MD [address] [place] [address] PCP - General Internal Medicine 08/02/22 Ilda Jennings MD 175 [facility] [address] [place] [address] Specialist Neurosurgery 04/21/23 documented as of this encounter
--- OUTSIDE RECORDS SUMMARY | 2025-09-18 13:50 | XMS_ITS | Encounter Summary ---
Author Organization [facility] Prior to 08/02/2024 Address [address] [place] [address] Care Team Providers Care Online Marketing Coordinator Name Role Phone Fay Boucher MD Primary Care Provider Shyam Kelley MD Primary Care Provider Ilda Jennings MD Unavailable [phone] Encounter Details Date Type Department Care Team Description 08/03/2016 Home Economist Consumer Service Report Medical Records [address] [place] [address] Mayuri Bravo MD Social History Tobacco Use [...] on filedocumented in this encounter Care Teams Online Marketing Coordinator Relationship Specialty Start Date End Date Fay Boucher MD PCP - General 11/30/10 08/01/22 Shyam Ruth MD [address] [place] [address] PCP - General Internal Medicine 08/02/22 Ilda Jennings MD 175 [facility] [address] [place] [address] Specialist Neurosurgery 04/21/23 documented as of this encounter
--- OUTSIDE RECORDS SUMMARY | 2025-09-18 13:50 | XMS_ITS | Encounter Summary ---
Author Organization [facility] Prior to 08/02/2024 Address [address] [place] [address] Care Team Providers Care Neuroscience Director Na Name Role Phone Fay Boucher MD Primary Care Provider Shyam Kelley MD Primary Care Provider Ilda Jennings MD Unavailable [phone] Encounter Details Date Type Department Care Team Description 04/18/2018 Cotton Ball Bagger Report Medical Records [address] [place] [address] Toby rAellano Social History Tobacco Use Types Packs/Day Years [...] on filedocumented in this encounter Care Teams Neuroscience Director Na Relationship Specialty Start Date End Date Fay Boucher MD PCP - General 11/30/10 08/01/22 Shyam Ruth MD [address] [place] [address] PCP - General Internal Medicine 08/02/22 Ilda Jennings MD [address] [place] [address] [address] [place] [address] Specialist Neurosurgery 04/21/23 documented as of this encounter
--- OUTSIDE RECORDS SUMMARY | 2025-09-18 13:50 | XMS_ITS | Encounter Summary ---
Author Organization [facility] Prior to 08/02/2024 Address [address] [place] [address] Care Team Providers Care Apprise Counselor Name Role Phone Shyam Ruth MD Primary Care Provider Ilda Jennings MD Unavailable [phone] Encounter Details Date Type Department Care Team Description 05/11/2023 Pt. Non Urgent Medical Question Pulmonology - [place] [address] [address] Minal Hager MD [address] [address] Social History Tobacco Use Types Packs/Day [...] Sent: 05/11/2023 5:26 AM EDT Subject: Symbacourt [facility] has informed me that they sent a request to change my sybacourt. They also said they have not gotten a response. Should I be doing something? Thank you Rosalba documented in this encounter Plan of Treatment Not on file documented as of this encounter Visit Diagnoses Not on filedocumented in this encounter Care Teams Apprise Counselor Relationship Specialty Start Date End Date Shyam Ruth MD [address] [place] [address] PCP - General Internal Medicine 08/02/22 Ilda Jennings MD [address] [place] [address] [address] [place] [address] Specialist Neurosurgery 04/21/23 documented as of this encounter
--- OUTSIDE RECORDS SUMMARY | 2025-09-18 13:51 | XMS_ITS | Encounter Summary ---
Author Organization [facility] Prior to 08/02/2024 Address [address] [place] [address] Care Team Providers Care Volleyball Assistant Coach Name Role Phone Shyam Ruth MD Primary Care Provider Ilda Jennings MD Unavailable [phone] Encounter Details Date Type Department Care Team Description 01/05/2023 Telephone Adult Medicine [address] [address] Shyam Ruth MD [address] [place] [address] [phone] Social History Tobacco Use Types Packs/Day Years [...] on filedocumented in this encounter Care Teams Volleyball Assistant Coach Relationship Specialty Start Date End Date Shyam Ruth MD [address] [place] [id number] PCP - General Internal Medicine 08/02/22 Ilda Jennings MD 175 [facility] [address] [place] [address] [place] [address] Specialist Neurosurgery 04/21/23 documented as of this encounter
--- OUTSIDE RECORDS SUMMARY | 2025-09-18 13:51 | XMS_ITS | Encounter Summary ---
Author Organization [facility] Prior to 08/02/2024 Address [address] [place] [address] Care Team Providers Care Manager Of Marketing Name Role Phone Shyam Ruth MD Primary Care Provider Ilda Jennings MD Unavailable Encounter Details Date Type Department Care Team Description 07/04/2024 Refill Adult Medicine [facility] [address] [place] [address] Shyam Ruth MD [address] [place] [address] [phone] Social History Tobacco Use Types Packs/Day Years [...] # Pharmacy Refill Daily Dose* Pymt Type BRUSH OR BROOM CUTTER 06/05/24 1 06/05/24 06/05/24 Oxycodone-Acetaminophen 56 28 [facility] [id number] [facility] (5741) 0/0 15.00 [place] Fill Date ID Written Sold Drug Qty Days Prescriber Rx # Pharmacy Refill Daily Dose* Pymt Type BRUSH OR BROOM CUTTER 5-325 05/02/24 1 05/02/24 05/02/24 Oxycodone-Acetaminophen 5-325 56 28 Mac Bha [id number] [facility] (5741) 0/0 15.00 [place] 04/03/24 1 04/03/24 04/05/24 Oxycodone-Acetaminophen 5-325 56 28 An Duo [id number] [facility] (5741) 0/0 15.00 [place] 03/06/24 1 03/06/24 03/06/24 Oxycodone-Acetaminophen 5-325 56 28 [facility] Bha [id number] [facility] (5741) 0/0 15.00 [place] 02/07/24 1 02/07/24 02/07/24 Oxycodone-Acetaminophen 5-325 56 28 Mac Bha [id number] [facility] (5741) 0/0 15.00 [place] 01/31/24 1 01/29/24 01/31/24 Oxycodone-Acetaminophen 5-325 14 7 Mac Bha [id number] [facility] (5741) 0/0 15.00 [place] 01/22/24 1 01/22/24 01/22/24 Oxycodone-Acetaminophen 5-325 14 7 Mac Bha [id number] [facility] (5741) 0/0 15.00 [place] 01/01/24 1 01/01/24 01/02/24 Oxycodone-Acetaminophen 5-325 14 7 An Duo [id number] [facility] (5741) 0/0 15.00 [place] 12/04/23 1 12/04/23 12/04/23 Oxycodone-Acetaminophen 5-325 [address] [facility] [id number] [facility] (5741) 0/0 15.00 [place] 11/03/23 1 11/03/23 11/03/23 Oxycodone-Acetaminophen 5-325 56 28 Mac a [id number] [facility] (3073) 0/0 15.00 [place] 10/06/23 1 10/06/23 10/07/23 Oxycodone-Acetaminophen 5-325 56 28 An Duo [id number] [facility] (3073) 0/0 15.00 [place] 09/05/23 1 09/05/23 09/05/23 Oxycodone-Acetaminophen 5-325 56 28 An [facility] [id number] [facility] (3073) 0/0 15.00 [place] 08/01/23 1 08/01/23 08/03/23 Oxycodone-Acetaminophen 5-325 [address] [facility] [facility] [id number] [facility] (3073) 0/0 15.00 [place] Rosalba Berenice : 1960 Sex: F Report Prepared: 07/04/2024 Providers Name Address [facility] Zipcode Phone Lucille Abarca [address] [facility] [address] Shyam Ruth [address] [facility] [address] Pharmacies Name Address [facility] Zipcode Phone [facility] [phone] [facility] [phone] [facility] [phone] [facility] [address] documented in this encounter Plan of Treatment Not on file documented as of this encounter Visit Diagnoses Not on filedocumented in this encounter Care Teams Manager Of Marketing Relationship Specialty Start Date End Date Shyam Ruth MD [address] [place] [address] PCP - General Internal Medicine 08/02/22 Ilda Jennings MD [address] [place] [address] Specialist Neurosurgery 04/21/23 documented as of this encounter
--- OUTSIDE RECORDS SUMMARY | 2025-09-18 13:51 | XMS_ITS | Encounter Summary ---
Author Organization [facility] Prior to 08/02/2024 Address [address] [place] [address] Care Team Providers Care Fretted Instrument Maker Hand Name Role Phone Fay Boucher MD Primary Care Provider Shyam Kelley MD Primary Care Provider Ilda Jennings MD Unavailable [phone] Encounter Details Date Type Department Care Team Description 02/27/2018 High School Assistant Football Coach Report Medical Records [address] [place] [address] Nahomy Morrisno, RD, LDN [address] [place] [address] Social History Tobacco Use Types Packs/Day Years [...] on filedocumented in this encounter Care Teams Fretted Instrument Maker Hand Relationship Specialty Start Date End Date Fay Boucher MD PCP - General 11/30/10 08/01/22 Shyam Ruth MD [address] [place] [address] PCP - General Internal Medicine 08/02/22 Ilda Jennings MD [address] [place] [address] [address] [place] [address] Specialist Neurosurgery 04/21/23 documented as of this encounter
--- OUTSIDE RECORDS SUMMARY | 2025-09-18 13:51 | XMS_ITS | Encounter Summary ---
Author Organization [facility] Prior to 08/02/2024 Address [address] [place] [address] Care Team Providers Care Production Miner Name Role Phone Fay Boucher MD Primary Care Provider Shyam Kelley MD Primary Care Provider Ilda Jennings MD Unavailable [phone] Encounter Details Date Type Department Care Team Description 12/13/2017 Sole Ruffer Report Medical Records [address] [place] [address] Nahomy Morrison, RD, LDN [address] [place] [address] Social History Tobacco Use Types Packs/Day Years [...] filedocumented in this encounter Care Teams Production Miner Relationship Specialty Start Date End Date Fay Boucher MD PCP - General 11/30/10 08/01/22 Shyam Ruth MD [address] [place] [address] PCP - General Internal Medicine 08/02/22 Ilda Jennings MD [address] [place] [address] 300 [place] [address] Specialist Neurosurgery 04/21/23 documented as of this encounter
--- OUTSIDE RECORDS SUMMARY | 2025-09-18 13:51 | XMS_ITS | Encounter Summary ---
Author Organization [facility] Prior to 08/02/2024 Address [address] [place] [address] Care Team Providers Care Ski Base Trimmer Name Role Phone Shyam Ruth MD Primary Care Provider Ilda Jennings MD Unavailable [phone] Encounter Details Date Type Department Care Team Description 10/21/2022 Refill Adult Medicine [facility] [address] [place] [address] Shyam Ruth MD [address] [place] [address] [phone] Social History Tobacco Use Types Packs/Day Years [...] health documented in this encounter Care Teams Ski Base Trimmer Relationship Specialty Start Date End Date Shyam Ruth MD [address] [place] [address] PCP - General Internal Medicine 08/02/22 Ilda Jennings MD 175 [facility] [address] [place] [address] Specialist Neurosurgery 04/21/23 documented as of this encounter
--- OUTSIDE RECORDS SUMMARY | 2025-09-18 13:51 | XMS_ITS | Encounter Summary ---
Author Organization [facility] Prior to 08/02/2024 Address [address] [place] [address] Care Team Providers Care Armament Repairer Name Role Phone Fay Boucher MD Primary Care Provider Shyam Kelley MD Primary Care Provider Ilda Jennings MD Unavailable [phone] Encounter Details Date Type Department Care Team Description 06/10/2017 Orders Only Pulmonology [address] [place] [address] Paolo Hoang MD [address] [place] [phone] Chronic obstructive pulmonary disease, unspecified COPD [...] 5 PM EDT Paolo Hoang MD LAB [employer] documented in this encounter Visit Diagnoses Diagnosis Chronic obstructive pulmonary disease, unspecified COPD type (HCC) Asthma, moderate persistent, well-controlled Unspecified asthma Morbid obesity due to excess calories (HCC) Snoring Other dyspnea and respiratory abnormality Former smoker Personal history of tobacco use, presenting hazards to health documented in this encounter Care Teams Armament Repairer Relationship Specialty Start Date End Date Fay Boucher MD PCP - General 11/30/10 08/01/22 Shyam Ruth MD [address] [place] [address] PCP - General Internal Medicine 08/02/22 Ilda Jennings MD [address] [place] [address] [address] [place] [address] Specialist Neurosurgery 04/21/23 documented as of this encounter
--- OUTSIDE RECORDS SUMMARY | 2025-09-18 13:51 | XMS_ITS | Clinical Summary ---
Author Organization [facility] Prior to 08/02/2024 Address [address] [place] [address] Care Team Providers Care Brushing Machine Operator Name Role Phone Shyam Ruth MD Primary Care Provider Ilda Jennings MD Unavailable [phone] Allergies No known active allergies Medications Medication Sig Dispensed Refills Start Date End Date Status CPAP Historical (HISTORICAL CPAP) Inhale into the lungs. BHIR-pressure 10-20 with 2 liter oxygen 0 Active omeprazole (PRILOSEC) 20 MG capsule Take 1 capsule by mouth daily. 30 capsule 5 01/15/2021 Active albuterol (PROVENTIL) (2.5 MG/3ML) 0.083% nebulizer solution Take 1 Vial by nebulization every 4 hours as needed for Wheezing for up to 180 days. 20 mL 0 03/15/2023 Active nystatin (MYCOSTATIN) powder Apply to abdominal rash 2-3 times a day as needed for up to 2 weeks 15 g 0 07/22/2023 Active Symbicort 160-4.5 MCG/ACT inhalerIndications :SHELL and COPD overlap syndrome (HCC),Centrilobula r emphysema (HCC),Asthma, moderate persistent, well-controlled,Ob structive sleep apnea,Allergic rhinitis due to animal hair and dander,Former heavy cigarette smoker (20-39 per day) Inhale 2 Puffs into the lungs 2 times daily for 90 days. 3 g 3 08/10/2023 Active primidone (MYSOLINE) 50 MG tablet Take 3 Tablets by mouth at bedtime. 270 Tablet 1 02/21/2024 Active nystatin (MYCOSTATIN) ointment Apply to abdominal rash 2-3 times a day for up to 2 weeks 30 g 0 02/21/2024 Active acetaminophen (Tylenol 8 Hour Arthritis Pain) 650 MG CR tablet Take 1 Tablet by mouth every 8 hours as needed for Pain. 270 Tablet 0 05/28/2024 Active buPROPion (WELLBUTRIN XL) 150 MG 24 hr tablet TAKE 1 TABLET BY MOUTH EVERY MORNING IN ADDITION TO 300 MG EVERY AM 90 Tablet 1 06/26/2024 Active buPROPion (WELLBUTRIN XL) 300 MG 24 hr tablet TAKE 1 TABLET BY MOUTH EVERY MORNING. IN ADDITION TO 150 MG EVERY AM 90 Tablet 1 06/26/2024 Active oxycodone-acetamin ophen (PERCOCET) 5-325 MG per tablet Take 1 Tablet by mouth every 12 hours as needed for Pain for up to 28 days. 56 Tablet 0 08/02/2024 Active Active Problems Problem Noted Date Intertriginous candidiasis 02/21/2024 Osteoarthritis of spine with radiculopat hy, lumbar region 03/29/2023 History of lumbar laminectomy 03/15/2023 Centrilobular emphysema 06/05/2018 Overlap syndrome 06/05/2018 Primary osteoarthritis of both knees 10/2017 Nonulcer dyspepsia 11/16/2017 IBS (irritable bowel syndrome) 8 NAFLD (nonalcoholic fatty liver disease) 11/16/2017 Obstructive sleep apnea mode rate AHI 19/REM AHI 27 with sleep related hypoventilation 06/10/2017 Overview: PLMD (periodic limb movement disorder) by PSG - will see if PAP therapy corrects 06/10/2017 Morbid obesity with BMI of 40.0-44.9, ad ult 12/15/2014 Asthma, moderate persistent, well-contro lled 06/06/2012 Depression 03/02/2012 Nausea 02/16/2011 Overview: EGD nl 02/08; H pylori Ab neg; phenergan no benefit; celiac nl Hidradenitis suppurativa 02/16/2011 Overview: groin Allergic rhinitis 01/25/2011 History of basal cell carcinoma 12/30/19 11 DUB (dysfunctional uterine bleeding) 11/2010 Overview: Endometrial biopsy performed on 12/14/2010: Benign; patient started on the oral contraceptive on 12/24/2010. 05/26/2011: Good response to the oral contraceptive. Resolved Problems Problem Noted Date Resolved Date Lumbar degenerative disc disease 04/21/2023 11/03/2023 Last Assessment & Plan: I reviewed this in detail with Ms. Ng and her family. By imaging, she has had some progression of facet disease causing lateral recess and foraminal stenosis since her decompression 7 years ago. From her description of her poor activity tolerance with in all positions and her constant pain, I believe she is more symptomatic from the severe degenerative disc disease at L4-5. She has also developed a slight grade 1 anterolisthesis at L3-4 and the question was raised of instability which we could check on with flexion-extension x-rays. At this point however, she would not wish to have more surgery not strictly necessary and I agree with her. She has great strength but is limited by pain. We discussed multiple other options such as an significant weight loss with a core strengthening program, L4-5 MARKUS, aquatic therapy, a spinal cord stimulator and a spinal fusion whether it just L4-5 or L3-5 depending on the flexion-extension films. For now, she will focus on weight loss and aquatic therapy and follow-up with me if things do not improve. Dependence on nocturnal oxygen therapy 7 09/29/2022 Abdominal pain, right lower quadrant 02/16/2011 11/08/2018 Overview: Abd US, CT, colonscopy, diagnostic laparoscopy COPD (chronic obstructive pulmonary disease) 06/05/2018 Overview: Pft's 04/01 mod obst Immunizations Name Administration Dates Next Due COVID-19 (Moderna) 10/07/2021 COVID-19 (Pfizer) Pt Reported 01/10/2021, 021 Influenza (> 6 Months) 09/09/2020,2014,08/14/2013,08/25,07/27/2011,09/29/2005 Influenza Vaccine-preservati ve Free-quadrivalent 4 Years 07/03/2023 Influenza Vaccine-quadrivale nt 4 Years Plus 07/26/2017 Pneumoccoccal(Adult) Polysac charide PPSV23 11/23/2004 TD (STATE SUPPLIED FOR ADULT S AND CHILDREN) 03/21/2005 Tdap 04/30/2014 Family History Medical History Relation Name Comments CA Colon Aunt 1 maternal aunt cancer,other Aunt 2 paternal aunt Cancer of the Lung Aunt 3 paternal aunt Hypertension Brother 1 valvular issue liver cancer Brother 2 Heart murmur Daughter 1 premature, HIV Asthma Daughter 2 Lymphoma Father bleeding ulcer Cancer of the Lung Maternal Grandfather d ied > age 50, smoker CA Colon Maternal Grandmother started with intestinal ca Cancer, Other Mother basal cell, tom ng ca [place] Mother ovarian cancer Mother USO at 29; US O and MEME at age 37 cancer,other Other 1 maternal gr unc le ? primary cancer,other Other 2 paternal first cousin- cancer,other Other 3 paternal first cousin ? primary in his 60s Cirrhosis Paternal Grandfather Stroke Paternal Grandmother 60s Breast cyst Sister CA Lung Uncle 1 maternal uncle Cancer, Other Uncle 2 ? primary, mat ernal uncle Leukemia Uncle 3 paternal uncle CA Breast Negative Hx Relation Name Status Comments Aunt 1 [...] 43 Q uit: 06/22/2003 Smokeless Tobacco: Never Tobacco Cessation:Counseling Given: Not Answered Alcohol Use Standard Drinks/Week Comments Yes 0 (1 standard drink = 0.6 oz pure alcohol) 1 beer a week, sometimes not at all Sex Assigned at Date Recorded Female 12/03/2022 12:20 PM EST Job Start Date Occupation Industry Not on file Not on file Not on file Last Filed Vital Signs Vital Sign Reading Time Taken Comments Blood Pressure 132/84 05/28/2024 3:22 PM EDT Pulse 84 05/28/2024 3:22 PM EDT Temperature 36.4 C (97.6 F) 02/21/2024 11:08 AM EDT Respiratory Rate 16 05/28/2024 3:22 PM EDT Oxygen Saturation 97% 02/08/2024 10:15 AM EDT Inhaled Oxygen Concentration - - Weight 116.6 kg (257 lb) 05/28/2024 3:22 PM EDT Height 162.6 cm (5' 4 ) 02/21/2024 11:08 AM EDT Body Mass Index 44.11 02/21/2024 11:08 AM EDT Plan of Treatment Health Maintenance Due Date Last Done Comments SHINGLES VACCINE (1 of 2) 2009 DTAP/TDAP/TD (2 - Td or Tdap) 04/30/2024 04/30/2014, 03/21/2005 BMI CHECK/ADVISE 10/02/2024 07/21/2023, 11/2022, 04/14/2023, Additional history exists COLON CANCER SCREENING 10/07/2024 5, 10/07/2014, 12/14/2010 (External Completion) BONE DENSITY SCREENING 2024 PNEUMOCOCCAL VACCINE (2 - PCV) 2024 11/23/2004 MAMMOGRAM 12/03/2024 12/04/2023, 0310/2022, 04/17/2020, Additional history exists SPIROMETRY (BREATHING CAPACITY TEST) FOR COPD 05/08/2025 05/08/2023, 05/08/2023, 03/13/2017, Additional history exists Covid-19 Vaccine ( season) 2025 10/07/2021, 01/10/2021, 12/20/2020 INFLUENZA (#1) 2025 07/03/2023, 12/06/2020, 07/26/2017, Additional history exists CERVICAL CANCER SCREENING 07/21/20262022, 03/25/2019, 11/26/2013, Additional history exists CHOLESTEROL SCREENING 03/29/2028 03/29/2023 , 09/29/2022, 04/11/2019, Additional history exists HEPATITIS C SCREENING Addressed 03/12/2013 (External Completion) Overridden with the intention of not completing the topic Care Teams Brushing Machine Operator Relationship Specialty Start Date End Date Shyam Ruth MD [address] [place] [address] PCP - General Internal Medicine 08/02/22 Ilda Jennings MD [address] [facility] [address] [place] [address] Specialist Neurosurgery 04/21/23
--- OUTSIDE RECORDS SUMMARY | 2025-09-18 13:51 | XMS_ITS | Encounter Summary ---
Author Organization [facility] Prior to 08/02/2024 Address [address] [place] [address] Care Team Providers Care Ux Consultant Name Role Phone Fay Boucher MD Primary Care Provider Shyam Kelley MD Primary Care Provider Ilda Jennings MD Unavailable [phone] Encounter Details Date Type Department Care Team Description 06/03/2021 Fuel Tank Sealer And Tester Report Medical Records [address] [place] [id number] Toby Arellano Social History Tobacco Use Types [...] on filedocumented in this encounter Care Teams Ux Consultant Relationship Specialty Start Date End Date Fay Boucher MD PCP - General 11/30/10 08/01/22 Shyam Ruth MD [address] [place] [address] PCP - General Internal Medicine 08/02/22 Ilda Jennings MD [address] [facility] [address] [place] [address] Specialist Neurosurgery 04/21/23 documented as of this encounter
--- OUTSIDE RECORDS SUMMARY | 2025-09-18 13:51 | XMS_ITS | Encounter Summary ---
Author Organization [facility] Prior to 08/02/2024 Address [address] [place] [address] Care Team Providers Care Production Worker Name Role Phone Fay Boucher MD Primary Care Provider Shyam Kelley MD Primary Care Provider Ilda Jennings MD Unavailable [phone] Encounter Details Date Type Department Care Team Description 12/02/2010 Release of Information Medical Records [address] [place] [id number] Abstract, Provider Social History Tobacco Use Types [...] filedocumented in this encounter Care Teams Production Worker Relationship Specialty Start Date End Date Fay Boucher MD PCP - General 11/30/10 08/01/22 Shyam Ruth MD [address] [place] [address] PCP - General Internal Medicine 08/02/22 Ilda Jennings MD [address] [place] [address] Specialist Neurosurgery 04/21/23 documented as of this encounter
--- OUTSIDE RECORDS SUMMARY | 2025-09-18 13:51 | XMS_ITS | Encounter Summary ---
Author Organization [facility] Prior to 08/02/2024 Address [address] [place] [address] Care Team Providers Care Civil Engineering Assistant Name Role Phone Fay Boucher MD Primary Care Provider Shyam Kelley MD Primary Care Provider Ilda Jennings MD Unavailable [phone] Encounter Details Date Type Department Care Team Description 11/02/2017 Hospital Medical Records [address] [place] [address] Marleen Gaona MD [address] [place] [address] Social History Tobacco Use Types Packs/Day Years [...] on filedocumented in this encounter Care Teams Civil Engineering Assistant Relationship Specialty Start Date End Date Fay Boucher MD PCP - General 11/30/10 08/01/22 Shyam Ruth MD [address] [place] [address] PCP - General Internal Medicine 08/02/22 Ilda Jennings MD [address] [place] [address] [address] [place] [address] Specialist Neurosurgery 04/21/23 documented as of this encounter
--- OUTSIDE RECORDS SUMMARY | 2025-09-18 13:51 | XMS_ITS | Encounter Summary ---
Author Organization [facility] Prior to 08/02/2024 Address [address] [place] [address] Care Team Providers Care Podiatry Doctor Name Role Phone Fay Durán MD Primary Care Provider Shyam Kelley MD Primary Care Provider Ilda Jennings MD Unavailable [phone] Reason for Visit * Reason Onset Date Comments Coremaking Machine Setter Feedback 10/20/2017 Gastroenterology Encounter Details Date Type Department Care Team Description 10/20/2017 Telephone Gastroenterology - [address] [address] Michael Brannon PA-C Coremaking Machine Setter Feedback (Gastroenterology) Social History Tobacco Use Types [...] send back to Referrals. Thank you, Sheree Senior Water/Wastewater Engineer documented in this encounter Miscellaneous Notes * Telephone Encounter - Sheree Wilkins - 10/20/2017 1:00 PM EST Please disregard this Order. I did not realize there was an order placed already. Thank you, Sheree Senior Water/Wastewater Engineer * Telephone Encounter - Jennifer Arroyo - 10/20/2017 1:00 PM EST Patient: ABDOUL Veronica CARMINA Subscriber: GIL GREWAL Submitter : FAY DURÁN Submitter Type: Provider : 1960 Referral (#[id number]) Specialty Care Review Type: Initial Certification Status : Certified in total Service Type : Medical Care Place Of Service : Office Visits : 6 Service Date : 10/20/2017-10/20/2018 Service Providers Provider Name ID Provider Type Specialty MD RUBEN CASTILLO NPI : [id number] Performing Specialist * Telephone Encounter - Marli Garvin - 10/20/2017 12:55 PM EST I already took care of this. They just needed the diagnosis for the egd at [facility]. * Telephone Encounter - Michael Brannon PA-C - 10/20/2017 12:51 PM EST What is pt being referred to GI for? I saw her last and sent her for an EGD to be done at [facility]. Does she need a referral to have [...] the patient if denied. Thank you, Sheree Senior Water/Wastewater Engineer * Telephone Encounter - Marliwagner Blackvedo - 10/20/2017 12:36 PM EST Diagnosis: RUQ abdominal pain. * Telephone Encounter - Marli Bharathi - 10/20/2017 11:35 AM EST What insurance does the patient have today? Payor[place] / Plan: HMO $30 [id number] / Product Type: HMO PRE-PAID Effective 07/02/09: [...] insurance must be obtained and registered in [facility] or their referral can not be processed. Is this a retro request? NO. If yes for what date of service do you need the retro referral? N/A Who is calling to request this referral? [email or web address] If the caller is not the patient, what is their name? 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 materials specialist DIAGNOSIS Patient is being seen for (Not a body part or a procedure): upper endoscopy Have you seen this SPECIALIST for this PROBLEM/DX before?NO If YES, when: Have you checked REVIEW or the APPT DESK to see if this referral has already been done or has visits left? YES Is this visit:Initial Visit Address of Specialist:[address] [place] [address] 3rd floor [address] [facility] Phone # of Specialist:[phone] Fax #: (if applicable):[phone] Does patient have an appointment scheduled?: YES Date of appointment- (including a retro-request): 11/02/17 Is this appointment related to: Not MVA, WC or Surgery related documented in this encounter Plan of Treatment Not on file documented as of this encounter Visit Diagnoses Not on filedocumented in this encounter Care Teams Podiatry Doctor Relationship Specialty Start Date End Date Fay Durán MD PCP - General 11/30/10 08/01/22 Shyam Ruth MD [address] [place] [address] PCP - General Internal Medicine 08/02/22 Ilda Jennings MD [address] [place] [address] Specialist Neurosurgery 04/21/23 documented as of this encounter
--- OUTSIDE RECORDS SUMMARY | 2025-09-18 13:51 | XMS_ITS | Encounter Summary ---
Author Organization [facility] Prior to 08/02/2024 Address [address] [place] [address] Care Team Providers Care Director Of Catering Sales Name Role Phone Fay Boucher MD Primary Care Provider Shyam Kelley MD Primary Care Provider Ilda Jennings MD Unavailable [phone] Encounter Details Date Type Department Care Team Description 10/19/2017 Pt. Non Urgent Medic al Question Gastroenterology - [address] [address] Sheng Brannon PA-C Social History Tobacco Use [...] in this encounter Care Teams Director Of Catering Sales Relationship Specialty Start Date End Date Fay Boucher MD PCP - General 11/30/10 08/01/22 Shyam Ruth MD [address] [place] [address] PCP - General Internal Medicine 08/02/22 Ilda Jennings MD [address] [place] [address] Specialist Neurosurgery 04/21/23 documented as of this encounter
--- OUTSIDE RECORDS SUMMARY | 2025-09-18 13:51 | XMS_ITS | Encounter Summary ---
Author Organization [facility] Prior to 08/02/2024 Address [address] [place] [address] Care Team Providers Care Leader Tier Name Role Phone Fay Boucher MD Primary Care Provider Shyam Kelley MD Primary Care Provider Ilda Jennings MD Unavailable [phone] Reason for Visit * Reason Onset Date Comments REFERRAL 06/18/2014 physiatry Encounter Details Date Type Department Care Team Description 06/18/2014 Telephone Medicine/Pediatrics - [address] [id number] Angie Farnsworth PA-C REFERRAL (physiatry) Social History Tobacco Use Types [...] Miscellaneous Notes * Telephone Encounter - Maris Lucia - 06/18/2014 1:00 PM EDT Pamela, I [...] on filedocumented in this encounter Care Teams Leader Tier Relationship Specialty Start Date End Date Fay Boucher MD PCP - General 11/30/10 08/01/22 Shyam Ruth MD [address] [place] [address] PCP - General Internal Medicine 08/02/22 Ilda Jennings MD [address] [place] [address] Specialist Neurosurgery 04/21/23 documented as of this encounter
--- OUTSIDE RECORDS SUMMARY | 2025-09-18 13:51 | XMS_ITS | Encounter Summary ---
Author Organization [facility] Prior to 08/02/2024 Address [address] [place] [address] Care Team Providers Care Poultry Process Worker Name Role Phone Fay Boucher MD Primary Care Provider Shyam Kelley MD Primary Care Provider Ilda Jennings MD Unavailable [phone] Encounter Details Date Type Department Care Team Description 05/02/2017 Emotional Support Teacher Report Medical Records [address] [place] [address] Dann Fuentes PA [address] [place] [address] Social History Tobacco Use Types Packs/Day Years [...] on filedocumented in this encounter Care Teams Poultry Process Worker Relationship Specialty Start Date End Date Fay Boucher MD PCP - General 11/30/10 08/01/22 Shyam Ruth MD [address] [place] [address] PCP - General Internal Medicine 08/02/22 Ilda Jennings MD [address] [place] [address] Specialist Neurosurgery 04/21/23 documented as of this encounter
--- OUTSIDE RECORDS SUMMARY | 2025-09-18 13:51 | XMS_ITS | Encounter Summary ---
Author Organization [facility] Prior to 08/02/2024 Address [address] [place] [address] Care Team Providers Care Excel Vba Developer Name Role Phone Fay Boucher MD Primary Care Provider Shyam Kelley MD Primary Care Provider Ilda Jennings MD Unavailable [phone] Reason for Visit * Reason Onset Date Comments [facility] Special Procedure Gi 10/20/2017 Encounter Details Date Type Department Care Team Description 10/20/2017 Telephone Gastroenterology - [address] [address] Sheng Brannon PA-C [facility] Social History Tobacco Use Types Packs/Day Years [...] encounter Miscellaneous Notes * Telephone Encounter - Marli Garvin - 11/07/2017 10:12 AM EST Procedure/pathology report placed in Sheng's incoming. * Telephone Encounter - Perlaareli Hernandez - 10/23/2017 10:39 AM EST * Telephone Encounter - Marli Garvin - 10/20/2017 11:28 AM EST Patient has been scheduled for an egd at [facility] on , 11/02/17 at 12:45 pm arrival time, 1:45 pm procedure time with dr narayanan. Booking sheet, snap shot, demographics, and insurance faxed to [facility]. Case # pending. documented in this encounter Plan of Treatment Not on file documented as of this encounter Visit Diagnoses Not on filedocumented in this encounter Care Teams Excel Vba Developer Relationship Specialty Start Date End Date Fay Boucher MD PCP - General 11/30/10 08/01/22 Shyam Ruth MD [address] [place] [address] PCP - General Internal Medicine 08/02/22 Ilda Jennings MD [address] [place] [address] [address] [place] [address] Specialist Neurosurgery 04/21/23 documented as of this encounter
== END 2025-09-18 10:50 | disposition home or self-care (01) ==
LOC: HO.MRI 10:49
PROVIDERS: PCP Internal Medicine; Visit Provider Physician Assistant
DX: M43.16 Spondylolisthesis, lumbar region (principal)
CPT/HCPCS: 72158; A9585